=== PATIENT | female | born 1945 | race Caucasian/White ===

== ENCOUNTER 2017-02-22 18:02 | Inpatient (IN) ==
[2017-02-22] MEDS ORDERED: Ondansetron 4 MG/2 ML VIAL IVP ONE ×3 (18:13→21:00)
[2017-02-22] MEDS ORDERED: *HR* Morphine 2 MG/ML SYRINGE IVP ONE ×2 (18:13→19:03)
--- NOTE | 2017-02-22 18:20 | Emergency Department Note ---
Disposition Clinical Impression: Abdominal pain Qualifiers: Abdominal location: generalized Qualified Code(s): R10.84 - Generalized abdominal pain Disposition: Still a Patient Condition: Fair Referrals: NONE,PCP [Non-Partnered Physician] - Forms: Work/School Release, ED Satisfaction Letter Abdominal Pain HPI - General Chief Complaint: ED Abdominal Pain Stated Complaint: ABD pain RLQ Time Seen by Provider: 02/22/17 18:12 Nursing Notes Reviewed: Yes Vital Signs Reviewed: Yes - History of Present Illness HPI Narrative: Presents with severe abdominal pain which started at home this morning and started in the right lower quadrant and is now generalized it does radiate to the right flank. The patient 1 week ago did have removal of a polyp as well as stretching or her esophagus through endoscopy. She does have a history of cholecystectomy but not appendectomy. He does not have any vomiting or fever, dysuria or urinary frequency, blood in the urine or stool. Social history: Smoker, no alcohol. She is here with her daughter - Related Data Home Medications Medication Instructions Recorded Confirmed Albuterol Sulfate [Albuterol 2 puff IH Q6H PRN 03/05/15 02/22/17 Inhaler] Carvedilol 25 mg PO BID 03/05/15 02/22/17 Esomeprazole Magnesium [Nexium] 40 mg PO DAILY 03/05/15 02/22/17 Melatonin [Melatin] 3 mg PO HS 03/05/15 02/22/17 Simvastatin 40 mg PO QPM 03/05/15 02/22/17 Beclomethasone Diprop 80mcg [Qvar 1 puff IH BID 05/25/16 02/22/17 80 mcg] Buspirone HCl [Buspar] 5 mg PO BID 05/25/16 02/22/17 Clopidogrel [Plavix] 75 mg PO DAILY 05/25/16 02/22/17 Ezetimibe [Zetia] 10 mg PO DAILY 05/25/16 02/22/17 GlipiZIDE XL (24 HR) [Glucotrol XL] 2.5 mg PO DAILY 05/25/16 02/22/17 Ipratropium/Albuterol Neb [Duoneb] 3 ml IH Q6HR PRN 05/25/16 02/22/17 Lipase/Protease/Amylase [Forrest Dr 6,000 unit PO ACHS 05/25/16 02/22/17 6,000 Units Capsule] Lisinopril [Zestril] 5 mg PO DAILY 05/25/16 02/22/17 Oxycodone HCl 10 mg PO Q6H PRN 05/25/16 02/22/17 Ranitidine HCl [Zantac] 150 mg PO BID 05/25/16 02/22/17 Tizanidine HCl 2 mg PO Q8H PRN 05/25/16 02/22/17 TraZODone 50 mg PO HS 05/25/16 02/22/17 Venlafaxine [Effexor] 75 mg PO BID 05/25/16 02/22/17 Warfarin [Coumadin] 2 mg PO DAILY 01/31/17 02/22/17 Doxycycline 100 mg PO BID 02/22/17 02/22/17 Furosemide [Lasix] 20 mg PO BID PRN 02/22/17 02/22/17 Mirtazapine [Remeron] 15 mg PO HS 02/22/17 02/22/17 Ranolazine [Ranexa] 500 mg PO BID 02/22/17 02/22/17 Allergies Allergy/AdvReac Type Severity Reaction Status Date / Time Latex, Natural Rubber Allergy Severe Swelling Verified 05/25/16 10:00 of Lip/Tongue/Throat Review of Systems: Constitutional: No fever Vision: No blurred vision ENT: No rhinorrhea Respiratory: No cough Allergic: No allergies : No blood in urine GI: No blood in stool Hematologic: No bruising Dermatologic: No skin rash Musculoskeletal: No pain in the extremities Neuro: No numbness of the extremities Abdominal Pain PMH - Past Medical History Medical history: Reports: atrial fibrillation, CHF, COPD, coronary artery disease, hyperlipidemia, hypertension, myocardial infarction, renal disease, TIA , other Female Surgical History: Reports: cholecystectomy, orthopedic, other [employer] history: Reports: no [employer] history Psychiatric history: Reports: anxiety, depression - Social History Smoking status: Current every day smoker Alcohol use: Reports: none Drug use: Reports: none Physical Exam CONSTITUTIONAL: Alert and oriented X3, well-nourished, well appearing, in no apparent distress HEAD: Normocephalic; atraumatic. EYES: PERRL, no scleral icterus. NOSE: The nose is normal in appearance without rhinorrhea RESP: Normal chest excursion with respiration; breath sounds clear and equal bilaterally; no wheezes, rhonchi, or rales CARD: Regular rhythm, without murmurs, rub or gallop ABD: no pulsatile abdominal mass, mild distention, no skin rash moderate generalized tenderness over the entire abdomen is soft,without rigidity, rebound or guarding SKIN: Normal for age and race; warm and dry; no apparent lesions Extremities: Dorsal pedal pulses 1+ and equal bilaterally, no lower extremity peripheral edema Course Vital Signs Temperature 97.9 F 02/22/17 18:06 Pulse Rate 77 02/22/17 18:06 Respiratory Rate 20 02/22/17 18:06 Blood Pressure 189/109 02/22/17 18:06 O2 Sat by Pulse Oximetry 98 02/22/17 18:06 Temperature 97.9 F 02/22/17 18:06 Pulse Rate 86 02/22/17 19:22 Respiratory Rate 20 02/22/17 19:17 Blood Pressure 173/142 02/22/17 19:22 O2 Sat by Pulse Oximetry 96 02/22/17 19:17 Oxygen Delivery Oxygen Delivery Nasal Cannula Abdominal Pain - MDM Narrative Medical decision making narrative: bedside ultrasound was nondiagnostic, the patient did have a CT of the abdomen in December which does not show evidence of abdominal aortic aneurysm. The patient will have a emergent noncontrast CT, labs including lactate, IV fluids, IV pain medicine with morphine and Zofran, results are pending. Concern for perforation. [address] is not yet completed. She did require a second dose of IV narcotic medicine. Care will be transitioned to Dr. Mcdonald and we did discuss the case in excess care the patient. 1923 - Medical Records Medical records reviewed: Yes I reviewed the patient's medical records. - Lab Data Lab results reviewed: Yes I reviewed the patient's lab results. Result diagrams: 02/22/17 18:27 Lab Results 02/22/17 02/22/17 Range/Units 18:27 18:27 WBC 15.0 H (4.3-11.1) K/mcL RBC 4.58 (3.82-4.97) M/mcL Hgb 13.4 (11.5-15.4) g/dL Hct 42.2 (35.3-44.9) % MCV 92.1 (83.0-100.0) fL MCH 29.3 (28.0-33.3) pg MCHC 31.8 (31.6-35.5) g/dL RDW 15.4 H (11.5-14.5) % Plt Count 267 (140-400) K/mcL MPV 9.7 (9.4-12.4) fL Immature Gran % 1.1 (0-4) % Seg Neutrophils % 81.1 % Lymphocytes % 9.4 % Monocytes % 7.0 % Eosinophils % 1.1 % Basophils % 0.3 % Neutrophils # 12.2 H (1.6-8.9) K/mcL Lymphocytes # 1.4 (0.6-4.6) K/mcL Monocytes # 1.1 (0.0-1.3) K/mcL Eosinophils # 0.2 (0.0-0.6) K/mcL Basophils # 0.1 (0.0-0.2) K/mcL Immature Plt Fraction 3.5 (1.1-6.1) % Lactic Acid 1.4 (0.5-2.2) mmol/L
[2017-02-22 18:40] LABS: Basophils # 0.1 K/mcL (0.0-0.2); Basophils % 0.3 %; Eosinophils # 0.2 K/mcL (0.0-0.6); Eosinophils % 1.1 %; Hematocrit 42.2 % (35.3-44.9); Hemoglobin 13.4 g/dL (11.5-15.4); Immature Granulocytes % 1.1 % (0-4); Immature Platelets 3.5 % (1.1-6.1); Lymphocytes # 1.4 K/mcL (0.6-4.6); Lymphocytes % 9.4 %; Mean Corpuscular HGB Conc 31.8 g/dL (31.6-35.5); Mean Corpuscular Hemoglobin 29.3 pg (28.0-33.3); Mean Corpuscular Volume 92.1 fL (83.0-100.0); Mean Platelet Volume 9.7 fL (9.4-12.4); Monocytes # 1.1 K/mcL (0.0-1.3); Neutrophils # 12.2 K/mcL (1.6-8.9); Platelet Count 267 K/mcL (140-400); Red Blood Count 4.58 M/mcL (3.82-4.97); Red Cell Distribution Width 15.4 % (11.5-14.5); Segmented Neutrophils % 81.1 %
[2017-02-22] MEDS ORDERED: *HR* HYDROmorphone (PF) 1 MG/ML SYRINGE IVP ONE ×2 (19:35→21:13)
[2017-02-22] MEDS ORDERED: 0.9 % Sodium Chloride 1,000 ML IVC ONE (20:40)
--- NOTE | 2017-02-22 20:42 | Emergency Department Note ---
Disposition Clinical Impression: Partial small bowel obstruction Abdominal pain Qualifiers: Abdominal location: generalized Qualified Code(s): R10.84 - Generalized abdominal pain Atrial fibrillation Qualifiers: Atrial fibrillation type: chronic Qualified Code(s): I48.2 - Chronic atrial fibrillation Disposition: Admitted As Inpatient Condition: Serious Time of Disposition: 20:42 Abdominal Pain HPI - General Chief Complaint: ED Abdominal Pain Stated Complaint: ABD pain RLQ Time Seen by Provider: 02/22/17 18:12 Source: patient Mode of arrival: ambulatory Limitations: no limitations Nursing Notes Reviewed: Yes Vital Signs Reviewed: Yes - History of Present Illness Pain Scale: 9 - Related Data Home Medications Medication Instructions Recorded Confirmed Albuterol Sulfate [Albuterol 2 puff IH Q6H PRN 03/05/15 02/22/17 Inhaler] Carvedilol 25 mg PO BID 03/05/15 02/22/17 Esomeprazole Magnesium [Nexium] 40 mg PO DAILY 03/05/15 02/22/17 Melatonin [Melatin] 3 mg PO HS 03/05/15 02/22/17 Simvastatin 40 mg PO QPM 03/05/15 02/22/17 Beclomethasone Diprop 80mcg [Qvar 1 puff IH BID 05/25/16 02/22/17 80 mcg] Buspirone HCl [Buspar] 5 mg PO BID 05/25/16 02/22/17 Clopidogrel [Plavix] 75 mg PO DAILY 05/25/16 02/22/17 Ezetimibe [Zetia] 10 mg PO DAILY 05/25/16 02/22/17 GlipiZIDE XL (24 HR) [Glucotrol XL] 2.5 mg PO DAILY 05/25/16 02/22/17 Ipratropium/Albuterol Neb [Duoneb] 3 ml IH Q6HR PRN 05/25/16 02/22/17 Lipase/Protease/Amylase [Creon Dr 6,000 unit PO ACHS 05/25/16 02/22/17 6,000 Units Capsule] Lisinopril [Zestril] 5 mg PO DAILY 05/25/16 02/22/17 Oxycodone HCl 10 mg PO Q6H PRN 05/25/16 02/22/17 Ranitidine HCl [Zantac] 150 mg PO BID 05/25/16 02/22/17 Tizanidine HCl 2 mg PO Q8H PRN 05/25/16 02/22/17 TraZODone 50 mg PO HS 05/25/16 02/22/17 Venlafaxine [Effexor] 75 mg PO BID 05/25/16 02/22/17 Warfarin [Coumadin] 2 mg PO DAILY 01/31/17 02/22/17 Doxycycline 100 mg PO BID 02/22/17 02/22/17 Furosemide [Lasix] 20 mg PO BID PRN 02/22/17 02/22/17 Mirtazapine [Remeron] 15 mg PO HS 02/22/17 02/22/17 Ranolazine [Ranexa] 500 mg PO BID 02/22/17 02/22/17 Allergies Allergy/AdvReac Type Severity Reaction Status Date / Time Latex, Natural Rubber Allergy Severe Swelling Verified 05/25/16 10:00 of Lip/Tongue/Throat Abdominal Pain PMH - Past Medical History Medical history: Reports: atrial fibrillation, CHF, COPD, coronary artery disease, hyperlipidemia, hypertension, myocardial infarction, renal disease, TIA , other Female Surgical History: Reports: cholecystectomy, orthopedic, other [employer]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 Damon his documentation for further information about the patient. Lower quadrant abdominal pain started today. Recent esophageal dilitation. Vital signs with elevated blood pressure, improved after pain medication, abdominal exam shows moderate tenderness to palpation, patient has CT evidence of possible small bowel obstruction, landed admitted to medicine service Dr. Deluca accepts we will place NG tube in the emergency department, I did vocational counselor Dr. Mcmillan services while he discussed NG tube placement he will be available for surgical consultation at the time of exam patient is not peritoneal she is reevaluated after dose of Dilaudid Vital Signs Temperature 97.9 F 02/22/17 18:06 Pulse Rate 77 02/22/17 18:06 Respiratory Rate 20 02/22/17 18:06 Blood Pressure 189/109 02/22/17 18:06 O2 Sat by Pulse Oximetry 98 02/22/17 18:06 Temperature 97.9 F 02/22/17 18:06 Pulse Rate 69 02/22/17 19:38 Respiratory Rate 18 02/22/17 19:38 Blood Pressure 174/95 02/22/17 19:38 O2 Sat by Pulse Oximetry 99 02/22/17 19:38 Oxygen Delivery Oxygen Delivery Nasal Cannula Abdominal Pain - Differential Diagnosis Differential Diagnosis: Likely: abdominal pain non-specific, constipation, small bowel obstruction - Medical Records Medical records reviewed: Yes I reviewed the patient's medical records. - Lab Data Lab results reviewed: Yes I reviewed the patient's lab results. Result diagrams: 02/22/17 18:27 02/22/17 18:27 Lab Results 02/22/17 02/22/17 02/22/17 Range/Units 18:27 18:27 18:27 WBC 15.0 H (4.3-11.1) K/mcL RBC 4.58 (3.82-4.97) M/mcL Hgb 13.4 (11.5-15.4) g/dL Hct 42.2 (35.3-44.9) % MCV 92.1 (83.0-100.0) fL MCH 29.3 (28.0-33.3) pg MCHC 31.8 (31.6-35.5) g/dL RDW 15.4 H (11.5-14.5) % Plt Count 267 (140-400) K/mcL MPV 9.7 (9.4-12.4) fL Immature Gran % 1.1 (0-4) % Seg Neutrophils % 81.1 % Lymphocytes % 9.4 % Monocytes % 7.0 % Eosinophils % 1.1 % Basophils % 0.3 % Neutrophils # 12.2 H (1.6-8.9) K/mcL Lymphocytes # 1.4 (0.6-4.6) K/mcL Monocytes # 1.1 (0.0-1.3) K/mcL Eosinophils # 0.2 (0.0-0.6) K/mcL Basophils # 0.1 (0.0-0.2) K/mcL Immature Plt Fraction 3.5 (1.1-6.1) % PT (9.4-12.1) Seconds INR Sodium 137 (136-145) mEq/L Potassium 4.4 (3.5-4.5) mEq/L Chloride 101 (98-109) mEq/L Carbon Dioxide 23 (19-29) mEq/L BUN 30 H (7-20) mg/dL Creatinine 1.08 (0.57-1.11) mg/dL Est GFR ( Amer) > 60 (> 60) Est GFR (Non-Af Amer) 50 L (> 60) BUN/Creatinine Ratio 28 H (6-26) Glucose 125 H (70-99) mg/dL Calculated Osmolality 292 (280-300) Lactic Acid 1.4 (0.5-2.2) mmol/L Calcium 10.2 (8.6-10.8) mg/dL Total Bilirubin 0.7 (0.2-1.2) mg/dL Direct Bilirubin 0.4 (0.0-0.5) mg/dL Indirect Bilirubin 0.3 (0.0-1.2) mg/dL AST 18 (5-34) Units/L ALT 9 (0-55) Units/L Alkaline Phosphatase 92 (38-126) Units/L Serum Total Protein 7.8 (6.0-8.3) g/dL Albumin 3.8 (3.5-5.0) g/dL Globulin 4.0 H (2.4-3.5) g/dL Albumin/Globulin Ratio 1.0 L (1.1-2.2) Lipase 36 (8-78) Units/L // Range/Units 18:27 WBC (4.3-11.1) K/mcL RBC (3.82-4.97) M/mcL Hgb (11.5-15.4) g/dL Hct (35.3-44.9) % MCV (83.0-100.0) fL MCH (28.0-33.3) pg MCHC (31.6-35.5) g/dL RDW (11.5-14.5) % Plt Count (140-400) K/mcL MPV (9.4-12.4) fL Immature Gran % (0-4) % Seg Neutrophils % % Lymphocytes % % Monocytes % % Eosinophils % % Basophils % % Neutrophils # (1.6-8.9) K/mcL Lymphocytes # (0.6-4.6) K/mcL Monocytes # (0.0-1.3) K/mcL Eosinophils # (0.0-0.6) K/mcL Basophils # (0.0-0.2) K/mcL Immature Plt Fraction (1.1-6.1) % PT 31.9 H (9.4-12.1) Seconds INR 2.9 Sodium (136-145) mEq/L Potassium (3.5-4.5) mEq/L Chloride (98-109) mEq/L Carbon Dioxide (19-29) mEq/L BUN (7-20) mg/dL Creatinine (0.57-1.11) mg/dL Est GFR ( Amer) (> 60) Est GFR (Non-Af Amer) (> 60) BUN/Creatinine Ratio (6-26) Glucose (70-99) mg/dL Calculated Osmolality (280-300) Lactic Acid (0.5-2.2) mmol/L Calcium (8.6-10.8) mg/dL Total Bilirubin (0.2-1.2) mg/dL Direct Bilirubin (0.0-0.5) mg/dL Indirect Bilirubin (0.0-1.2) mg/dL AST (5-34) Units/L ALT (0-55) Units/L Alkaline Phosphatase (38-126) Units/L Serum Total Protein (6.0-8.3) g/dL Albumin (3.5-5.0) g/dL Globulin (2.4-3.5) g/dL Albumin/Globulin Ratio (1.1-2.2) Lipase (8-78) Units/L - Radiology Data Radiology results reviewed: Yes I reviewed the patient's radiology results. Abdomen/Pelvis CT 02/22/17 18:14 IMPRESSION: Ascites Multiple stable renal lesions Disproportionate small-bowel distention extending to the distal 3rd of the ileum. Findings raise the question of a developing small bowel obstruction with transition in the ileum. There is mild stranding in the fat adjacent to multiple pelvic small bowel loops. Basilar interstitial prominence again noted with fibrotic change in the lingula. Caliber change in the posterior duodenum centered on image 49. This is indeterminate without defined mass. D/ / Rosendo Nelson / Rosendo Nelson Interpreting Provider: Rosendo Nelson Attestation Statement - Attestation Attestation: I, Kris Mcdonald MD, personally evaluated this patient and discussed their management with the resident physician. I reviewed the resident's note and agree with the documented findings, medical decision making, and plan of care. This patient was signed out at shift change from Dr. Damon. Please refer to his note for complete details of the history and physical examination. At shift change patient is awaiting test results and a CT of the abdomen and pelvis. Patient is a 71-year-old female who recently had an upper endoscopy and presented complaining of abdominal pain with dry heaves. On examination patient is a cachectic elderly female in no acute distress. She appears chronically ill. There is no cyanosis or diaphoresis. Breath sounds are decreased but clear and equal bilaterally. Heart regular rate and rhythm. Abdomen is soft with decreased bowel sounds. There is moderate diffuse tenderness. Mild guarding but no rebound tenderness. Labs reviewed. Leukocytosis noted. CT showed a possible early small bowel obstruction. Dr. Cruz discussed with the surgeon manager personal, Dr. Mcmillan, and he recommended admission by the hospitalist and he will consult on the patient. The hospitalist, Dr. Deluca, was consulted and accepted admission of the patient.
[2017-02-22 20:49] LABS: Alanine Aminotransferase 9 Units/L (0-55); Albumin 3.8 g/dL (3.5-5.0); Alkaline Phosphatase 92 Units/L (38-126); Aspartate Amino Transferase 18 Units/L (5-34); BUN/Creatinine Ratio 28 (6-26); Bilirubin,Direct 0.4 mg/dL (0.0-0.5); Bilirubin,Indirect 0.3 mg/dL (0.0-1.2); Bilirubin,Total 0.7 mg/dL (0.2-1.2); Blood Urea Nitrogen 30 mg/dL (7-20); Calcium 10.2 mg/dL (8.6-10.8); Carbon Dioxide 23 mEq/L (19-29); Chloride 101 mEq/L (98-109); Glucose 125 mg/dL (70-99); Lipase 36 Units/L (8-78); Osmolality,Calculated 292 (280-300); Potassium 4.4 mEq/L (3.5-4.5); Sodium 137 mEq/L (136-145); Total Protein 7.8 g/dL (6.0-8.3); eGFR For African Americans > 60 (> 60); eGFR For Non-African Americans 50 (> 60)
[2017-02-22 20:57] LABS: INR 2.9; Prothrombin Time 31.9 Seconds (9.4-12.1)
[2017-02-22] MEDS ORDERED: Ondansetron 4 MG/2 ML VIAL IVP PRN (21:52)
[2017-02-22] MEDS ORDERED: Naloxone 0.4 MG/ML INJ IVP PRN (21:52)
--- NOTE | 2017-02-22 22:29 | Internal Med History&Physical ---
Date of Encounter: 02/22/17 Time of Encounter: 22:15 Assessment and Plan (1) Partial small bowel obstruction Current visit: Yes Status: Acute Acute partial small bowel obstruction - causing severe abdominal pain and nausea NPO, IV fluids, IV Morphine as needed, IV Zofran, IV Protonix NG tube to low intermittent suction CT abdomen and pelvis - ascites, stable renal lesions, possible developing small bowel obstruction with transition in the ileum, basilar interstitial prominence with fibrotic change in the lingula Gen. surgery consult Cardiac telemetry, labs in a.m., continue to monitor closely (2) Atrial fibrillation Current visit: Yes Status: Chronic Chronic atrial fibrillation - rate controlled Continue home medications including carvedilol Anticoagulation with Coumadin, INR is therapeutic Qualifiers: Atrial fibrillation type: chronic Qualified Code(s): I48.2 - Chronic atrial fibrillation (3) COPD (chronic obstructive pulmonary disease) Current visit: No Status: Chronic COPD, stable - nontender exacerbation DuoNeb breathing treatment as needed, continue Beclomethasone Continue O2 via nasal cannula Qualifiers: COPD type: unspecified COPD Qualified Code(s): J44.9 - Chronic obstructive pulmonary disease, unspecified (4) Congestive heart failure Current visit: No Status: Chronic CHF, diastolic dysfunction LVEF 55% - nontender exacerbation Severe tricuspid regurgitation, moderate pulmonary hypertension Continue home meds Qualifiers: Congestive heart failure type: diastolic Congestive heart failure chronicity: chronic Qualified Code(s): I50.32 - Chronic diastolic (congestive ) heart failure (5) CAD (coronary artery disease) Current visit: No Status: Chronic Coronary artery disease status post stents - stable Continue Plavix, statin EKG - pending Troponin - pending Qualifiers: Coronary Disease-Associated Artery/Lesion type: [place] artery [place] vs. transplanted heart: [place] heart Associated angina: without angina Qualified Code(s): I25.10 - Atherosclerotic heart disease of [place] coronary artery without angina pectoris (6) Hypertension Current visit: No Status: Chronic Essential hypertension, uncontrolled, continue home meds, monitor IV hydralazine as needed Qualifiers: Hypertension type: essential hypertension Qualified Code(s): I10 - Essential (primary) hypertension (7) Schatzki's ring Current visit: No Status: Chronic History of Schatzki's ring at the GE junction - s/p recent esophageal dilatation as per family (8) Tobacco abuse Current visit: No Status: Chronic Patient smokes about one pack per day, counseled about cessation, nicotine patch (9) DVT prophylaxis Current visit: Yes Status: Acute Continue anticoagulation with Coumadin INR is therapeutic Internal Medicine - H&P: HPI Chief complaint: Abdominal pain Admitted From: Emergency Dept Plans for Post Hospital Care: Home History of present illness: Ms. [place] is a 71 year old female with PMH of A.fib, CHF, COPD, CAD s/p stents, HLD, HTN, s/p PPM, CKD, anxiety, depression, mitral insufficiency, colonic AVM at the hepatic flexure, atrophic gastritis, diverticulosis, Schatzki's ring at the GE junction status post dilatation and chronic anemia. Patient presents to the ED with complaints of abdominal pain. Examined in the room. Patient is awake and alert. Not in any distress. She is in discomfort due to abdominal pain. Patient is able to provide history. Daughter and niece are at bedside and they provide history as well. Patient states she developed sudden severe abdominal pain this morning. It initially started in the right lower quadrant and now seems to be generalized. Pain seems to radiate to right flank. She describes the pain as constant and cramping and sharp at times. Rates it 7 out of 10. No aggravating or alleviating factors. Patient does complain of associated nausea but no vomiting. Denies fever and denies diarrhea. Patient denies chest pain or shortness of breath. No headache or dizziness. No other acute complaints. Daughter states patient had a recent EGD done. She does have a history of esophageal stenosis and she required dilatation as well recently. Patient also had a polyp removal recently. Initial workup in the ED is significant for elevated white count, therapeutic INR and CT of the abdomen and pelvis without contrast revealed ascites with possible developing small bowel obstruction with transition in the ileum. No other significant findings. ED physician has discussed with on-call general surgeon Dr. Mcmillan. NG tube with intermittent suction will be continued. Patient will be on IV pain control and IV Protonix and IV Zofran. CODE STATUS full code. Past Med Surg Social Fam HX - Past Medical History Medical history: atrial fibrillation, CHF, COPD, coronary artery disease, hyperlipidemia, hypertension, myocardial infarction, renal disease, TIA, other Psychiatric history: anxiety, depression - Past Surgical History Surgical History: angioplasty/stent, other - Social History Smoking Status: Current every day smoker Smokeless Tobacco Status: No Alcohol use: none Drug use: none - Family History Mother Hx Family Neuromuscular Disorders: Yes (epilipsy) Internal Medicine - H&P: Meds Albuterol Sulfate [Albuterol Inhaler] 2 puff IH Q6H PRN 03/05/15 [History] Carvedilol 25 mg PO BID 03/05/15 [History] Esomeprazole Magnesium [Nexium] 40 mg PO DAILY 03/05/15 [History] Melatonin [Melatin] 3 mg PO HS 03/05/15 [History] Simvastatin 40 mg PO QPM 03/05/15 [History] Beclomethasone Diprop 80mcg [Qvar 80 mcg] 1 puff IH BID 05/25/16 [History] Buspirone HCl [Buspar] 5 mg PO BID 05/25/16 [History] Clopidogrel [Plavix] 75 mg PO DAILY 05/25/16 [History] Ezetimibe [Zetia] 10 mg PO DAILY 05/25/16 [History] GlipiZIDE XL (24 HR) [Glucotrol XL] 2.5 mg PO DAILY 05/25/16 [History] Ipratropium/Albuterol Neb [Duoneb] 3 ml IH Q6HR PRN 05/25/16 [History] Lipase/Protease/Amylase [Creon Dr 6,000 Units Capsule] 6,000 unit PO ACHS [History] Lisinopril [Zestril] 5 mg PO DAILY 05/25/16 [History] Oxycodone HCl 10 mg PO Q6H PRN 05/25/16 [History] Ranitidine HCl [Zantac] 150 mg PO BID 05/25/16 [History] Tizanidine HCl 2 mg PO Q8H PRN 05/25/16 [History] TraZODone 50 mg PO HS 05/25/16 [History] Venlafaxine [Effexor] 75 mg PO BID 05/25/16 [History] Warfarin [Coumadin] 2 mg PO DAILY 01/31/17 [History] Doxycycline 100 mg PO BID 02/22/17 [History] Furosemide [Lasix] 20 mg PO BID PRN 02/22/17 [History] Mirtazapine [Remeron] 15 mg PO HS 02/22/17 [History] Ranolazine [Ranexa] 500 mg PO BID 02/22/17 [History] 3 Allergy/AdvReac Type Severity Reaction Status Date / Time Latex, Natural Rubber Allergy Severe Swelling Verified 05/25/16 10:00 of Lip/Tongue/Throat All Systems PM: A 10-system review of systems was performed and is negative for pertinent findings except as documented above in the HPI. - Constitutional Constitutional: fatigue, weakness, no fever(s) - EENT Eyes: no blurry vision - Cardiovascular Cardiovascular ROS IM: no chest pain, no diaphoresis, no dyspnea, no dyspnea on exertion, no edema, no lightheadedness, no orthopnea, no palpitations, no syncope - Respiratory Respiratory: no cough, no dyspnea, no hemoptysis, no dyspnea on exertion, no wheezing, no chest congestion - Gastrointestinal Gastrointestinal: abdominal pain, bloating, cramping, dysphagia, nausea, no constipation, no diarrhea, no hematemesis, no hematochezia, no melena, no vomiting - Musculoskeletal Musculoskeletal ROS IM: no back pain - Neurological Neurological ROS: no abnormal gait, no confusion, no dizziness, no loss of vision, no numbness, no tingling - Constitutional Vitals: Temp Pulse Resp BP Pulse Ox 97.9 F 69 18 160/90 99 02/22/17 18:06 02/22/17 19:38 02/22/17 22:12 02/22/17 22:12 02/22/17 19:38 General appearance: Present: A&O X 3, pleasant, no acute distress, underweight, answers questions appropriately Exam: Generalized weakness, chronically ill-appearing, in discomfort due to abdominal pain - Head Head exam: Present: atraumatic - Eye Eye exam: Present: EOMI - ENT ENT exam: Present: mucous membranes dry - Respiratory Respiratory exam: Present: CTAB. Absent: rales, rhonchi, wheezes, tachypnea - Cardiovascular Cardiovascular exam: Present: irregular rhythm, +S1, +S2 - GI/Abdominal GI/Abdominal exam: Present: distended (Slightly distended), soft, tenderness ( Generalized tenderness). Absent: firm, guarding, rigid - Extremities Exam Extremities exam: Present: radial pulses palpable and symmetrical. Absent: calf tenderness, cyanotic, pedal edema - Neurological Exam Neurological exam: Present: alert, oriented X3, no focal deficits. Absent: facial droop, speech deficit Internal Med - H&P Results - Labs CBC & Chem 7: 02/22/17 18:27 02/22/17 18:27
[2017-02-22] MEDS: *HR* Morphine 2 MG/ML SYRINGE IVP PRN (23:09)
[2017-02-22] MEDS ORDERED: D5% in Water 1,000 ML IVC PRN (23:18)
[2017-02-22] MEDS ORDERED: *HR* Dextrose 50 % in Water (Syg) 50 ML SYRINGE IVP PRN (23:18)
[2017-02-22] MEDS ORDERED: Dextrose Gel 15 GM PO PRN ×2 (23:18)
[2017-02-22] MEDS: Nicotine 14 MG PATCH.TD24 TD SCH (23:51)
[2017-02-22] MEDS: Pantoprazole 40 MG VIAL IVP SCH (23:51)
[2017-02-23] MEDS: Insulin LISPRO 300 UNITS/3 ML VIAL SQ SCH ×4 (00:45→18:06)
[2017-02-23 00:51] LABS: Basophils % 0.2 %; Eosinophils % 0.1 %; Hematocrit 43.8 % (35.3-44.9); Hemoglobin 13.9 g/dL (11.5-15.4); Immature Granulocytes % 0.7 % (0-4); Immature Platelets 3.6 % (1.1-6.1); Lymphocytes # 0.9 K/mcL (0.6-4.6); Lymphocytes % 4.4 %; Mean Corpuscular HGB Conc 31.7 g/dL (31.6-35.5); Mean Corpuscular Hemoglobin 29.4 pg (28.0-33.3); Mean Corpuscular Volume 92.8 fL (83.0-100.0); Mean Platelet Volume 9.7 fL (9.4-12.4); Monocytes # 0.8 K/mcL (0.0-1.3); Monocytes % 4.2 %; Neutrophils # 17.7 K/mcL (1.6-8.9); Platelet Count 281 K/mcL (140-400); Red Blood Count 4.72 M/mcL (3.82-4.97); Red Cell Distribution Width 15.3 % (11.5-14.5); Segmented Neutrophils % 90.4 %
[2017-02-23 01:08] LABS: BUN/Creatinine Ratio 29 (6-26); Blood Urea Nitrogen 30 mg/dL (7-20); Calcium 9.7 mg/dL (8.6-10.8); Carbon Dioxide 22 mEq/L (19-29); Chloride 104 mEq/L (98-109); Glucose 197 mg/dL (70-99); Magnesium 1.2 mg/dL (1.6-2.6); Osmolality,Calculated 298 (280-300); Potassium 4.7 mEq/L (3.5-4.5); Sodium 138 mEq/L (136-145); eGFR For African Americans > 60 (> 60); eGFR For Non-African Americans 53 (> 60)
[2017-02-23] MEDS ORDERED: Ketorolac 15 MG/ML VIAL IVP ONE ×2 (01:10→02:00)
[2017-02-23] MEDS: Ipratropium/Albuterol Neb 3 ML IH SCH ×4 (03:26→22:15)
[2017-02-23] MEDS: *HR* Morphine 2 MG/ML SYRINGE IVP PRN ×3 (03:28→11:59)
[2017-02-23] MEDS: 0.9 % Sodium Chloride 1,000 ML IVC SCH ×2 (05:33→10:27)
[2017-02-23] MEDS: Pantoprazole 40 MG VIAL IVP SCH (07:33)
[2017-02-23] MEDS: (Ezetimibe [Zetia] 10 MG) PO SCH (07:54)
[2017-02-23] MEDS: Ranolazine 500 MG TAB.ER.12H PO SCH ×2 (07:54→21:21)
[2017-02-23] MEDS: Nicotine 14 MG PATCH.TD24 TD SCH (07:54)
--- NOTE | 2017-02-23 08:49 | General Surgery Consult Note ---
Date of Encounter: 02/24/17 Time of Encounter: 08:47 Assessment and Plan (1) Partial small bowel obstruction Current Visit: Yes Status: Acute I explained to the patient that I personally reviewed the CT scan images and laboratory results noting signs of either PSBO or ileus. I agree with NGT decompression and serial abdominal exam. Noted rise in WBC which may be due to stress of pain, however we will watch closely. Agree with IVF hydration and pain control. Discussed with patient and family that other options would be to order a SBF which I will hold on at this time. Will continue to follow with you. History of Present Illness Consult date: 02/23/17 Reason for consult: other (Abdominal pain with nausea) Requesting physician: Brittany Trent History of present illness: The patient is a 71 year old female with a past medical history significant for COPD, CAD, MA, and hypertension who presents to [facility] with a 1 day history of right sided and lower abdominal pain with associated nausea. She States that the pain is constant and sharp and occurred spontaneously yesterday. She denies any recent trauma and denies any diarrhea or constipation. She normally has a BM 1/day and her last BM was two days ago. Past Med Surg Social Fam HX - Past Medical History Medical history: atrial fibrillation, CHF, COPD, coronary artery disease, hyperlipidemia, hypertension, myocardial infarction, renal disease, TIA, other Psychiatric history: anxiety, depression - Past Surgical History Surgical History: angioplasty/stent, cholecystectomy, other (Partial hysterectomy, ankle surgery, bilateral shoulder surgery) - Social History Smoking Status: Current every day smoker Smokeless Tobacco Status: No Alcohol use: none Drug use: none - Family History Mother Hx Family Neuromuscular Disorders: Yes (epilipsy) Medications and Allergies Albuterol Sulfate [Albuterol Inhaler] 2 puff IH Q6H PRN 03/05/15 [History] Carvedilol 25 mg PO BID 03/05/15 [History] Esomeprazole Magnesium [Nexium] 40 mg PO DAILY 03/05/15 [History] Melatonin [Melatin] 3 mg PO HS 03/05/15 [History] Simvastatin 40 mg PO QPM 03/05/15 [History] Beclomethasone Diprop 80mcg [Qvar 80 mcg] 1 puff IH BID 05/25/16 [History] Buspirone HCl [Buspar] 5 mg PO BID 05/25/16 [History] Clopidogrel [Plavix] 75 mg PO DAILY 05/25/16 [History] Ezetimibe [Zetia] 10 mg PO DAILY 05/25/16 [History] GlipiZIDE XL (24 HR) [Glucotrol XL] 2.5 mg PO DAILY 05/25/16 [History] Ipratropium/Albuterol Neb [Duoneb] 3 ml IH Q6HR PRN 05/25/16 [History] Lipase/Protease/Amylase [Forrest Dr 6,000 Units Capsule] 6,000 unit PO ACHS [History] Lisinopril [Zestril] 5 mg PO DAILY 05/25/16 [History] Oxycodone HCl 10 mg PO Q6H PRN 05/25/16 [History] Ranitidine HCl [Zantac] 150 mg PO BID 05/25/16 [History] Tizanidine HCl 2 mg PO Q8H PRN 05/25/16 [History] TraZODone 50 mg PO HS 05/25/16 [History] Venlafaxine [Effexor] 75 mg PO BID 05/25/16 [History] Warfarin [Coumadin] 2 mg PO DAILY 01/31/17 [History] Doxycycline 100 mg PO BID 02/22/17 [History] Furosemide [Lasix] 20 mg PO BID PRN 02/22/17 [History] Mirtazapine [Remeron] 15 mg PO HS 02/22/17 [History] Ranolazine [Ranexa] 500 mg PO BID 02/22/17 [History] 3 Allergy/AdvReac Type Severity Reaction Status Date / Time Latex, Natural Rubber Allergy Severe Swelling Verified 05/25/16 10:00 of Lip/Tongue/Throat Review of Systems All systems PM: reviewed and no additional remarkable complaints except as stated All systems PM: A 10-system review of systems was performed and is negative for pertinent findings except as documented above in the HPI. General Surgery Exam Initial Vital Signs Temp Pulse Resp BP Pulse Ox 97.9 F 77 20 189/109 98 02/22/17 18:06 02/22/17 18:06 02/22/17 18:06 02/22/17 18:06 02/22/17 18:06 - General physical appearance severe distress - Eyes PERRL, normal ocular movement - Neck no masses, trachea midline, no lymphadectomy - Respiratory normal expansion, normal respiratory effort wheezing: bilateral - Abdomen Abdomen general surgery: Present: bowel sounds present, soft, tender ( positive pain to palpation in the RLQ>LLQ. No tympany. No masses.) - Neurologic Present: CN 2-12 grossly intact - Musculoskeletal Present: other (No clubbing, cyanosis, or edema) - Psychiatric Psychiatric general surgery: Present: A&Ox3, oriented to person, oriented to place Exam Initial Vital Signs Temp Pulse Resp BP Pulse Ox 97.9 F 77 20 189/109 98 02/22/17 18:06 02/22/17 18:06 02/22/17 18:06 02/22/17 18:06 02/22/17 18:06 Results - Labs 02/24/17 06:08 02/24/17 06:08 Abnormal lab results WBC 19.6 K/mcL (4.3-11.1) H 02/23/17 00:42 RDW 15.3 % (11.5-14.5) H 02/23/17 00:42 Neutrophils # 17.7 K/mcL (1.6-8.9) H 02/23/17 00:42 PT 31.9 Seconds (9.4-12.1) H 02/22/17 18:27 Potassium 4.7 mEq/L (3.5-4.5) H 02/23/17 00:42 BUN 30 mg/dL (7-20) H 02/23/17 00:42 Est GFR (Non-Af Amer) 53 (> 60) L 02/23/17 00:42 BUN/Creatinine Ratio 29 (6-26) H 02/23/17 00:42 Glucose 197 mg/dL (70-99) H 02/23/17 00:42 POC Glucose 137 (58-89) H 02/23/17 05:41 Magnesium 1.2 mg/dL (1.6-2.6) L 02/23/17 00:42 Globulin 4.0 g/dL (2.4-3.5) H 02/22/17 18:27 Albumin/Globulin Ratio 1.0 (1.1-2.2) L 02/22/17 18:27 Diabetes panel 02/23/17 Range/Units 00:42 Sodium 138 (136-145) mEq/L Potassium 4.7 H (3.5-4.5) mEq/L Chloride 104 (98-109) mEq/L Carbon Dioxide 22 (19-29) mEq/L BUN 30 H (7-20) mg/dL Creatinine 1.03 (0.57-1.11) mg/dL Glucose 197 H (70-99) mg/dL Calcium 9.7 (8.6-10.8) mg/dL Calcium panel 02/23/17 Range/Units 00:42 Calcium 9.7 (8.6-10.8) mg/dL Pituitary panel 02/23/17 Range/Units 00:42 Sodium 138 (136-145) mEq/L Potassium 4.7 H (3.5-4.5) mEq/L Chloride 104 (98-109) mEq/L Carbon Dioxide 22 (19-29) mEq/L BUN 30 H (7-20) mg/dL Creatinine 1.03 (0.57-1.11) mg/dL Glucose 197 H (70-99) mg/dL Calcium 9.7 (8.6-10.8) mg/dL Adrenal panel 02/23/17 Range/Units 00:42 Sodium 138 (136-145) mEq/L Potassium 4.7 H (3.5-4.5) mEq/L Chloride 104 (98-109) mEq/L Carbon Dioxide 22 (19-29) mEq/L BUN 30 H (7-20) mg/dL Creatinine 1.03 (0.57-1.11) mg/dL Glucose 197 H (70-99) mg/dL Calcium 9.7 (8.6-10.8) mg/dL All other labs normal. - Imaging CT scan - abdomen: report reviewed, image reviewed (Noted mild dilation of the small bowel. No free air or fluid. Consistent with SBO vs ileus) Consult Discharge Plan - Plan Referrals: Jeff Cervantes MD [Primary Care Provider] -
[2017-02-23] MEDS: *HR* HYDROmorphone (PF) 1 MG/ML SYRINGE IVP PRN ×3 (08:51→19:36)
[2017-02-23] MEDS: MetroNIDAZOLE 500 MG/100 ML 500 MG/100 ML BAG IVPB SCH ×2 (08:51→19:33)
[2017-02-23 09:20] LABS: INR 3.1; Prothrombin Time 34.3 Seconds (9.4-12.1)
[2017-02-23 10:13] LABS: Hemoglobin A1C 5.8 %
[2017-02-23] MEDS: Magnesium Sulfate 2 GM in D5% in Water 100 ML IVPB SCH ×2 (10:20→12:25)
[2017-02-23] MEDS: Beclomethasone 80mcg MDI IH SCH ×2 (10:26→22:15)
--- NOTE | 2017-02-23 14:24 | Internal Med Progress Note ---
Date of Encounter: 02/23/17 Time of Encounter: 14:22 - Assessment and plan (1) Partial small bowel obstruction Current Visit: Yes Status: Acute Assessment and plan: Abd pain secondary to partial SBO continue NGT decompression NPO IV fluids with caution given history of CHF, closely monitor for volume overload aggressive pain control surgery on board and consultation appreciated will closely monitor (2) Abdominal pain Current Visit: Yes Status: Acute Assessment and plan: as listed above Qualifiers: Abdominal location: generalized Qualified Code(s): R10.84 - Generalized abdominal pain (3) PNA (pneumonia) Current Visit: Yes Status: Acute Assessment and plan: imaging findings concerning for bibasilar opacities concerning for PNA Given worsening Leukocytosis will start empiric IV abx will closely monitor Qualifiers: Pneumonia type: due to unspecified organism Laterality: bilateral Lung location: lower lobe of lung Qualified Code(s): J18.9 - Pneumonia, unspecified organism (4) Hypertension Current Visit: No Status: Chronic Assessment and plan: Noted to be hypertensive likely secondary to painful distress will add hydralazine 10mg IV q6h prn SBP>160 will closely monitor BP aggressive pain control Qualifiers: Hypertension type: essential hypertension Qualified Code(s): I10 - Essential (primary) hypertension (5) Atrial fibrillation Current Visit: Yes Status: Chronic Assessment and plan: rate controlled with BB anticoagulated with coumadin goal INR: 2-3 INR today:3.1 Hold today's coumadin dose will closely monitor INR Qualifiers: Atrial fibrillation type: chronic Qualified Code(s): I48.2 - Chronic atrial fibrillation (6) DVT prophylaxis Current Visit: Yes Status: Acute Assessment and plan: anticoagulated with Coumadin (7) Diastolic CHF Current Visit: No Status: Chronic Assessment and plan: not in acute exacerbation will closely monitor for signs of volume overload continue home medications Qualifiers: Congestive heart failure chronicity: chronic Qualified Code(s): I50.32 - Chronic diastolic (congestive) heart failure (8) COPD (chronic obstructive pulmonary disease) Current Visit: No Status: Chronic Assessment and plan: not in acute exacerbation on halfway oxygen therapy, will continue continue bronchodilator support as needed Qualifiers: COPD type: unspecified COPD Qualified Code(s): J44.9 - Chronic obstructive pulmonary disease, unspecified (9) Electrolyte abnormality Current Visit: Yes Status: Acute Assessment and plan: Hypomagnesemia Mg supplemented continue to monitor electrolytes and replace as needed - Subjective Interval history: Patient seen and examined at bedside. Reports of severe abd pain due to which pain medications were readjusted. - Constitutional Vitals: Temp Pulse Resp BP Pulse Ox 98.4 F 69 17 165/68 90 02/23/17 11:59 02/23/17 11:59 02/23/17 11:59 02/23/17 11:59 02/23/17 11:59 General appearance: Present: A&O X 3, pleasant, no acute distress, underweight, answers questions appropriately - Head Head exam: Present: atraumatic, normocephalic - Eye Eye exam: Present: conjuntiva pink, sclera anicteric - Respiratory Respiratory exam: Absent: respiratory distress, wheezes - Cardiovascular Cardiovascular exam: Present: RRR, +S1, +S2. Absent: diastolic murmur, gallop, rubs, systolic murmur - GI/Abdominal GI/Abdominal exam: Present: hypoactive bowel sounds, soft, tenderness (diffuse tenderness) - Extremities Exam Extremities exam: Present: warm, radial pulses palpable and symmetrical. Absent : calf tenderness, pedal edema - Neurological Exam Neurological exam: Present: alert, oriented X3 - Psychiatric Psychiatric exam: Present: normal affect, normal mood Internal Medicine: Result - Labs CBC & Chem 7: 02/23/17 00:42 02/23/17 00:42 Labs: Short CBC 02/23/17 Range/Units 00:42 WBC 19.6 H (4.3-11.1) K/mcL Hgb 13.9 (11.5-15.4) g/dL Hct 43.8 (35.3-44.9) % Plt Count 281 (140-400) K/mcL Neutrophils # 17.7 H (1.6-8.9) K/mcL BMP 02/23/17 00:42 Sodium 138 Potassium 4.7 H Chloride 104 Carbon Dioxide 22 BUN 30 H Creatinine 1.03 Glucose 197 H Calcium 9.7 Cardiac Enzymes 02/23/17 02/23/17 02/23/17 Range/Units 00:42 05:44 11:49 Troponin I 0.03 0.03 0.01 (0-0.03) ng/mL - ABG Interpretation ABG results: PT/INR, D-dimer PT 34.3 Seconds (9.4-12.1) H 02/23/17 09:02 - Impressions Impressions KUB X-Ray 02/23/17 08:35 IMPRESSION: Supportive tubing projects in normal position. Bibasilar, patchy opacities, atelectasis versus pneumonia. D/ / Yakov Mitchell MD / Yakov Mitchell MD Interpreting Provider: Yakov Mitchell MD Consult Discharge Plan - Plan Referrals: Jeff Cervantes MD [Primary Care Provider] -
[2017-02-23] MEDS ORDERED: Levofloxacin 750 MG/150 ML 750 MG/150 ML BAG IVPB SCH ×2 (15:00→18:00)
[2017-02-23] MEDS ORDERED: *HR* Warfarin 2 MG TABLET PO SCH (18:00)
[2017-02-23] MEDS ORDERED: Warfarin perPT PO PRN (18:00)
[2017-02-23] MEDS: Mirtazapine 15 MG TABLET PO SCH (21:21)
[2017-02-24] MEDS: MetroNIDAZOLE 500 MG/100 ML 500 MG/100 ML BAG IVPB SCH ×3 (02:37→15:25)
[2017-02-24] MEDS: Insulin LISPRO 300 UNITS/3 ML VIAL SQ SCH ×4 (02:37→18:29)
[2017-02-24] MEDS: *HR* HYDROmorphone (PF) 1 MG/ML SYRINGE IVP PRN ×5 (02:51→19:49)
[2017-02-24] MEDS: Ipratropium/Albuterol Neb 3 ML IH SCH ×4 (03:46→22:09)
[2017-02-24 06:35] LABS: Basophils % 0.2 %; Hematocrit 40.4 % (35.3-44.9); Hemoglobin 13.1 g/dL (11.5-15.4); Immature Granulocytes % 0.7 % (0-4); Lymphocytes # 1.2 K/mcL (0.6-4.6); Lymphocytes % 5.6 %; Mean Corpuscular HGB Conc 32.4 g/dL (31.6-35.5); Mean Corpuscular Hemoglobin 29.8 pg (28.0-33.3); Mean Platelet Volume 10.1 fL (9.4-12.4); Monocytes # 1.4 K/mcL (0.0-1.3); Monocytes % 6.9 %; Neutrophils # 17.9 K/mcL (1.6-8.9); Platelet Count 226 K/mcL (140-400); Red Blood Count 4.39 M/mcL (3.82-4.97); Red Cell Distribution Width 15.7 % (11.5-14.5); Segmented Neutrophils % 86.6 %
[2017-02-24 06:45] LABS: Prothrombin Time 44.8 Seconds (9.4-12.1)
[2017-02-24 06:48] LABS: BUN/Creatinine Ratio 31 (6-26); Blood Urea Nitrogen 26 mg/dL (7-20); Calcium 9.5 mg/dL (8.6-10.8); Carbon Dioxide 24 mEq/L (19-29); Chloride 108 mEq/L (98-109); Glucose 131 mg/dL (70-99); Magnesium 1.7 mg/dL (1.6-2.6); Osmolality,Calculated 299 (280-300); Phosphorous 2.6 mg/dL (2.3-4.7); Potassium 4.2 mEq/L (3.5-4.5); Sodium 141 mEq/L (136-145); eGFR For African Americans > 60 (> 60); eGFR For Non-African Americans > 60 (> 60)
[2017-02-24] MEDS ORDERED: *HR* HYDROmorphone (PF) 1 MG/ML SYRINGE IVP ONE (08:26)
--- NOTE | 2017-02-24 08:31 | General Surgery Progress Note ---
Date of Encounter: 02/24/17 Time of Encounter: 08:28 - Assessment and Plan (1) Partial small bowel obstruction Current Visit: Yes Status: Acute Patient's abdominal pain has worsened and her requirements for pain control have increased. Due to the above, as well as a mildly increased WBC, I do think that an exploration will be necessary to evaluate the bowel to ensure no signs of a surgical emergency. Patient's INR level is 4.0 and will need to first be reversed prior to surgery (to a value of 1.8 or less). Discussed with patient and family and they agree to the above. Subjective Patient reports: other (Patient admits to worsening abdominal pain. No nausea.) Objective Vital Signs - Last 8 Hours Temp Pulse Resp BP Pulse Ox 02/24/17 00:36 99.0 F 77 15 137/82 97 Intake and Output 02/23/17 02/24/17 02/24/17 23:59 07:59 15:59 Intake Total 204 / 204 Output Total 0 / 0 200 / 200 Balance 204 / 204 -200 / -200 Intake: IV Fluids 204 / 204 Magnesium Sulfate 2 GM In 104 / 104 Dextrose 5% 100 ML @ 100 mls/hr IVPB Q4H [facility] Rx#: [id number] Flagyl Premix 500 MG/100 100 / 100 ML 500 mg In 100 ml @ 100 mls/hr IVPB Q8HR [facility] Rx# :[id number] Output: Gastric Tube Lavage 0 / 0 200 / 200 Amount Right Nare 0 / 0 200 / 200 Other: # Urine Diapers 1 Weight 63.1 kg Blood Glucose* 150 165 Patient Weight 02/24/17 23:59 Weight 63.1 kg - General physical appearance severe pain - Abdomen Abdomen: Present: tender (voluntary guarding.) - Labs 02/24/17 06:08 02/24/17 06:08 Diabetes panel 02/23/17 02/24/17 Range/Units 00:42 06:08 Sodium 141 (136-145) mEq/L Potassium 4.2 (3.5-4.5) mEq/L Chloride 108 (98-109) mEq/L Carbon Dioxide 24 (19-29) mEq/L BUN 26 H (7-20) mg/dL Creatinine 0.83 (0.57-1.11) mg/dL Glucose 131 H (70-99) mg/dL Hemoglobin A1c 5.8 H ( - 5.6) % Calcium 9.5 (8.6-10.8) mg/dL Calcium panel 02/24/17 Range/Units 06:08 Calcium 9.5 (8.6-10.8) mg/dL Phosphorus 2.6 (2.3-4.7) mg/dL Pituitary panel 02/24/17 Range/Units 06:08 Sodium 141 (136-145) mEq/L Potassium 4.2 (3.5-4.5) mEq/L Chloride 108 (98-109) mEq/L Carbon Dioxide 24 (19-29) mEq/L BUN 26 H (7-20) mg/dL Creatinine 0.83 (0.57-1.11) mg/dL Glucose 131 H (70-99) mg/dL Calcium 9.5 (8.6-10.8) mg/dL Adrenal panel 02/24/17 Range/Units 06:08 Sodium 141 (136-145) mEq/L Potassium 4.2 (3.5-4.5) mEq/L Chloride 108 (98-109) mEq/L Carbon Dioxide 24 (19-29) mEq/L BUN 26 H (7-20) mg/dL Creatinine 0.83 (0.57-1.11) mg/dL Glucose 131 H (70-99) mg/dL Calcium 9.5 (8.6-10.8) mg/dL Consult Discharge Plan - Plan Referrals: Jeff Cervantes MD [Primary Care Provider] -
[2017-02-24] MEDS: Ranolazine 500 MG TAB.ER.12H PO SCH ×2 (08:52→19:41)
[2017-02-24] MEDS: Nicotine 14 MG PATCH.TD24 TD SCH (08:52)
[2017-02-24] MEDS: (Ezetimibe [Zetia] 10 MG) PO SCH (08:52)
[2017-02-24] MEDS: Pantoprazole 40 MG VIAL IVP SCH (09:06)
[2017-02-24] MEDS: Beclomethasone 80mcg MDI IH SCH ×2 (09:53→22:13)
[2017-02-24] MEDS ORDERED: 0.9 % Sodium Chloride 250 ML ONE ×4 (10:28→20:40)
[2017-02-24 12:12] LABS: Bilirubin,Urine Negative (Negative); Blood,Urine Negative (Negative); Clarity,Urine Clear (Clear); Color,Urine Yellow (Yellow); Glucose,Urine (UA) Normal (Normal); Ketones,Urine Negative (Negative); Leukocyte Esterase,Urine Negative (Negative); Nitrite,Urine Negative (Negative); Protein,Urine 100 mg/dL (Neg-Trace); Specific Gravity,Urine 1.019 (1.010-1.025); Urobilinogen,Urine Normal (Normal)
[2017-02-24 12:14] LABS: Bacteria,Urine None Seen per hpf (None-Few); Hyaline Casts,Urine None Seen per lpf (None-Few); Squamous Epithelial Cell,Urine Many per lpf (None-Few)
--- NOTE | 2017-02-24 13:06 | Internal Med Progress Note ---
Date of Encounter: 02/24/17 Time of Encounter: 09:05 - Assessment and plan (1) Partial small bowel obstruction Current Visit: Yes Status: Acute Assessment and plan: Abd pain secondary to partial SBO continue NGT decompression NPO IV fluids with caution given history of CHF, closely monitor for volume overload aggressive pain control surgery on board and consultation appreciated, awaiting INR reversal and PPM interrogation for surgery will closely monitor (2) Abdominal pain Current Visit: Yes Status: Acute Assessment and plan: as listed above Qualifiers: Abdominal location: generalized Qualified Code(s): R10.84 - Generalized abdominal pain (3) PNA (pneumonia) Current Visit: Yes Status: Acute Assessment and plan: imaging findings concerning for bibasilar opacities concerning for PNA continue IV abx will closely monitor Qualifiers: Pneumonia type: due to unspecified organism Laterality: bilateral Lung location: lower lobe of lung Qualified Code(s): J18.9 - Pneumonia, unspecified organism (4) Hypertension Current Visit: No Status: Chronic Assessment and plan: Noted to be hypertensive likely secondary to painful distress hydralazine 10mg IV q6h prn SBP>160 will closely monitor BP aggressive pain control Qualifiers: Hypertension type: essential hypertension Qualified Code(s): I10 - Essential (primary) hypertension (5) Atrial fibrillation Current Visit: Yes Status: Chronic Assessment and plan: rate controlled with BB anticoagulated with coumadin goal INR: 2-3 INR today:4.0 D/C coumadin at this time given need for urgent surgery FFP for INR reversal Qualifiers: Atrial fibrillation type: chronic Qualified Code(s): I48.2 - Chronic atrial fibrillation (6) DVT prophylaxis Current Visit: Yes Status: Acute Assessment and plan: anticoagulated with Coumadin (7) Diastolic CHF Current Visit: No Status: Chronic Assessment and plan: not in acute exacerbation will closely monitor for signs of volume overload continue home medications Qualifiers: Congestive heart failure chronicity: chronic Qualified Code(s): I50.32 - Chronic diastolic (congestive) heart failure (8) COPD (chronic obstructive pulmonary disease) Current Visit: No Status: Chronic Assessment and plan: not in acute exacerbation on fci oxygen therapy, will continue continue bronchodilator support as needed Qualifiers: COPD type: unspecified COPD Qualified Code(s): J44.9 - Chronic obstructive pulmonary disease, unspecified (9) Electrolyte abnormality Current Visit: Yes Status: Resolved Assessment and plan: continue to monitor electrolytes and replace as needed - Subjective Interval history: Patient seen and examined with family present at bedside. Patient resting in bed and states pain is currently controlled with the pain medications, however she has been requiring pain medications more frequently. Given patient's worsening of abd pain and worsening leukocytosis, patient is to undergo exploratory laparatomy. Awaiting INR reversal and PPM interrogation for surgery. - Constitutional Vitals: Temp Pulse Resp BP Pulse Ox 98.0 F 69 17 152/54 97 02/24/17 12:52 02/24/17 12:52 02/24/17 12:52 02/24/17 12:52 02/24/17 12:52 General appearance: Present: A&O X 3, pleasant, no acute distress, underweight, answers questions appropriately - Head Head exam: Present: atraumatic, normocephalic - Eye Eye exam: Present: conjuntiva pink, sclera anicteric - Respiratory Respiratory exam: Absent: respiratory distress, wheezes (bibasilar crackles ) - Cardiovascular Cardiovascular exam: Present: RRR, +S1, +S2. Absent: diastolic murmur, gallop, rubs, systolic murmur - GI/Abdominal GI/Abdominal exam: Present: distended, firm, hypoactive bowel sounds, tenderness (diffuse tenderness to palpation ) - Extremities Exam Extremities exam: Present: warm, radial pulses palpable and symmetrical. Absent : calf tenderness, pedal edema - Neurological Exam Neurological exam: Present: alert, oriented X3 Internal Medicine: Result - Labs CBC & Chem 7: 02/24/17 06:08 02/24/17 06:08 Labs: Short CBC 02/24/17 Range/Units 06:08 WBC 20.7 H (4.3-11.1) K/mcL Hgb 13.1 (11.5-15.4) g/dL Hct 40.4 (35.3-44.9) % Plt Count 226 (140-400) K/mcL Neutrophils # 17.9 H (1.6-8.9) K/mcL BMP 02/24/17 06:08 Sodium 141 Potassium 4.2 Chloride 108 Carbon Dioxide 24 BUN 26 H Creatinine 0.83 Glucose 131 H Calcium 9.5 Urine 02/24/17 Range/Units 11:50 Urine Color Yellow (Yellow) Urine Clarity Clear (Clear) Urine pH 6.0 (5.0-8.0) pH Units Ur Specific [place] 1.019 (1.010-1.025) Urine Protein 100 H (Neg-Trace) mg/dL Urine Glucose (UA) Normal (Normal) mg/dL - ABG Interpretation ABG results: PT/INR, D-dimer PT 44.8 Seconds (9.4-12.1) H* 02/24/17 06:08 - Impressions Impressions Chest X-Ray 02/23/17 14:33 IMPRESSION: Mild left basilar pneumonia. D/ / Noe Fair MD / Noe Fair MD Interpreting Provider: Noe Fair MD Consult Discharge Plan - Plan Referrals: Jeff Cervantes MD [Primary Care Provider] -
[2017-02-24] MEDS: *HR* Morphine 2 MG/ML SYRINGE IVP PRN ×2 (13:24→18:28)
[2017-02-24 15:52] LABS: INR 2.3
[2017-02-24 19:32] LABS: INR 2.2; Prothrombin Time 23.7 Seconds (9.4-12.1)
[2017-02-24] MEDS: Mirtazapine 15 MG TABLET PO SCH (19:41)
[2017-02-24] MEDS ORDERED: *HR* Rocuronium Bromide 50 MG/5 ML VIAL ONE (20:35)
[2017-02-24] MEDS ORDERED: *HR* Propofol 200 MG/20 ML VIAL IVP ONE (20:35)
[2017-02-24] MEDS ORDERED: *HR* Succinylcholine 200 MG/10 ML VIAL IVP ONE (20:35)
[2017-02-24] MEDS ORDERED: *HR* FentaNYL (PF) 100 MCG/2 ML VIAL ONE (20:35)
[2017-02-24] MEDS ORDERED: CefOXitin 1,000 MG VIAL ONE (20:36)
[2017-02-24] MEDS ORDERED: Heparin 1,000 UNITS/500 mL NS 500 ML ONE (20:47)
--- NOTE | 2017-02-24 20:50 | Anesthesia Evaluation PreOp ---
Date of Encounter: 02/24/17 Time of Encounter: 20:50 - Past History Planned Operation: Exploratory Lap Cardiac History: CHF, HTN, Hyperlipidemia, Arrhythmia (AFib), Pacemaker/ICD ( Pacemaker interrogated today) Pulmonary History: Smoker, COPD (Home oxygen) FORGING DIES FINAL FINISHER History: Denies Any Significant HX Other Medical History: Diabetes Type II Anesthesia History: No Prior Anesthetic Complications : No Alcohol Use: none Drug use: none Medications and Allergies Albuterol Sulfate [Albuterol Inhaler] 2 puff IH Q6H PRN 03/05/15 [History] Carvedilol 25 mg PO BID 03/05/15 [History] Esomeprazole Magnesium [Nexium] 40 mg PO DAILY 03/05/15 [History] Melatonin [Melatin] 3 mg PO HS 03/05/15 [History] Simvastatin 40 mg PO QPM 03/05/15 [History] Beclomethasone Diprop 80mcg [Qvar 80 mcg] 1 puff IH BID 05/25/16 [History] Buspirone HCl [Buspar] 5 mg PO BID 05/25/16 [History] Clopidogrel [Plavix] 75 mg PO DAILY 05/25/16 [History] Ezetimibe [Zetia] 10 mg PO DAILY 05/25/16 [History] GlipiZIDE XL (24 HR) [Glucotrol XL] 2.5 mg PO DAILY 05/25/16 [History] Ipratropium/Albuterol Neb [Duoneb] 3 ml IH Q6HR PRN 05/25/16 [History] Lipase/Protease/Amylase [Creon Dr 6,000 Units Capsule] 6,000 unit PO ACHS [History] Lisinopril [Zestril] 5 mg PO DAILY 05/25/16 [History] Oxycodone HCl 10 mg PO Q6H PRN 05/25/16 [History] Ranitidine HCl [Zantac] 150 mg PO BID 05/25/16 [History] Tizanidine HCl 2 mg PO Q8H PRN 05/25/16 [History] TraZODone 50 mg PO HS 05/25/16 [History] Venlafaxine [Effexor] 75 mg PO BID 05/25/16 [History] Warfarin [Coumadin] 2 mg PO DAILY 01/31/17 [History] Doxycycline 100 mg PO BID 02/22/17 [History] Furosemide [Lasix] 20 mg PO BID PRN 02/22/17 [History] Mirtazapine [Remeron] 15 mg PO HS 02/22/17 [History] Ranolazine [Ranexa] 500 mg PO BID 02/22/17 [History] 3 Allergy/AdvReac Type Severity Reaction Status Date / Time Latex, Natural Rubber Allergy Severe Swelling Verified 05/25/16 10:00 of Lip/Tongue/Throat - Meds/Allergy Pre-op Review Medications Reviewed: Yes Allergies Reviewed: Yes Beta Blockers on Current Med List: Yes (Not given due to bowel obstruction) Anesthesia Results - Labs 02/24/17 06:08 02/24/17 06:08 - Imaging EKG: report reviewed (Electronic Ventricular Pacemaker) Additional studies: LVEF 55%, moderare pulmonary HTN Anesthesia Exam O2 Sat Weight 63.1 kg O2 Sat by Pulse Oximetry 97 O2 Sat by Pulse Oximetry 96 O2 Sat by Pulse Oximetry 96 O2 Sat by Pulse Oximetry 96 O2 Sat by Pulse Oximetry 96 O2 Sat by Pulse Oximetry 94 O2 Sat by Pulse Oximetry 97 O2 Sat by Pulse Oximetry 97 O2 Sat by Pulse Oximetry 95 O2 Sat by Pulse Oximetry 95 O2 Sat by Pulse Oximetry 97 O2 Sat by Pulse Oximetry 90 Vital Signs Temp Pulse Resp BP Pulse Ox 97.9 F 77 20 189/109 98 02/22/17 18:06 02/22/17 18:06 02/22/17 18:06 02/22/17 18:06 02/22/17 18:06 Height: 5'0 Weight: 139 lbs NPO (# of Hours): MN Pain Scale: 3 - HEENT Pupil (Motor): Pupils equal, EOMI Mallampati: II Teeth: Edentulous Oral Opening: Greater than 3 - FORGING DIES FINAL FINISHER LOC: Oriented FORGING DIES FINAL FINISHER Motor: Normal RUE, Normal LUE, Normal RLE, Normal LLE, Normal Face FORGING DIES FINAL FINISHER Sensory: Normal: RUE, LUE, RLE, LLE, Face - Cardiac Rhythm: Regular Murmur: None JVD: No Carotid Bruit: No - Pulmonary Breath Sounds: bilateral Clear Respiratory Effort: Symmetrical Anesthesia Assess/Plan ASA Score: 4 (Arrhythmoa, Hx CHF, COPD on home oxygen, DM) Modified Alexandra Scale for Level of Consciousness: Cooperative, oriented, and tranquil Anesthetic Plan: General Monitoring Plan: Standard Monitors, A-Line Recovery Plan: PACU (Discussed GA, possible post op ventilation, agrees to proceed)
[2017-02-24] MEDS ORDERED: Albuterol 2.5 MG/3 ML NEBULIZER ONE (21:04)
[2017-02-24] MEDS ORDERED: Albuterol 2.5 MG/3 ML NEBULIZER IH ONE (21:07)
[2017-02-24] MEDS ORDERED: Lidocaine -MPF 2% 2 ML VIAL ONE ×3 (21:11→22:16)
[2017-02-24] MEDS ORDERED: *HR* Phenylephrine 10 MG/ML VIAL ONE (21:24)
[2017-02-24] MEDS ORDERED: Acetaminophen IV 1,000 MG/100 ML INFUS..BTL ONE (21:43)
[2017-02-24] MEDS ORDERED: *HR* HYDROmorphone 2 MG/ML SYRINGE ONE (22:10)
[2017-02-24] MEDS ORDERED: Neostigmine Methylsulfate 3 MG/3 ML SYRINGE ONE (22:11)
[2017-02-24] MEDS ORDERED: *HR* Promethazine 25 MG/ML VIAL IVP PRN (22:14)
[2017-02-24] MEDS ORDERED: *HR* Labetalol 20 MG/4 ML SYRINGE IVP PRN ×2 (22:14→23:29)
[2017-02-24] MEDS ORDERED: *HR* HYDROmorphone (PF) 1 MG/ML SYRINGE IVP PRN (22:14)
[2017-02-24] MEDS ORDERED: Dexamethasone 4 MG/ML VIAL ONE (22:16)
[2017-02-24] MEDS ORDERED: Ondansetron 4 MG/2 ML VIAL ONE (22:16)
[2017-02-24] MEDS ORDERED: *HR* Metoprolol 5 MG/5 ML VIAL IVP ONE (22:36)
--- NOTE | 2017-02-24 22:38 | Operative Note ---
Date of procedure: 02/24/17 Pre-op diagnosis: Intractable abdominal pain, bowel obstruction Post-op diagnosis: other (Ischemic small bowel) Procedure: Exploratory ceiliotomy. Small bowel resection. Anesthesia: GETA, epidural Surgeon: Soy Mcmillan Recruiting Scheduler: Jelly Hoffman Estimated blood loss (cc): 30 Specimen: small bowel Condition: stable Disposition: PACU Procedure in Detail: Date of surgery: 02/24/17 After properly identifying the patient, the patient was brought to the operating room and placed in the supine position. After proper IV sedation was achieved followed by general endotracheal intubation, the patient's abdomen was prepped and draped in normal sterile fashion. A timeout was performed noting the patient's name and type of procedure to be performed. A 10 blade scalpel was used to make an incision for 5cm above the umbilicus extending inferiorly approximately 4-5 cm below the umbilicus. Bovie cauterization was used to dissect the subcutaneous tissue until the rectus fascia was encountered. The rectus fascia was incised with Bovie cauterization and the abdomen was entered. There is noted reddish appearing ascites fluid was immediately suctioned and the small bowel was examined. The small bowel was run from the ligament of Treitz and the bowel appeared to be somewhat normal to slightly enlarged in diameter with no gross signs of mass effect or internal hernia. There was an omental adhesion noted on the abdominal wall fascia which was taken down with Bovie cauterization. Further evaluation demonstrated evidence of an adherent region in the pelvis. Additional ascites fluid was noted in the pelvis which was immediately suctioned. Bovie cauterization was used to dissect out additional adhesive bands this time in the pelvis and the small bowel segment that was within the pelvis was retracted out of the bowel is noted to be ischemic in nature. This appeared to be due to an internal herniation and circulation of the mesentery. Surgeon was made to go ahead and transect the segment of ischemic small bowel. The small bowel appeared to be the ileum and the afferent and efferent portions of the small bowel near the ischemic segment which appeared to be approximately 30 cm in length was dissected from the mesentery. The small bowel was then transected with a NOEL stapler. The mesentery was transected with a handheld LigaSure. A [id number] anastomosis was created with a NOEL stapler and the enterotomy was closed with a TA stapler. The mesenteric defect was reapproximated with a running 3-0 Vicryl suture. The abdomen was irrigated copiously with normal saline solution containing Mefoxin. The decision was made to go ahead and complete the surgical procedure by placing Seprafilm within the abdomen and closing the abdominal wall fascia with a running looped PDS suture. Subcutaneous tissue was reapproximated with a combination of 0 Vicryl and 2-0 Vicryl sutures and the incision was left open with packing placed to help decrease the risk of infection. Needle, sponge, and instrument counts were correct 2 and the patient was transported to the ICU in stable condition while intubated.
--- NOTE | 2017-02-24 23:33 | Anesthesia Procedures ---
Date of Encounter: 02/24/17 Time of Encounter: 20:47 Procedures: Anesthesia - Arterial Line Consent obtained: written consent Time out performed: Yes Sedation: Fentanyl (mcg): 100 Local Anesthetic: Lidocaine 1% Size (Gauge): 20 Length (inches): 1 3/4 Technique Used: sterile prep, guide wire technique, direct puncture technique Post-Procedure: line taped into place Patient tolerated procedure: well Complications: none Site: Radial L
[2017-02-24] MEDS: 0.9 % Sodium Chloride 1,000 ML IVC SCH ×2 (23:34→23:35)
--- NOTE | 2017-02-24 23:36 | Anesthesia Evaluation Post Op ---
Date of Encounter: 02/24/17 Time of Encounter: 23:30 - Vital Signs Vital Signs: Vital Signs/O2 Sat/Glucose, Most Current Temp Pulse Resp BP Pulse Ox 02/24/17 23:14 16 192/50 99 02/24/17 21:08 98.5 F 69 16 164/65 95 02/24/17 21:01 97.4 F L 69 20 187/75 02/24/17 20:46 98.5 F 16 164/65 02/24/17 20:35 98.2 F 70 18 161/71 97 - Lungs Lungs: Clear Ascult./Percussion - Airway Airway: Intubated - Cardiovascular Baseline Rhythm - Mental Status Mental Status: Non-responsive - Pain Pain Scale: 0 - Nausea Vomiting Nausea Vomiting: Not Present Notes: 02/24/17 23:35 Patient left intubated and taken to ICU. Discussed with Dr Mcmillan and Dr Umanzor Hospitalist covering ICU.
[2017-02-24] MEDS ORDERED: Lacri-Lube 3.5 GM TUBE BOTH EYES PRN (23:57)
[2017-02-25 00:35] LABS: ABG Base Excess 3.8 mEq/L (-2.0 to 3.0); ABG HCO3 30 mEq/L (21-27); ABG Oxygen Saturation 98 % (95-98); ABG PCO2 52 mmHg (35-45); ABG PH 7.37 pH Units (7.32-7.45); ABG PO2 107 mmHg (85-104); ABG TCO2 31.7 mEq/L (20-26); Blood Gas FiO2 80 %; Blood Gas Modality VCT
[2017-02-25] MEDS: 0.9 % Sodium Chloride 1,000 ML IVC SCH (01:14)
[2017-02-25] MEDS: *HR* HYDROmorphone (PF) 1 MG/ML SYRINGE IVP PRN ×3 (01:15→08:03)
[2017-02-25] MEDS: Insulin LISPRO 300 UNITS/3 ML VIAL SQ SCH ×5 (01:24→23:05)
[2017-02-25] MEDS: MetroNIDAZOLE 500 MG/100 ML 500 MG/100 ML BAG IVPB SCH ×4 (01:24→23:04)
[2017-02-25] MEDS: Lacri-Lube 3.5 GM TUBE BOTH EYES SCH ×7 (01:27→23:04)
--- NOTE | 2017-02-25 02:00 | Pulmonology Consult Note ---
<Artem Muñoz - Last Filed: 02/25/17 03:36> Date of Encounter: 02/25/17 Time of Encounter: 02:00 Assessment and Plan (1) Acute on chronic respiratory failure Current Visit: No Status: Acute Patient had difficulty extubating/ weaning off vent post-operatively ABG 02/25/17 revealed pH 7.37, pCO2 52, pO2 107, HCO3 30, and Sp O2 98. Patient has COPD and is dependent on continuous supplemental oxygen at home. Continue ICU monitoring/ ventilatory management Qualifiers: Respiratory failure complication: hypercapnia Qualified Code(s): J96.22 - Acute and chronic respiratory failure with hypercapnia (2) PNA (pneumonia) Current Visit: Yes Status: Acute CT abd/plv 02/22/17 revealed prominent interstitial markings in both lung bases with fibrotic change in the lingula and dependent atelectasis. CXR 02/25/17 revealed findings suggesting pulmonary edema vs. pneumonia Patient started on Levaquin, Cipro, and Flagyl 02/23/17 Leukocytosis 20.7, sputum culture pending Decreased breath sounds bilateral bases Qualifiers: Pneumonia type: due to unspecified organism Laterality: bilateral Lung location: lower lobe of lung Qualified Code(s): J18.9 - Pneumonia, unspecified organism (3) Partial small bowel obstruction Current Visit: Yes Status: Acute POD #1 s/p exploratory ceiliotomy and small bowel resection due to small bowel obstruction. Surgery following (4) Atrial fibrillation Current Visit: Yes Status: Chronic Coumadin reversed prior to surgery. Qualifiers: Atrial fibrillation type: chronic Qualified Code(s): I48.2 - Chronic atrial fibrillation (5) Diabetes mellitus type 2, insulin dependent Current Visit: No Status: Chronic Continue blood glucose monitoring and insulin regimen (6) COPD (chronic obstructive pulmonary disease) Current Visit: No Status: Chronic Continue Duonebs, Beclomethasone, and antibiotics Qualifiers: COPD type: unspecified COPD Qualified Code(s): J44.9 - Chronic obstructive pulmonary disease, unspecified (7) Tobacco abuse Current Visit: No Status: Chronic Tobacco cessation counseling. Continue nicotine patch (8) DVT prophylaxis Current Visit: Yes Status: Acute SCDs. Coumadin reversed prior to surgery. History of Present Illness Consult date: 02/24/17 Requesting physician: Jero Roque Reason for consult: pneumonia (post-op vent management) Chief complaint: abd pain History of present illness: Ms. Montana is a 71 year old female with PMH of COPD, A.fib on Coumadin, CHF, CAD s/p stents, CKD, colonic AVM at the hepatic flexure, Schatzki's ring at the GE junction status post dilatation and chronic anemia that presented to the ICU for post-op ventilator management following exploratory ceiliotomy and small bowel resection due to small bowel obstruction. Patient is intubated and sedated , HPI obtained from the medical record. Patient was admitted on 02/22/17 for acute partial small bowel obstruction causing severe abdominal pain and nausea. Pain initially started in the right lower quadrant and radiated to the right flank then became more generalized. Patient complained of associated nausea but denied fever, chills, chest pain, shortness of breath, vomiting, or diarrhea. Workup in the ED revealed elevated WBC, therapeutic INR, and CT of the abdomen and pelvis without contrast revealed bibasilar opacities concerning for PNA and developing small bowel obstruction with transition in the ileum. General surgeon Dr. Mcmillan was consulted. NG tube with intermittent suction was placed but patient continued to have worsening symptoms despite NG suctioning, IV pain control, IV Protonix, and IV Zofran. Her Coumadin was reversed and patient underwent exploratory ceiliotomy with small bowel resection on 02/24/17. Patient was left intubated postoperatively and taken to ICU. Repeat CXR revealed findings suggesting pulmonary edema vs pneumonia. Code status full code. Left radial arterial line was placed 02/24/17. Past Med Surg Social Fam HX - Past Medical History Medical history: atrial fibrillation, CHF, COPD, coronary artery disease, hyperlipidemia, hypertension, myocardial infarction, renal disease, TIA, other Psychiatric history: anxiety, depression - Past Surgical History Surgical History: angioplasty/stent, cholecystectomy, other (Partial hysterectomy, ankle surgery, bilateral shoulder surgery) - Social History Smoking Status: Current every day smoker Smokeless Tobacco Status: No Alcohol use: none Drug use: none - Family History Mother Hx Family Neuromuscular Disorders: Yes (epilipsy) Medications and Allergies Albuterol Sulfate [Albuterol Inhaler] 2 puff IH Q6H PRN 03/05/15 [History] Carvedilol 25 mg PO BID 03/05/15 [History] Esomeprazole Magnesium [Nexium] 40 mg PO DAILY 03/05/15 [History] Melatonin [Melatin] 3 mg PO HS 03/05/15 [History] Simvastatin 40 mg PO QPM 03/05/15 [History] Beclomethasone Diprop 80mcg [Qvar 80 mcg] 1 puff IH BID 05/25/16 [History] Buspirone HCl [Buspar] 5 mg PO BID 05/25/16 [History] Clopidogrel [Plavix] 75 mg PO DAILY 05/25/16 [History] Ezetimibe [Zetia] 10 mg PO DAILY 05/25/16 [History] GlipiZIDE XL (24 HR) [Glucotrol XL] 2.5 mg PO DAILY 05/25/16 [History] Ipratropium/Albuterol Neb [Duoneb] 3 ml IH Q6HR PRN 05/25/16 [History] Lipase/Protease/Amylase [Creon Dr 6,000 Units Capsule] 6,000 unit PO ACHS [History] Lisinopril [Zestril] 5 mg PO DAILY 05/25/16 [History] Oxycodone HCl 10 mg PO Q6H PRN 05/25/16 [History] Ranitidine HCl [Zantac] 150 mg PO BID 05/25/16 [History] Tizanidine HCl 2 mg PO Q8H PRN 05/25/16 [History] TraZODone 50 mg PO HS 05/25/16 [History] Venlafaxine [Effexor] 75 mg PO BID 05/25/16 [History] Warfarin [Coumadin] 2 mg PO DAILY 01/31/17 [History] Doxycycline 100 mg PO BID 02/22/17 [History] Furosemide [Lasix] 20 mg PO BID PRN 02/22/17 [History] Mirtazapine [Remeron] 15 mg PO HS 02/22/17 [History] Ranolazine [Ranexa] 500 mg PO BID 02/22/17 [History] 3 Allergy/AdvReac Type Severity Reaction Status Date / Time Latex, Natural Rubber Allergy Severe Swelling Verified 05/25/16 10:00 of Lip/Tongue/Throat ROS unobtainable: due to endotracheal tube All Systems: A 10-system review of systems was performed and is negative for pertinent findings except as documented above in the HPI. Physical Examination Vital Signs: Vital Signs, Last 4 Hours Temp Pulse Resp BP Pulse Ox 09/18/17 01:00 96.8 F L 69 16 129/46 98 02/25/17 00:06 18 166/50 100 02/25/17 00:00 69 02/24/17 23:14 16 192/50 99 General appearance: asleep (intubated, sedated, elderly, pale) Eyes: nonicteric ENT: oropharynx dry (ETT in place) Neck: supple, no lymphadenopathy, no JVD Effort: other (ventilated respirations) Auscultation: bilateral: diminished breath sounds (bibasilar) Cardiovascular: irregular rhythm (A-fib) Gastrointestinal: hypoactive bowel sounds, soft (surgical dressing in place, C/D /I), non-distended Integumentary: other (lower abd dressing C/D/I) Extremities: no edema, pink and warm, pulses normal (left radial arterial line in place) Musculoskeletal: no deformities unable to assess due to mental status (sedated) Ventilator Settings Ventilator Settings: Ventilator Settings, Last 8 Hours Ventilator Mode A/C Ventilator Mode VC+ Ventilator Mode VC+ Ventilator Mode VC+ Ventilator Tidal Volume 400 Setting Ventilator Tidal Volume 400 Setting Ventilator Tidal Volume 400 Setting Ventilator Tidal Volume 400 Setting Ventilator Respiratory Rate 16 Setting Ventilator Respiratory Rate 16 Setting Ventilator Respiratory Rate 16 Setting Ventilator Respiratory Rate 16 Setting Actual Respiratory Rate 16 Actual Respiratory Rate 18 Actual Respiratory Rate 16 Positive End Expiratory 5 Pressure Positive End Expiratory 5 Pressure Positive End Expiratory 5 Pressure Positive End Expiratory 5 Pressure Peak Inspiratory Airway 21 Pressure Peak Inspiratory Airway 14 Pressure Peak Inspiratory Airway 19 Pressure Results - Laboratory Findings CBC and BMP: 02/24/17 06:08 02/24/17 06:08 ABG ABG pH 7.37 pH Units (7.32-7.45) 02/25/17 00:27 ABG pCO2 52 mmHg (35-45) H 02/25/17 00:27 ABG pO2 107 mmHg (85-104) H 02/25/17 00:27 ABG O2 Saturation 98 % (95-98) 02/25/17 00:27 PT/INR, D-dimer PT 23.7 Seconds (9.4-12.1) H 02/24/17 19:12 Abnormal lab findings: Abnormal lab results WBC 20.7 K/mcL (4.3-11.1) H 02/24/17 06:08 RDW 15.7 % (11.5-14.5) H 02/24/17 06:08 Neutrophils # 17.9 K/mcL (1.6-8.9) H 02/24/17 06:08 Monocytes # 1.4 K/mcL (0.0-1.3) H 02/24/17 06:08 PT 23.7 Seconds (9.4-12.1) H 02/24/17 19:12 ABG pCO2 52 mmHg (35-45) H 02/25/17 00:27 ABG pO2 107 mmHg (85-104) H 02/25/17 00:27 ABG HCO3 30 mEq/L (21-27) H 02/25/17 00:27 ABG Total CO2 31.7 mEq/L (20-26) H 02/25/17 00:27 ABG Base Excess 3.8 mEq/L (-2.0 to 3.0) H 02/25/17 00:27 BUN 26 mg/dL (7-20) H 02/24/17 06:08 BUN/Creatinine Ratio 31 (6-26) H 02/24/17 06:08 Glucose 131 mg/dL (70-99) H 02/24/17 06:08 POC Glucose 172 (58-89) H 02/24/17 23:17 Hemoglobin A1c 5.8 % (-5.6) H 02/23/17 00:42 Globulin 4.0 g/dL (2.4-3.5) H 02/22/17 18:27 Albumin/Globulin Ratio 1.0 (1.1-2.2) L 02/22/17 18:27 Urine Protein 100 mg/dL (Neg-Trace) H 02/24/17 11:50 Urine Microscopic RBC 5-15 per hpf (0-3) H 02/24/17 11:50 Urine Microscopic WBC 3-5 per hpf (0-3) H 02/24/17 11:50 Ur Squamous Epith Cells Many per lpf (None-Few) H 02/24/17 11:50 - Diagnostic Findings Chest x-ray: report reviewed, image reviewed - Clinical Findings Intake & Output: Intake & Output 02/24/17 02/24/17 02/25/17 15:59 23:59 07:59 Intake Total 729 / 729 416 / 416 Output Total 275 / 275 500 / 500 300 / 300 Balance 454 / 454 -84 / -84 -300 / -300 Consult Discharge Plan - Plan Referrals: Jeff Cervantes MD [Primary Care Provider] - <Jason Sequeira W - Last Filed: 02/25/17 13:48> Date of Encounter: 02/25/17 All Systems: A 10-system review of systems was performed and is negative for pertinent findings except as documented above in the HPI. Physical Examination Vital Signs: Vital Signs, Last 4 Hours Temp Pulse Resp BP Pulse Ox 02/25/17 09:00 69 16 160/62 96 02/25/17 08:09 16 96 02/25/17 08:00 69 16 133/54 96 02/25/17 07:24 97.2 F L 02/25/17 07:00 69 16 145/60 96 02/25/17 06:33 16 135/56 96 02/25/17 06:00 69 16 125/53 97 Ventilator Settings Ventilator Settings: Ventilator Settings, Last 8 Hours Ventilator Mode VC+ Ventilator Mode VC+ Ventilator Mode VC+ Ventilator Mode VC+ Ventilator Mode A/C Ventilator Mode A/C Ventilator Mode A/C Ventilator Mode A/C Ventilator Mode VC+ Ventilator Mode VC+ Ventilator Mode VC+ Ventilator Mode VC+ Ventilator Tidal Volume 400 Setting Ventilator Tidal Volume 400 Setting Ventilator Tidal Volume 400 Setting Ventilator Tidal Volume 400 Setting Ventilator Tidal Volume 400 Setting Ventilator Tidal Volume 400 Setting Ventilator Tidal Volume 400 Setting Ventilator Tidal Volume 400 Setting Ventilator Tidal Volume 400 Setting Ventilator Tidal Volume 400 Setting Ventilator Tidal Volume 400 Setting Ventilator Tidal Volume 400 Setting Ventilator Respiratory Rate 16 Setting Ventilator Respiratory Rate 16 Setting Ventilator Respiratory Rate 16 Setting Ventilator Respiratory Rate 16 Setting Ventilator Respiratory Rate 16 Setting Ventilator Respiratory Rate 16 Setting Ventilator Respiratory Rate 16 Setting Ventilator Respiratory Rate 16 Setting Ventilator Respiratory Rate 16 Setting Ventilator Respiratory Rate 16 Setting Ventilator Respiratory Rate 16 Setting Ventilator Respiratory Rate 16 Setting Actual Respiratory Rate 16 Actual Respiratory Rate 16 Actual Respiratory Rate 16 Actual Respiratory Rate 16 Actual Respiratory Rate 16 Actual Respiratory Rate 16 Actual Respiratory Rate 16 Positive End Expiratory 5 Pressure Positive End Expiratory 5 Pressure Positive End Expiratory 5 Pressure Positive End Expiratory 5 Pressure Positive End Expiratory 5 Pressure Positive End Expiratory 5 Pressure Positive End Expiratory 5 Pressure Positive End Expiratory 5 Pressure Positive End Expiratory 5 Pressure Positive End Expiratory 5 Pressure Positive End Expiratory 5 Pressure Positive End Expiratory 5 Pressure Peak Inspiratory Airway 17 Pressure Peak Inspiratory Airway 18 Pressure Peak Inspiratory Airway 18 Pressure Peak Inspiratory Airway 18 Pressure Peak Inspiratory Airway 20 Pressure Peak Inspiratory Airway 21 Pressure Peak Inspiratory Airway 20 Pressure Results - Laboratory Findings CBC and BMP: 02/25/17 11:32 02/25/17 11:32 ABG ABG pH 7.37 pH Units (7.32-7.45) 02/25/17 00:27 ABG pCO2 52 mmHg (35-45) H 02/25/17 00:27 ABG pO2 107 mmHg (85-104) H 02/25/17 00:27 ABG O2 Saturation 98 % (95-98) 02/25/17 00:27 PT/INR, D-dimer PT 22.8 Seconds (9.4-12.1) H 02/25/17 03:25 Abnormal lab findings: Abnormal lab results WBC 12.3 K/mcL (4.3-11.1) H 02/25/17 03:25 RBC 3.50 M/mcL (3.82-4.97) L 02/25/17 03:25 Hgb 10.2 g/dL (11.5-15.4) L D 02/25/17 03:25 Hct 32.9 % (35.3-44.9) L 02/25/17 03:25 MCHC 31.0 g/dL (31.6-35.5) L 02/25/17 03:25 RDW 15.9 % (11.5-14.5) H 02/25/17 03:25 Neutrophils # 10.9 K/mcL (1.6-8.9) H 02/25/17 03:25 Lymphocytes # 0.5 K/mcL (0.6-4.6) L 02/25/17 03:25 PT 22.8 Seconds (9.4-12.1) H 02/25/17 03:25 ABG pCO2 52 mmHg (35-45) H 02/25/17 00:27 ABG pO2 107 mmHg (85-104) H 02/25/17 00:27 ABG HCO3 30 mEq/L (21-27) H 02/25/17 00:27 ABG Total CO2 31.7 mEq/L (20-26) H 02/25/17 00:27 ABG Base Excess 3.8 mEq/L (-2.0 to 3.0) H 02/25/17 00:27 BUN 24 mg/dL (7-20) H 02/25/17 03:25 BUN/Creatinine Ratio 33 (6-26) H 02/25/17 03:25 Glucose 122 mg/dL (70-99) H 02/25/17 03:25 POC Glucose 115 (58-89) H 02/25/17 04:22 Hemoglobin A1c 5.8 % (-5.6) H 02/23/17 00:42 Calculated Osmolality 301 (280-300) H 02/25/17 03:25 Magnesium 1.5 mg/dL (1.6-2.6) L 02/25/17 03:25 Globulin 4.0 g/dL (2.4-3.5) H 02/22/17 18:27 Albumin/Globulin Ratio 1.0 (1.1-2.2) L 02/22/17 18:27 Urine Protein 100 mg/dL (Neg-Trace) H 02/24/17 11:50 Urine Microscopic RBC 5-15 per hpf (0-3) H 02/24/17 11:50 Urine Microscopic WBC 3-5 per hpf (0-3) H 02/24/17 11:50 Ur Squamous Epith Cells Many per lpf (None-Few) H 02/24/17 11:50 - Clinical Findings Intake & Output: Intake & Output 02/24/17 02/25/17 02/25/17 23:59 07:59 15:59 Intake Total 416 / 416 100 / 100 100 / 100 Output Total 500 / 500 340 / 340 Balance -84 / -84 -240 / -240 100 / 100 Weight 57.5 kg - Attending Attestation I examined this patient and my medical decision-making was reviewed with the Resident Physician. I agree with the documented findings, disposition and treatment plan as described except to the extent set forth below. We independently had [id number] contact with the patient Patient seen and examined at bedside Labs, radiology, chart personally reviewed. Management was reviewed during multidisciplinary critical care rounds. Neuropsych: Sedated on vent. Daily sedation holiday today stop precedex start fentanyl as needed for pain. Pulm: Acute on chronic hypoxic hypercapnic respiratory failure s/t post operative atelectasis and splinting. History of Advanced COPD. Weaning trial today when less sedative. Cards: History of CAD, CHF, HTN. Hypertension poorly controlled at present which is likely related to pain we will continue home antihypertensive and Plavix holding MERYL inhibitor for possibility of significant fluid shifts post surgery FEN-GI: NPO for now. May need TPN discuss with surgery I suspect that timing of this related to ability to liberate from vent. Renal: No SYLWIA at present. Cont to monitor electrolytes and replace per protocol. Holding ACEi; avoid NSAIDS as possible. ID: Sepsis likely intraabdominal source Abx coverage with Levaquin and Flagyl. Pancultures pending. Plan to deescalate based upon sensitivities Heme/Onc: Mild postoperative anemia recheck CBC no overt signs of bleeding continue mechanical DVT prophylaxis Endo: Glucose Monitored Integ/MSK: Skin Care per routine ICU Nursing Protocol to prevent ulcers. Lines: All lines examined without evidence of infection including: PIVs and Urinary Jones Cath. Dispo: Remain in ICU today. CODE: Full Code. I updated her daughter at bedside today
[2017-02-25] MEDS: Ipratropium/Albuterol Neb 3 ML IH SCH ×4 (03:17→21:29)
[2017-02-25 04:23] LABS: Basophils % 0.1 %; Hematocrit 32.9 % (35.3-44.9); Immature Granulocytes % 0.8 % (0-4); Lymphocytes # 0.5 K/mcL (0.6-4.6); Lymphocytes % 3.9 %; Mean Corpuscular Hemoglobin 29.1 pg (28.0-33.3); Mean Platelet Volume 10.1 fL (9.4-12.4); Monocytes # 0.9 K/mcL (0.0-1.3); Monocytes % 6.9 %; Neutrophils # 10.9 K/mcL (1.6-8.9); Platelet Count 174 K/mcL (140-400); Red Cell Distribution Width 15.9 % (11.5-14.5); Segmented Neutrophils % 88.3 %
[2017-02-25 04:26] LABS: Hemoglobin 10.2 g/dL (11.5-15.4); INR 2.1; Prothrombin Time 22.8 Seconds (9.4-12.1)
[2017-02-25 04:39] LABS: BUN/Creatinine Ratio 33 (6-26); Blood Urea Nitrogen 24 mg/dL (7-20); Calcium 8.9 mg/dL (8.6-10.8); Carbon Dioxide 26 mEq/L (19-29); Chloride 108 mEq/L (98-109); Glucose 122 mg/dL (70-99); Magnesium 1.5 mg/dL (1.6-2.6); Osmolality,Calculated 301 (280-300); Phosphorous 2.8 mg/dL (2.3-4.7); Potassium 3.5 mEq/L (3.5-4.5); Sodium 143 mEq/L (136-145); eGFR For African Americans > 60 (> 60); eGFR For Non-African Americans > 60 (> 60)
[2017-02-25] MEDS: *HR* Morphine 2 MG/ML SYRINGE IVP PRN (05:40)
[2017-02-25] MEDS ORDERED: *HR* FentaNYL (PF) 100 MCG/2 ML VIAL IVP ONE (07:42)
--- NOTE | 2017-02-25 07:45 | General Surgery Progress Note ---
Date of Encounter: 02/25/17 Time of Encounter: 07:43 - Assessment and Plan (1) Partial small bowel obstruction Current Visit: Yes Status: Acute Noted findins of small bowel strangulation with ischemia. Detailed below. (2) Ischemic necrosis of small bowel Current Visit: Yes Status: Acute Patient underwent a exploratory celiotomy with small bowel resection yesterday. Dressing is in place and packed and orders will be written for daily changes. Will return of bowel function. Noted mild oozing on the dressing secondary to the patient's elevated INR. This will need to be monitored closely. Ventilatory support and management per hospitalist/critical care. Subjective Patient reports: other (Patient intubated, sedated. Not on pressors. ) Objective Vital Signs - Last 8 Hours Temp Pulse Resp BP Pulse Ox 02/25/17 07:24 97.2 F L 02/25/17 06:33 16 135/56 96 02/25/17 06:00 69 16 125/53 97 02/25/17 05:00 69 16 156/63 99 02/25/17 04:00 97.9 F 69 16 140/58 98 02/25/17 03:18 16 96 02/25/17 03:00 69 16 124/48 96 02/25/17 02:08 16 128/48 98 02/25/17 02:00 98.2 F 69 16 129/47 98 02/25/17 01:00 96.8 F L 69 16 129/46 98 02/25/17 00:30 69 16 146/44 99 02/25/17 00:06 18 166/50 100 02/25/17 00:00 96.3 F L 69 16 155/46 100 02/24/17 23:45 69 16 184/50 100 Intake and Output 02/24/17 02/24/17 02/25/17 15:59 23:59 07:59 Intake Total 729 / 729 416 / 416 100 / 100 Output Total 275 / 275 500 / 500 340 / 340 Balance 454 / 454 -84 / -84 -240 / -240 Intake: IV Fluids 100 / 100 100 / 100 100 / 100 Flagyl Premix 500 MG/100 100 / 100 100 / 100 100 / 100 ML 500 mg In 100 ml @ 100 mls/hr IVPB Q8HR [facility] Rx# :[id number] Blood Product 629 / 629 316 / 316 Plasma Unit 316 / 316 [id number] Plasma Unit 311 / 311 [id number] Plasma Unit 0 / 0 [id number] Plasma Unit 318 / 318 [id number] Output: Urine 275 / 275 200 / 200 Estimated Blood Loss 300 / 300 Catheter 340 / 340 Other: # Voids 1 Weight 57.5 kg Blood Glucose* 157 130 115 Patient Weight 02/25/17 23:59 Weight 57.5 kg - General physical appearance no distress - Respiratory normal expansion, normal respiratory effort (on AC control. Decreased breath sounds at the bases.) - Cardiovascular Cardiovascular exam: Present: RRR - Abdomen Abdomen: Present: soft (No bowel sounds present. Dressing with mild sanginous staining. ) - Musculoskeletal other (No clubbing, cyanosis, or edema) - Labs 02/25/17 03:25 02/25/17 03:25 Diabetes panel 02/25/17 Range/Units 03:25 Sodium 143 (136-145) mEq/L Potassium 3.5 (3.5-4.5) mEq/L Chloride 108 (98-109) mEq/L Carbon Dioxide 26 (19-29) mEq/L BUN 24 H (7-20) mg/dL Creatinine 0.72 (0.57-1.11) mg/dL Glucose 122 H (70-99) mg/dL Calcium 8.9 (8.6-10.8) mg/dL Calcium panel 02/25/17 Range/Units 03:25 Calcium 8.9 (8.6-10.8) mg/dL Phosphorus 2.8 (2.3-4.7) mg/dL Pituitary panel 02/25/17 Range/Units 03:25 Sodium 143 (136-145) mEq/L Potassium 3.5 (3.5-4.5) mEq/L Chloride 108 (98-109) mEq/L Carbon Dioxide 26 (19-29) mEq/L BUN 24 H (7-20) mg/dL Creatinine 0.72 (0.57-1.11) mg/dL Glucose 122 H (70-99) mg/dL Calcium 8.9 (8.6-10.8) mg/dL Adrenal panel 02/25/17 Range/Units 03:25 Sodium 143 (136-145) mEq/L Potassium 3.5 (3.5-4.5) mEq/L Chloride 108 (98-109) mEq/L Carbon Dioxide 26 (19-29) mEq/L BUN 24 H (7-20) mg/dL Creatinine 0.72 (0.57-1.11) mg/dL Glucose 122 H (70-99) mg/dL Calcium 8.9 (8.6-10.8) mg/dL - VTE Documentation of Mechanical Device: Intermittent pneumatic compression device Consult Discharge Plan - Plan Referrals: Jeff Cervantes MD [Primary Care Provider] -
[2017-02-25] MEDS: Pantoprazole 40 MG VIAL IVP SCH (08:06)
[2017-02-25] MEDS ORDERED: Chlorhexidine Rinse 15 ML MOUTHWASH MM SCH (09:00)
[2017-02-25] MEDS ORDERED: FentaNYL (PF) 1,000 MCG in 0.9 % Sodium Chloride 80 ML IVC SCH (09:00)
[2017-02-25] MEDS ORDERED: Lacri-Lube 3.5 GM TUBE BOTH EYES PRN (09:21)
[2017-02-25] MEDS ORDERED: D5% in Water 1,000 ML IVC PRN (09:21)
[2017-02-25] MEDS ORDERED: *HR* Morphine 2 MG/ML SYRINGE IVP PRN (09:21)
[2017-02-25] MEDS ORDERED: Ondansetron 4 MG/2 ML VIAL IVP PRN (09:21)
[2017-02-25] MEDS ORDERED: Dextrose Gel 15 GM PO PRN ×2 (09:21)
[2017-02-25] MEDS ORDERED: *HR* Dextrose 50 % in Water (Syg) 50 ML SYRINGE IVP PRN (09:21)
[2017-02-25] MEDS ORDERED: 0.9 % Sodium Chloride 1,000 ML IVC SCH (09:21)
[2017-02-25] MEDS ORDERED: Naloxone 0.4 MG/ML INJ IVP PRN (09:21)
[2017-02-25] MEDS: FentaNYL (PF) 1,000 MCG in 0.9 % Sodium Chloride 80 ML IVC SCH ×3 (10:13→20:02)
[2017-02-25] MEDS ORDERED: Calcium Gluconate 1,000 MG in D5% in Water 100 ML IVPB PRN (11:00)
[2017-02-25] MEDS: Beclomethasone 80mcg MDI IH SCH ×2 (11:12→21:29)
[2017-02-25 11:43] LABS: Basophils % 0.1 %; Hematocrit 33.2 % (35.3-44.9); Hemoglobin 10.3 g/dL (11.5-15.4); Immature Granulocytes % 0.5 % (0-4); Lymphocytes # 0.6 K/mcL (0.6-4.6); Lymphocytes % 4.5 %; Mean Corpuscular Hemoglobin 29.4 pg (28.0-33.3); Mean Corpuscular Volume 94.9 fL (83.0-100.0); Mean Platelet Volume 10.5 fL (9.4-12.4); Monocytes % 7.8 %; Neutrophils # 11.5 K/mcL (1.6-8.9); Platelet Count 164 K/mcL (140-400); Red Cell Distribution Width 16.2 % (11.5-14.5); Segmented Neutrophils % 87.1 %
[2017-02-25 11:54] LABS: BUN/Creatinine Ratio 36 (6-26); Blood Urea Nitrogen 25 mg/dL (7-20); Calcium 8.6 mg/dL (8.6-10.8); Carbon Dioxide 24 mEq/L (19-29); Chloride 113 mEq/L (98-109); Glucose 111 mg/dL (70-99); Magnesium 1.4 mg/dL (1.6-2.6); Osmolality,Calculated 307 (280-300); Phosphorous 3.7 mg/dL (2.3-4.7); Potassium 3.8 mEq/L (3.5-4.5); Sodium 146 mEq/L (136-145); eGFR For African Americans > 60 (> 60); eGFR For Non-African Americans > 60 (> 60)
[2017-02-25] MEDS ORDERED: 0.9 % Sodium Chloride 1,000 ML ONE (13:31)
[2017-02-25] MEDS: Potassium Phosphate 44 MEQ in 0.9 % Sodium Chloride 250 ML IVPB PRN (14:04)
[2017-02-25] MEDS: Magnesium Sulfate 2 GM in D5% in Water 100 ML IVPB PRN (14:04)
[2017-02-25] MEDS ORDERED: Ringers Solution, Lactated 1,000 ML ONE (14:23)
[2017-02-25] MEDS ORDERED: *HR* Midazolam HCl 2 MG/2 ML VIAL IVP PRN (14:26)
[2017-02-25] MEDS: Dexmedetomidine HCl 400 MCG/100 ML MLS IVC SCH (17:15)
[2017-02-25] MEDS ORDERED: Ringers Solution, Lactated 500 ML IVC ONE (17:24)
[2017-02-25] MEDS: Ranolazine 500 MG TAB.ER.12H PO SCH (19:12)
[2017-02-25] MEDS: Chlorhexidine Rinse 15 ML MOUTHWASH MM SCH (19:16)
[2017-02-25] MEDS ORDERED: Levofloxacin 750 MG/150 ML 750 MG/150 ML BAG IVPB SCH ×2 (21:00)
[2017-02-25] MEDS ORDERED: Mirtazapine 15 MG TABLET PO SCH (21:00)
--- NOTE | 2017-02-25 21:33 | Electrocardiograph Report ---
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
[2017-02-26] MEDS: Lacri-Lube 3.5 GM TUBE BOTH EYES SCH ×2 (01:24→07:47)
[2017-02-26] MEDS: FentaNYL (PF) 1,000 MCG in 0.9 % Sodium Chloride 80 ML IVC SCH (02:01)
[2017-02-26] MEDS: Dexmedetomidine HCl 400 MCG/100 ML MLS IVC SCH ×2 (03:00→20:49)
[2017-02-26 03:07] LABS: Ionized Calcium 1.12 mmol/L (1.15-1.35)
[2017-02-26 03:10] LABS: Basophils % 0.1 %; Eosinophils % 0.1 %; Hematocrit 28.5 % (35.3-44.9); Hemoglobin 8.9 g/dL (11.5-15.4); Immature Granulocytes % 0.9 % (0-4); Lymphocytes # 0.8 K/mcL (0.6-4.6); Lymphocytes % 7.8 %; Mean Corpuscular HGB Conc 31.2 g/dL (31.6-35.5); Mean Platelet Volume 10.1 fL (9.4-12.4); Monocytes # 1.1 K/mcL (0.0-1.3); Monocytes % 10.2 %; Neutrophils # 8.5 K/mcL (1.6-8.9); Platelet Count 161 K/mcL (140-400); Red Blood Count 2.97 M/mcL (3.82-4.97); Red Cell Distribution Width 16.5 % (11.5-14.5); Segmented Neutrophils % 80.9 %
[2017-02-26 03:14] LABS: INR 2.1; Magnesium 1.6 mg/dL (1.6-2.6); Phosphorous 3.4 mg/dL (2.3-4.7); Prothrombin Time 23.5 Seconds (9.4-12.1)
[2017-02-26] MEDS: Ipratropium/Albuterol Neb 3 ML IH SCH ×4 (03:24→22:08)
[2017-02-26] MEDS: Magnesium Sulfate 2 GM in D5% in Water 100 ML IVPB PRN (03:28)
[2017-02-26 03:42] LABS: ABG Base Excess 1.6 mEq/L (-2.0 to 3.0); ABG HCO3 26 mEq/L (21-27); ABG Oxygen Saturation 96 % (95-98); ABG PCO2 38 mmHg (35-45); ABG PH 7.44 pH Units (7.32-7.45); ABG PO2 81 mmHg (85-104)
[2017-02-26 03:43] LABS: Blood Gas FiO2 40 %; Blood Gas Modality VC+
[2017-02-26] MEDS: Insulin LISPRO 300 UNITS/3 ML VIAL SQ SCH ×4 (04:30→23:51)
--- NOTE | 2017-02-26 07:06 | Pulmonology Progress Note ---
<Sammy Rodriguez - Last Filed: 02/26/17 10:58> Date of Encounter: 02/26/17 Time of Encounter: 09:30 Assessment and Plan (1) Acute on chronic respiratory failure Current Visit: Yes Status: Acute Patient has a history of advanced COPD. She has acute on chronic hypoxic hypercapnic respiratory failure. She is alert and oriented 3. Patient went through CPAP trial this a.m. and was extubated. She should be on BiPAP ideally but she refuses and she is currently on 2 L nasal cannula and satting well. ABG today is improved. Continue to monitor vital signs. Patient's home by mouth medications are being held due to inability to swallow at this time. Restart the home medications when able. Continue to wean her off from Precedex. Qualifiers: Respiratory failure complication: hypercapnia Qualified Code(s): J96.22 - Acute and chronic respiratory failure with hypercapnia (2) Hypertension Current Visit: No Status: Chronic Patient has poorly controlled hypertension. Systolic blood pressure ranges from 120s to 160s. Continue the Coreg and hydralazine when necessary for systolic blood pressure over 160. Patient is to remain nothing by mouth therefore her home medications are being held. High blood pressure may be due to pain; therefore, manage pain with fentanyl and monitor vital signs. Qualifiers: Hypertension type: essential hypertension Qualified Code(s): I10 - Essential (primary) hypertension (3) Malnutrition Current Visit: No Status: Acute Patient is nothing by mouth day #5. She is status post expiratory celiotomy and small bowel resection due to small bowel obstruction day #2. We are okay to start her on TPN. Patient denies any appetite. She has low calcium level but phosphorus and magnesium are normal. Discussed with nutrition about the possibility of starting her with TPN Qualifiers: Qualified Code(s): E46 - Unspecified protein-calorie malnutrition (4) Partial small bowel obstruction Current Visit: Yes Status: Acute POD #1 status post exploratory celiotomy and small bowel resection due to small bowel obstruction. Management per surgery. (5) Sepsis Current Visit: Yes Status: Acute Patient's leukocytosis has resolved. She had a temperature of 100.4 yesterday night. Current temperature is normal. Heart rate is regular. Patient continues to be dyspneic. Sepsis source likely intra-abdominal. Pancultures are pending. Continue with Levaquin and Flagyl and de-escalate when sensitivities are available. Qualifiers: Qualified Code(s): A41.9 - Sepsis, unspecified organism (6) Anemia Current Visit: Yes Status: Acute Patient likely has postoperative anemia. No sources of bleeding identified. Hemoglobin dropped today to 8.9. Her hemoglobin has been dropping despite a unit of plasma transfusion on 02/24/17. Patient has history of coagulopathy on Coumadin. INR is 2.1. Recheck CBC and H/H to monitor any further decreasing hemoglobin. If patient's hemoglobin continues to drop, we will administer a dose of vitamin K due to history of coagulopathy. Qualifiers: Anemia type: other cause Qualified Code(s): D64.89 - Other specified anemias (7) Atrial fibrillation Current Visit: No Status: Chronic Patient has history of A. fib on Coumadin. She has not had an episode of A. fib during this admission. Coumadin was reversed prior to surgery. Continue patient on home med Plavix for now. Qualifiers: Atrial fibrillation type: chronic Qualified Code(s): I48.2 - Chronic atrial fibrillation (8) Diabetes mellitus type 2, insulin dependent Current Visit: No Status: Chronic Continue with blood glucose monitoring. Continue with SSI. (9) DVT prophylaxis Current Visit: Yes Status: Acute Patient is already on Plavix due to A. fib. Subjective Principal diagnosis: s/p exploratory celiostomy with SBR Objective PUL Vital signs: Last Vital Signs Temp 99.2 F 02/26/17 04:01 Pulse 69 02/26/17 06:00 Resp 11 02/26/17 06:20 BP 129/49 02/26/17 06:20 Pulse Ox 100 02/26/17 06:20 General appearance: agitated, other (Patient was just extubated) Eyes: nonicteric Neck: supple Effort: mildly labored Auscultation: bilateral: clear Cardiovascular: regular rate and rhythm Gastrointestinal: hypoactive bowel sounds, non-distended Integumentary: normal Extremities: no cyanosis, no edema, no clubbing Musculoskeletal: no deformities normal mental status, other (Patient is agitated, but this is expected due to recent extubation) anxious Ventilator Settings Ventilator Settings: Ventilator Settings, Last 8 Hours Ventilator Mode CPAP Ventilator Mode VC+ Ventilator Mode VC+ Ventilator Mode VC+ Ventilator Mode VC+ Ventilator Mode VC+ Ventilator Mode VC+ Ventilator Mode VC+ Ventilator Mode VC+ Ventilator Mode VC+ Ventilator Mode VC+ Ventilator Mode VC+ Ventilator Mode VC+ Ventilator Tidal Volume 400 Setting Ventilator Tidal Volume 400 Setting Ventilator Tidal Volume 400 Setting Ventilator Tidal Volume 400 Setting Ventilator Tidal Volume 400 Setting Ventilator Tidal Volume 400 Setting Ventilator Tidal Volume 400 Setting Ventilator Tidal Volume 400 Setting Ventilator Tidal Volume 400 Setting Ventilator Tidal Volume 400 Setting Ventilator Tidal Volume 400 Setting Ventilator Tidal Volume 400 Setting Ventilator Respiratory Rate 16 Setting Ventilator Respiratory Rate 16 Setting Ventilator Respiratory Rate 16 Setting Ventilator Respiratory Rate 16 Setting Ventilator Respiratory Rate 16 Setting Ventilator Respiratory Rate 16 Setting Ventilator Respiratory Rate 16 Setting Ventilator Respiratory Rate 16 Setting Ventilator Respiratory Rate 16 Setting Ventilator Respiratory Rate 16 Setting Ventilator Respiratory Rate 16 Setting Ventilator Respiratory Rate 16 Setting Actual Respiratory Rate 11 Actual Respiratory Rate 24 Actual Respiratory Rate 24 Actual Respiratory Rate 19 Actual Respiratory Rate 19 Actual Respiratory Rate 18 Actual Respiratory Rate 20 Actual Respiratory Rate 20 Actual Respiratory Rate 19 Actual Respiratory Rate 20 Actual Respiratory Rate 20 Actual Respiratory Rate 20 Positive End Expiratory 5 Pressure Positive End Expiratory 5 Pressure Positive End Expiratory 5 Pressure Positive End Expiratory 5 Pressure Positive End Expiratory 5 Pressure Positive End Expiratory 5 Pressure Positive End Expiratory 5 Pressure Positive End Expiratory 5 Pressure Positive End Expiratory 5 Pressure Positive End Expiratory 5 Pressure Positive End Expiratory 5 Pressure Positive End Expiratory 5 Pressure Positive End Expiratory 5 Pressure Peak Inspiratory Airway 11 Pressure Peak Inspiratory Airway 19 Pressure Peak Inspiratory Airway 19 Pressure Peak Inspiratory Airway 24 Pressure Peak Inspiratory Airway 24 Pressure Peak Inspiratory Airway 24 Pressure Peak Inspiratory Airway 15 Pressure Peak Inspiratory Airway 15 Pressure Peak Inspiratory Airway 15 Pressure Peak Inspiratory Airway 13 Pressure Peak Inspiratory Airway 13 Pressure Peak Inspiratory Airway 11 Pressure Results - Laboratory Findings CBC and BMP: 02/26/17 03:00 02/26/17 03:00 ABG ABG pH 7.44 pH Units (7.32-7.45) 02/26/17 03:33 ABG pCO2 38 mmHg (35-45) 02/26/17 03:33 ABG pO2 81 mmHg (85-104) L 02/26/17 03:33 ABG O2 Saturation 96 % (95-98) 02/26/17 03:33 PT/INR, D-dimer PT 23.5 Seconds (9.4-12.1) H 02/26/17 03:00 Abnormal lab findings: Abnormal lab results RBC 2.97 M/mcL (3.82-4.97) L 02/26/17 03:00 Hgb 8.9 g/dL (11.5-15.4) L 02/26/17 03:00 Hct 28.5 % (35.3-44.9) L 02/26/17 03:00 MCHC 31.2 g/dL (31.6-35.5) L 02/26/17 03:00 RDW 16.5 % (11.5-14.5) H 02/26/17 03:00 PT 23.5 Seconds (9.4-12.1) H 02/26/17 03:00 ABG pO2 81 mmHg (85-104) L 02/26/17 03:33 ABG Total CO2 27.0 mEq/L (20-26) H 02/26/17 03:33 Sodium 146 mEq/L (136-145) H 02/25/17 11:32 Chloride 113 mEq/L (98-109) H 02/25/17 11:32 BUN 25 mg/dL (7-20) H 02/25/17 11:32 BUN/Creatinine Ratio 36 (6-26) H 02/25/17 11:32 Glucose 111 mg/dL (70-99) H 02/25/17 11:32 POC Glucose 111 (58-89) H 02/26/17 04:29 Hemoglobin A1c 5.8 % (-5.6) H 02/23/17 00:42 Calculated Osmolality 307 (280-300) H 02/25/17 11:32 Ionized Calcium 1.12 mmol/L (1.15-1.35) L 02/26/17 03:00 Globulin 4.0 g/dL (2.4-3.5) H 02/22/17 18:27 Albumin/Globulin Ratio 1.0 (1.1-2.2) L 02/22/17 18:27 Prealbumin 10.0 mg/dL (16.0-38.0) L 02/26/17 03:00 Urine Protein 100 mg/dL (Neg-Trace) H 02/24/17 11:50 Urine Microscopic RBC 5-15 per hpf (0-3) H 02/24/17 11:50 Urine Microscopic WBC 3-5 per hpf (0-3) H 02/24/17 11:50 Ur Squamous Epith Cells Many per lpf (None-Few) H 02/24/17 11:50 - Microbiology Findings Microbiology Findings: Microbiology, Last 48 Hours 02/25/17 16:20 Sputum Culture - Preliminary Sputum - Clinical Findings Intake & Output: Intake & Output 02/25/17 02/25/17 02/26/17 15:59 23:59 07:59 Intake Total 300 / 300 1414 / 1414 404 / 404 Output Total 150 / 150 200 / 200 75 / 75 Balance 150 / 150 1214 / 1214 329 / 329 Weight 58.9 kg - VTE Documentation of Mechanical Device: Venous foot pump, device Consult Discharge Plan - Plan Referrals: Jeff Cervantes MD [Primary Care Provider] - <Jason Sequeira W - Last Filed: 02/26/17 13:20> Date of Encounter: 02/26/17 Objective PUL Vital signs: Last Vital Signs Temp 97.5 F L 02/26/17 12:53 Pulse 69 02/26/17 12:00 Resp 22 02/26/17 12:00 BP 166/55 02/26/17 12:00 Pulse Ox 99 02/26/17 12:00 Ventilator Settings Ventilator Settings: Ventilator Settings, Last 8 Hours Ventilator Mode CPAP Ventilator Mode CPAP Ventilator Mode CPAP Ventilator Mode CPAP Ventilator Mode VC+ Ventilator Mode VC+ Ventilator Tidal Volume 400 Setting Ventilator Tidal Volume 400 Setting Ventilator Tidal Volume 400 Setting Ventilator Respiratory Rate 16 Setting Ventilator Respiratory Rate 16 Setting Actual Respiratory Rate 28 Actual Respiratory Rate 11 Actual Respiratory Rate 24 Actual Respiratory Rate 24 Positive End Expiratory 5 Pressure Positive End Expiratory 5 Pressure Positive End Expiratory 5 Pressure Positive End Expiratory 5 Pressure Peak Inspiratory Airway 11 Pressure Peak Inspiratory Airway 11 Pressure Peak Inspiratory Airway 19 Pressure Peak Inspiratory Airway 19 Pressure Results - Laboratory Findings CBC and BMP: 02/26/17 11:02 02/26/17 03:00 ABG ABG pH 7.44 pH Units (7.32-7.45) 02/26/17 03:33 ABG pCO2 38 mmHg (35-45) 02/26/17 03:33 ABG pO2 81 mmHg (85-104) L 02/26/17 03:33 ABG O2 Saturation 96 % (95-98) 02/26/17 03:33 PT/INR, D-dimer PT 23.5 Seconds (9.4-12.1) H 02/26/17 03:00 Abnormal lab findings: Abnormal lab results WBC 15.1 K/mcL (4.3-11.1) H 02/26/17 11:02 RBC 3.32 M/mcL (3.82-4.97) L 02/26/17 11:02 Hgb 9.8 g/dL (11.5-15.4) L 02/26/17 11:02 Hct 31.8 % (35.3-44.9) L 02/26/17 11:02 MCHC 30.8 g/dL (31.6-35.5) L 02/26/17 11:02 RDW 16.4 % (11.5-14.5) H 02/26/17 11:02 Neutrophils # 12.8 K/mcL (1.6-8.9) H 02/26/17 11:02 Monocytes # 1.4 K/mcL (0.0-1.3) H 02/26/17 11:02 Nucleated RBCs/100 WBC 0.1 /100 WBC (0) H 02/26/17 11:02 PT 23.5 Seconds (9.4-12.1) H 02/26/17 03:00 ABG pO2 81 mmHg (85-104) L 02/26/17 03:33 ABG Total CO2 27.0 mEq/L (20-26) H 02/26/17 03:33 Chloride 112 mEq/L (98-109) H 02/26/17 03:00 BUN 32 mg/dL (7-20) H 02/26/17 03:00 BUN/Creatinine Ratio 38 (6-26) H 02/26/17 03:00 POC Glucose 128 (58-89) H 02/26/17 12:02 Hemoglobin A1c 5.8 % (-5.6) H 02/23/17 00:42 Calculated Osmolality 303 (280-300) H 02/26/17 03:00 Calcium 8.3 mg/dL (8.6-10.8) L 02/26/17 03:00 Ionized Calcium 1.12 mmol/L (1.15-1.35) L 02/26/17 03:00 Globulin 4.0 g/dL (2.4-3.5) H 02/22/17 18:27 Albumin/Globulin Ratio 1.0 (1.1-2.2) L 02/22/17 18:27 Prealbumin 10.0 mg/dL (16.0-38.0) L 02/26/17 03:00 Urine Protein 100 mg/dL (Neg-Trace) H 02/24/17 11:50 Urine Microscopic RBC 5-15 per hpf (0-3) H 02/24/17 11:50 Urine Microscopic WBC 3-5 per hpf (0-3) H 02/24/17 11:50 Ur Squamous Epith Cells Many per lpf (None-Few) H 02/24/17 11:50 - Microbiology Findings Microbiology Findings: Microbiology, Last 48 Hours 02/25/17 16:20 Sputum Culture - Preliminary Sputum - Clinical Findings Intake & Output: Intake & Output 02/25/17 02/26/17 02/26/17 23:59 07:59 15:59 Intake Total 1414 / 1414 404 / 404 175 / 175 Output Total 200 / 200 75 / 75 250 / 250 Balance 1214 / 1214 329 / 329 -75 / -75 Weight 58.9 kg - Attending Attestation I examined this patient and my medical decision-making was reviewed with the Resident Physician. I agree with the documented findings, disposition and treatment plan as described except to the extent set forth below. We independently had [id number] contact with the patient Patient seen and examined at bedside Labs, radiology, chart personally reviewed. Management was reviewed during multidisciplinary critical care rounds. Neuropsych: Sedated on vent. Daily sedation holiday today stop precedex start fentanyl as needed for pain. Pulm: Acute on chronic hypoxic hypercapnic respiratory failure s/t post operative atelectasis and splinting. History of Advanced COPD. successfully liberated from the latter continue supplemental oxygen to keep saturation greater then 88% may need positive airway pressure support Cards: History of CAD, CHF, HTN. Hypertension poorly controlled at present which is likely related to pain are adjusting antihypertensive regimen because of nothing by mouth status. FEN-GI: Postop day #2 status post exploratory celiotomy with small bowel resection Plan to start total parenteral nutrition today General Surgery is following Renal: No SYLWIA at present. Cont to monitor electrolytes and replace per protocol. Holding ACEi; will avoid Protonix occasions ID: Sepsis likely intraabdominal source Abx coverage with Levaquin and Flagyl. Pancultures pending. Plan to deescalate based upon sensitivities Heme/Onc: Mild postoperative anemia recheck CBC shows stable anemia anticoagulated prior to operation for atrial fibrillation holding warfarin at present because she is currently therapeutic without medication no overt signs of bleeding continue mechanical DVT prophylaxis Endo: Glucose Monitored Integ/MSK: Skin Care per routine ICU Nursing Protocol to prevent ulcers. Lines: All lines examined without evidence of infection including: PIVs and Urinary Jones Cath. Dispo: Remain in ICU today. CODE: Full Code. I updated her daughter and granddaughter at bedside today
[2017-02-26] MEDS ORDERED: *HR* Phytonadione 10 MG/ML AMPUL SQ ONE (07:15)
[2017-02-26 07:37] LABS: Sodium 143 mEq/L (136-145)
[2017-02-26 07:38] LABS: BUN/Creatinine Ratio 38 (6-26); Blood Urea Nitrogen 32 mg/dL (7-20); Calcium 8.3 mg/dL (8.6-10.8); Carbon Dioxide 22 mEq/L (19-29); Chloride 112 mEq/L (98-109); Glucose 99 mg/dL (70-99); Osmolality,Calculated 303 (280-300); Potassium 4.5 mEq/L (3.5-4.5); eGFR For African Americans > 60 (> 60); eGFR For Non-African Americans > 60 (> 60)
[2017-02-26] MEDS: MetroNIDAZOLE 500 MG/100 ML 500 MG/100 ML BAG IVPB SCH ×3 (07:44→23:50)
[2017-02-26] MEDS: Pantoprazole 40 MG VIAL IVP SCH (07:46)
[2017-02-26] MEDS: Chlorhexidine Rinse 15 ML MOUTHWASH MM SCH ×2 (07:46→20:11)
[2017-02-26] MEDS: Nicotine 14 MG PATCH.TD24 TD SCH ×2 (07:49→21:21)
[2017-02-26] MEDS: Ranolazine 500 MG TAB.ER.12H PO SCH ×2 (08:34→21:21)
[2017-02-26] MEDS ORDERED: (Ezetimibe [Zetia] 10 MG) PO SCH (09:00)
--- NOTE | 2017-02-26 09:43 | General Surgery Progress Note ---
<OsceolaLorie Christopher - Last Filed: 02/26/17 09:50> Date of Encounter: 02/26/17 Time of Encounter: 09:00 - Assessment and Plan (1) Ischemic necrosis of small bowel Current Visit: Yes Status: Acute POD #2 Exploratory ceiliotomy, Small bowel resection Await return of bowel function NPO with NG tube to LIWS PO meds to be placed on hold PICC line placement TPN therapy while awaiting return of bowel function Total fluid rate will be goal TPN rate IV antibiotics- Levaquin and Flagyl Supportive care and pain control Daily dressing changes ordered- pack with 1/4 inch plain gauze PT/OT consult Out of bed to chair BID PPI therapy daily (2) Partial small bowel obstruction Current Visit: Yes Status: Acute See plan under PSBO (3) Conjunctivitis Current Visit: Yes Status: Acute Eye gtt to left eyes QID Qualifiers: Conjunctivitis type: acute Acute conjunctivitis type: unspecified Laterality: left Qualified Code(s): H10.32 - Unspecified acute conjunctivitis , left eye (4) DVT prophylaxis Current Visit: Yes Status: Acute INR- 2.1 Bilateral foot pumps for DVT prophylaxis Subjective Patient reports: feels better, still having pain (post surgical pain and back discomfort), no flatus, no bowel movement, fever (Tmax 100.4; Tcurrent 98.5), other (Patient extubated this morning and doing well on oxygen via nasal cannula ) Objective Vital Signs - Last 8 Hours Temp Pulse Resp BP Pulse Ox 02/26/17 09:00 69 26 145/45 97 02/26/17 08:31 98.5 F 02/26/17 08:15 19 98 02/26/17 08:13 5 02/26/17 08:00 70 27 126/43 100 02/26/17 07:47 28 167/55 100 02/26/17 07:20 69 02/26/17 07:00 69 18 134/52 100 02/26/17 06:20 11 129/49 100 02/26/17 06:00 69 19 129/56 100 02/26/17 05:56 24 135/57 100 02/26/17 05:02 69 22 113/48 98 02/26/17 04:01 99.2 F 69 18 102/46 98 02/26/17 03:24 18 108/49 100 02/26/17 03:00 69 20 111/49 100 02/26/17 02:00 69 19 108/49 98 02/26/17 01:53 19 161/65 98 Intake and Output 02/25/17 02/26/17 02/26/17 23:59 07:59 15:59 Intake Total 1414 / 1414 404 / 404 Output Total 200 / 200 75 / 75 75 / 75 Balance 1214 / 1214 329 / 329 -75 / -75 Intake: IV Fluids 1414 / 1414 404 / 404 PRECEDEX Premix 400 mcg 100 / 100 In 100 ml @ 0.2 MCG/KG/HR 2.875 mls/hr IVC .Q24H [facility]Y Rx#:[id number] FentaNYL (PF) 1,000 MCG 100 / 100 100 / 100 In 0.9 % Sodium Chloride 80 ML @ 50 MCG/HR 5 mls/ hr IVC CONT REMY Rx#: [id number] Lactated Ringers 500 ML @ 500 / 500 1000 mls/hr IVC .Q30M ONE Rx#:[id number] Levaquin Premix 750mg/150 150 / 150 mL 750 mg In 150 ml @ 100 mls/hr IVPB Q48H REMY Rx#:[id number] Magnesium Sulfate 2 GM In 104 / 104 104 / 104 Dextrose 5% 100 ML @ 50 mls/hr IVPB Q6H PRN Rx#: [id number] Flagyl Premix 500 MG/100 100 / 100 100 / 100 ML 500 mg In 100 ml @ 100 mls/hr IVPB Q8HR REMY Rx# :[id number] Potassium Chloride 10 mEq 200 / 200 /100mL 10 meq In 100 ml @ 100 mls/hr IVPB Q1H PRN Rx#:[id number] Potassium Phosphate 44 260 / 260 MEQ In 0.9 % Sodium Chloride 250 ML @ 40 mls/ hr IVPB Q10H PRN Rx#: [id number] Oral 0 / 0 Output: Urine 100 / 100 Catheter 100 / 100 75 / 75 Gastric Drainage 75 / 75 Other: Weight 58.9 kg Blood Glucose* 103 - General physical appearance well developed, no distress, moderate pain - Eyes other (left eye with redness and drainage noted), PERRL, normal ocular movement - ENT dry mucosa, atraumatic, normocephalic - Neck Neck exam: trachea midline - Respiratory normal respiratory effort, clear to auscultation, other (diminished bibasilar bases) - Cardiovascular Cardiovascular exam: Present: RRR (paced rhythm) - Abdomen Abdomen: Present: soft, tender (expected post-operative tenderness), wound ( Small amount of serousang. drainage noted; NG tube to LIWS with 150ml of bilious drainage noted) - Incision Incision: Present: open (small amount of serousang. drainage noted) - Genitourinary other (hendrickson catheter to SD with clear, yellow urine noted) - Neurologic CN 2-12 grossly intact - Psychiatric oriented to person, oriented to place, speech is normal - Labs 02/26/17 03:00 02/26/17 03:00 Diabetes panel 02/25/17 02/26/17 Range/Units 11:32 03:00 Sodium 146 H 143 (136-145) mEq/L Potassium 3.8 4.5 (3.5-4.5) mEq/L Chloride 113 H 112 H (98-109) mEq/L Carbon Dioxide 24 22 (19-29) mEq/L BUN 25 H 32 H (7-20) mg/dL Creatinine 0.70 0.85 (0.57-1.11) mg/dL Glucose 111 H 99 (70-99) mg/dL Calcium 8.6 8.3 L (8.6-10.8) mg/dL Calcium panel 02/25/17 02/26/17 Range/Units 11:32 03:00 Calcium 8.6 8.3 L (8.6-10.8) mg/dL Phosphorus 3.7 3.4 (2.3-4.7) mg/dL Pituitary panel 02/25/17 02/26/17 Range/Units 11:32 03:00 Sodium 146 H 143 (136-145) mEq/L Potassium 3.8 4.5 (3.5-4.5) mEq/L Chloride 113 H 112 H (98-109) mEq/L Carbon Dioxide 24 22 (19-29) mEq/L BUN 25 H 32 H (7-20) mg/dL Creatinine 0.70 0.85 (0.57-1.11) mg/dL Glucose 111 H 99 (70-99) mg/dL Calcium 8.6 8.3 L (8.6-10.8) mg/dL Adrenal panel 02/25/17 02/26/17 Range/Units 11:32 03:00 Sodium 146 H 143 (136-145) mEq/L Potassium 3.8 4.5 (3.5-4.5) mEq/L Chloride 113 H 112 H (98-109) mEq/L Carbon Dioxide 24 22 (19-29) mEq/L BUN 25 H 32 H (7-20) mg/dL Creatinine 0.70 0.85 (0.57-1.11) mg/dL Glucose 111 H 99 (70-99) mg/dL Calcium 8.6 8.3 L (8.6-10.8) mg/dL - VTE Documentation of Mechanical Device: Intermittent pneumatic compression device Consult Discharge Plan - Plan Referrals: Jeff Cervantes MD [Primary Care Provider] - - Attending Attestation For this encounter, I have reviewed the PRODUCTION CONTROL EXPERT or PA documentation, treatment plan, and medical decision making; and I have had face to face time with this patient. <Soy Mcmillan - Last Filed: 02/27/17 08:12> Date of Encounter: 02/26/17 - Assessment and Plan (1) Partial small bowel obstruction Current Visit: Yes Status: Acute (2) Ischemic necrosis of small bowel Current Visit: Yes Status: Acute Objective Vital Signs - Last 8 Hours Temp Pulse Resp BP Pulse Ox 02/27/17 07:45 97.9 F 02/27/17 07:42 69 02/27/17 07:00 70 24 149/57 97 02/27/17 05:58 98.6 F 02/27/17 05:56 69 23 145/57 97 02/27/17 05:00 69 31 131/55 97 02/27/17 04:00 98.6 F 69 32 133/57 97 02/27/17 03:30 16 98 02/27/17 03:00 69 21 131/56 97 02/27/17 01:48 69 18 153/62 98 02/27/17 01:00 69 17 148/59 98 Intake and Output 02/26/17 02/27/17 02/27/17 23:59 07:59 15:59 Intake Total 200 / 200 350 / 350 Output Total 200 / 200 440 / 440 Balance 0 / 0 -90 / -90 Intake: IV Fluids 200 / 200 350 / 350 PRECEDEX Premix 400 mcg In 100 100 / 100 ml @ 0.2 MCG/KG/HR 2.875 mls/hr IVC .Q24H [facility] Rx#:[id number] Intralipid 20% 250 ML @ 21 mls/ 250 / 250 hr IVPB DAILY@1700 [facility]Y Rx#: [id number] Flagyl Premix 500 MG/100 ML 500 100 / 100 100 / 100 mg In 100 ml @ 100 mls/hr IVPB Q8HR [facility]Y Rx#:[id number] Output: Catheter 200 / 200 350 / 350 Gastric Drainage 90 / 90 Other: Weight 60.6 kg Blood Glucose* 201 Patient Weight 02/27/17 23:59 Weight 60.6 kg - Labs 02/27/17 04:22 02/27/17 04:22 Diabetes panel 02/27/17 02/27/17 Range/Units 04:22 04:22 Sodium 144 (136-145) mEq/L Potassium 3.7 (3.5-4.5) mEq/L Chloride 112 H (98-109) mEq/L Carbon Dioxide 22 (19-29) mEq/L BUN 36 H (7-20) mg/dL Creatinine 0.79 (0.57-1.11) mg/dL Glucose 196 H (70-99) mg/dL Calcium 8.6 (8.6-10.8) mg/dL AST 14 (5-34) Units/L ALT 12 (0-55) Units/L Alkaline Phosphatase 41 (38-126) Units/L Albumin 2.6 L (3.5-5.0) g/dL Triglycerides 113 (< 150) mg/dL Calcium panel 02/27/17 Range/Units 04:22 Calcium 8.6 (8.6-10.8) mg/dL Phosphorus 2.5 (2.3-4.7) mg/dL Albumin 2.6 L (3.5-5.0) g/dL Pituitary panel 02/27/17 Range/Units 04:22 Sodium 144 (136-145) mEq/L Potassium 3.7 (3.5-4.5) mEq/L Chloride 112 H (98-109) mEq/L Carbon Dioxide 22 (19-29) mEq/L BUN 36 H (7-20) mg/dL Creatinine 0.79 (0.57-1.11) mg/dL Glucose 196 H (70-99) mg/dL Calcium 8.6 (8.6-10.8) mg/dL Adrenal panel 02/27/17 Range/Units 04:22 Sodium 144 (136-145) mEq/L Potassium 3.7 (3.5-4.5) mEq/L Chloride 112 H (98-109) mEq/L Carbon Dioxide 22 (19-29) mEq/L BUN 36 H (7-20) mg/dL Creatinine 0.79 (0.57-1.11) mg/dL Glucose 196 H (70-99) mg/dL Calcium 8.6 (8.6-10.8) mg/dL Total Bilirubin 0.5 (0.2-1.2) mg/dL AST 14 (5-34) Units/L ALT 12 (0-55) Units/L Alkaline Phosphatase 41 (38-126) Units/L Albumin 2.6 L (3.5-5.0) g/dL - Attending Attestation Review the above assessment and evaluation and agree with the above plan. Patient extubated this morning. Pain tolerating with IV pain medication. Continue with dressing changes. Start TPN. Await return of bowel function.
[2017-02-26] MEDS: *HR* HYDROmorphone (PF) 1 MG/ML SYRINGE IVP PRN ×4 (10:28→20:49)
[2017-02-26] MEDS: Polymyxn-B/Trimeth Opth Drops 10 ML BOTTLE LEFT EYE SCH ×4 (10:28→20:50)
[2017-02-26] MEDS: Beclomethasone 80mcg MDI IH SCH ×2 (11:01→22:09)
[2017-02-26] MEDS ORDERED: D10% in Water 500 ML IVC PRN (11:05)
[2017-02-26 11:23] LABS: Basophils % 0.1 %; Hematocrit 31.8 % (35.3-44.9); Hemoglobin 9.8 g/dL (11.5-15.4); Immature Granulocytes % 0.9 % (0-4); Lymphocytes # 0.7 K/mcL (0.6-4.6); Lymphocytes % 4.8 %; Mean Corpuscular HGB Conc 30.8 g/dL (31.6-35.5); Mean Corpuscular Hemoglobin 29.5 pg (28.0-33.3); Mean Corpuscular Volume 95.8 fL (83.0-100.0); Mean Platelet Volume 10.2 fL (9.4-12.4); Monocytes # 1.4 K/mcL (0.0-1.3); Neutrophils # 12.8 K/mcL (1.6-8.9); Nucleated Red Blood Cells 0.1 /100 WBC (0); Platelet Count 216 K/mcL (140-400); Red Blood Count 3.32 M/mcL (3.82-4.97); Red Cell Distribution Width 16.4 % (11.5-14.5); Segmented Neutrophils % 85.2 %
[2017-02-26] MEDS ORDERED: *HR* Metoprolol 5 MG/5 ML VIAL IVP ONE (12:11)
[2017-02-26] MEDS ORDERED: Clinimix E 5%-15% SOLUTION 2,000 ML with MVI, adult with vitamin K 10 ML IVC SCH (17:00)
[2017-02-26] MEDS: (Ezetimibe [Zetia] 10 MG) PO SCH (21:21)
[2017-02-27] MEDS: Ipratropium/Albuterol Neb 3 ML IH SCH ×4 (03:30→22:12)
[2017-02-27 04:34] LABS: Basophils % 0.1 %; Eosinophils % 0.5 %; Hematocrit 27.4 % (35.3-44.9); Hemoglobin 8.6 g/dL (11.5-15.4); Immature Granulocytes % 0.8 % (0-4); Lymphocytes # 0.8 K/mcL (0.6-4.6); Lymphocytes % 9.2 %; Mean Corpuscular HGB Conc 31.4 g/dL (31.6-35.5); Mean Corpuscular Hemoglobin 30.3 pg (28.0-33.3); Mean Corpuscular Volume 96.5 fL (83.0-100.0); Monocytes # 0.8 K/mcL (0.0-1.3); Monocytes % 8.9 %; Neutrophils # 6.9 K/mcL (1.6-8.9); Platelet Count 156 K/mcL (140-400); Red Blood Count 2.84 M/mcL (3.82-4.97); Red Cell Distribution Width 16.1 % (11.5-14.5); Segmented Neutrophils % 80.5 %
[2017-02-27 04:50] LABS: Prothrombin Time 22.1 Seconds (9.4-12.1)
[2017-02-27 04:58] LABS: Alanine Aminotransferase 12 Units/L (0-55); Albumin 2.6 g/dL (3.5-5.0); Albumin/Globulin Ratio 0.9 (1.1-2.2); Alkaline Phosphatase 41 Units/L (38-126); Aspartate Amino Transferase 14 Units/L (5-34); BUN/Creatinine Ratio 46 (6-26); Bilirubin,Total 0.5 mg/dL (0.2-1.2); Calcium 8.6 mg/dL (8.6-10.8); Carbon Dioxide 22 mEq/L (19-29); Chloride 112 mEq/L (98-109); Glucose 196 mg/dL (70-99); Magnesium 1.8 mg/dL (1.6-2.6); Osmolality,Calculated 312 (280-300); Phosphorous 2.5 mg/dL (2.3-4.7); Potassium 3.7 mEq/L (3.5-4.5); Sodium 144 mEq/L (136-145); Total Protein 5.6 g/dL (6.0-8.3); eGFR For African Americans > 60 (> 60); eGFR For Non-African Americans > 60 (> 60)
[2017-02-27] MEDS: *HR* HYDROmorphone (PF) 1 MG/ML SYRINGE IVP PRN ×8 (05:47→23:55)
[2017-02-27 06:04] LABS: Blood Urea Nitrogen 36 mg/dL (7-20)
[2017-02-27] MEDS: Insulin LISPRO 300 UNITS/3 ML VIAL SQ SCH ×4 (06:07→20:03)
[2017-02-27 06:14] LABS: Ionized Calcium 1.18 mmol/L (1.15-1.35)
--- NOTE | 2017-02-27 07:27 | Pulmonology Progress Note ---
<Jason Sequeira W - Last Filed: 02/27/17 11:36> Date of Encounter: 02/27/17 Objective PUL Vital signs: Last Vital Signs Temp 97.9 F 02/27/17 07:45 Pulse 92 02/27/17 11:00 Resp 26 02/27/17 11:00 BP 167/76 02/27/17 11:00 Pulse Ox 98 02/27/17 11:00 Results - Laboratory Findings CBC and BMP: 02/27/17 04:22 02/27/17 04:22 ABG ABG pH 7.44 pH Units (7.32-7.45) 02/26/17 03:33 ABG pCO2 38 mmHg (35-45) 02/26/17 03:33 ABG pO2 81 mmHg (85-104) L 02/26/17 03:33 ABG O2 Saturation 96 % (95-98) 02/26/17 03:33 PT/INR, D-dimer PT 22.1 Seconds (9.4-12.1) H 02/27/17 04:22 Abnormal lab findings: Abnormal lab results RBC 2.84 M/mcL (3.82-4.97) L 02/27/17 04:22 Hgb 8.6 g/dL (11.5-15.4) L 02/27/17 04:22 Hct 27.4 % (35.3-44.9) L 02/27/17 04:22 MCHC 31.4 g/dL (31.6-35.5) L 02/27/17 04:22 RDW 16.1 % (11.5-14.5) H 02/27/17 04:22 Nucleated RBCs/100 WBC 0.1 /100 WBC (0) H 02/26/17 11:02 PT 22.1 Seconds (9.4-12.1) H 02/27/17 04:22 ABG pO2 81 mmHg (85-104) L 02/26/17 03:33 ABG Total CO2 27.0 mEq/L (20-26) H 02/26/17 03:33 Chloride 112 mEq/L (98-109) H 02/27/17 04:22 BUN 36 mg/dL (7-20) H 02/27/17 04:22 BUN/Creatinine Ratio 46 (6-26) H 02/27/17 04:22 Glucose 196 mg/dL (70-99) H 02/27/17 04:22 POC Glucose 201 (58-89) H 02/27/17 05:51 Hemoglobin A1c 5.8 % (-5.6) H 02/23/17 00:42 Calculated Osmolality 312 (280-300) H 02/27/17 04:22 Serum Total Protein 5.6 g/dL (6.0-8.3) L 02/27/17 04:22 Albumin 2.6 g/dL (3.5-5.0) L 02/27/17 04:22 Albumin/Globulin Ratio 0.9 (1.1-2.2) L 02/27/17 04:22 Prealbumin 10.0 mg/dL (16.0-38.0) L 02/26/17 03:00 Urine Protein 100 mg/dL (Neg-Trace) H 02/24/17 11:50 Urine Microscopic RBC 5-15 per hpf (0-3) H 02/24/17 11:50 Urine Microscopic WBC 3-5 per hpf (0-3) H 02/24/17 11:50 Ur Squamous Epith Cells Many per lpf (None-Few) H 02/24/17 11:50 - Microbiology Findings Microbiology Findings: Microbiology, Last 48 Hours 02/25/17 16:20 Sputum Culture - Preliminary Sputum - Clinical Findings Intake & Output: Intake & Output 02/26/17 02/27/17 02/27/17 23:59 07:59 15:59 Intake Total 200 / 200 350 / 350 299 / 299 Output Total 200 / 200 440 / 440 Balance 0 / 0 -90 / -90 299 / 299 Weight 60.6 kg Consult Discharge Plan - Plan Referrals: Jeff Cervantes MD [Primary Care Provider] - - Attending Attestation I examined this patient and my medical decision-making was reviewed with the Resident Physician. I agree with the documented findings, disposition and treatment plan as described except to the extent set forth below. We independently had [id number] contact with the patient Patient seen and examined at bedside Labs, radiology, chart personally reviewed. Management was reviewed during multidisciplinary critical care rounds. Neuropsych: Chronic anxiety controlled a lot of this event is related to breathlessness for which we can prescribe intermittent doses of morphine and occasional anxiolysis with low-dose benzodiazepine as we cautiously monitor effect of BOTTOM [employer]ER depression. Continue to focus on establishing an appropriate sleep-wake cycle and avoid sensory deprivation to prevent delirium Pulm: Acute on chronic hypoxic hypercapnic respiratory failure s/t post operative atelectasis and splinting. Excellent oxygenation today on a few liters nasal cannula O2 she continues positive airway pressure support on an as- needed basis continue out of bed to chair and incentive spirometry Cards: History of CAD, CHF, HTN. Hypertension better controlled although still suboptimal we will schedule IV formulations of beta kalie and hydralazine to further treat this FEN-GI: Postop day #3 status post exploratory celiotomy with small bowel resection continued total parenteral nutrition; General Surgery is following Renal: No SYLWIA at present. Cont to monitor electrolytes and replace per protocol. ID: Sepsis likely intraabdominal source Abx coverage with Levaquin and Flagyl. Cultures as far negative planned to de-escalate Heme/Onc: Mild postoperative anemia recheck CBC shows stable anemia anticoagulated prior to operation for atrial fibrillation holding warfarin at present because she is currently therapeutic without medication no overt signs of bleeding Endo: Glucose Monitored slightly high today after starting TPN we will increase the frequency of her bolus dose of insulin from every 6 hour to every 4 Integ/MSK: Skin Care per routine ICU Nursing Protocol to prevent ulcers. Lines: All lines examined without evidence of infection including: PIVs and Urinary Jones Cath and PICC line Dispo: Stable for transfer to medical telemetry for ongoing care CODE: Full Code. I updated her daughter and granddaughter at bedside today <Sammy Rodriguez - Last Filed: 02/27/17 15:00> Date of Encounter: 02/27/17 Time of Encounter: 07:00 Assessment and Plan (1) Acute on chronic respiratory failure Current Visit: Yes Status: Acute Patient has a history of advanced COPD. She has acute on chronic hypoxic hypercapnic respiratory failure. She is alert and oriented 3. Patient was extubated yesterday. She is satting well on 2L nasal cannula. Continue to monitor vital signs. Patient's home by mouth medications are being held due to inability to swallow at this time due to the presence of NG tube. Restart the home medications when able. Encourage IS. Patient is weaned off from Precedex, she is pending transfer to telemetry floor. Signed off to Dr. Rose. Qualifiers: Respiratory failure complication: hypercapnia Qualified Code(s): J96.22 - Acute and chronic respiratory failure with hypercapnia (2) Hypertension Current Visit: No Status: Chronic Patient has poorly controlled hypertension. Systolic blood pressure ranges from 120s to 160s. Continue the Coreg and hydralazine when necessary for systolic blood pressure over 160. Patient is to remain nothing by mouth therefore her home medications are being held. High blood pressure may be due to pain; therefore, manage pain with morphine and breakthrough pain with Dilaudid. Monitor vital signs. Qualifiers: Hypertension type: essential hypertension Qualified Code(s): I10 - Essential (primary) hypertension (3) Malnutrition Current Visit: No Status: Acute Patient is nothing by mouth day #6. She is status post expiratory celiotomy and small bowel resection due to small bowel obstruction. Continue TPN nutrition. The patient has hypoactive bowel sounds and I suggest trial with liquid diet once NG tube is discontinued. NG tube is clamped today Qualifiers: Qualified Code(s): E46 - Unspecified protein-calorie malnutrition (4) Partial small bowel obstruction Current Visit: Yes Status: Acute POD #1 status post exploratory celiotomy and small bowel resection due to small bowel obstruction. Management per surgery. (5) Sepsis Current Visit: Yes Status: Acute Patient's leukocytosis has resolved. She did not have fever last night. Heart rate is regular. Patient continues to be dyspneic. Sepsis source likely intra- abdominal. Pancultures are pending. Continue with Levaquin and Flagyl and de- escalate when sensitivities are available. Qualifiers: Sepsis type: sepsis due to unspecified organism Qualified Code(s): A41.9 - Sepsis, unspecified organism (6) Anemia Current Visit: Yes Status: Acute Patient likely has postoperative anemia. No sources of bleeding identified. Hemoglobin dropped today to 8.6. Her hemoglobin has been dropping despite a unit of plasma transfusion on 02/24/17. Patient has history of coagulopathy on Coumadin. INR is 2.1. Recheck CBC and H/H to monitor any further decreasing hemoglobin. Arterial line was removed. Qualifiers: Anemia type: other cause Qualified Code(s): D53.0 - Protein deficiency anemia (7) Atrial fibrillation Current Visit: No Status: Chronic Patient has history of A. fib on Coumadin. She has not had an episode of A. fib during this admission. Coumadin was reversed prior to surgery. Continue patient on home med Plavix for now. Qualifiers: Atrial fibrillation type: chronic Qualified Code(s): I48.2 - Chronic atrial fibrillation (8) Diabetes mellitus type 2, insulin dependent Current Visit: No Status: Chronic Continue with blood glucose monitoring. Continue with SSI. (9) Anxiety Current Visit: Yes Status: Chronic Patient has a history of chronic anxiety. As her mental status has returned, we can prescribe anxiolytics as needed and monitor B[employer] depression closely. (10) DVT prophylaxis Current Visit: Yes Status: Acute Patient is already on Plavix due to A. fib. Subjective Principal diagnosis: s/p exploratory celiostomy with SBR Interval history: Patient is doing well today in the morning. She is alert and oriented 3 and able to follow verbal commands. She is on minimal Precedex and is complaining of back pain. No concerning overnight events. She denies passing gas or bowel movements but does admit that she has an appetite. She is voiding via catheter. Objective PUL Vital signs: Last Vital Signs Temp 98.6 F 02/27/17 05:58 Pulse 69 02/27/17 05:56 Resp 23 02/27/17 05:56 BP 145/57 02/27/17 05:56 Pulse Ox 97 02/27/17 05:56 General appearance: no acute distress Eyes: nonicteric, other (Patient has NG tube) ENT: oropharynx dry Neck: supple Effort: normal, other (NC 2L) Auscultation: bilateral: clear Cardiovascular: regular rate and rhythm Gastrointestinal: hypoactive bowel sounds, non-distended, other (midline incision clean and dry. ) Integumentary: normal Extremities: no cyanosis, no edema, no clubbing Musculoskeletal: no deformities Gait: normal posture normal mental status, non-focal exam mood appropriate, affect normal Results - Laboratory Findings CBC and BMP: 02/27/17 04:22 02/27/17 04:22 ABG ABG pH 7.44 pH Units (7.32-7.45) 02/26/17 03:33 ABG pCO2 38 mmHg (35-45) 02/26/17 03:33 ABG pO2 81 mmHg (85-104) L 02/26/17 03:33 ABG O2 Saturation 96 % (95-98) 02/26/17 03:33 PT/INR, D-dimer PT 22.1 Seconds (9.4-12.1) H 02/27/17 04:22 Abnormal lab findings: Abnormal lab results RBC 2.84 M/mcL (3.82-4.97) L 02/27/17 04:22 Hgb 8.6 g/dL (11.5-15.4) L 02/27/17 04:22 Hct 27.4 % (35.3-44.9) L 02/27/17 04:22 MCHC 31.4 g/dL (31.6-35.5) L 02/27/17 04:22 RDW 16.1 % (11.5-14.5) H 02/27/17 04:22 Nucleated RBCs/100 WBC 0.1 /100 WBC (0) H 02/26/17 11:02 PT 22.1 Seconds (9.4-12.1) H 02/27/17 04:22 ABG pO2 81 mmHg (85-104) L 02/26/17 03:33 ABG Total CO2 27.0 mEq/L (20-26) H 02/26/17 03:33 Chloride 112 mEq/L (98-109) H 02/27/17 04:22 BUN 36 mg/dL (7-20) H 02/27/17 04:22 BUN/Creatinine Ratio 46 (6-26) H 02/27/17 04:22 Glucose 196 mg/dL (70-99) H 02/27/17 04:22 POC Glucose 201 (58-89) H 02/27/17 05:51 Hemoglobin A1c 5.8 % (-5.6) H 02/23/17 00:42 Calculated Osmolality 312 (280-300) H 02/27/17 04:22 Serum Total Protein 5.6 g/dL (6.0-8.3) L 02/27/17 04:22 Albumin 2.6 g/dL (3.5-5.0) L 02/27/17 04:22 Albumin/Globulin Ratio 0.9 (1.1-2.2) L 02/27/17 04:22 Prealbumin 10.0 mg/dL (16.0-38.0) L 02/26/17 03:00 Urine Protein 100 mg/dL (Neg-Trace) H 02/24/17 11:50 Urine Microscopic RBC 5-15 per hpf (0-3) H 02/24/17 11:50 Urine Microscopic WBC 3-5 per hpf (0-3) H 02/24/17 11:50 Ur Squamous Epith Cells Many per lpf (None-Few) H 02/24/17 11:50 - Microbiology Findings Microbiology Findings: Microbiology, Last 48 Hours 02/25/17 16:20 Sputum Culture - Preliminary Sputum - Clinical Findings Intake & Output: Intake & Output 02/26/17 02/26/17 02/27/17 15:59 23:59 07:59 Intake Total 175 / 175 200 / 200 350 / 350 Output Total 350 / 350 200 / 200 340 / 340 Balance -175 / -175 0 / 0 10 Weight 60.6 kg - VTE Documentation of Mechanical Device: Venous foot pump, device
[2017-02-27] MEDS: Chlorhexidine Rinse 15 ML MOUTHWASH MM SCH (07:52)
[2017-02-27] MEDS: Nicotine 14 MG PATCH.TD24 TD SCH (07:52)
[2017-02-27] MEDS: Pantoprazole 40 MG VIAL IVP SCH (07:55)
[2017-02-27] MEDS: Magnesium Sulfate 2 GM in D5% in Water 100 ML IVPB PRN (07:56)
[2017-02-27] MEDS: MetroNIDAZOLE 500 MG/100 ML 500 MG/100 ML BAG IVPB SCH ×3 (07:56→23:55)
[2017-02-27] MEDS: Potassium Phosphate 44 MEQ in 0.9 % Sodium Chloride 250 ML IVPB PRN (07:56)
[2017-02-27] MEDS: Polymyxn-B/Trimeth Opth Drops 10 ML BOTTLE LEFT EYE SCH ×4 (07:57→20:04)
[2017-02-27] MEDS ORDERED: Ondansetron 4 MG/2 ML VIAL IVP PRN (09:30)
[2017-02-27] MEDS ORDERED: Furosemide 20 MG TABLET PO PRN (09:30)
[2017-02-27] MEDS ORDERED: D10% in Water 500 ML IVC PRN (09:30)
[2017-02-27] MEDS ORDERED: Clinimix E 5%-15% SOLUTION 2,000 ML with MVI, adult with vitamin K 10 ML IVC SCH ×2 (09:30→17:00)
[2017-02-27] MEDS ORDERED: Calcium Gluconate 1,000 MG in D5% in Water 100 ML IVPB PRN (09:30)
--- NOTE | 2017-02-27 10:00 | General Surgery Progress Note ---
<Lorie Salas Christopher - Last Filed: 02/27/17 09:58> Date of Encounter: 02/27/17 Time of Encounter: 09:00 - Assessment and Plan (1) Ischemic necrosis of small bowel Current Visit: Yes Status: Acute POD #3 Exploratory ceiliotomy, Small bowel resection Await return of bowel function NPO with NG tube to LIWS Continue to hold PO meds PICC line, TPN therapy while awaiting return of bowel function Total fluid rate will be goal TPN rate IV antibiotics- Levaquin and Flagyl Supportive care and pain control Daily dressing changes ordered- pack with 1/4 inch plain gauze PT/OT consult Out of bed to chair BID PPI therapy daily Repeat am labs (2) Partial small bowel obstruction Current Visit: Yes Status: Acute See plan under PSBO (3) Conjunctivitis Current Visit: Yes Status: Acute Eye gtt to left eyes QID Qualifiers: Conjunctivitis type: acute Acute conjunctivitis type: unspecified Laterality: left Qualified Code(s): H10.32 - Unspecified acute conjunctivitis , left eye (4) Moderate protein-calorie malnutrition Current Visit: Yes Status: Acute TPN therapy while awaiting return of bowel function (5) DVT prophylaxis Current Visit: Yes Status: Acute INR- 2.0 Bilateral foot pumps for DVT prophylaxis Subjective Patient reports: no new complaints, feels better, still having pain (post surgical and back pain), no flatus, no bowel movement, afebrile, other (Patient placed on Bipap this morning for shortness of breath; resting comfortably now) Objective Vital Signs - Last 8 Hours Temp Pulse Resp BP Pulse Ox 02/27/17 09:00 69 18 154/69 98 02/27/17 08:00 69 18 126/59 97 02/27/17 07:45 97.9 F 02/27/17 07:42 69 02/27/17 07:00 70 24 149/57 97 02/27/17 05:58 98.6 F 02/27/17 05:56 69 23 145/57 97 02/27/17 05:00 69 31 131/55 97 02/27/17 04:00 98.6 F 69 32 133/57 97 02/27/17 03:30 16 98 02/27/17 03:00 69 21 131/56 97 Intake and Output 02/26/17 02/27/1702/27/17 23:59 07:59 15:59 Intake Total 200 / 200 350 / 350 195 / 195 Output Total 200 / 200 440 / 440 Balance 0 / 0 -90 / -90 195 / 195 Intake: IV Fluids 200 / 200 350 / 350 195 / 195 PRECEDEX Premix 400 mcg In 100 100 / 100 95 / 95 ml @ 0.2 MCG/KG/HR 2.875 mls/hr IVC .Q24H [facility] Rx#:[id number] Intralipid 20% 250 ML @ 21 mls/ 250 / 250 hr IVPB DAILY@1700 [facility] Rx#: [id number] Flagyl Premix 500 MG/100 ML 500 100 / 100 100 / 100 100 / 100 mg In 100 ml @ 100 mls/hr IVPB Q8HR [facility] Rx#:[id number] Output: Catheter 200 / 200 350 / 350 Gastric Drainage 90 / 90 Other: Weight 60.6 kg Blood Glucose* 201 Patient Weight 02/27/17 23:59 Weight 60.6 kg - General physical appearance no distress, moderate pain - Eyes PERRL, normal ocular movement - ENT dry mucosa, atraumatic, normocephalic - Neck Neck exam: trachea midline - Respiratory clear to auscultation, other (On bipap currently; diminished bibasilar breath sounds) - Cardiovascular Cardiovascular exam: Present: RRR (paced) - Abdomen Abdomen: Present: bowel sounds present, soft, tender (expected post-operative tenderness), wound (NG tube to LIWS with scant amount of bilious drainage noted ; Midline with scant amount of serousang drainage noted) - Genitourinary other (hendrickson catheter to SD with yung, yellow urine) - Neurologic CN 2-12 grossly intact - Psychiatric oriented to person, oriented to place, speech is normal, memory intact - Labs 02/27/17 04:22 02/27/17 04:22 Diabetes panel 02/27/17 02/27/17 Range/Units 04:22 04:22 Sodium 144 (136-145) mEq/L Potassium 3.7 (3.5-4.5) mEq/L Chloride 112 H (98-109) mEq/L Carbon Dioxide 22 (19-29) mEq/L BUN 36 H (7-20) mg/dL Creatinine 0.79 (0.57-1.11) mg/dL Glucose 196 H (70-99) mg/dL Calcium 8.6 (8.6-10.8) mg/dL AST 14 (5-34) Units/L ALT 12 (0-55) Units/L Alkaline Phosphatase 41 (38-126) Units/L Albumin 2.6 L (3.5-5.0) g/dL Triglycerides 113 (< 150) mg/dL Calcium panel 02/27/17 Range/Units 04:22 Calcium 8.6 (8.6-10.8) mg/dL Phosphorus 2.5 (2.3-4.7) mg/dL Albumin 2.6 L (3.5-5.0) g/dL Pituitary panel 02/27/17 Range/Units 04:22 Sodium 144 (136-145) mEq/L Potassium 3.7 (3.5-4.5) mEq/L Chloride 112 H (98-109) mEq/L Carbon Dioxide 22 (19-29) mEq/L BUN 36 H (7-20) mg/dL Creatinine 0.79 (0.57-1.11) mg/dL Glucose 196 H (70-99) mg/dL Calcium 8.6 (8.6-10.8) mg/dL Adrenal panel 02/27/17 Range/Units 04:22 Sodium 144 (136-145) mEq/L Potassium 3.7 (3.5-4.5) mEq/L Chloride 112 H (98-109) mEq/L Carbon Dioxide 22 (19-29) mEq/L BUN 36 H (7-20) mg/dL Creatinine 0.79 (0.57-1.11) mg/dL Glucose 196 H (70-99) mg/dL Calcium 8.6 (8.6-10.8) mg/dL Total Bilirubin 0.5 (0.2-1.2) mg/dL AST 14 (5-34) Units/L ALT 12 (0-55) Units/L Alkaline Phosphatase 41 (38-126) Units/L Albumin 2.6 L (3.5-5.0) g/dL - VTE Documentation of Mechanical Device: Venous foot pump, device Consult Discharge Plan - Plan Referrals: Jeff Cervantes MD [Primary Care Provider] - - Attending Attestation For this encounter, I have reviewed the [employer]RASH[employer] FEEDER or PA documentation, treatment plan, and medical decision making; and I have had face to face time with this patient. <Soy Mcmillan - Last Filed: 02/27/17 14:38> Date of Encounter: 02/27/17 - Assessment and Plan (1) Partial small bowel obstruction Current Visit: Yes Status: Acute (2) Ischemic necrosis of small bowel Current Visit: Yes Status: Acute Objective Vital Signs - Last 8 Hours Temp Pulse Resp BP Pulse Ox 02/27/17 12:07 100.0 F H 02/27/17 12:00 69 24 145/55 96 02/27/17 11:00 69 26 167/76 98 02/27/17 10:00 70 22 143/89 95 02/27/17 09:00 69 18 154/69 98 02/27/17 08:00 69 18 126/59 97 02/27/17 07:45 97.9 F 02/27/17 07:42 69 02/27/17 07:00 70 24 149/57 97 Intake and Output 02/26/17 02/27/17 02/27/17 23:59 07:59 15:59 Intake Total 200 / 200 350 / 350 299 / 299 Output Total 200 / 200 440 / 440 Balance 0 / 0 -90 / -90 299 / 299 Intake: IV Fluids 200 / 200 350 / 350 299 / 299 PRECEDEX Premix 400 mcg In 100 100 / 100 95 / 95 ml @ 0.2 MCG/KG/HR 2.875 mls/hr IVC .Q24H [facility] Rx#:[id number] Intralipid 20% 250 ML @ 21 mls/ 250 / 250 hr IVPB DAILY@1700 [facility] Rx#: [id number] Magnesium Sulfate 2 GM In 104 / 104 Dextrose 5% 100 ML @ 50 mls/hr IVPB Q6H PRN Rx#:[id number] Flagyl Premix 500 MG/100 ML 500 100 / 100 100 / 100 100 / 100 mg In 100 ml @ 100 mls/hr IVPB Q8HR [facility] Rx#:[id number] Output: Catheter 200 / 200 350 / 350 Gastric Drainage 90 / 90 Other: Weight 60.6 kg Blood Glucose* 201 160 Patient Weight 02/27/17 23:59 Weight 60.6 kg - Labs 02/27/17 04:22 02/27/17 04:22 Diabetes panel 02/27/17 02/27/17 Range/Units 04:22 04:22 Sodium 144 (136-145) mEq/L Potassium 3.7 (3.5-4.5) mEq/L Chloride 112 H (98-109) mEq/L Carbon Dioxide 22 (19-29) mEq/L BUN 36 H (7-20) mg/dL Creatinine 0.79 (0.57-1.11) mg/dL Glucose 196 H (70-99) mg/dL Calcium 8.6 (8.6-10.8) mg/dL AST 14 (5-34) Units/L ALT 12 (0-55) Units/L Alkaline Phosphatase 41 (38-126) Units/L Albumin 2.6 L (3.5-5.0) g/dL Triglycerides 113 (< 150) mg/dL Calcium panel 02/27/17 Range/Units 04:22 Calcium 8.6 (8.6-10.8) mg/dL Phosphorus 2.5 (2.3-4.7) mg/dL Albumin 2.6 L (3.5-5.0) g/dL Pituitary panel 02/27/17 Range/Units 04:22 Sodium 144 (136-145) mEq/L Potassium 3.7 (3.5-4.5) mEq/L Chloride 112 H (98-109) mEq/L Carbon Dioxide 22 (19-29) mEq/L BUN 36 H (7-20) mg/dL Creatinine 0.79 (0.57-1.11) mg/dL Glucose 196 H (70-99) mg/dL Calcium 8.6 (8.6-10.8) mg/dL Adrenal panel 02/27/17 Range/Units 04:22 Sodium 144 (136-145) mEq/L Potassium 3.7 (3.5-4.5) mEq/L Chloride 112 H (98-109) mEq/L Carbon Dioxide 22 (19-29) mEq/L BUN 36 H (7-20) mg/dL Creatinine 0.79 (0.57-1.11) mg/dL Glucose 196 H (70-99) mg/dL Calcium 8.6 (8.6-10.8) mg/dL Total Bilirubin 0.5 (0.2-1.2) mg/dL AST 14 (5-34) Units/L ALT 12 (0-55) Units/L Alkaline Phosphatase 41 (38-126) Units/L Albumin 2.6 L (3.5-5.0) g/dL - Attending Attestation Review the above assessment and evaluation and agree with the above plan. Patient states she may have had some flatus. No nausea. NG tube in place. Positive bowel sounds on examination. Minimal NG tube drainage reported. Will clamp NG tube and see how she does overnight and consider possible removal of NG tube the next 24 hours.
[2017-02-27] MEDS: Beclomethasone 80mcg MDI IH SCH ×2 (10:32→22:12)
[2017-02-27] MEDS ORDERED: *HR* Metoprolol 5 MG/5 ML VIAL IVP SCH (12:00)
[2017-02-27] MEDS: *HR* Metoprolol 5 MG/5 ML VIAL IVP SCH ×3 (12:14→23:55)
[2017-02-27] MEDS: *HR* Morphine 2 MG/ML SYRINGE IVP PRN ×2 (15:27→20:49)
[2017-02-27] MEDS: Ranolazine 500 MG TAB.ER.12H PO SCH (20:04)
[2017-02-27] MEDS ORDERED: Mirtazapine 15 MG TABLET PO SCH (21:00)
[2017-02-27] MEDS ORDERED: Levofloxacin 750 MG/150 ML 750 MG/150 ML BAG IVPB SCH (21:00)
[2017-02-27] MEDS ORDERED: traZODone 50 MG TABLET PO SCH (21:00)
[2017-02-27] MEDS ORDERED: *HR* LORazepam 2 MG/ML VIAL ONE (22:06)
[2017-02-27] MEDS: *HR* LORazepam 2 MG/ML VIAL IVP PRN (22:08)
[2017-02-28] MEDS: Insulin LISPRO 300 UNITS/3 ML VIAL SQ SCH ×8 (00:14→23:34)
[2017-02-28] MEDS: *HR* Metoprolol 5 MG/5 ML VIAL IVP SCH ×5 (01:44→23:36)
[2017-02-28] MEDS: *HR* Morphine 2 MG/ML SYRINGE IVP PRN ×3 (01:44→19:57)
[2017-02-28] MEDS: *HR* HYDROmorphone (PF) 1 MG/ML SYRINGE IVP PRN ×5 (03:17→23:53)
[2017-02-28] MEDS: Ipratropium/Albuterol Neb 3 ML IH SCH ×4 (03:49→22:54)
[2017-02-28 05:34] LABS: Basophils % 0.3 %; Eosinophils % 0.3 %; Hematocrit 30.1 % (35.3-44.9); Hemoglobin 9.1 g/dL (11.5-15.4); Immature Granulocytes % 1.6 % (0-4); Lymphocytes # 1.3 K/mcL (0.6-4.6); Lymphocytes % 9.7 %; Mean Corpuscular HGB Conc 30.2 g/dL (31.6-35.5); Mean Corpuscular Hemoglobin 29.3 pg (28.0-33.3); Mean Corpuscular Volume 96.8 fL (83.0-100.0); Mean Platelet Volume 10.2 fL (9.4-12.4); Monocytes # 1.7 K/mcL (0.0-1.3); Monocytes % 12.8 %; Neutrophils # 10.1 K/mcL (1.6-8.9); Nucleated Red Blood Cells 0.4 /100 WBC (0); Platelet Count 201 K/mcL (140-400); Red Blood Count 3.11 M/mcL (3.82-4.97); Segmented Neutrophils % 75.3 %
[2017-02-28 05:39] LABS: INR 2.4
[2017-02-28 05:50] LABS: BUN/Creatinine Ratio 49 (6-26); Blood Urea Nitrogen 38 mg/dL (7-20); Calcium 8.9 mg/dL (8.6-10.8); Carbon Dioxide 21 mEq/L (19-29); Chloride 113 mEq/L (98-109); Glucose 180 mg/dL (70-99); Magnesium 1.9 mg/dL (1.6-2.6); Osmolality,Calculated 308 (280-300); Phosphorous 3.2 mg/dL (2.3-4.7); Sodium 142 mEq/L (136-145); eGFR For African Americans > 60 (> 60); eGFR For Non-African Americans > 60 (> 60)
[2017-02-28] MEDS: Nicotine 14 MG PATCH.TD24 TD SCH (07:51)
[2017-02-28] MEDS: Pantoprazole 40 MG VIAL IVP SCH (07:51)
[2017-02-28] MEDS: Polymyxn-B/Trimeth Opth Drops 10 ML BOTTLE LEFT EYE SCH ×4 (07:54→20:07)
[2017-02-28] MEDS: MetroNIDAZOLE 500 MG/100 ML 500 MG/100 ML BAG IVPB SCH (07:58)
[2017-02-28] MEDS: *HR* LORazepam 2 MG/ML VIAL IVP PRN (08:49)
[2017-02-28] MEDS ORDERED: 0.9 % Sodium Chloride 500 ML IVC ONE (09:20)
[2017-02-28] MEDS: Beclomethasone 80mcg MDI IH SCH ×2 (09:43→22:54)
[2017-02-28] MEDS: Naloxone 0.4 MG/ML INJ IVP PRN ×2 (09:57→11:31)
[2017-02-28 10:27] LABS: ABG Base Excess -1.5 mEq/L (-2.0 to 3.0); ABG HCO3 23 mEq/L (21-27); ABG Oxygen Saturation 95 % (95-98); ABG PCO2 36 mmHg (35-45); ABG PH 7.41 pH Units (7.32-7.45); ABG PO2 76 mmHg (85-104); ABG TCO2 23.9 mEq/L (20-26)
[2017-02-28 10:28] LABS: Blood Gas FiO2 40 %; Blood Gas Modality BIPAP
[2017-02-28] MEDS ORDERED: Dexmedetomidine HCl 400 MCG/100 ML MLS IVC ONE (10:47)
--- NOTE | 2017-02-28 11:22 | Pulmonology Progress Note ---
Date of Encounter: 02/28/17 Time of Encounter: 11:20 Assessment and Plan (1) Encephalopathy Current Visit: Yes Status: Acute Management was reviewed during multidisciplinary critical care rounds. Neuropsych: Acute encephalopathy which is likely secondary to medication effect including opiate for pain and benzodiazepine for anxiety. Which we are holding she has had some improvement with administration of Maalox on but has not returned to baseline additionally this may be a complication of developing sepsis. No focal neurological deficits on examination that I can see overtly and thus not necessary to perform head CT as CVA in the acute setting is considered unlikely. She remains anxious and uncomfortable I have started a low dose infusion of Precedex to decrease the symptoms while the same time having less effect on [employer] depression but this will have to monitored very carefully Pulm: Acute on chronic hypoxic hypercapnic respiratory failure s/t post operative atelectasis and splinting. ABG performed does not show any evidence of respiratory acidosis we have put her on positive airway pressure support to work of breathing. If her respiratory rate remains as high as it is now and there is no improvement in mental status progression to need for intubation and mechanical ventilation is likely. I repeated her chest x-ray today after the acute event and it was notable for progressive airspace disease parietal left this may reflect developing pneumonia. Underlying COPD we will continue bronchodilators and given her 1 dose of IV Solu-Medrol Cards: History of CAD, CHF, HTN. Hypertension less controlled today but once able to take by mouth I think establishment of her home regimen will improved as we have scheduled IV beta kalie and IV hydralazine to help with this FEN-GI: Postop day #4 status post exploratory celiotomy with small bowel resection continued total parenteral nutrition; General Surgery is following. NG tube is been pulled patient has bowel sounds okay to use got for medications and advance diet when she is less altered Renal: No SYLWIA at present however BUN continues to rise and she has mild hyperkalemia today repeating that value now may need small infusion of fluids as urine remains concentrated ID: Sepsis likely intraabdominal source white blood count had trended down however now is trending back up and with radiographic evidence of possible development of pneumonia I am going to broaden her antimicrobials to cover for hospital-acquired pneumonia. Cultures have been obtained we will also check lactate Heme/Onc: Mild postoperative anemia recheck CBC shows stable anemia anticoagulated prior to operation for atrial fibrillation holding warfarin at present because she is currently therapeutic without medication no overt signs of bleeding Endo: Glucose Monitored and under reasonable control we will continue to monitor revealed 4 hours and bolus insulin per protocol Integ/MSK: Skin Care per routine ICU Nursing Protocol to prevent ulcers. Lines: All lines examined without evidence of infection including: PIVs and Urinary Jones Cath and PICC line Dispo: She will stay in ICU for ongoing respiratory and neurological evaluation CODE: Full Code. (2) Acute exacerbation of chronic obstructive airways disease Current Visit: No Status: Acute (3) CAD (coronary artery disease) Current Visit: No Status: Chronic Qualifiers: Coronary Disease-Associated Artery/Lesion type: [place] artery [place] vs. transplanted heart: [place] heart Associated angina: without angina Qualified Code(s): I25.10 - Atherosclerotic heart disease of [place] coronary artery without angina pectoris (4) Atrial fibrillation Current Visit: No Status: Chronic Qualifiers: Atrial fibrillation type: chronic Qualified Code(s): I48.2 - Chronic atrial fibrillation (5) Acute on chronic respiratory failure Current Visit: Yes Status: Acute Qualifiers: Respiratory failure complication: hypercapnia Qualified Code(s): J96.22 - Acute and chronic respiratory failure with hypercapnia (6) Chronic combined systolic and diastolic congestive heart failure Current Visit: No Status: Chronic (7) PNA (pneumonia) Current Visit: Yes Status: Acute Qualifiers: Pneumonia type: due to unspecified organism Laterality: bilateral Lung location: lower lobe of lung Qualified Code(s): J18.9 - Pneumonia, unspecified organism (8) Sepsis Current Visit: Yes Status: Acute Qualifiers: Sepsis type: sepsis due to unspecified organism Qualified Code(s): A41.9 - Sepsis, unspecified organism (9) Partial small bowel obstruction Current Visit: Yes Status: Acute (10) Moderate protein-calorie malnutrition Current Visit: Yes Status: Acute (11) Hyperkalemia Current Visit: Yes Status: Acute Subjective Principal diagnosis: s/p exploratory celiostomy with SBR Interval history: Overnight patient did relatively well the overnight nurse was concerned that her respiratory rate had increased and she was becoming more to With more labored breathing although there is no increase in amount of oxygen required. When evaluated the patient this morning she was awake and alert and able to follow commands she had had an increase in her anxiety over the course of the morning and the nursing staff but given her a opiate and with the diazepam subsequently her mental status had became much more altered she was confused and not following commands. Positive airway pressure support was given to the patient since she has been breathing in the high 30s to low 40s during my evaluation arterial blood gase has also been obtained Objective PUL Vital signs: Last Vital Signs Temp 96.2 F L 02/28/17 07:48 Pulse 69 02/28/17 08:15 Resp 19 02/28/17 09:45 BP 151/83 02/28/17 08:15 Pulse Ox 94 02/28/17 09:45 General appearance: appears uncomfortable, other (She opens her eyes occasionally to voice but generally appears uncomfortable and is very altered) Eyes: nonicteric Auscultation: bilateral: diminished breath sounds (Air entry bilaterally but diminished primarily in the lung bases) Cardiovascular: regular rate and rhythm Gastrointestinal: normoactive bowel sounds, soft Extremities: no edema other (Moves all extremities spontaneously without noticeable defect she is unable to consistently follow any commands) anxious Results - Laboratory Findings CBC and BMP: 02/28/17 05:15 02/28/17 11:15 ABG ABG pH 7.41 pH Units (7.32-7.45) 02/28/17 10:12 ABG pCO2 36 mmHg (35-45) 02/28/17 10:12 ABG pO2 76 mmHg (85-104) L 02/28/17 10:12 ABG O2 Saturation 95 % (95-98) 02/28/17 10:12 PT/INR, D-dimer PT 26.0 Seconds (9.4-12.1) H 02/28/17 05:15 Abnormal lab findings: Abnormal lab results WBC 13.4 K/mcL (4.3-11.1) H D 02/28/17 05:15 RBC 3.11 M/mcL (3.82-4.97) L 02/28/17 05:15 Hgb 9.1 g/dL (11.5-15.4) L 02/28/17 05:15 Hct 30.1 % (35.3-44.9) L 02/28/17 05:15 MCHC 30.2 g/dL (31.6-35.5) L 02/28/17 05:15 RDW 16.0 % (11.5-14.5) H 02/28/17 05:15 Neutrophils # 10.1 K/mcL (1.6-8.9) H 02/28/17 05:15 Monocytes # 1.7 K/mcL (0.0-1.3) H 02/28/17 05:15 Nucleated RBCs/100 WBC 0.4 /100 WBC (0) H 02/28/17 05:15 PT 26.0 Seconds (9.4-12.1) H 02/28/17 05:15 ABG pO2 76 mmHg (85-104) L 02/28/17 10:12 Potassium 5.0 mEq/L (3.5-4.5) H D 02/28/17 05:15 Chloride 113 mEq/L (98-109) H 02/28/17 05:15 BUN 38 mg/dL (7-20) H 02/28/17 05:15 BUN/Creatinine Ratio 49 (6-26) H 02/28/17 05:15 Glucose 180 mg/dL (70-99) H 02/28/17 05:15 POC Glucose 189 (58-89) H 02/28/17 07:05 Hemoglobin A1c 5.8 % (-5.6) H 02/23/17 00:42 Calculated Osmolality 308 (280-300) H 02/28/17 05:15 Serum Total Protein 5.6 g/dL (6.0-8.3) L 02/27/17 04:22 Albumin 2.6 g/dL (3.5-5.0) L 02/27/17 04:22 Albumin/Globulin Ratio 0.9 (1.1-2.2) L 02/27/17 04:22 Prealbumin 10.0 mg/dL (16.0-38.0) L 02/26/17 03:00 Urine Protein 100 mg/dL (Neg-Trace) H 02/24/17 11:50 Urine Microscopic RBC 5-15 per hpf (0-3) H 02/24/17 11:50 Urine Microscopic WBC 3-5 per hpf (0-3) H 02/24/17 11:50 Ur Squamous Epith Cells Many per lpf (None-Few) H 02/24/17 11:50 - Microbiology Findings Microbiology Findings: Microbiology, Last 48 Hours 02/25/17 16:20 Sputum Culture - Final Sputum - Diagnostic Findings Chest x-ray: report reviewed, image reviewed - Clinical Findings Intake & Output: Intake & Output 02/27/17 02/28/17 02/28/17 23:59 07:59 15:59 Intake Total 250 / 250 100 / 100 200 / 200 Output Total 200 / 200 330 / 330 Balance 50 / 50 -230 / -230 200 / 200 - VTE Documentation of Mechanical Device: Venous foot pump, device Consult Discharge Plan - Plan Referrals: Jeff Cervantes MD [Primary Care Provider] -
[2017-02-28] MEDS ORDERED: Vancomycin 1,000 MG in D5% in Water 250 ML IVPB SCH (13:00)
[2017-02-28 13:25] LABS: Bilirubin,Urine Negative (Negative); Blood,Urine Negative (Negative); Clarity,Urine Clear (Clear); Glucose,Urine (UA) Normal (Normal); Ketones,Urine Negative (Negative); Leukocyte Esterase,Urine Negative (Negative); Nitrite,Urine Negative (Negative); Protein,Urine 30 mg/dL (Neg-Trace); Specific Gravity,Urine 1.019 (1.010-1.025); Urobilinogen,Urine Normal (Normal)
[2017-02-28 13:27] LABS: Bacteria,Urine None Seen per hpf (None-Few); Hyaline Casts,Urine None Seen per lpf (None-Few); RBC,Urine 0-3 per hpf (0-3); Squamous Epithelial Cell,Urine Few per lpf (None-Few); WBC,Urine 0-3 per hpf (0-3)
[2017-02-28 13:28] LABS: Color,Urine Yellow (Yellow)
--- NOTE | 2017-02-28 13:37 | General Surgery Progress Note ---
<Johanna Salasfer Christopher - Last Filed: 02/28/17 13:44> Date of Encounter: 02/28/17 Time of Encounter: 13:00 - Assessment and Plan (1) Ischemic necrosis of small bowel Current Visit: Yes Status: Acute POD #4 Exploratory ceiliotomy, Small bowel resection Await return of bowel function NPO except ice chips NG tube d/c per Dr. Mcmillan orders Continue to hold PO meds PICC line, TPN therapy while awaiting return of bowel function Total fluid rate will be goal TPN rate IV antibiotics- changed to Zosyn and Vancomycin today Supportive care and pain control Daily dressing changes ordered- pack with 1/4 inch plain gauze PT/OT consult Out of bed to chair BID PPI therapy daily Repeat am labs (2) Partial small bowel obstruction Current Visit: Yes Status: Acute See plan under PSBO (3) Conjunctivitis Current Visit: Yes Status: Acute Eye gtt to left eyes QID Qualifiers: Conjunctivitis type: acute Acute conjunctivitis type: unspecified Laterality: left Qualified Code(s): H10.32 - Unspecified acute conjunctivitis , left eye (4) Moderate protein-calorie malnutrition Current Visit: Yes Status: Acute TPN therapy while awaiting return of bowel function (5) PNA (pneumonia) Current Visit: Yes Status: Acute Management per pulmonary critical care IV antibiotics- Zosyn and Vancomycin Bipap support Qualifiers: Pneumonia type: due to unspecified organism Laterality: bilateral Lung location: lower lobe of lung Qualified Code(s): J18.9 - Pneumonia, unspecified organism (6) DVT prophylaxis Current Visit: Yes Status: Acute INR- 2.4 Bilateral foot pumps for DVT prophylaxis Subjective Patient reports: afebrile, other (Events noted- episode of anxiety and was given ativan and dilaudid; patient became unresponsive and was given narcan; patient continues to have decreased level of consciousness despite narcan and has been placed on Bipap; Work-up started for sepsis) Objective Vital Signs - Last 8 Hours Temp Pulse Resp BP Pulse Ox 02/28/17 13:28 69 34 149/84 97 02/28/17 12:30 69 33 143/87 96 02/28/17 12:04 69 42 170/100 95 02/28/17 11:50 96.9 F L 02/28/17 10:50 69 34 96 02/28/17 09:45 19 94 02/28/17 08:15 69 24 151/83 95 02/28/17 08:00 69 02/28/17 07:48 96.2 F L Intake and Output 02/27/17 02/28/17 02/28/17 23:59 07:59 15:59 Intake Total 250 / 250 100 / 100 200 / 200 Output Total 200 / 200 330 / 330 450 / 450 Balance 50 / 50 -230 / -230 -250 / -250 Intake: IV Fluids 250 / 250 100 / 100 200 / 200 Intralipid 20% 250 ML @ 21 mls/ 100 / 100 hr IVPB DAILY@1700 [facility] Rx#: [id number] Levaquin Premix 750mg/150 mL 150 / 150 750 mg In 150 ml @ 100 mls/hr IVPB Q48H [facility] Rx#:[id number] Flagyl Premix 500 MG/100 ML 500 100 / 100 100 / 100 100 / 100 mg In 100 ml @ 100 mls/hr IVPB Q8HR [facility] Rx#:[id number] Oral 0 / 0 0 / 0 Output: Catheter 200 / 200 330 / 330 400 / 400 Gastric Drainage 50 / 50 Other: # Bowel Movements 0 Blood Glucose* 220 189 166 - General physical appearance no distress, chronically ill, other (resting comfortably on bipap) - ENT dry mucosa, atraumatic, normocephalic - Neck Neck exam: trachea midline - Respiratory clear to auscultation, other (Patient on bipap support with FiO2 of 30%) - Cardiovascular Cardiovascular exam: Present: RRR (paced) - Abdomen Abdomen: Present: bowel sounds present (minimal, hypoactive), soft, tender ( minimal grimace with palpation), wound (See incision assessment) - Incision Incision: Present: open (Midline with scant amount of serousang. drainage noted ; no surrounding erythema or induration present.) - Musculoskeletal other (Unable to assess at this time) - Psychiatric other (Unable to assess at this time) - Labs 02/28/17 05:15 02/28/17 11:15 Diabetes panel 02/28/17 02/28/17 Range/Units 05:15 11:15 Sodium 142 (136-145) mEq/L Potassium 5.0 H D 4.0 D (3.5-4.5) mEq/L Chloride 113 H (98-109) mEq/L Carbon Dioxide 21 (19-29) mEq/L BUN 38 H (7-20) mg/dL Creatinine 0.77 (0.57-1.11) mg/dL Glucose 180 H (70-99) mg/dL Calcium 8.9 (8.6-10.8) mg/dL Calcium panel 02/28/17 Range/Units 05:15 Calcium 8.9 (8.6-10.8) mg/dL Phosphorus 3.2 (2.3-4.7) mg/dL Pituitary panel 02/28/17 02/28/17 Range/Units 05:15 11:15 Sodium 142 (136-145) mEq/L Potassium 5.0 H D 4.0 D (3.5-4.5) mEq/L Chloride 113 H (98-109) mEq/L Carbon Dioxide 21 (19-29) mEq/L BUN 38 H (7-20) mg/dL Creatinine 0.77 (0.57-1.11) mg/dL Glucose 180 H (70-99) mg/dL Calcium 8.9 (8.6-10.8) mg/dL Adrenal panel 02/28/17 02/28/17 Range/Units 05:15 11:15 Sodium 142 (136-145) mEq/L Potassium 5.0 H D 4.0 D (3.5-4.5) mEq/L Chloride 113 H (98-109) mEq/L Carbon Dioxide 21 (19-29) mEq/L BUN 38 H (7-20) mg/dL Creatinine 0.77 (0.57-1.11) mg/dL Glucose 180 H (70-99) mg/dL Calcium 8.9 (8.6-10.8) mg/dL - VTE Documentation of Mechanical Device: Venous foot pump, device Consult Discharge Plan - Plan Referrals: Jeff Cervantes MD [Primary Care Provider] - - Attending Attestation For this encounter, I have reviewed the CLOTH FOLDER MACHINE or PA documentation, treatment plan, and medical decision making; and I have had face to face time with this patient. <Soy Mcmillan - Last Filed: 02/28/17 17:44> Date of Encounter: 02/28/17 - Assessment and Plan (1) Partial small bowel obstruction Current Visit: Yes Status: Acute (2) Ischemic necrosis of small bowel Current Visit: Yes Status: Acute Objective Vital Signs - Last 8 Hours Temp Pulse Resp BP Pulse Ox 02/28/17 16:30 69 22 147/76 91 02/28/17 16:12 69 30 186/88 92 02/28/17 16:09 97.6 F 02/28/17 15:58 25 98 02/28/17 15:00 69 30 152/86 95 02/28/17 14:00 69 34 155/94 97 02/28/17 13:28 69 34 149/84 97 02/28/17 12:30 69 33 143/87 96 02/28/17 12:04 69 42 170/100 95 02/28/17 12:00 69 02/28/17 11:50 96.9 F L 02/28/17 10:50 69 34 96 02/28/17 09:45 19 94 Intake and Output 02/28/17 02/28/17 02/28/17 07:59 15:59 23:59 Intake Total 100 / 100 209 / 209 0 / 0 Output Total 330 / 330 450 / 450 450 / 450 Balance -230 / -230 -241 / -241 -450 / -450 Intake: IV Fluids 100 / 100 209 / 209 0 / 0 PRECEDEX Premix 400 mcg In 100 9 / 9 0 / 0 ml As IVC [facility] Rx#: [id number] Intralipid 20% 250 ML @ 21 mls/ 100 / 100 hr IVPB DAILY@1700 [facility] Rx#: [id number] Flagyl Premix 500 MG/100 ML 500 100 / 100 100 / 100 mg In 100 ml @ 100 mls/hr IVPB Q8HR [facility] Rx#:[id number] Oral 0 / 0 Output: Catheter 330 / 330 400 / 400 450 / 450 Gastric Drainage 50 / 50 Other: # Bowel Movements 0 Blood Glucose* 189 166 227 - Labs 02/28/17 05:15 02/28/17 11:15 Diabetes panel 02/28/17 02/28/17 Range/Units 05:15 11:15 Sodium 142 (136-145) mEq/L Potassium 5.0 H D 4.0 D (3.5-4.5) mEq/L Chloride 113 H (98-109) mEq/L Carbon Dioxide 21 (19-29) mEq/L BUN 38 H (7-20) mg/dL Creatinine 0.77 (0.57-1.11) mg/dL Glucose 180 H (70-99) mg/dL Calcium 8.9 (8.6-10.8) mg/dL Calcium panel 02/28/17 Range/Units 05:15 Calcium 8.9 (8.6-10.8) mg/dL Phosphorus 3.2 (2.3-4.7) mg/dL Pituitary panel 02/28/17 02/28/17 Range/Units 05:15 11:15 Sodium 142 (136-145) mEq/L Potassium 5.0 H D 4.0 D (3.5-4.5) mEq/L Chloride 113 H (98-109) mEq/L Carbon Dioxide 21 (19-29) mEq/L BUN 38 H (7-20) mg/dL Creatinine 0.77 (0.57-1.11) mg/dL Glucose 180 H (70-99) mg/dL Calcium 8.9 (8.6-10.8) mg/dL Adrenal panel 02/28/17 02/28/17 Range/Units 05:15 11:15 Sodium 142 (136-145) mEq/L Potassium 5.0 H D 4.0 D (3.5-4.5) mEq/L Chloride 113 H (98-109) mEq/L Carbon Dioxide 21 (19-29) mEq/L BUN 38 H (7-20) mg/dL Creatinine 0.77 (0.57-1.11) mg/dL Glucose 180 H (70-99) mg/dL Calcium 8.9 (8.6-10.8) mg/dL - Attending Attestation Review the above assessment and evaluation with the nurse practitioner and agree with the above plan. Incision looks clean dry and intact with packing in place. No signs of infection along the midline incision. Scant bowel sounds present. NG tube has been removed. Patient is somnolent and there is concern about sepsis likely from lung etiology. On IV antibiotics. Continue with TPN and midline dressing changes.
[2017-02-28] MEDS: Vancomycin 1,000 MG in D5% in Water 250 ML IVPB SCH (14:43)
[2017-02-28] MEDS: Piperacillin/Tazobactam 3.375 GM in D5% in Water (Mini-Bag+) 100 ML IVPB SCH ×2 (16:25→23:33)
[2017-02-28] MEDS ORDERED: Clinimix E 5%-15% SOLUTION 2,000 ML with MVI, adult with vitamin K 10 ML IVC SCH (17:00)
[2017-02-28] MEDS: Aspirin 81 MG TAB.CHEW PO SCH (19:57)
[2017-03-01] MEDS: *HR* Morphine 2 MG/ML SYRINGE IVP PRN (01:45)
[2017-03-01] MEDS: Vancomycin 1,000 MG in D5% in Water 250 ML IVPB SCH ×2 (01:50→13:31)
[2017-03-01] MEDS: *HR* HYDROmorphone (PF) 1 MG/ML SYRINGE IVP PRN ×4 (03:26→19:20)
[2017-03-01] MEDS: Insulin LISPRO 300 UNITS/3 ML VIAL SQ SCH ×6 (03:44→23:50)
[2017-03-01 04:08] LABS: INR 2.2; Prothrombin Time 23.7 Seconds (9.4-12.1)
[2017-03-01] MEDS: Ipratropium/Albuterol Neb 3 ML IH SCH ×4 (04:08→21:57)
[2017-03-01] MEDS: *HR* Metoprolol 5 MG/5 ML VIAL IVP SCH ×2 (06:28→13:32)
[2017-03-01] MEDS ORDERED: Dexmedetomidine HCl 400 MCG/100 ML MLS IVC ONE (06:59)
[2017-03-01] MEDS: Dexmedetomidine HCl 400 MCG/100 ML MLS IVC SCH (07:02)
--- NOTE | 2017-03-01 08:05 | Pulmonology Progress Note ---
Date of Encounter: 03/01/17 Time of Encounter: 08:04 Assessment and Plan (1) Encephalopathy Current Visit: Yes Status: Acute Management was reviewed during multidisciplinary critical care rounds. Neuropsych: Acute encephalopathy resolving this is likely a combination of medication effect and possible ICU delirium coupled with sepsis. 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 In addition we will avoid sensory deprivation and focus on sabianism of sleep-wake cycle. Pulm: Acute on chronic hypoxic hypercapnic respiratory failure s/t post operative atelectasis and splinting. Stable oxygenation today on nasal cannula for periods of increased work of breathing which is mediated primarily through anxiety she continues positive airway pressure support. Continue antimicrobials for pneumonia bronchodilators for COPD I did not see any additional reason especially given recent surgery to continue IV steroids at this time but can reconsider based upon clinical course. Continue to wean FiO2 to keep saturation greater than 80% Cards: History of CAD, CHF, HTN. Hypertension much better controlled today. Troponin elevation which is likely demand ischemia she has been evaluated by cardiology troponin is trending down. Atrial fibrillation which is currently rate controlled. Blood pressure acceptable. Plan to restart warfarin been able to take by mouth medications FEN-GI: Postop day #5 status post exploratory celiotomy with small bowel resection continued total parenteral nutrition; Gen. surgery following NG tube removed yesterday she is okay for clear liquid diet and by mouth medications and will discuss with the surgeon when he anticipates will able to give her oral medications. Renal: No SYLWIA acceptable urine output hyperkalemia has resolved ID: Presented with sepsis likely intra-abdominal and was being treated with Levaquin and Flagyl for this and also possibility of pneumonia going into surgery however post operatively white count was trending down yesterday she developed worsening altered mental status and new white count elevation which was likely related to development of pneumonia with broad her antimicrobials to cover both intra-abdominal sources as well as hospital-acquired pathogens we will plan to de-escalate next 48 hours if cultures remain negative. Lactate is within normal limits Heme/Onc: Mild postoperative anemia which is stable I suspect that her persistent coagulopathy is not related to warfarin as much as underlying nutritional deficiency for which I will give vitamin K. Plan to restart DVT prophylaxis at present with likely progression failure heparin infusion for stroke prevention if further delay in oral anticoagulation Endo: Glucose Monitored and under reasonable control we will continue to monitor revealed 4 hours and bolus insulin per protocol Integ/MSK: Skin Care per routine ICU Nursing Protocol to prevent ulcers. Lines: All lines examined without evidence of infection including: PIVs and Urinary Jones Cath and PICC line Dispo: Stable for transfer to stepdown unit for ongoing nursing needs. CODE: Full Code. (2) Acute exacerbation of chronic obstructive airways disease Current Visit: No Status: Acute (3) CAD (coronary artery disease) Current Visit: Yes Status: Chronic Qualifiers: Coronary Disease-Associated Artery/Lesion type: [place] artery [place] vs. transplanted heart: [place] heart Associated angina: without angina Qualified Code(s): I25.10 - Atherosclerotic heart disease of [place] coronary artery without angina pectoris (4) Atrial fibrillation Current Visit: Yes Status: Chronic Qualifiers: Atrial fibrillation type: chronic Qualified Code(s): I48.2 - Chronic atrial fibrillation (5) Acute on chronic respiratory failure Current Visit: Yes Status: Acute Qualifiers: Respiratory failure complication: hypercapnia Qualified Code(s): J96.22 - Acute and chronic respiratory failure with hypercapnia (6) Chronic combined systolic and diastolic congestive heart failure Current Visit: No Status: Chronic (7) PNA (pneumonia) Current Visit: Yes Status: Acute Qualifiers: Pneumonia type: due to unspecified organism Laterality: bilateral Lung location: lower lobe of lung Qualified Code(s): J18.9 - Pneumonia, unspecified organism (8) Sepsis Current Visit: Yes Status: Acute Qualifiers: Sepsis type: sepsis due to unspecified organism Qualified Code(s): A41.9 - Sepsis, unspecified organism (9) Partial small bowel obstruction Current Visit: Yes Status: Acute (10) Moderate protein-calorie malnutrition Current Visit: Yes Status: Acute (11) Hyperkalemia Current Visit: Yes Status: Acute Subjective Principal diagnosis: s/p exploratory celiostomy with SBR Interval history: Ms. [place] as made significant improvement in overall status in the last 24 hours. She is now awake and alert and able to follow commands her anxiety is being treated with Precedex at present she is active made such improvement that she is requesting "free weights" that she could lift in bed. Had a mild bump in troponin that quickly down trended cardiology was consulted for this. She denies any active chest pain at present. Objective PUL Vital signs: Last Vital Signs Temp 97.7 F 03/01/17 07:00 Pulse 69 03/01/17 07:00 Resp 32 03/01/17 07:00 BP 111/60 03/01/17 07:00 Pulse Ox 97 03/01/17 07:00 General appearance: no acute distress Eyes: nonicteric ENT: oropharynx dry Auscultation: bilateral: diminished breath sounds (Scattered rales no wheezes) Cardiovascular: irregular rhythm Gastrointestinal: soft, non-tender (Midline incision dressed and this is clean dry and intact) Extremities: no edema normal mental status, non-focal exam Results - Laboratory Findings CBC and BMP: 03/01/17 10:48 03/01/17 10:45 ABG ABG pH 7.41 pH Units (7.32-7.45) 02/28/17 10:12 ABG pCO2 36 mmHg (35-45) 02/28/17 10:12 ABG pO2 76 mmHg (85-104) L 02/28/17 10:12 ABG O2 Saturation 95 % (95-98) 02/28/17 10:12 PT/INR, D-dimer PT 23.7 Seconds (9.4-12.1) H 03/01/17 03:32 Abnormal lab findings: Abnormal lab results WBC 13.4 K/mcL (4.3-11.1) H D 02/28/17 05:15 RBC 3.11 M/mcL (3.82-4.97) L 02/28/17 05:15 Hgb 9.1 g/dL (11.5-15.4) L 02/28/17 05:15 Hct 30.1 % (35.3-44.9) L 02/28/17 05:15 MCHC 30.2 g/dL (31.6-35.5) L 02/28/17 05:15 RDW 16.0 % (11.5-14.5) H 02/28/17 05:15 Neutrophils # 10.1 K/mcL (1.6-8.9) H 02/28/17 05:15 Monocytes # 1.7 K/mcL (0.0-1.3) H 02/28/17 05:15 Nucleated RBCs/100 WBC 0.4 /100 WBC (0) H 02/28/17 05:15 PT 23.7 Seconds (9.4-12.1) H 03/01/17 03:32 ABG pO2 76 mmHg (85-104) L 02/28/17 10:12 Chloride 113 mEq/L (98-109) H 02/28/17 05:15 BUN 38 mg/dL (7-20) H 02/28/17 05:15 BUN/Creatinine Ratio 49 (6-26) H 02/28/17 05:15 Glucose 180 mg/dL (70-99) H 02/28/17 05:15 POC Glucose 205 (58-89) H 03/01/17 07:45 Hemoglobin A1c 5.8 % (-5.6) H 02/23/17 00:42 Calculated Osmolality 308 (280-300) H 02/28/17 05:15 Troponin I 0.15 ng/mL (0-0.03) H* 03/01/17 01:40 Serum Total Protein 5.6 g/dL (6.0-8.3) L 02/27/17 04:22 Albumin 2.6 g/dL (3.5-5.0) L 02/27/17 04:22 Albumin/Globulin Ratio 0.9 (1.1-2.2) L 02/27/17 04:22 Prealbumin 10.0 mg/dL (16.0-38.0) L 02/26/17 03:00 Ur Specimen Adequacy See below A 02/28/17 13:05 Urine Protein 30 mg/dL (Neg-Trace) H 02/28/17 13:05 - Microbiology Findings Microbiology Findings: Microbiology, Last 48 Hours 02/25/17 16:20 Sputum Culture - Final Sputum - Clinical Findings Intake & Output: Intake & Output 02/28/17 03/01/17 03/01/17 23:59 07:59 15:59 Intake Total 2258 / 2258 600 / 600 Output Total 750 / 750 350 / 350 Balance 1508 / 1508 250 / 250 Weight 62.5 kg - VTE Documentation of Mechanical Device: Venous foot pump, device Consult Discharge Plan - Plan Referrals: Jeff Cervantes MD [Primary Care Provider] -
[2017-03-01] MEDS: Piperacillin/Tazobactam 3.375 GM in D5% in Water (Mini-Bag+) 100 ML IVPB SCH ×3 (09:01→23:34)
[2017-03-01] MEDS: Nicotine 14 MG PATCH.TD24 TD SCH (09:02)
[2017-03-01] MEDS: Pantoprazole 40 MG VIAL IVP SCH (09:02)
[2017-03-01] MEDS: Aspirin 81 MG TAB.CHEW PO SCH (09:09)
[2017-03-01] MEDS: Polymyxn-B/Trimeth Opth Drops 10 ML BOTTLE LEFT EYE SCH ×4 (09:09→21:31)
--- NOTE | 2017-03-01 09:17 | General Surgery Progress Note ---
<Grace Liu - Last Filed: 03/01/17 09:15> Date of Encounter: 03/01/17 Time of Encounter: 08:00 - Assessment and Plan (1) Ischemic necrosis of small bowel Current Visit: Yes Status: Acute Postop day 5 exploratory ceiliotomy, small bowel resection -continue supportive care and discomfort management; await return of bowel function -NG D/C'd 02/28 Hold PO meds while waiting the return of bowel function -She reports flatus despite faint bowel signs on assessment TPN; total fluid rate goal TPN rate IV antibiotics: Zosyn and Vancomycin daily dressing changes pack with 1/4 inch playing cause PT OT out of bed to chair as tolerated PPI therapy daily repeat a.m. labs (2) Partial small bowel obstruction Current Visit: Yes Status: Acute See above (3) DVT prophylaxis Current Visit: Yes Status: Acute Bilateral foot pumps INR 2.2 out of bed with PT and OT as tolerated (4) PNA (pneumonia) Current Visit: Yes Status: Acute Management per pulmonary critical care. IV antibiotics Zosyn and Vancomycin 02 per nasal cannula. We'll continue to follow Qualifiers: Pneumonia type: due to unspecified organism Laterality: bilateral Lung location: lower lobe of lung Qualified Code(s): J18.9 - Pneumonia, unspecified organism (5) Moderate protein-calorie malnutrition Current Visit: Yes Status: Acute See above Subjective Patient reports: no new complaints, feels better, still having pain, pain is less, flatus, no bowel movement, shortness of breath, afebrile Objective Vital Signs - Last 8 Hours Temp Pulse Resp BP Pulse Ox 03/01/17 08:33 97.7 F 03/01/17 07:00 97.7 F 69 32 111/60 97 03/01/17 06:00 69 27 111/66 97 03/01/17 05:00 69 32 106/49 96 03/01/17 04:50 97.1 F L 03/01/17 04:08 26 94 03/01/17 04:00 69 30 109/53 94 03/01/17 03:15 71 32 109/54 95 03/01/17 02:11 69 28 152/101 94 Intake and Output 02/28/17 03/01/17 03/01/17 23:59 07:59 15:59 Intake Total 2258 / 2258 600 / 600 Output Total 750 / 750 350 / 350 150 / 150 Balance 1508 / 1508 250 / 250 -150 / -150 Intake: IV Fluids 2258 / 2258 600 / 600 PRECEDEX Premix 400 mcg In 100 3 / 3 ml As IVC .STK-MED ONE Rx#: [id number] Clinimix E 5%-15% SOLUTION 2, 1905 / 1905 000 ML @ 65 mls/hr IVC .Q24H [facility] with M.v.i. Adult 10 ml Rx# :[id number] Intralipid 20% 250 ML @ 21 mls/ 250 / 250 hr IVPB DAILY@1700 PENDING SALE TO [facility] Rx#: [id number] Zosyn 3.375 GM In Dextrose 5% ( 100 / 100 100 / 100 Minibag+) 100 ML 100 ML @ 25 mls/hr IVPB Q8HR PENDING SALE TO [facility] Rx#: [id number] Vancocin 1,000 MG In Dextrose 5 250 / 250 250 / 250 % 250 ML @ 167 mls/hr IVPB Q12H PENDING SALE TO [facility] Rx#:[id number] Oral 0 / 0 0 / 0 Output: Catheter 750 / 750 350 / 350 150 / 150 Other: # Bowel Movements 0 Weight 62.5 kg Blood Glucose* 222 205 Patient Weight 03/01/17 23:59 Weight 62.5 kg - General physical appearance no distress, moderate pain, chronically ill - ENT atraumatic, normocephalic - Neck Neck exam: trachea midline - Respiratory other (Decreased and course. Appears SOB at rest. O2 per NC noted.) - Cardiovascular Cardiovascular exam: Present: RRR - Abdomen Abdomen: Present: bowel sounds present (Faint), soft, tender (Expected post- operative) - Incision Incision: Present: clean and dry, intact (Margins are in tact with the exception of areas that are packed. No s/s of infection noted. ) - Integumentary no rash - Neurologic normal coordination, normal sensation - Musculoskeletal other (Kyphotic) - Psychiatric oriented to time, oriented to person, oriented to place, memory intact - Labs 02/28/17 05:15 02/28/17 11:15 Diabetes panel 02/28/17 Range/Units 11:15 Potassium 4.0 D (3.5-4.5) mEq/L Pituitary panel 02/28/17 Range/Units 11:15 Potassium 4.0 D (3.5-4.5) mEq/L Adrenal panel 02/28/17 Range/Units 11:15 Potassium 4.0 D (3.5-4.5) mEq/L - VTE Documentation of Mechanical Device: Venous foot pump, device Consult Discharge Plan - Plan Referrals: Jeff Cervantes MD [Primary Care Provider] - <Soy Mcmillan - Last Filed: 03/01/17 14:25> Date of Encounter: 03/01/17 - Assessment and Plan (1) Partial small bowel obstruction Current Visit: Yes Status: Acute (2) Ischemic necrosis of small bowel Current Visit: Yes Status: Acute Objective Vital Signs - Last 8 Hours Temp Pulse Resp BP Pulse Ox 03/01/17 13:00 98 F 03/01/17 12:00 69 30 93/53 95 03/01/17 11:15 69 36 108/52 95 03/01/17 10:00 69 40 122/69 94 03/01/17 09:00 69 34 140/72 98 03/01/17 08:33 97.7 F 03/01/17 07:00 97.7 F 69 32 111/60 97 Intake and Output 02/28/17 03/01/17 03/01/17 23:59 07:59 15:59 Intake Total 2258 / 2258 600 / 600 342 / 342 Output Total 750 / 750 350 / 350 250 / 250 Balance 1508 / 1508 250 / 250 92 / 92 Intake: IV Fluids 2258 / 2258 600 / 600 122 / 122 PRECEDEX Premix 400 mcg In 100 ml @ 0.2 MCG/KG/HR 3.125 mls/hr IVC .Q24H [facility] Rx#:[id number] Clinimix E 5%-15% SOLUTION 2, 1905 / 1905 000 ML @ 65 mls/hr IVC .Q24H [facility] with M.v.i. Adult 10 ml Rx# :[id number] Intralipid 20% 250 ML @ 21 mls/ 250 / 250 hr IVPB DAILY@1700 [facility] Rx#: [id number] Zosyn 3.375 GM In Dextrose 5% ( 100 / 100 100 / 100 100 / 100 Minibag+) 100 ML 100 ML @ 25 mls/hr IVPB Q8HR [facility] Rx#: [id number] Vancocin 1,000 MG In Dextrose 5 250 / 250 250 / 250 % 250 ML @ 167 mls/hr IVPB Q12H [facility] Rx#:[id number] Oral 0 / 0 0 / 0 220 / 220 Output: Catheter 750 / 750 350 / 350 250 / 250 Other: Meal Lunch Percent of Meal Consumed 30% # Bowel Movements 0 Weight 62.5 kg Blood Glucose* 222 205 190 Patient Weight 03/01/17 23:59 Weight 62.5 kg - Labs 03/01/17 10:48 03/01/17 10:45 Diabetes panel 03/01/17 Range/Units 10:45 Sodium 140 (136-145) mEq/L Potassium 3.2 L (3.5-4.5) mEq/L Chloride 112 H (98-109) mEq/L Carbon Dioxide 20 (19-29) mEq/L BUN 38 H (7-20) mg/dL Creatinine 0.69 (0.57-1.11) mg/dL Glucose 181 H (70-99) mg/dL Calcium 8.1 L (8.6-10.8) mg/dL Calcium panel 03/01/17 Range/Units 10:45 Calcium 8.1 L (8.6-10.8) mg/dL Pituitary panel 03/01/17 Range/Units 10:45 Sodium 140 (136-145) mEq/L Potassium 3.2 L (3.5-4.5) mEq/L Chloride 112 H (98-109) mEq/L Carbon Dioxide 20 (19-29) mEq/L BUN 38 H (7-20) mg/dL Creatinine 0.69 (0.57-1.11) mg/dL Glucose 181 H (70-99) mg/dL Calcium 8.1 L (8.6-10.8) mg/dL Adrenal panel 03/01/17 Range/Units 10:45 Sodium 140 (136-145) mEq/L Potassium 3.2 L (3.5-4.5) mEq/L Chloride 112 H (98-109) mEq/L Carbon Dioxide 20 (19-29) mEq/L BUN 38 H (7-20) mg/dL Creatinine 0.69 (0.57-1.11) mg/dL Glucose 181 H (70-99) mg/dL Calcium 8.1 L (8.6-10.8) mg/dL - Attending Attestation For this encounter, I have reviewed the RECORDS ANALYSIS MANAGER or PA documentation, treatment plan, and medical decision making; and I have had face to face time with this patient. Reviewed the assessment and evaluation with the nurse practitioner and agree with the above. Patient tolerating clear liquids. Passing flatus. I do think it would be okay to start by mouth medications and consider advancement to full liquids tomorrow if she continues to tolerate her current diet. On TPN. To consider weaning off TPN if she continues to tolerate by mouth diet.
[2017-03-01] MEDS: Beclomethasone 80mcg MDI IH SCH ×2 (09:54→21:57)
[2017-03-01 11:06] LABS: Basophils # 0.1 K/mcL (0.0-0.2); Basophils % 0.6 %; Eosinophils # 0.3 K/mcL (0.0-0.6); Eosinophils % 2.1 %; Hematocrit 31.5 % (35.3-44.9); Hemoglobin 9.7 g/dL (11.5-15.4); Immature Granulocytes % 4.8 % (0-4); Immature Platelets 4.7 % (1.1-6.1); Lymphocytes # 0.9 K/mcL (0.6-4.6); Lymphocytes % 6.2 %; Mean Corpuscular HGB Conc 30.8 g/dL (31.6-35.5); Mean Corpuscular Hemoglobin 29.5 pg (28.0-33.3); Mean Corpuscular Volume 95.7 fL (83.0-100.0); Mean Platelet Volume 10.3 fL (9.4-12.4); Monocytes # 1.1 K/mcL (0.0-1.3); Monocytes % 7.9 %; Neutrophils # 11.2 K/mcL (1.6-8.9); Nucleated Red Blood Cells 0.4 /100 WBC (0); Platelet Count 203 K/mcL (140-400); Red Blood Count 3.29 M/mcL (3.82-4.97); Red Cell Distribution Width 15.6 % (11.5-14.5); Segmented Neutrophils % 78.4 %
[2017-03-01 11:49] LABS: BUN/Creatinine Ratio 55 (6-26); Blood Urea Nitrogen 38 mg/dL (7-20); Calcium 8.1 mg/dL (8.6-10.8); Carbon Dioxide 20 mEq/L (19-29); Chloride 112 mEq/L (98-109); Glucose 181 mg/dL (70-99); Osmolality,Calculated 304 (280-300); Potassium 3.2 mEq/L (3.5-4.5); Sodium 140 mEq/L (136-145); eGFR For African Americans > 60 (> 60); eGFR For Non-African Americans > 60 (> 60)
--- NOTE | 2017-03-01 11:56 | Cardiology Consult Note ---
<DominikIftikhar schwartz Zana - Last Filed: 03/01/17 12:02> Date of Encounter: 03/01/17 Time of Encounter: 11:56 Assessment and Plan (1) Elevated troponin Current Visit: Yes Status: Acute Troponins 0.26, 0.18, 0.15--mildly elevated and downtrending in setting of s/p bowel resection and acute on chronic respiratory failure requiring BiPAP and suspected PNA. Suspect demand ischemia, nondiagnostic for ACS. Pt denies chest pain. INR 2.2 even with Coumadin on hold. Echo 02/2016 EF preserved 55%, mild MR, moderately severe TR, moderate pHTN. Do not recommend any repeat cardiac testing at this time. Can follow-up as outpt. Anticipate sign off once seen and evaluated by Dr. Parker. (2) Atrial fibrillation Current Visit: Yes Status: Chronic Known chronic A-Fib. Paced with underlying A-Fib. Currently rate controlled. 12 hr tele AVG HR 70. PO meds not yet resumed, but on scheduled IV lopressor. Resume PO BB once able to tolerate. Anticoagulated on Coumadin at home. Has been held for surgery while inpt and despite holding, INR still therapeutic at 2.2.--unclear why. AST/ALT normal. Qualifiers: Atrial fibrillation type: chronic Qualified Code(s): I48.2 - Chronic atrial fibrillation (3) CAD (coronary artery disease) Current Visit: Yes Status: Chronic Last [facility] 03/01/10 severe 2V CAD, patent pLAD stent, 50% stenosis OM1, EF 65% with mild hypokinesis of apical wall. Pt denies chest pain. Currently not on PO meds. Once resumed, recommend resuming Plavix, Statin, BB. Pt was not on ASA at home since she was on Plavix and Coumadin. Qualifiers: Coronary Disease-Associated Artery/Lesion type: [place] artery [place] vs. transplanted heart: [place] heart Associated angina: without angina Qualified Code(s): I25.10 - Atherosclerotic heart disease of [place] coronary artery without angina pectoris (4) Pacemaker Current Visit: Yes Status: Chronic Follow-up in device clinic as outpt. Discussion w patient/family: The assessment and plan as outlined above was discussed with the patient and/or family members who expressed understanding and agreement. All questions were answered. Thank you for involving us in the care of your patient. Please call with any questions. I will discuss all the above with Dr. Parker and make changes as necessary. History of Present Illness Consult date: 03/01/17 Requesting physician: Jason Sequeira Consult reason: elevated troponin Chief complaint: abdominal pain History of present illness: Ms. Montana is a 71 year old female with PMH of A.fib anticoagulated on Coumadin, diastolic CHF, COPD, CAD s/p stents, HLD, HTN, s/p PPM, CKD, anxiety, depression , mild mitral regurgitation, moderately severe tricuspid regurgitation, colonic AVM at the hepatic flexure, atrophic gastritis, diverticulosis, Schatzki's ring at the GE junction status post dilatation and chronic anemia that initially presented to the ED with complaints of abdominal pain. She was since found to have small bowel obstruction, ischemic bowel s/p bowel resection that has since developed acute respiratory failure post op now requiring BiPAP, suspected PNA. Troponins found to be 0.26, 0.18 and 0.15. Cardiology consulted for further recommendations. Pt denies chest pain. Prior CV testing: [facility] 03/01/10: severe 2-vessel CAD, patent proximal LAD stent, 50% stenosis of OM1 , LVEF 65% with mild hypokinesis of apical wall TTE 03/17/14: LVEF 55-60%, mildly dilated RV, mild-moderately dilated LA, moderate-severely dilated RA, mild MR, moderate TR, RVSP 44 Holter 08/30/14: paced rhythm, underlying rhyhtm may be atrial fibrillation CUS 09/08/14: bilateral ICA has nonstenotic plaque LE arterial study 12/22/14: arterial hemodynamics well maintained at rest TTE 03/06/15: LVEF 50-55%, indeterminate diastolic function, severe biatrial enlargement, moderate-severe posteriorly directed MR, moderate TR, RVSP 52. TTE 02/20/16: LVEF 55%, moderate biatrial enlargement, mild-moderately dilated RV with normal function, mild MR, moderate-severe TR, mild OK, RVSP 50. Past Med Surg Social Fam HX - Past Medical History Medical history: atrial fibrillation, CHF, COPD, coronary artery disease, hyperlipidemia, hypertension, myocardial infarction, renal disease, TIA, other Psychiatric history: anxiety, depression - Past Surgical History Surgical History: angioplasty/stent, cholecystectomy, other (Partial hysterectomy, ankle surgery, bilateral shoulder surgery) - Social History Smoking Status: Current every day smoker Smokeless Tobacco Status: No Alcohol use: none Drug use: none - Family History Mother Hx Family Neuromuscular Disorders: Yes (epilipsy) Medications and Allergies Albuterol Sulfate [Albuterol Inhaler] 2 puff IH Q6H PRN 03/05/15 [History] Carvedilol 25 mg PO BID 03/05/15 [History] Esomeprazole Magnesium [Nexium] 40 mg PO DAILY 03/05/15 [History] Melatonin [Melatin] 3 mg PO HS 03/05/15 [History] Simvastatin 40 mg PO QPM 03/05/15 [History] Beclomethasone Diprop 80mcg [Qvar 80 mcg] 1 puff IH BID 05/25/16 [History] Buspirone HCl [Buspar] 5 mg PO BID 05/25/16 [History] Clopidogrel [Plavix] 75 mg PO DAILY 05/25/16 [History] Ezetimibe [Zetia] 10 mg PO DAILY 05/25/16 [History] GlipiZIDE XL (24 HR) [Glucotrol XL] 2.5 mg PO DAILY 05/25/16 [History] Ipratropium/Albuterol Neb [Duoneb] 3 ml IH Q6HR PRN 05/25/16 [History] Lipase/Protease/Amylase [Creon Dr 6,000 Units Capsule] 6,000 unit PO ACHS [History] Lisinopril [Zestril] 5 mg PO DAILY 05/25/16 [History] Oxycodone HCl 10 mg PO Q6H PRN 05/25/16 [History] Ranitidine HCl [Zantac] 150 mg PO BID 05/25/16 [History] Tizanidine HCl 2 mg PO Q8H PRN 05/25/16 [History] TraZODone 50 mg PO HS 05/25/16 [History] Venlafaxine [Effexor] 75 mg PO BID 05/25/16 [History] Warfarin [Coumadin] 2 mg PO DAILY 01/31/17 [History] Doxycycline 100 mg PO BID 02/22/17 [History] Furosemide [Lasix] 20 mg PO BID PRN 02/22/17 [History] Mirtazapine [Remeron] 15 mg PO HS 02/22/17 [History] Ranolazine [Ranexa] 500 mg PO BID 02/22/17 [History] 3 Allergy/AdvReac Type Severity Reaction Status Date / Time Latex, Natural Rubber Allergy Severe Swelling Verified 05/25/16 10:00 of Lip/Tongue/Throat All Systems Review: A 10-system review of systems was performed and is negative for pertinent findings except as documented above in the HPI. - Cardiovascular Cardiovascular: dyspnea at rest, dyspnea on exertion - Respiratory Respiratory: dyspnea - Gastrointestinal Gastrointestinal: abdominal pain Physical Examination Vital Signs, Last 4 Hours Temp Pulse Resp BP Pulse Ox 03/01/17 11:15 69 36 108/52 95 03/01/17 10:00 69 40 122/69 94 03/01/17 09:00 69 34 140/72 98 03/01/17 08:33 97.7 F Vital Signs Temp Pulse Resp BP Pulse Ox 03/01/17 11:15 69 36 108/52 95 03/01/17 10:00 69 40 122/69 94 03/01/17 09:00 69 34 140/72 98 03/01/17 08:33 97.7 F 03/01/17 07:00 97.7 F 69 32 111/60 97 03/01/17 06:00 69 27 111/66 97 03/01/17 05:00 69 32 106/49 96 03/01/17 04:50 97.1 F L 03/01/17 04:08 26 94 03/01/17 04:00 69 30 109/53 94 03/01/17 03:15 71 32 109/54 95 03/01/17 02:11 69 28 152/101 94 03/01/17 01:00 69 26 114/60 94 03/01/17 00:16 97.3 F L 03/01/17 00:00 69 28 120/62 94 02/28/17 23:40 79 28 135/63 95 02/28/17 22:54 26 94 02/28/17 22:00 69 26 158/78 94 02/28/17 21:00 87 30 172/95 93 02/28/17 20:00 69 30 164/92 93 02/28/17 19:15 97.5 F L 69 26 157/79 93 02/28/17 18:00 69 26 141/68 95 02/28/17 17:30 69 30 140/64 93 02/28/17 16:30 69 22 147/76 91 02/28/17 16:12 69 30 186/88 92 02/28/17 16:09 97.6 F 02/28/17 15:58 25 98 02/28/17 15:00 69 30 152/86 95 02/28/17 14:00 69 34 155/94 97 02/28/17 13:28 69 34 149/84 97 02/28/17 12:30 69 33 143/87 96 02/28/17 12:04 69 42 170/100 95 Intake and Output 02/28/17 03/01/17 03/01/17 23:59 07:59 15:59 Intake Total 2258 / 2258 600 / 600 142 / 142 Output Total 750 / 750 350 / 350 150 / 150 Balance 1508 / 1508 250 / 250 -8 / -8 Intake: IV Fluids 2258 / 2258 600 / 600 PRECEDEX Premix 400 mcg In 100 3 / 3 ml @ 0.2 MCG/KG/HR 3.125 mls/hr IVC .Q24H REMY Rx#:[id number] Clinimix E 5%-15% SOLUTION 2, 1905 / 1905 000 ML @ 65 mls/hr IVC .Q24H REMY with M.v.i. Adult 10 ml Rx# :[id number] Intralipid 20% 250 ML @ 21 mls/ 250 / 250 hr IVPB DAILY@1700 REMY Rx#: [id number] Zosyn 3.375 GM In Dextrose 5% ( 100 / 100 100 / 100 Minibag+) 100 ML 100 ML @ 25 mls/hr IVPB Q8HR REMY Rx#: [id number] Vancocin 1,000 MG In Dextrose 5 250 / 250 250 / 250 % 250 ML @ 167 mls/hr IVPB Q12H REMY Rx#:[id number] Oral 0 / 0 0 / 0 120 / 120 Output: Catheter 750 / 750 350 / 350 150 / 150 Other: Meal Breakfast Percent of Meal Consumed 30% # Bowel Movements 0 Weight 62.5 kg Blood Glucose* 222 205 Patient Weight 03/01/17 23:59 Weight 62.5 kg General: Other (on BiPAP) HEENT: Atraumatic, Normocephaly, Mucus Membranes Moist Neck: No JVD, Normal carotid pulses Cardiac: Other (irregularly irregular) Lungs: Other (on BiPAP) Neuro: Alert and responsive, No focal deficits noted Abdomen: Other (tender) Results 03/01/17 10:48 03/01/17 10:45 Lab Results 02/28/17 02/28/17 03/01/17 17:20 21:32 01:40 WBC Hgb Hct Plt Count INR Troponin I 0.26 H* 0.18 H* 0.15 H* 03/01/17 03/01/17 03:32 10:48 WBC 14.3 H Hgb 9.7 L Hct 31.5 L Plt Count 203 INR 2.2 Troponin I Short CBC 03/01/17 Range/Units 10:48 WBC 14.3 H (4.3-11.1) K/mcL Hgb 9.7 L (11.5-15.4) g/dL Hct 31.5 L (35.3-44.9) % Plt Count 203 (140-400) K/mcL Neutrophils # 11.2 H (1.6-8.9) K/mcL BMP 03/01/17 Range/Units 10:45 Sodium 140 (136-145) mEq/L Potassium 3.2 L (3.5-4.5) mEq/L Chloride 112 H (98-109) mEq/L Carbon Dioxide 20 (19-29) mEq/L BUN 38 H (7-20) mg/dL Creatinine 0.69 (0.57-1.11) mg/dL Glucose 181 H (70-99) mg/dL Calcium 8.1 L (8.6-10.8) mg/dL Cardiac Enzymes 03/01/17 02/28/17 02/28/17 Range/Units 01:40 21:32 17:20 Troponin I 0.15 H* 0.18 H* 0.26 H* (0-0.03) ng/mL Urine 02/28/17 Range/Units 13:05 Urine Color Yellow (Yellow) Urine Clarity Clear (Clear) Urine pH 6.0 (5.0-8.0) pH Units Ur Specific [place] 1.019 (1.010-1.025) Urine Protein 30 H (Neg-Trace) mg/dL Urine Glucose (UA) Normal (Normal) mg/dL Impressions Chest X-Ray 02/28/17 09:22 IMPRESSION: Bilateral interstitial opacities with slightly increased left basilar airspace opacity. Findings may be related to edema and/or pneumonia. D/ / 02/28/2017 11:54:45 Adelita White MD / earnold Interpreting Provider: Adelita White MD Active Medications Albuterol Sulfate (Albuterol Inhaler) 2 puff IH Q6H PRN PRN Reason: Shortness Of Breath Stop: 08/29/17 09:31 Albuterol/Ipratropium (Duoneb) 3 ml IH [id number] REMY Stop: 08/25/17 04:01 Last Admin: 03/01/17 09:54 Dose: 3 ml Lipase/Protease/Amylase (Creon Dr 6,000 Units Capsule) 1 each PO ACHS REMY Stop: 08/25/17 08:01 Last Admin: 02/28/17 08:05 Dose: Not Given Aspirin (Aspirin) 81 mg PO DAILY REMY Stop: 08/30/17 18:31 Last Admin: 03/01/17 09:09 Dose: 81 mg Beclomethasone Dipropionate (Qvar 80 Mcg) 1 puff IH BIDRESP REMY PRN Reason: Protocol Stop: 08/25/17 10:01 Last Admin: 03/01/17 09:54 Dose: 1 puff Buspirone HCl (Buspar) 5 mg PO BID REMY Stop: 08/25/17 09:01 Last Admin: 02/28/17 08:06 Dose: Not Given Carvedilol (Coreg) 25 mg PO BID REMY PRN Reason: Protocol Stop: 08/25/17 09:01 Last Admin: 02/28/17 08:06 Dose: Not Given Furosemide (Lasix) 20 mg PO BID PRN PRN Reason: fluid retention Stop: 08/29/17 09:31 Heparin Sodium (Porcine) (Heparin) 5,000 unit SQ Q12HCO REMY Stop: 08/31/17 18:01 Hydralazine HCl (Hydralazine) 10 mg IVP Q6H REMY Stop: 08/29/17 09:31 Last Admin: 03/01/17 09:33 Dose: 10 mg Hydromorphone HCl (Dilaudid) 1 mg IVP Q2HR PRN PRN Reason: Pain Stop: 08/25/17 08:32 Last Admin: 03/01/17 09:21 Dose: 1 mg Calcium Gluconate 1,000 mg/ (Dextrose) 110 mls @ 50 mls/hr IVPB Q6HR PRN PRN Reason: Hypocalcemia Stop: 08/27/17 11:01 Fat Emulsion Intravenous (Intralipid 20%) 250 mls @ 21 mls/hr IVPB DAILY@1700 REMY Stop: 08/28/17 17:01 Last Infusion: 03/01/17 05:00 Dose: Infused Dextrose (Dextrose 10% Water 500 Ml Ivbag) 500 mls @ 50 mls/hr IVC .Q10H PRN PRN Reason: TPN delayed or interrupted Stop: 08/28/17 11:06 Multivitamins 10 ml/ Amino (Acids/Electrolytes) 2,010 mls @ 65 mls/hr IVC .Q24H REMY PRN Reason: Protocol Stop: 03/01/17 16:59 Last Admin: 02/28/17 16:28 Dose: 65 ml/hr, 65 mls/hr Piperacillin Sod/Tazobactam (Sod 3.375 gm/ Dextrose) 100 mls @ 25 mls/hr IVPB Q8HR REMY Stop: 08/30/17 16:01 Last Admin: 03/01/17 09:01 Dose: 25 mls/hr Vancomycin HCl 1,000 mg/ (Dextrose) 250 mls @ 167 mls/hr IVPB Q12H REMY PRN Reason: Protocol Stop: 08/30/17 13:01 Last Infusion: 03/01/17 03:20 Dose: Infused Dexmedetomidine HCl (Precedex Premix) 400 mcg in 100 mls @ 3.125 mls/hr IVC .Q24H REMY; 0.2 MCG/KG/HR PRN Reason: Protocol Stop: 08/31/17 07:01 Last Titration: 03/01/17 11:15 Dose: 0 mcg/kg/hr, 0 mls/hr Multivitamins 10 ml/ Amino (Acids/Electrolytes) 2,010 mls @ 65 mls/hr IVC .Q24H REMY PRN Reason: Protocol Stop: 03/02/17 16:59 Multivitamins 10 ml/ Amino (Acids/Electrolytes) 2,010 mls @ 65 mls/hr IVC .Q24H REMY PRN Reason: Protocol Stop: 03/03/17 16:59 Multivitamins 10 ml/ Amino (Acids/Electrolytes) 2,010 mls @ 65 mls/hr IVC .Q24H REMY PRN Reason: Protocol Stop: 03/04/17 16:59 Phytonadione 5 mg/ Sodium (Chloride) 50.5 mls @ 100 mls/hr IVPB DAILY [facility] Stop: 03/03/17 09:31 Insulin Human Lispro (Humalog) 0 units SQ Q4HR REMY PRN Reason: Protocol Stop: 08/31/17 12:01 Lorazepam (Ativan) 1 mg IVP Q8HR PRN PRN Reason: Anxiety Stop: 08/29/17 22:03 Last Admin: 02/28/17 08:49 Dose: 1 mg Metoprolol Tartrate (Lopressor) 5 mg IVP Q6HR [facility] Stop: 08/29/17 12:01 Last Admin: 03/01/17 06:28 Dose: Not Given Mirtazapine (Remeron) 15 mg PO HS [facility] Stop: 08/25/17 21:01 Last Admin: 02/27/17 20:04 Dose: Not Given Morphine Sulfate (Morphine Sulfate) 2 mg IVP Q4HR PRN PRN Reason: Moderate Pain Stop: 08/24/17 21:53 Last Admin: 03/01/17 01:45 Dose: 2 mg Naloxone HCl (Narcan) 0.4 mg IVP Q2MIN PRN PRN Reason: Opioid Reversal Stop: 08/24/17 21:53 Last Admin: 02/28/17 11:31 Dose: 0.4 mg Nicotine (Nicoderm) 14 mg TD DAILY [facility] PRN Reason: Protocol Stop: 08/24/17 23:31 Last Admin: 03/01/17 09:02 Dose: 14 mg Ondansetron HCl (Zofran) 4 mg IVP Q8HR PRN PRN Reason: Nausea And Vomiting Stop: 08/24/17 21:53 Oxycodone HCl (Roxicodone) 10 mg PO Q6H PRN PRN Reason: Moderate Pain Pantoprazole Sodium (Protonix) 40 mg IVP DAILY [facility] Stop: 08/24/17 22:01 Last Admin: 03/01/17 09:02 Dose: 40 mg Polymyxin/Trimethoprim Sulfate (Polytrim Opth Drops) 1 drop LEFT EYE QID [facility] Stop: 08/28/17 09:46 Last Admin: 03/01/17 09:09 Dose: 1 drop Ranolazine (Ranexa) 500 mg PO BID [facility] Stop: 08/25/17 09:01 Last Admin: 02/27/17 20:04 Dose: Not Given Simvastatin (Zocor) 40 mg PO QPM [facility] PRN Reason: Protocol Stop: 08/25/17 18:01 Last Admin: 02/27/17 17:04 Dose: Not Given Trazodone HCl (Trazodone) 50 mg PO HS [facility] Stop: 08/29/17 21:01 Last Admin: 02/27/17 20:04 Dose: Not Given Venlafaxine HCl (Effexor) 75 mg PO BID [facility] Stop: 08/25/17 09:01 Last Admin: 02/28/17 08:06 Dose: Not Given - Imaging and Cardiology Echo: report reviewed Cardiac cath: report reviewed - EKG Interpretation EKG results cardiology: other (12 hr tele AVG HR 70, underlying rhythm appears A -Fib.) Consult Discharge Plan - Plan Referrals: Jeff Cervantes MD [Primary Care Provider] - <Mirtha Parker - Last Filed: 03/01/17 19:21> Date of Encounter: 03/01/17 Assessment and Plan Discussion w patient/family: The assessment and plan as outlined above was discussed with the patient and/or family members who expressed understanding and agreement. All questions were answered. Thank you for involving us in the care of your patient. Please call with any questions. History of Present Illness History of present illness: Ms. Montana is a 71 year old female All Systems Review: A 10-system review of systems was performed and is negative for pertinent findings except as documented above in the HPI. Physical Examination Vital Signs, Last 4 Hours Temp Pulse Resp BP Pulse Ox 03/01/17 16:24 97.3 F L 03/01/17 16:03 44 163/120 99 03/01/17 15:15 69 28 133/67 99 Results 03/01/17 10:48 03/01/17 10:45 Lab Results 02/28/17 03/01/1717 21:32 01:40 03:32 WBC Hgb Hct Plt Count INR 2.2 Sodium Potassium Chloride Carbon Dioxide BUN Creatinine Glucose Calcium Troponin I 0.18 H* 0.15 H* 03/01/17 03/01/17 10:45 10:48 WBC 14.3 H Hgb 9.7 L Hct 31.5 L Plt Count 203 INR Sodium 140 Potassium 3.2 L Chloride 112 H Carbon Dioxide 20 BUN 38 H Creatinine 0.69 Glucose 181 H Calcium 8.1 L Troponin I - Attending Attestation I examined this patient and my medical decision-making was reviewed with the Resident Physician. I agree with the documented findings, disposition and treatment plan. Ms. Montana developed acute respiratory failure s/p bowel resection for ischemic bowel. She was placed on BIPAP and improved. Troponins mildly elevated, now downtrending, in this setting. ECG is paced with underlying atrial fibrillation which is known. Despite holding coumadin, she is coagulopathic, INR 2.2. She denies chest pain to me. She appears comfortable on nasal cannula. Suspect troponins reflect demand ischemia. Patient would not qualify for an invasive approach at this time secondary to coagulopathy. She is overall positive 6L, renal function is normal and BP stable - consider IV diuresis. No further recommendations. Resume cardiac medications as clinical course improves. Please call with questions. Will sign off.
[2017-03-01] MEDS ORDERED: Furosemide 40 MG/4 ML VIAL IVP ONE ×2 (13:45→16:05)
[2017-03-01] MEDS: *HR* OxyCODONE Immed Rel 5 MG TABLET PO PRN (16:12)
[2017-03-01] MEDS ORDERED: Clinimix E 5%-15% SOLUTION 2,000 ML with MVI, adult with vitamin K 10 ML IVC SCH (17:00)
[2017-03-01] MEDS: *HR* Heparin 5,000 UNIT/ML VIAL SQ SCH (18:21)
[2017-03-01] MEDS: Ranolazine 500 MG TAB.ER.12H PO SCH (21:33)
[2017-03-02] MEDS: Vancomycin 1,000 MG in D5% in Water 250 ML IVPB SCH (01:15)
[2017-03-02] MEDS: *HR* OxyCODONE Immed Rel 5 MG TABLET PO PRN (02:46)
[2017-03-02 03:20] LABS: Hematocrit 32.2 % (35.3-44.9); Hemoglobin 10.1 g/dL (11.5-15.4); Mean Corpuscular HGB Conc 31.4 g/dL (31.6-35.5); Mean Corpuscular Hemoglobin 29.5 pg (28.0-33.3); Mean Corpuscular Volume 94.2 fL (83.0-100.0); Mean Platelet Volume 10.3 fL (9.4-12.4); Nucleated Red Blood Cells 0.6 /100 WBC (0); Platelet Count 224 K/mcL (140-400); Red Blood Count 3.42 M/mcL (3.82-4.97); Red Cell Distribution Width 15.6 % (11.5-14.5)
[2017-03-02 03:25] LABS: INR 1.6; Prothrombin Time 17.7 Seconds (9.4-12.1)
[2017-03-02 03:33] LABS: BUN/Creatinine Ratio 53 (6-26); Blood Urea Nitrogen 41 mg/dL (7-20); Calcium 8.7 mg/dL (8.6-10.8); Carbon Dioxide 19 mEq/L (19-29); Chloride 107 mEq/L (98-109); Glucose 181 mg/dL (70-99); Osmolality,Calculated 295 (280-300); Sodium 135 mEq/L (136-145); eGFR For African Americans > 60 (> 60); eGFR For Non-African Americans > 60 (> 60)
[2017-03-02 03:41] LABS: Eosinophils # 0.4 K/mcL (0.0-0.6); Lymphocytes # 1.1 K/mcL (0.6-4.6); Monocytes # 1.9 K/mcL (0.0-1.3); Neutrophils # 15.5 K/mcL (1.6-8.9)
[2017-03-02] MEDS: Ipratropium/Albuterol Neb 3 ML IH SCH ×4 (03:42→21:31)
[2017-03-02 03:44] LABS: Large Platelets Present (Not Present); Platelet Estimate Normal (Normal)
[2017-03-02] MEDS: Dexmedetomidine HCl 400 MCG/100 ML MLS IVC SCH ×2 (03:45→20:52)
[2017-03-02 04:01] LABS: Potassium 4.4 mEq/L (3.5-4.5)
[2017-03-02] MEDS: Insulin LISPRO 300 UNITS/3 ML VIAL SQ SCH ×5 (05:46→20:52)
[2017-03-02] MEDS: *HR* Heparin 5,000 UNIT/ML VIAL SQ SCH (05:46)
--- NOTE | 2017-03-02 07:11 | Pulmonology Consult Note ---
Date of Encounter: 03/02/17 Time of Encounter: 07:10 Assessment and Plan (1) Encephalopathy Current Visit: Yes Status: Acute Management was reviewed during multidisciplinary critical care rounds. Neuropsych: Acute encephalopathy resolving. She has significant anxiety and apparently this is a baseline problem for her clearly this is complicating her underlying obstructive lung disease. We are cautiously restarting her multiple home antidepressants and anxiolytics I restarted venlafaxine we will plan to start BuSpar and next 24-48 hours based upon clinical response. She is also scheduled to receive mirtazapine in the evening. In addition we will avoid sensory deprivation and focus on orthodox of sleep-wake cycle. Pulm: Acute on chronic hypoxic hypercapnic respiratory failure s/t post operative atelectasis and splinting. Stable oxygenation today on nasal cannula. Okay to intermittently use noninvasive ventilation as needed for work of breathing generally this is precipitated by anxiety Cards: History of CAD, CHF, HTN. Hypertension much better controlled. I have restarted her home dose of Coreg and we will continue to treat blood pressure with hydralazine pushes as needed based upon pressure readings could start hydralazine scheduled until patient can safely restart MERYL inhibitor as she takes home. She has a history of atrial fibrillation currently in paced rhythm with underlying rhythm atrial fibrillation. I restarted her home warfarin for this and an interim we will start heparin infusion until she is anticoagulated fully with Coumadin. Cardiology is seeing the patient for possible ACS which I think is demand ischemia. FEN-GI: Postop day #6 status post exploratory celiotomy with small bowel resection continued total parenteral nutrition; continue diet per surgery recommendations in this case full liquids Renal: No SYLWIA acceptable urine output hyperkalemia has resolved ID: Her treating for intra-abdominal sepsis this has been transitioned to Vantin and Zosyn for possibility of hospital-acquired pneumonia in the last 48 hours cultures as far are negative so plan to de-escalate antibiotics Heme/Onc: Mild postoperative anemia which is stable heparin infusion started for atrial fibrillation I will also restart her home warfarin once therapeutic heparin infusion can be stopped. Endo: Glucose Monitored and under reasonable control we will continue to monitor revealed 4 hours while on TPN and bolus insulin per protocol Integ/MSK: Skin Care per routine ICU Nursing Protocol to prevent ulcers. We will start PT/OT today Lines: All lines examined without evidence of infection including: PIVs and Urinary Jones Cath and PICC line Dispo: Stable for transfer to stepdown unit for ongoing nursing needs. Report called to the admitting hospitalist who graciously accepted transfer of care CODE: Full Code. (2) Acute exacerbation of chronic obstructive airways disease Current Visit: No Status: Acute (3) CAD (coronary artery disease) Current Visit: Yes Status: Chronic Qualifiers: Coronary Disease-Associated Artery/Lesion type: [place] artery [place] vs. transplanted heart: [place] heart Associated angina: without angina Qualified Code(s): I25.10 - Atherosclerotic heart disease of [place] coronary artery without angina pectoris (4) Atrial fibrillation Current Visit: Yes Status: Chronic Qualifiers: Atrial fibrillation type: chronic Qualified Code(s): I48.2 - Chronic atrial fibrillation (5) Acute on chronic respiratory failure Current Visit: Yes Status: Acute Qualifiers: Respiratory failure complication: hypercapnia Qualified Code(s): J96.22 - Acute and chronic respiratory failure with hypercapnia (6) Chronic combined systolic and diastolic congestive heart failure Current Visit: No Status: Chronic (7) PNA (pneumonia) Current Visit: Yes Status: Acute Qualifiers: Pneumonia type: due to unspecified organism Laterality: bilateral Lung location: lower lobe of lung Qualified Code(s): J18.9 - Pneumonia, unspecified organism (8) Sepsis Current Visit: Yes Status: Acute Qualifiers: Sepsis type: sepsis due to unspecified organism Qualified Code(s): A41.9 - Sepsis, unspecified organism (9) Partial small bowel obstruction Current Visit: Yes Status: Acute (10) Moderate protein-calorie malnutrition Current Visit: Yes Status: Acute (11) Hyperkalemia Current Visit: Yes Status: Acute History of Present Illness Consult date: 03/02/17 Past Med Surg Social Fam HX - Past Medical History Medical history: atrial fibrillation, CHF, COPD, coronary artery disease, hyperlipidemia, hypertension, myocardial infarction, renal disease, TIA, other Psychiatric history: anxiety, depression - Past Surgical History Surgical History: angioplasty/stent, cholecystectomy, other (Partial hysterectomy, ankle surgery, bilateral shoulder surgery) - Social History Smoking Status: Current every day smoker Smokeless Tobacco Status: No Alcohol use: none Drug use: none - Family History Mother Hx Family Neuromuscular Disorders: Yes (epilipsy) Medications and Allergies Albuterol Sulfate [Albuterol Inhaler] 2 puff IH Q6H PRN 03/05/15 [History] Carvedilol 25 mg PO BID 03/05/15 [History] Esomeprazole Magnesium [Nexium] 40 mg PO DAILY 03/05/15 [History] Melatonin [Melatin] 3 mg PO HS 03/05/15 [History] Simvastatin 40 mg PO QPM 03/05/15 [History] Beclomethasone Diprop 80mcg [Qvar 80 mcg] 1 puff IH BID 05/25/16 [History] Buspirone HCl [Buspar] 5 mg PO BID 05/25/16 [History] Clopidogrel [Plavix] 75 mg PO DAILY 05/25/16 [History] Ezetimibe [Zetia] 10 mg PO DAILY 05/25/16 [History] GlipiZIDE XL (24 HR) [Glucotrol XL] 2.5 mg PO DAILY 05/25/16 [History] Ipratropium/Albuterol Neb [Duoneb] 3 ml IH Q6HR PRN 05/25/16 [History] Lipase/Protease/Amylase [Creon Dr 6,000 Units Capsule] 6,000 unit PO ACHS [History] Lisinopril [Zestril] 5 mg PO DAILY 05/25/16 [History] Oxycodone HCl 10 mg PO Q6H PRN 05/25/16 [History] Ranitidine HCl [Zantac] 150 mg PO BID 05/25/16 [History] Tizanidine HCl 2 mg PO Q8H PRN 05/25/16 [History] TraZODone 50 mg PO HS 05/25/16 [History] Venlafaxine [Effexor] 75 mg PO BID 05/25/16 [History] Warfarin [Coumadin] 2 mg PO DAILY 01/31/17 [History] Doxycycline 100 mg PO BID 02/22/17 [History] Furosemide [Lasix] 20 mg PO BID PRN 02/22/17 [History] Mirtazapine [Remeron] 15 mg PO HS 02/22/17 [History] Ranolazine [Ranexa] 500 mg PO BID 02/22/17 [History] 3 Allergy/AdvReac Type Severity Reaction Status Date / Time Latex, Natural Rubber Allergy Severe Swelling Verified 05/25/16 10:00 of Lip/Tongue/Throat All Systems: A 10-system review of systems was performed and is negative for pertinent findings except as documented above in the HPI. Physical Examination Vital Signs: Vital Signs, Last 4 Hours Temp Pulse Resp BP Pulse Ox 03/02/17 06:00 69 30 135/65 100 03/02/17 05:30 69 29 100/54 100 03/02/17 04:08 69 26 109/55 100 03/02/17 03:53 99.2 F 03/02/17 03:42 36 111/45 100 Results - Laboratory Findings CBC and BMP: 03/02/17 03:03 03/02/17 03:03 ABG ABG pH 7.41 pH Units (7.32-7.45) 02/28/17 10:12 ABG pCO2 36 mmHg (35-45) 02/28/17 10:12 ABG pO2 76 mmHg (85-104) L 02/28/17 10:12 ABG O2 Saturation 95 % (95-98) 02/28/17 10:12 PT/INR, D-dimer PT 17.7 Seconds (9.4-12.1) H 03/02/17 03:03 Abnormal lab findings: Abnormal lab results WBC 18.9 K/mcL (4.3-11.1) H 03/02/17 03:03 RBC 3.42 M/mcL (3.82-4.97) L 03/02/17 03:03 Hgb 10.1 g/dL (11.5-15.4) L 03/02/17 03:03 Hct 32.2 % (35.3-44.9) L 03/02/17 03:03 MCHC 31.4 g/dL (31.6-35.5) L 03/02/17 03:03 RDW 15.6 % (11.5-14.5) H 03/02/17 03:03 Immature Gran % 4.8 % (0-4) H 03/01/17 10:48 Neutrophils # 15.5 K/mcL (1.6-8.9) H 03/02/17 03:03 Monocytes # 1.9 K/mcL (0.0-1.3) H 03/02/17 03:03 Nucleated RBCs/100 WBC 0.6 /100 WBC (0) H 03/02/17 03:03 Large Platelets Present (Not Present) A 03/02/17 03:03 PT 17.7 Seconds (9.4-12.1) H 03/02/17 03:03 ABG pO2 76 mmHg (85-104) L 02/28/17 10:12 Sodium 135 mEq/L (136-145) L 03/02/17 03:03 BUN 41 mg/dL (7-20) H 03/02/17 03:03 BUN/Creatinine Ratio 53 (6-26) H 03/02/17 03:03 Glucose 181 mg/dL (70-99) H 03/02/17 03:03 POC Glucose 186 (58-89) H 03/02/17 03:55 Hemoglobin A1c 5.8 % (-5.6) H 02/23/17 00:42 Troponin I 0.15 ng/mL (0-0.03) H* 03/01/17 01:40 Serum Total Protein 5.6 g/dL (6.0-8.3) L 02/27/17 04:22 Albumin 2.6 g/dL (3.5-5.0) L 02/27/17 04:22 Albumin/Globulin Ratio 0.9 (1.1-2.2) L 02/27/17 04:22 Prealbumin 10.0 mg/dL (16.0-38.0) L 02/26/17 03:00 Ur Specimen Adequacy See below A 02/28/17 13:05 Urine Protein 30 mg/dL (Neg-Trace) H 02/28/17 13:05 - Microbiology Findings Microbiology Findings: Microbiology, Last 48 Hours 02/25/17 16:20 Sputum Culture - Final Sputum - Clinical Findings Intake & Output: Intake & Output 03/01/17 03/01/17 03/02/17 15:59 23:59 07:59 Intake Total 642.5 / 642.5 1983.1 / 1982.1 143.6 / 143.6 Output Total 250 / 250 2049 / 2049 425 / 425 Balance 392.5 / 392.5 -66.9 / -66.9 -281.4 / -281.4 Weight 64.205 kg Consult Discharge Plan - Plan Referrals: Jeff Cervantes MD [Primary Care Provider] -
[2017-03-02] MEDS ORDERED: *HR* Heparin 5,000 UNIT/ML VIAL IVP PRN ×3 (07:12→07:39)
[2017-03-02] MEDS ORDERED: *HR* Heparin 5,000 UNIT/ML VIAL IVP ONE ×2 (07:12→07:39)
[2017-03-02] MEDS ORDERED: *HR* Warfarin 2.5 MG TABLET PO ONE ×2 (07:14→07:39)
[2017-03-02] MEDS ORDERED: Heparin 25,000 UNIT/500 ML D5W 25,000 UNIT/500 ML MLS IVC SCH (07:15)
[2017-03-02] MEDS ORDERED: *HR* OxyCODONE Immed Rel 5 MG TABLET PO PRN (07:39)
[2017-03-02] MEDS ORDERED: D10% in Water 500 ML IVC PRN (07:39)
[2017-03-02] MEDS ORDERED: Clinimix E 5%-15% SOLUTION 2,000 ML with MVI, adult with vitamin K 10 ML IVC SCH ×3 (07:39→17:00)
[2017-03-02] MEDS ORDERED: Naloxone 0.4 MG/ML INJ IVP PRN (07:39)
[2017-03-02] MEDS ORDERED: Calcium Gluconate 1,000 MG in D5% in Water 100 ML IVPB PRN (07:39)
[2017-03-02] MEDS ORDERED: *HR* LORazepam 2 MG/ML VIAL IVP PRN (07:39)
[2017-03-02] MEDS ORDERED: Furosemide 20 MG TABLET PO PRN (07:39)
[2017-03-02] MEDS: *HR* HYDROmorphone (PF) 1 MG/ML SYRINGE IVP PRN ×2 (08:18→11:56)
--- NOTE | 2017-03-02 08:20 | Pulmonology Progress Note ---
Date of Encounter: 03/02/17 Time of Encounter: 08:18 Assessment and Plan (1) Encephalopathy Current Visit: Yes Status: Acute Management was reviewed during multidisciplinary critical care rounds. Neuropsych: Acute encephalopathy resolving. She has significant anxiety and apparently this is a baseline problem for her clearly this is complicating her underlying obstructive lung disease. We are cautiously restarting her multiple home antidepressants and anxiolytics I restarted venlafaxine we will plan to start BuSpar and next 24-48 hours based upon clinical response. She is also scheduled to receive mirtazapine in the evening. In addition we will avoid sensory deprivation and focus on yarsanism of sleep-wake cycle. Pulm: Acute on chronic hypoxic hypercapnic respiratory failure s/t post operative atelectasis and splinting. Stable oxygenation today on nasal cannula. Okay to intermittently use noninvasive ventilation as needed for work of breathing generally this is precipitated by anxiety Cards: History of CAD, CHF, HTN. Hypertension much better controlled. I have restarted her home dose of Coreg and we will continue to treat blood pressure with hydralazine pushes as needed based upon pressure readings could start hydralazine scheduled until patient can safely restart MERYL inhibitor as she takes home. She has a history of atrial fibrillation currently in paced rhythm with underlying rhythm atrial fibrillation. I restarted her home warfarin for this and an interim we will start heparin infusion until she is anticoagulated fully with Coumadin. Cardiology is seeing the patient for possible ACS which I think is demand ischemia. FEN-GI: Postop day #6 status post exploratory celiotomy with small bowel resection continued total parenteral nutrition; continue diet per surgery recommendations in this case full liquids Renal: No SYLWIA acceptable urine output hyperkalemia has resolved ID: Her treating for intra-abdominal sepsis this has been transitioned to Vantin and Zosyn for possibility of hospital-acquired pneumonia in the last 48 hours cultures as far are negative so plan to de-escalate antibiotics Heme/Onc: Mild postoperative anemia which is stable heparin infusion started for atrial fibrillation I will also restart her home warfarin once therapeutic heparin infusion can be stopped. Endo: Glucose Monitored and under reasonable control we will continue to monitor revealed 4 hours while on TPN and bolus insulin per protocol Integ/MSK: Skin Care per routine ICU Nursing Protocol to prevent ulcers. We will start PT/OT today Lines: All lines examined without evidence of infection including: PIVs and Urinary Jones Cath and PICC line Dispo: Stable for transfer to stepdown unit for ongoing nursing needs. Report called to the admitting hospitalist who graciously accepted transfer of care CODE: Full Code. (2) Acute exacerbation of chronic obstructive airways disease Current Visit: No Status: Acute (3) CAD (coronary artery disease) Current Visit: Yes Status: Chronic Qualifiers: Coronary Disease-Associated Artery/Lesion type: [place] artery [place] vs. transplanted heart: [place] heart Associated angina: without angina Qualified Code(s): I25.10 - Atherosclerotic heart disease of [place] coronary artery without angina pectoris (4) Atrial fibrillation Current Visit: Yes Status: Chronic Qualifiers: Atrial fibrillation type: chronic Qualified Code(s): I48.2 - Chronic atrial fibrillation (5) Acute on chronic respiratory failure Current Visit: Yes Status: Acute Qualifiers: Respiratory failure complication: hypercapnia Qualified Code(s): J96.22 - Acute and chronic respiratory failure with hypercapnia (6) Chronic combined systolic and diastolic congestive heart failure Current Visit: No Status: Chronic (7) PNA (pneumonia) Current Visit: Yes Status: Acute Qualifiers: Pneumonia type: due to unspecified organism Laterality: bilateral Lung location: lower lobe of lung Qualified Code(s): J18.9 - Pneumonia, unspecified organism (8) Sepsis Current Visit: Yes Status: Acute Qualifiers: Sepsis type: sepsis due to unspecified organism Qualified Code(s): A41.9 - Sepsis, unspecified organism (9) Partial small bowel obstruction Current Visit: Yes Status: Acute (10) Moderate protein-calorie malnutrition Current Visit: Yes Status: Acute (11) Hyperkalemia Current Visit: Yes Status: Acute Subjective Principal diagnosis: s/p exploratory celiostomy with SBR Interval history: No acute events overnight. Patient hemodynamically stable. She denies chest pain today. She continues to have frequent bouts of anxiety requiring morphine this also increases work of breathing and it response to positive airway pressure support. Objective PUL Vital signs: Last Vital Signs Temp 98.6 F 03/02/17 08:10 Pulse 69 03/02/17 06:00 Resp 30 03/02/17 06:00 BP 135/65 03/02/17 06:00 Pulse Ox 100 03/02/17 06:00 General appearance: no acute distress, other (Frail appearing) Auscultation: bilateral: diminished breath sounds (No wheeze today) Cardiovascular: irregular rhythm Gastrointestinal: normoactive bowel sounds, non-tender, other (Midline scar is drastically different intact) Integumentary: normal normal mental status, non-focal exam anxious Results - Laboratory Findings CBC and BMP: 03/02/17 03:03 03/02/17 03:03 ABG ABG pH 7.41 pH Units (7.32-7.45) 02/28/17 10:12 ABG pCO2 36 mmHg (35-45) 02/28/17 10:12 ABG pO2 76 mmHg (85-104) L 02/28/17 10:12 ABG O2 Saturation 95 % (95-98) 02/28/17 10:12 PT/INR, D-dimer PT 17.7 Seconds (9.4-12.1) H 03/02/17 03:03 Abnormal lab findings: Abnormal lab results WBC 18.9 K/mcL (4.3-11.1) H 03/02/17 03:03 RBC 3.42 M/mcL (3.82-4.97) L 03/02/17 03:03 Hgb 10.1 g/dL (11.5-15.4) L 03/02/17 03:03 Hct 32.2 % (35.3-44.9) L 03/02/17 03:03 MCHC 31.4 g/dL (31.6-35.5) L 03/02/17 03:03 RDW 15.6 % (11.5-14.5) H 03/02/17 03:03 Immature Gran % 4.8 % (0-4) H 03/01/17 10:48 Neutrophils # 15.5 K/mcL (1.6-8.9) H 03/02/17 03:03 Monocytes # 1.9 K/mcL (0.0-1.3) H 03/02/17 03:03 Nucleated RBCs/100 WBC 0.6 /100 WBC (0) H 03/02/17 03:03 Large Platelets Present (Not Present) A 03/02/17 03:03 PT 17.7 Seconds (9.4-12.1) H 03/02/17 03:03 ABG pO2 76 mmHg (85-104) L 02/28/17 10:12 Sodium 135 mEq/L (136-145) L 03/02/17 03:03 BUN 41 mg/dL (7-20) H 03/02/17 03:03 BUN/Creatinine Ratio 53 (6-26) H 03/02/17 03:03 Glucose 181 mg/dL (70-99) H 03/02/17 03:03 POC Glucose 187 (58-89) H 03/02/17 07:36 Hemoglobin A1c 5.8 % (-5.6) H 02/23/17 00:42 Troponin I 0.15 ng/mL (0-0.03) H* 03/01/17 01:40 Serum Total Protein 5.6 g/dL (6.0-8.3) L 02/27/17 04:22 Albumin 2.6 g/dL (3.5-5.0) L 02/27/17 04:22 Albumin/Globulin Ratio 0.9 (1.1-2.2) L 02/27/17 04:22 Prealbumin 10.0 mg/dL (16.0-38.0) L 02/26/17 03:00 Ur Specimen Adequacy See below A 02/28/17 13:05 Urine Protein 30 mg/dL (Neg-Trace) H 02/28/17 13:05 - Microbiology Findings Microbiology Findings: Microbiology, Last 48 Hours 02/25/17 16:20 Sputum Culture - Final Sputum - Clinical Findings Intake & Output: Intake & Output 03/01/17 03/02/17 03/02/17 23:59 07:59 15:59 Intake Total 1982.1 / 1982.1 143.6 / 143.6 Output Total 2049 425 / 425 250 / 250 Balance -66.9 / -66.9 -281.4 / -281.4 -250 / -250 Weight 64.205 kg - VTE Documentation of Mechanical Device: Venous foot pump, device Consult Discharge Plan - Plan Referrals: Jeff Cervantes MD [Primary Care Provider] -
[2017-03-02] MEDS: Piperacillin/Tazobactam 3.375 GM in D5% in Water (Mini-Bag+) 100 ML IVPB SCH ×2 (08:23→16:09)
[2017-03-02] MEDS: Aspirin 81 MG TAB.CHEW PO SCH (09:11)
[2017-03-02] MEDS: Ranolazine 500 MG TAB.ER.12H PO SCH ×3 (09:11→21:14)
[2017-03-02] MEDS: Nicotine 14 MG PATCH.TD24 TD SCH (09:14)
[2017-03-02] MEDS: Pantoprazole 40 MG VIAL IVP SCH (09:14)
[2017-03-02] MEDS: Heparin 25,000 UNIT/500 ML D5W 25,000 UNIT/500 ML MLS IVC SCH (09:30)
[2017-03-02] MEDS: Polymyxn-B/Trimeth Opth Drops 10 ML BOTTLE LEFT EYE SCH ×4 (09:47→21:13)
--- NOTE | 2017-03-02 10:11 | General Surgery Progress Note ---
Date of Encounter: 03/02/17 Time of Encounter: 09:40 - Assessment and Plan (1) Ischemic necrosis of small bowel Current Visit: Yes Status: Acute The patient is had small bowel resection secondary to internal herniation and loss of blood supply to a segment of small bowel in the pelvis. She is recovering from her bowel resection however has extensive comorbid conditions. She will be transferred out of the intensive care unit today. Maintain clear liquids. Subjective Narrative: The patient is tolerating clear liquids. She is being transferred out of the ICU today. She had small bowel resection. She is having bowel movements. She is tolerating clear liquids. Objective Vital Signs - Last 8 Hours Temp Pulse Resp BP Pulse Ox 03/02/17 09:12 26 100 03/02/17 08:10 98.6 F 03/02/17 06:00 69 30 135/65 100 03/02/17 05:30 69 29 100/54 100 03/02/17 04:08 69 26 109/55 100 03/02/17 03:53 99.2 F 03/02/17 03:42 36 111/45 100 03/02/17 03:00 69 36 151/62 100 03/02/17 02:30 77 30 138/70 100 Intake and Output 03/01/17 03/02/17 03/02/17 23:59 07:59 15:59 Intake Total 1982. 143.6 / 143.6 Output Total 2049 425 / 425 250 / 250 Balance -66.9 / -66.9 -281.4 / -281.4 -250 / -250 Intake: IV Fluids 143.6 / 143.6 PRECEDEX Premix 400 mcg In 100 38.1 / 38.1 43.6 / 43.6 ml @ 0.2 MCG/KG/HR 3.125 mls/hr IVC .Q24H REMY Rx#:[id number] Clinimix E 5%-15% SOLUTION 2, 1645 / 1645 000 ML @ 65 mls/hr IVC .Q24H REMY with M.v.i. Adult 10 ml Rx# :[id number] Zosyn 3.375 GM In Dextrose 5% ( 100 / 100 100 / 100 Minibag+) 100 ML 100 ML @ 25 mls/hr IVPB Q8HR REMY Rx#: [id number] Potassium Chloride 20 mEq/100 100 / 100 mL 20 meq In 100 ml @ 100 mls/ hr IVPB Q1H PRN Rx#:[id number] Oral 0 / 0 Output: Straight Cath 425 / 425 Catheter 2049 250 / 250 Other: Weight 64.205 kg Blood Glucose* 183 186 187 Patient Weight 03/02/17 23:59 Weight 64.205 kg - General physical appearance no pain, chronically ill - Respiratory wheezing: bilateral (Decreased breath sounds on CPAP) - Cardiovascular Cardiovascular exam: Present: RRR, no murmurs/rubs/gallops - Abdomen Abdomen: Present: bowel sounds present, soft, non tender - Incision Incision: Present: clean and dry - Labs 03/02/17 03:03 03/02/17 03:03 Diabetes panel 03/01/17 03/02/17 Range/Units 10:45 03:03 Sodium 140 135 L (136-145) mEq/L Potassium 3.2 L 4.4 D (3.5-4.5) mEq/L Chloride 112 H 107 (98-109) mEq/L Carbon Dioxide 20 19 (19-29) mEq/L BUN 38 H 41 H (7-20) mg/dL Creatinine 0.69 0.78 (0.57-1.11) mg/dL Glucose 181 H 181 H (70-99) mg/dL Calcium 8.1 L 8.7 (8.6-10.8) mg/dL Calcium panel 03/01/17 03/02/17 Range/Units 10:45 03:03 Calcium 8.1 L 8.7 (8.6-10.8) mg/dL Pituitary panel 03/01/17 03/02/17 Range/Units 10:45 03:03 Sodium 140 135 L (136-145) mEq/L Potassium 3.2 L 4.4 D (3.5-4.5) mEq/L Chloride 112 H 107 (98-109) mEq/L Carbon Dioxide 20 19 (19-29) mEq/L BUN 38 H 41 H (7-20) mg/dL Creatinine 0.69 0.78 (0.57-1.11) mg/dL Glucose 181 H 181 H (70-99) mg/dL Calcium 8.1 L 8.7 (8.6-10.8) mg/dL Adrenal panel 03/01/17 03/02/17 Range/Units 10:45 03:03 Sodium 140 135 L (136-145) mEq/L Potassium 3.2 L 4.4 D (3.5-4.5) mEq/L Chloride 112 H 107 (98-109) mEq/L Carbon Dioxide 20 19 (19-29) mEq/L BUN 38 H 41 H (7-20) mg/dL Creatinine 0.69 0.78 (0.57-1.11) mg/dL Glucose 181 H 181 H (70-99) mg/dL Calcium 8.1 L 8.7 (8.6-10.8) mg/dL - VTE Documentation of Mechanical Device: Venous foot pump, device Consult Discharge Plan - Plan Referrals: Jeff Cervantes MD [Primary Care Provider] -
[2017-03-02] MEDS: Beclomethasone 80mcg MDI IH SCH ×2 (11:11→21:31)
[2017-03-02] MEDS ORDERED: *HR* Metoprolol 5 MG/5 ML VIAL IVP SCH (12:00)
[2017-03-02] MEDS ORDERED: Aminoglycoside Consult 1 EACH MC ONE (13:14)
[2017-03-02] MEDS ORDERED: clonazePAM 0.5 MG TABLET PO SCH (15:00)
[2017-03-02] MEDS: Ondansetron 4 MG/2 ML VIAL IVP PRN (15:12)
[2017-03-02] MEDS ORDERED: 0.9 % Sodium Chloride 500 ML IVC ONE (15:58)
[2017-03-02] MEDS ORDERED: Mirtazapine 15 MG TABLET PO SCH (21:00)
[2017-03-02] MEDS ORDERED: traZODone 50 MG TABLET PO SCH (21:00)
[2017-03-02 21:53] LABS: Activated Partial Thrombo Time 34.4 Seconds (26.0-36.0); INR 1.5; Prothrombin Time 16.3 Seconds (9.4-12.1)
[2017-03-03] MEDS: Piperacillin/Tazobactam 3.375 GM in D5% in Water (Mini-Bag+) 100 ML IVPB SCH ×4 (01:04→23:50)
[2017-03-03] MEDS: Insulin LISPRO 300 UNITS/3 ML VIAL SQ SCH ×7 (01:05→23:57)
[2017-03-03 03:07] LABS: Hematocrit 26.1 % (35.3-44.9); Immature Platelets 4.9 % (1.1-6.1); Mean Corpuscular Hemoglobin 29.8 pg (28.0-33.3); Nucleated Red Blood Cells 0.4 /100 WBC (0); Platelet Count 196 K/mcL (140-400); Red Blood Count 2.72 M/mcL (3.82-4.97); Red Cell Distribution Width 15.5 % (11.5-14.5)
[2017-03-03 03:08] LABS: Hemoglobin 8.1 g/dL (11.5-15.4)
[2017-03-03] MEDS: Ipratropium/Albuterol Neb 3 ML IH SCH ×4 (03:17→21:48)
[2017-03-03 03:18] LABS: BUN/Creatinine Ratio 54 (6-26); Blood Urea Nitrogen 47 mg/dL (7-20); Carbon Dioxide 21 mEq/L (19-29); Chloride 105 mEq/L (98-109); Glucose 215 mg/dL (70-99); Osmolality,Calculated 297 (280-300); Potassium 4.2 mEq/L (3.5-4.5); Sodium 134 mEq/L (136-145); eGFR For African Americans > 60 (> 60); eGFR For Non-African Americans > 60 (> 60)
[2017-03-03 03:32] LABS: Eosinophils # 0.2 K/mcL (0.0-0.6); Lymphocytes # 1.1 K/mcL (0.6-4.6); Monocytes # 0.2 K/mcL (0.0-1.3); Neutrophils # 13.5 K/mcL (1.6-8.9); Platelet Estimate Normal (Normal)
[2017-03-03 03:46] LABS: Activated Partial Thrombo Time 130.4 Seconds (26.0-36.0)
[2017-03-03 03:59] LABS: Heparin anti-factor XA UFH 0.42 IU/mL (0.30-0.70)
[2017-03-03 04:33] LABS: Magnesium 1.3 mg/dL (1.6-2.6); Phosphorous 4.5 mg/dL (2.3-4.7)
[2017-03-03] MEDS: Ondansetron 4 MG/2 ML VIAL IVP PRN (05:49)
--- NOTE | 2017-03-03 07:09 | Pulmonology Progress Note ---
<Jason Sequeira W - Last Filed: 03/03/17 09:25> Date of Encounter: 03/03/17 Assessment and Plan (1) Encephalopathy Current Visit: Yes Status: Acute (2) Acute exacerbation of chronic obstructive airways disease Current Visit: Yes Status: Acute (3) CAD (coronary artery disease) Current Visit: Yes Status: Chronic Qualifiers: Coronary Disease-Associated Artery/Lesion type: squaxin artery [place] vs. transplanted heart: squaxin heart Associated angina: without angina Qualified Code(s): I25.10 - Atherosclerotic heart disease of squaxin coronary artery without angina pectoris (4) Atrial fibrillation Current Visit: Yes Status: Chronic Qualifiers: Atrial fibrillation type: chronic Qualified Code(s): I48.2 - Chronic atrial fibrillation (5) Acute on chronic respiratory failure Current Visit: Yes Status: Acute Qualifiers: Respiratory failure complication: hypercapnia Qualified Code(s): J96.22 - Acute and chronic respiratory failure with hypercapnia (6) Chronic combined systolic and diastolic congestive heart failure Current Visit: Yes Status: Chronic (7) PNA (pneumonia) Current Visit: Yes Status: Acute Qualifiers: Pneumonia type: due to unspecified organism Laterality: bilateral Lung location: lower lobe of lung Qualified Code(s): J18.9 - Pneumonia, unspecified organism (8) Sepsis Current Visit: Yes Status: Acute Qualifiers: Sepsis type: sepsis due to unspecified organism Qualified Code(s): A41.9 - Sepsis, unspecified organism (9) Partial small bowel obstruction Current Visit: Yes Status: Acute (10) Moderate protein-calorie malnutrition Current Visit: Yes Status: Acute (11) Hyperkalemia Current Visit: Yes Status: Acute Objective PUL Vital signs: Last Vital Signs Temp 97.3 F L 03/03/17 04:00 Pulse 69 03/03/17 09:00 Resp 28 03/03/17 09:00 BP 110/52 03/03/17 09:00 Pulse Ox 100 03/03/17 09:00 Results - Laboratory Findings CBC and BMP: 03/03/17 02:56 03/03/17 02:56 ABG ABG pH 7.41 pH Units (7.32-7.45) 02/28/17 10:12 ABG pCO2 36 mmHg (35-45) 02/28/17 10:12 ABG pO2 76 mmHg (85-104) L 02/28/17 10:12 ABG O2 Saturation 95 % (95-98) 02/28/17 10:12 PT/INR, D-dimer PT 16.3 Seconds (9.4-12.1) H 03/02/17 21:27 Abnormal lab findings: Abnormal lab results WBC 15.2 K/mcL (4.3-11.1) H 03/03/17 02:56 RBC 2.72 M/mcL (3.82-4.97) L 03/03/17 02:56 Hgb 8.1 g/dL (11.5-15.4) L D 03/03/17 02:56 Hct 26.1 % (35.3-44.9) L 03/03/17 02:56 MCHC 31.0 g/dL (31.6-35.5) L 03/03/17 02:56 RDW 15.5 % (11.5-14.5) H 03/03/17 02:56 Immature Gran % 4.8 % (0-4) H 03/01/17 10:48 Band Neutrophils % 5.0 % (0-4) H 03/03/17 02:56 Metamyelocytes % 1.0 % (0) H 03/03/17 02:56 Myelocytes % 1.0 % (0) H 03/03/17 02:56 Neutrophils # 13.5 K/mcL (1.6-8.9) H 03/03/17 02:56 Nucleated RBCs/100 WBC 0.4 /100 WBC (0) H 03/03/17 02:56 Large Platelets Present (Not Present) A 03/02/17 03:03 PT 16.3 Seconds (9.4-12.1) H 03/02/17 21:27 ABG pO2 76 mmHg (85-104) L 02/28/17 10:12 Sodium 134 mEq/L (136-145) L 03/03/17 02:56 BUN 47 mg/dL (7-20) H 03/03/17 02:56 BUN/Creatinine Ratio 54 (6-26) H 03/03/17 02:56 Glucose 215 mg/dL (70-99) H 03/03/17 02:56 POC Glucose 138 (58-89) H 03/03/17 07:11 Hemoglobin A1c 5.8 % (-5.6) H 02/23/17 00:42 Calcium 8.0 mg/dL (8.6-10.8) L 03/03/17 02:56 Magnesium 1.3 mg/dL (1.6-2.6) L 03/03/17 02:56 Troponin I 0.15 ng/mL (0-0.03) H* 03/01/17 01:40 Serum Total Protein 5.6 g/dL (6.0-8.3) L 02/27/17 04:22 Albumin 2.6 g/dL (3.5-5.0) L 02/27/17 04:22 Albumin/Globulin Ratio 0.9 (1.1-2.2) L 02/27/17 04:22 Prealbumin 10.0 mg/dL (16.0-38.0) L 02/26/17 03:00 Ur Specimen Adequacy See below A 02/28/17 13:05 Urine Protein 30 mg/dL (Neg-Trace) H 02/28/17 13:05 Vancomycin Trough 31.2 mcg/mL (10-20) H* 03/02/17 11:55 - Microbiology Findings Microbiology Findings: Microbiology, Last 48 Hours 02/28/17 13:05 Blood Culture - Preliminary Peripheral Central Cath, Picc No growth. 02/28/17 12:57 Blood Culture - Preliminary Peripheral Venipuncture No growth. 02/28/17 12:57 Blood Culture - Preliminary Peripheral Venipuncture No growth. - Clinical Findings Intake & Output: Intake & Output 03/02/17 03/03/17 03/03/17 23:59 07:59 15:59 Intake Total 1647 / 1647 466 / 466 Output Total 175 / 175 325 / 325 Balance 1472 / 1472 141 / 141 Consult Discharge Plan - Plan Referrals: Jeff Cervantes MD [Primary Care Provider] - - Attending Attestation I examined this patient and my medical decision-making was reviewed with the Resident Physician. I agree with the documented findings, disposition and treatment plan as described except to the extent set forth below. We independently had [id number] contact with the patient Patient seen and examined at bedside Labs, radiology, chart personally reviewed. Management was reviewed during multidisciplinary critical care rounds. Neuropsych: Severe anxiety complicated by breathlessness and pain. She has multiple anxiolytics narcotics to try to control symptoms however there is this is been a difficult balance to obtain between over sedating the patient and optimal control of symptoms. I further adjusted her medication regimen today and we will consult the palliative care service for help with this difficult situation. 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 Pulm: Acute on chronic hypoxic hypercapnic respiratory failure s/t post operative atelectasis and splinting. Stable oxygenation today on nasal cannula. Okay to intermittently use noninvasive ventilation as needed for work of breathing generally this is precipitated by anxiety. Cards: History of CAD, CHF, HTN. Hypertension controlled. FEN-GI: Postop day #7 status post exploratory celiotomy with small bowel resection continued total parenteral nutrition; continue diet per surgery recommendations in this case full liquids Renal: No SYLWIA acceptable urine output hyperkalemia has resolved ID: Continue peppers on the Bactrim for intra-abdominal sepsis as well as likely postoperative pneumonia. I feel she is stable from infectious standpoint. Heme/Onc: Slightly drop in hemoglobin overnight after institution of heparin drip no overt signs of bleeding we will recheck hemoglobin may need to stop heparin because of this. Also concerned about right upper extremity DVT ultrasound of the right upper extremity is pending if positive would need to pull PICC line. Indication for heparin infusion as chronic atrial fibrillation and more likely now VTE. Endo: Glucose Monitored and under reasonable control we will continue to monitor revealed 4 hours while on TPN and bolus insulin per protocol Integ/MSK: Skin Care per routine ICU Nursing Protocol to prevent ulcers. Physical therapy has been consulted Lines: All lines examined without evidence of infection including Dispo: Stable for transfer to stepdown unit for ongoing nursing needs. CODE: Full Code. <Marielos Ponce - Last Filed: 03/03/17 10:13> Date of Encounter: 03/03/17 Time of Encounter: 08:30 Assessment and Plan (1) Acute on chronic respiratory failure Current Visit: Yes Status: Acute Patient presented status post exploratory celiotomy with small bowel resection. Patient remained intubated. Patient now on BiPAP. Oxygen saturations within normal limits. Qualifiers: Respiratory failure complication: hypercapnia Qualified Code(s): J96.22 - Acute and chronic respiratory failure with hypercapnia (2) Encephalopathy Current Visit: Yes Status: Acute Patient acutely altered when she originally presented to the ICU. Most likely due to hypercapnia. Patient alert and oriented 3 today. (3) DVT of axillary vein, acute right Current Visit: Yes Status: Acute Bedside Doppler showed possible right sided axillary deep vein thrombus. Awaiting final report at this time. Patient started on heparin drip. (4) Hyperkalemia Current Visit: Yes Status: Acute Patient's potassium now 4.2. Continue to closely monitor. (5) Moderate protein-calorie malnutrition Current Visit: Yes Status: Acute Chronic condition. Patient currently on clear liquid diet. Consulted nutrition (6) PNA (pneumonia) Current Visit: Yes Status: Acute Chest x-ray showed Bilateral interstitial opacities with slightly increased left basilar airspace opacity. Findings may be related to edema and/or pneumonia. Patient currently receiving Zosyn. Qualifiers: Pneumonia type: due to unspecified organism Laterality: bilateral Lung location: lower lobe of lung Qualified Code(s): J18.9 - Pneumonia, unspecified organism (7) Partial small bowel obstruction Current Visit: Yes Status: Acute post exploratory celiotomy and small bowel resection due to small bowel obstruction. Management per surgery. (8) Sepsis Current Visit: Yes Status: Acute Patient currently being treated with Zosyn. White blood cell count is decreased at 15.2. Blood cultures do not show any growth at this time. Qualifiers: Sepsis type: sepsis due to unspecified organism Qualified Code(s): A41.9 - Sepsis, unspecified organism (9) Atrial fibrillation Current Visit: Yes Status: Chronic Chronic condition. Patient currently rate controlled. Qualifiers: Atrial fibrillation type: chronic Qualified Code(s): I48.2 - Chronic atrial fibrillation (10) CAD (coronary artery disease) Current Visit: Yes Status: Chronic Cardiology consult. Continue outpatient management. Qualifiers: Coronary Disease-Associated Artery/Lesion type: squaxin artery [place] vs. transplanted heart: squaxin heart Associated angina: without angina Qualified Code(s): I25.10 - Atherosclerotic heart disease of squaxin coronary artery without angina pectoris (11) Acute exacerbation of chronic obstructive airways disease Current Visit: Yes Status: Acute Acute on chronic hypoxic hypercapnic respiratory failure s/t post operative atelectasis and splinting. Stable oxygenation today on nasal cannula. Okay to intermittently use noninvasive ventilation as needed for work of breathing generally this is precipitated by anxiety (12) Chronic combined systolic and diastolic congestive heart failure Current Visit: Yes Status: Chronic Patient had elevated troponin while in the hospital. Cardiology has been consulted. Most likely supply demand mismatch. (13) DVT prophylaxis Current Visit: Yes Status: Acute Patient currently on heparin Subjective Principal diagnosis: s/p exploratory celiostomy with SBR Interval history: No acute events overnight. Patient remains stable at this time. Patient currently off Precedex. We will evaluate her medication list and transfer her to the floor. She will go to a stepdown unit. Palliative care has been consulted to follow-up with family with hopes of better plans for the patient's overall anxiety. Objective PUL Vital signs: Last Vital Signs Temp 97.3 F L 03/03/17 04:00 Pulse 73 03/03/17 06:00 Resp 32 03/03/17 06:00 BP 106/65 03/03/17 06:00 Pulse Ox 100 03/03/17 06:00 General appearance: no acute distress, alert Eyes: nonicteric ENT: oropharynx moist Neck: supple, no JVD Effort: mildly labored Auscultation: bilateral: clear Cardiovascular: regular rate and rhythm Gastrointestinal: normoactive bowel sounds, non-distended Integumentary: normal Extremities: no cyanosis, no edema Musculoskeletal: no deformities Gait: normal posture normal mental status, non-focal exam mood appropriate, affect normal Results - Laboratory Findings CBC and BMP: 03/03/17 09:25 03/03/17 02:56 ABG ABG pH 7.41 pH Units (7.32-7.45) 02/28/17 10:12 ABG pCO2 36 mmHg (35-45) 02/28/17 10:12 ABG pO2 76 mmHg (85-104) L 02/28/17 10:12 ABG O2 Saturation 95 % (95-98) 02/28/17 10:12 PT/INR, D-dimer PT 16.3 Seconds (9.4-12.1) H 03/02/17 21:27 Abnormal lab findings: Abnormal lab results WBC 15.2 K/mcL (4.3-11.1) H 03/03/17 02:56 RBC 2.72 M/mcL (3.82-4.97) L 03/03/17 02:56 Hgb 8.1 g/dL (11.5-15.4) L D 03/03/17 02:56 Hct 26.1 % (35.3-44.9) L 03/03/17 02:56 MCHC 31.0 g/dL (31.6-35.5) L 03/03/17 02:56 RDW 15.5 % (11.5-14.5) H 03/03/17 02:56 Immature Gran % 4.8 % (0-4) H 03/01/17 10:48 Band Neutrophils % 5.0 % (0-4) H 03/03/17 02:56 Metamyelocytes % 1.0 % (0) H 03/03/17 02:56 Myelocytes % 1.0 % (0) H 03/03/17 02:56 Neutrophils # 13.5 K/mcL (1.6-8.9) H 03/03/17 02:56 Nucleated RBCs/100 WBC 0.4 /100 WBC (0) H 03/03/17 02:56 Large Platelets Present (Not Present) A 03/02/17 03:03 PT 16.3 Seconds (9.4-12.1) H 03/02/17 21:27 ABG pO2 76 mmHg (85-104) L 02/28/17 10:12 Sodium 134 mEq/L (136-145) L 03/03/17 02:56 BUN 47 mg/dL (7-20) H 03/03/17 02:56 BUN/Creatinine Ratio 54 (6-26) H 03/03/17 02:56 Glucose 215 mg/dL (70-99) H 03/03/17 02:56 POC Glucose 201 (58-89) H 03/03/17 04:01 Hemoglobin A1c 5.8 % (-5.6) H 02/23/17 00:42 Calcium 8.0 mg/dL (8.6-10.8) L 03/03/17 02:56 Magnesium 1.3 mg/dL (1.6-2.6) L 03/03/17 02:56 Troponin I 0.15 ng/mL (0-0.03) H* 03/01/17 01:40 Serum Total Protein 5.6 g/dL (6.0-8.3) L 02/27/17 04:22 Albumin 2.6 g/dL (3.5-5.0) L 02/27/17 04:22 Albumin/Globulin Ratio 0.9 (1.1-2.2) L 02/27/17 04:22 Prealbumin 10.0 mg/dL (16.0-38.0) L 02/26/17 03:00 Ur Specimen Adequacy See below A 02/28/17 13:05 Urine Protein 30 mg/dL (Neg-Trace) H 02/28/17 13:05 Vancomycin Trough 31.2 mcg/mL (10-20) H* 03/02/17 11:55 - Microbiology Findings Microbiology Findings: Microbiology, Last 48 Hours 02/28/17 13:05 Blood Culture - Preliminary Peripheral Central Cath, Picc No growth. 02/28/17 12:57 Blood Culture - Preliminary Peripheral Venipuncture No growth. 02/28/17 12:57 Blood Culture - Preliminary Peripheral Venipuncture No growth. - Clinical Findings Intake & Output: Intake & Output 03/02/17 03/02/17 03/03/17 15:59 23:59 07:59 Intake Total 393.8 / 393.8 1647 / 1647 466 / 466 Output Total 500 / 500 175 / 175 325 / 325 Balance -106.2 / -106.2 1472 / 1472 141 / 141 - VTE Documentation of Mechanical Device: Venous foot pump, device
[2017-03-03 09:34] LABS: Hematocrit 25.8 % (35.3-44.9); Mean Corpuscular Hemoglobin 29.5 pg (28.0-33.3); Mean Corpuscular Volume 95.2 fL (83.0-100.0); Mean Platelet Volume 10.2 fL (9.4-12.4); Nucleated Red Blood Cells 0.6 /100 WBC (0); Platelet Count 194 K/mcL (140-400); Red Blood Count 2.71 M/mcL (3.82-4.97); Red Cell Distribution Width 15.6 % (11.5-14.5)
[2017-03-03 09:39] LABS: INR 1.7; Prothrombin Time 18.4 Seconds (9.4-12.1)
[2017-03-03] MEDS: Dexmedetomidine HCl 400 MCG/100 ML MLS IVC SCH (09:47)
[2017-03-03] MEDS: Nicotine 14 MG PATCH.TD24 TD SCH (09:48)
[2017-03-03] MEDS: Pantoprazole 40 MG VIAL IVP SCH (09:48)
[2017-03-03] MEDS: Ranolazine 500 MG TAB.ER.12H PO SCH ×2 (09:48→20:37)
[2017-03-03] MEDS: Aspirin 81 MG TAB.CHEW PO SCH (09:49)
[2017-03-03] MEDS: Polymyxn-B/Trimeth Opth Drops 10 ML BOTTLE LEFT EYE SCH ×4 (09:50→19:35)
[2017-03-03 10:11] LABS: Eosinophils # 0.3 K/mcL (0.0-0.6); Lymphocytes # 0.9 K/mcL (0.6-4.6); Monocytes # 2.8 K/mcL (0.0-1.3); Platelet Estimate Normal (Normal)
[2017-03-03] MEDS: Nystatin SUSP 5 ML UD.LIQ PO SCH ×4 (10:14→20:37)
--- NOTE | 2017-03-03 10:27 | Palliative - Consult Note ---
Date of Encounter: 03/03/17 Time of Encounter: 10:00 - Assessment and Plan (1) Anxiety Current Visit: No Status: Chronic Assessment and plan: Patient with PMH of Anxiety which is managed at home with Ativan po. Patient with severe oxygen dependent COPD. Patient s/p bowel resection and has been in ICU. Patient to transfer out of ICU today to medical floor. Patient has PT & OT ordered and is now willing to participate. Patient ambulates at home with walker and needs begin ambulation and OOB for exercise. Will add low dose po Ativan po 0.5mg every 6 hrs. Patient TPN being weaned and clear liquids being tolerated. (2) Tobacco abuse Current Visit: Yes Status: Chronic Assessment and plan: Patient fdc smoker and currently has Nicotine patch on. Reports that this assist with urge. Will increase patch to 21 mg to assist with urge management. (3) Dyspnea Current Visit: No Status: Acute Assessment and plan: Patient with severe COPD. Continue supplemental oxygen, bipap as needed, low dose morphine to facilitate breathing and anxiety. Qualifiers: Dyspnea type: unspecified Qualified Code(s): R06.00 - Dyspnea, unspecified (4) Pain Current Visit: Yes Status: Acute Assessment and plan: Patient complains of right great toe pain. Current regimen includes scheduled Oxycodone and Dilaudid for BTP. Right great toe is sore to touch, no redness, decreased mobility and ache. Rates discomfort a 3/10. Will follow BTP usage and adjust as needed. (5) Depression Current Visit: Yes Status: Acute Assessment and plan: Currently on Effexor and takes Trazodone at HS. Continue as ordered. Transition out of ICU and participate in PT & OT. Qualifiers: Depression Type: unspecified Qualified Code(s): F32.9 - Major depressive disorder, single episode, unspecified (6) Partial small bowel obstruction Current Visit: Yes Status: Acute Assessment and plan: POD #7. Patient now taking clears and TPN being weaned. Bowel sounds present and bowel movements reports. Get OOB to chair and participate in therapy. (7) Acute exacerbation of chronic obstructive airways disease Current Visit: Yes Status: Acute (8) COPD exacerbation Current Visit: No Status: Acute Palliative-CN HPI - Data of Consult Patient: new to practice Consult date: 03/03/17 Requesting Physician: Marielos Ponce Care Provider: Jeff Cervantes MD - Consult Narrative Palliative Care/Comfort Measures: Palliative care Reason for consult: Symptom management History of present illness: Ms. Montana is a 71 year old female admitted with abdominal pain. Surgery consult obtained and patient was taken to OR on 02/24/17 and under went a bowel resection for an ischemic bowel obstruction. Patient with history of COPD and was challenging to extubate post-operatively and was admitted to the ICU for ventilation management post-op. 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 Patient extubated on 02/26/17 and has been having anxiety. This palliative care consult is for symptom management for dyspnea and anxiety. Upon this consult the patient is alert and oriented and is resting comfortable with her daughter at [place] at bedside. Case discussed with Dr. Sequeira and Dr. Ponce. CC: Lizz Obregon MD Past Med Surg Social Fam HX - Past Medical History Source: patient, old records reviewed, obtained from family Medical history: atrial fibrillation, CHF, COPD, coronary artery disease, hyperlipidemia, hypertension, myocardial infarction, renal disease, TIA, other Psychiatric history: anxiety, depression - Past Surgical History Surgical History: angioplasty/stent, cholecystectomy, other (Partial hysterectomy, ankle surgery, bilateral shoulder surgery) - Social History Smoking Status: Current every day smoker Smokeless Tobacco Status: No Alcohol use: none Drug use: none Occupational status: retired Current living situation: Home Activity Level: Uses cane/walker Recent Out of Country Travel Within the Last 8 Weeks: No Exposure or Possible Exposure to Illness During Travel: No - Family History Mother Hx Family Neuromuscular Disorders: Yes (epilipsy) Medications and Allergies Albuterol Sulfate [Albuterol Inhaler] 2 puff IH Q6H PRN 03/05/15 [History] Carvedilol 25 mg PO BID 03/05/15 [History] Esomeprazole Magnesium [Nexium] 40 mg PO DAILY 03/05/15 [History] Melatonin [Melatin] 3 mg PO HS 03/05/15 [History] Simvastatin 40 mg PO QPM 03/05/15 [History] Beclomethasone Diprop 80mcg [Qvar 80 mcg] 1 puff IH BID 05/25/16 [History] Buspirone HCl [Buspar] 5 mg PO BID 05/25/16 [History] Clopidogrel [Plavix] 75 mg PO DAILY 05/25/16 [History] Ezetimibe [Zetia] 10 mg PO DAILY 05/25/16 [History] GlipiZIDE XL (24 HR) [Glucotrol XL] 2.5 mg PO DAILY 05/25/16 [History] Ipratropium/Albuterol Neb [Duoneb] 3 ml IH Q6HR PRN 05/25/16 [History] Lipase/Protease/Amylase [Forrest Dr 6,000 Units Capsule] 6,000 unit PO ACHS [History] Lisinopril [Zestril] 5 mg PO DAILY 05/25/16 [History] Oxycodone HCl 10 mg PO Q6H PRN 05/25/16 [History] Ranitidine HCl [Zantac] 150 mg PO BID 05/25/16 [History] Tizanidine HCl 2 mg PO Q8H PRN 05/25/16 [History] TraZODone 50 mg PO HS 05/25/16 [History] Venlafaxine [Effexor] 75 mg PO BID 05/25/16 [History] Warfarin [Coumadin] 2 mg PO DAILY 01/31/17 [History] Doxycycline 100 mg PO BID 02/22/17 [History] Furosemide [Lasix] 20 mg PO BID PRN 02/22/17 [History] Mirtazapine [Remeron] 15 mg PO HS 02/22/17 [History] Ranolazine [Ranexa] 500 mg PO BID 02/22/17 [History] 3 Allergy/AdvReac Type Severity Reaction Status Date / Time Latex, Natural Rubber Allergy Severe Swelling Verified 05/25/16 10:00 of Lip/Tongue/Throat All systems: reviewed and no additional remarkable complaints except as stated ( abdominal tenderness, left great toe pain) - Constitutional Constitutional ROS PAL: fatigue - EENT Eyes: requires corrective lenses - Cardiovascular Cardiovascular ROS: as per HPI - Respiratory Respiratory: as per HPI - Gastrointestinal Gastrointestinal: abdominal pain - Musculoskeletal Musculoskeletal ROS IM: muscle weakness - Integumentary ROS Integumentary: wounds (abdominal midline) - Psychiatric Psychiatric general PM: depression Palliative Care-Exam - Constitutional Vitals: Temp Pulse Resp BP Pulse Ox 97.3 F L 69 29 115/59 98 03/03/17 04:00 03/03/17 10:00 03/03/17 10:00 03/03/17 10:00 03/03/17 10:00 General appearance: Present: cooperative, no acute distress - Head Head Exam: Present: atraumatic - Eye Eye exam: Present: PERRL Pupils: Present: PERRL - ENT ENT exam: Present: mucous membranes moist - Respiratory Respiratory exam: Present: decreased breath sounds - Expanded Respiratory Exam Location: decreased breath sounds: Left, Right, Lower - Cardiovascular Cardiovascular exam: Present: irregular rhythm, +S1, +S2 - Expanded Cardiovascular Exam Peripheral pulses: 1+: Femoral (L) PM, Femoral (R) PM, Posterior Tibialis (L), Posterior Tibialis (R), 2+: Carotid (L) PM, Carotid (R) PM, Radial (L), Radial ( R), Dorsalis Pedis (L) PM, Dorsalis Pedis (R) PM - GI/Abdominal Exam GI/Abdominal exam: Present: diminished bowel sounds, soft, tenderness additional comments: Passing gas and having BMs - Rectal Rectal exam: Present: deferred - Catheter Type: Urethral (Jones) (clear yellow urine) - Expanded Upper Extremities Exam Upper Arm exam: Present: full ROM Forearm wrist exam: Present: full ROM - Expanded Lower Extremities Exam Upper Leg exam: Present: full ROM - Neurological Exam Neurological exam: Present: alert, oriented X3 - Expanded Neurological Exam Coma Scale Eye Opening: Spontaneous Coma Scale Motor Response: Obeys Commands Coma Scale Verbal Response: Oriented Coma Scale Total: 15 - Skin Skin exam: Present: pallor Internal Medicine - CN: Reslt - Labs CBC & Chem 7: 03/03/17 09:25 03/03/17 02:56 Labs: Short CBC 03/03/17 03/03/17 Range/Units 02:56 09:25 WBC 15.2 H 15.3 H (4.3-11.1) K/mcL Hgb 8.1 L D 8.0 L (11.5-15.4) g/dL Hct 26.1 L 25.8 L (35.3-44.9) % Plt Count 196 194 (140-400) K/mcL Neutrophils # 13.5 H 11.0 H (1.6-8.9) K/mcL BMP 03/03/17 02:56 Sodium 134 L Potassium 4.2 Chloride 105 Carbon Dioxide 21 BUN 47 H Creatinine 0.87 Glucose 215 H Calcium 8.0 L - ABG Interpretation ABG results: ABG ABG pH 7.41 pH Units (7.32-7.45) 02/28/17 10:12 ABG pCO2 36 mmHg (35-45) 02/28/17 10:12 ABG pO2 76 mmHg (85-104) L 02/28/17 10:12 ABG O2 Saturation 95 % (95-98) 02/28/17 10:12 PT/INR, D-dimer PT 18.4 Seconds (9.4-12.1) H 03/03/17 09:25 Consult Discharge Plan - Plan Referrals: Jeff Cervantes MD [Primary Care Provider] - Palliative Quality Palliative Quality: Screen for Code Status: Yes, Screen for Goals of Care: Yes, Screen for Pain: Yes, If Pain Regimen Started, Initiate Bowel Regimen: Yes, Screen for Nausea/Vomitting: Yes
[2017-03-03] MEDS ORDERED: *HR* LORazepam 0.5 MG TABLET PO PRN (11:03)
[2017-03-03] MEDS: Beclomethasone 80mcg MDI IH SCH ×2 (11:19→21:49)
[2017-03-03] MEDS: *HR* HYDROmorphone (PF) 1 MG/ML SYRINGE IVP PRN (16:13)
[2017-03-03] MEDS ORDERED: Clinimix E 5%-15% SOLUTION 2,000 ML with MVI, adult with vitamin K 10 ML IVC SCH ×2 (17:00)
[2017-03-03] MEDS: *HR* OxyCODONE ER (12 HR) 10 MG TABLET PO SCH (17:13)
[2017-03-03] MEDS: Heparin 25,000 UNIT/500 ML D5W 25,000 UNIT/500 ML MLS IVC SCH (17:15)
[2017-03-04] MEDS: *HR* Morphine 2 MG/ML SYRINGE IVP PRN ×3 (02:27→15:11)
[2017-03-04] MEDS: Ipratropium/Albuterol Neb 3 ML IH SCH ×4 (03:57→21:50)
[2017-03-04 04:10] LABS: BUN/Creatinine Ratio 49 (6-26); Blood Urea Nitrogen 42 mg/dL (7-20); Calcium 8.6 mg/dL (8.6-10.8); Carbon Dioxide 20 mEq/L (19-29); Chloride 108 mEq/L (98-109); Glucose 111 mg/dL (70-99); Magnesium 1.4 mg/dL (1.6-2.6); Osmolality,Calculated 297 (280-300); Phosphorous 3.8 mg/dL (2.3-4.7); Potassium 4.6 mEq/L (3.5-4.5); Sodium 138 mEq/L (136-145); eGFR For African Americans > 60 (> 60); eGFR For Non-African Americans > 60 (> 60)
[2017-03-04] MEDS: Insulin LISPRO 300 UNITS/3 ML VIAL SQ SCH ×6 (05:27→23:52)
[2017-03-04] MEDS: *HR* OxyCODONE ER (12 HR) 10 MG TABLET PO SCH ×2 (05:29→16:57)
[2017-03-04] MEDS: Dexmedetomidine HCl 400 MCG/100 ML MLS IVC SCH (07:32)
--- NOTE | 2017-03-04 08:35 | Electrocardiograph Report ---
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
[2017-03-04] MEDS: Aspirin 81 MG TAB.CHEW PO SCH (08:52)
[2017-03-04] MEDS: Pantoprazole 40 MG VIAL IVP SCH (08:52)
[2017-03-04] MEDS: Nystatin SUSP 5 ML UD.LIQ PO SCH ×5 (08:52→20:49)
[2017-03-04] MEDS: Polymyxn-B/Trimeth Opth Drops 10 ML BOTTLE LEFT EYE SCH ×4 (08:55→20:46)
[2017-03-04] MEDS: Heparin 25,000 UNIT/500 ML D5W 25,000 UNIT/500 ML MLS IVC SCH (08:56)
[2017-03-04] MEDS: Piperacillin/Tazobactam 3.375 GM in D5% in Water (Mini-Bag+) 100 ML IVPB SCH ×3 (08:56→23:58)
[2017-03-04] MEDS: Nicotine 14 MG PATCH.TD24 TD SCH (08:58)
--- NOTE | 2017-03-04 09:08 | Internal Med Progress Note ---
Date of Encounter: 03/04/17 Time of Encounter: 08:40 - Assessment and plan (1) DVT of axillary vein, acute right Current Visit: Yes Status: Acute Assessment and plan: due to PICC line; continue IV Heparin drip and start Coumadin when possible. PICC line to be pulled out today and replace in left arm. (2) Acute on chronic respiratory failure Current Visit: Yes Status: Acute Assessment and plan: improving; currently saturating well on NC; continue to monitor; Qualifiers: Respiratory failure complication: hypercapnia Qualified Code(s): J96.22 - Acute and chronic respiratory failure with hypercapnia (3) Partial small bowel obstruction Current Visit: Yes Status: Acute Assessment and plan: Surgery on board; patient underwent exploratory celiotomy and partial SB resection; tolerates limited clear liquid diet; plan is to continue TPN with new PICC line in left arm; postop wound care per Surgery. Patient reports bowel movements but none documented; (4) Acute exacerbation of chronic obstructive airways disease Current Visit: Yes Status: Acute Assessment and plan: Improving. Continue bronchodilators, ICS, and supplemental O2; not on enteral or IV steroids; empiric IV Zosyn for intraabdominal infection. (5) Hypertension Current Visit: Yes Status: Chronic Assessment and plan: BP well-controlled; on beta kalie; Qualifiers: Hypertension type: essential hypertension Qualified Code(s): I10 - Essential (primary) hypertension (6) CAD (coronary artery disease) Current Visit: Yes Status: Chronic Qualifiers: Coronary Disease-Associated Artery/Lesion type: [place] artery [place] vs. transplanted heart: [place] heart Associated angina: without angina Qualified Code(s): I25.10 - Atherosclerotic heart disease of [place] coronary artery without angina pectoris (7) Tobacco abuse Current Visit: Yes Status: Chronic Assessment and plan: continue Nicotine transdermal patch. (8) Atrial fibrillation Current Visit: Yes Status: Chronic Assessment and plan: rate-controlled; continue beta kalie; Coumadin has been held for surgery and now on iV Heparin drip; Qualifiers: Atrial fibrillation type: chronic Qualified Code(s): I48.2 - Chronic atrial fibrillation (9) Delirium due to general medical condition Current Visit: Yes Status: Acute (10) Cirrhosis of liver Current Visit: Yes Status: Suspected Qualifiers: Hepatic cirrhosis type: unspecified hepatic cirrhosis Ascites presence: without ascites Qualified Code(s): K74.60 - Unspecified cirrhosis of liver (11) Diabetes mellitus type 2, insulin dependent Current Visit: Yes Status: Chronic Assessment and plan: continue Accucheck blood glucose monitoring. sliding scale insulin. diabetic diet. (12) Anxiety Current Visit: Yes Status: Chronic (13) Moderate protein-calorie malnutrition Current Visit: Yes Status: Acute Assessment and plan: Life Science Technician on board; on TPN along with PO diet; - Subjective Interval history: Feels much better today, per patient and her family at bedside; reported some GI distress earlier, but currently no nausea, vomiting, abdominal pain; has been on BiPAP last night, now on NC; has bowel movements; - Constitutional Vitals: Temp Pulse Resp BP Pulse Ox 98.2 F 69 24 126/61 98 03/04/17 07:15 03/04/17 08:03 03/04/17 08:00 03/04/17 08:00 03/04/17 08:00 General appearance: Present: cooperative, A&O X 3, answers questions appropriately - Respiratory Respiratory exam: Present: decreased breath sounds (slight decrease in air entry B/L), CTAB. Absent: accessory muscle use, rales, rhonchi, wheezes - Cardiovascular Cardiovascular exam: Present: RRR, +S1, +S2. Absent: diastolic murmur, gallop, rubs, systolic murmur - GI/Abdominal GI/Abdominal exam: Present: diminished bowel sounds, distended, soft, no peritoneal signs. Absent: tenderness Additional comments: midline surgical incision with dressing intact, dry; - Extremities Exam Extremities exam: Present: warm, radial pulses palpable and symmetrical. Absent : calf tenderness, cyanotic, pedal edema Additional comments: right arm edema and tenderness+; has PICC line and Power [place] IV in place; - Neurological Exam Neurological exam: Present: CN II-XII intact, oriented X3, no focal deficits. Absent: pronater drift, facial droop, speech deficit Internal Medicine: Result - Labs CBC & Chem 7: 03/03/17 09:25 03/04/17 03:33 Labs: Short CBC 03/03/17 Range/Units 09:25 WBC 15.3 H (4.3-11.1) K/mcL Hgb 8.0 L (11.5-15.4) g/dL Hct 25.8 L (35.3-44.9) % Plt Count 194 (140-400) K/mcL Neutrophils # 11.0 H (1.6-8.9) K/mcL BMP 03/04/17 03:33 Sodium 138 Potassium 4.6 H Chloride 108 Carbon Dioxide 20 BUN 42 H Creatinine 0.85 Glucose 111 H Calcium 8.6 - ABG Interpretation ABG results: ABG ABG pH 7.41 pH Units (7.32-7.45) 02/28/17 10:12 ABG pCO2 36 mmHg (35-45) 02/28/17 10:12 ABG pO2 76 mmHg (85-104) L 02/28/17 10:12 ABG O2 Saturation 95 % (95-98) 02/28/17 10:12 PT/INR, D-dimer PT 18.4 Seconds (9.4-12.1) H 03/03/17 09:25 - VTE Documentation of Mechanical Device: Venous foot pump, device Consult Discharge Plan - Plan Referrals: Jeff Cervantes MD [Primary Care Provider] -
[2017-03-04] MEDS ORDERED: Magnesium Sulfate 2 GM in D5% in Water 100 ML IVPB ONE (09:18)
--- NOTE | 2017-03-04 09:50 | General Surgery Progress Note ---
<Grace Liu - Last Filed: 03/04/17 09:48> Date of Encounter: 03/04/17 Time of Encounter: 09:00 - Assessment and Plan (1) Ischemic necrosis of small bowel Current Visit: Yes Status: Acute Postop day 8 exploratory ceiliotomy, small bowel resection (02/24/2017 Dr. Mcmillan) -continue supportive care and discomfort management; await return of bowel function -NG D/C'd 02/28 -She reports flatus despite faint bowel sounds and abdominal distention on assessment. She reports BM although last recorded is 03/01/2017 (smear) -Daily dressing changes pack with 1/4 inch playing gauze -Clear liquid diet (noted RUE DVT and PICC needs to be oulled. No TPN currently infusing) PICC to left arm, resume TPN and lipids as pt is unable to tolerate enough p.o. due to ileus. -Add Reglan -Add colace -PT OT -out of bed to chair as tolerated -Noted palliative care consult PPI therapy daily (2) Partial small bowel obstruction Current Visit: Yes Status: Acute See above (3) DVT prophylaxis Current Visit: Yes Status: Acute Management per medicine (4) PNA (pneumonia) Current Visit: Yes Status: Acute Management per pulmonary critical care. IV antibiotics Zosyn 02 per nasal cannula. Noted palliative care consult for management of anxiety and SOB. We'll continue to follow Qualifiers: Pneumonia type: due to unspecified organism Laterality: bilateral Lung location: lower lobe of lung Qualified Code(s): J18.9 - Pneumonia, unspecified organism (5) Moderate protein-calorie malnutrition Current Visit: Yes Status: Acute Continue TPN and Lipids (6) Postoperative ileus Current Visit: Yes Status: Acute See above Subjective Patient reports: no new complaints, feels better, still having pain, pain is less, voiding w/o difficulty (Per hendrickson), flatus, bowel movement (Smear on 03/01), nausea Objective Vital Signs - Last 8 Hours Temp Pulse Resp BP Pulse Ox 03/04/17 08:03 69 03/04/17 08:00 69 24 126/61 98 03/04/17 07:15 98.2 F 03/04/17 05:30 97.9 F 69 18 113/52 95 03/04/17 03:57 18 95 03/04/17 03:36 69 18 127/63 99 Intake and Output 03/03/17 03/04/17 03/04/17 23:59 07:59 15:59 Intake Total 340 / 340 100 / 100 Output Total 450 / 450 350 / 350 Balance -110 / -110 -250 / -250 Intake: IV Fluids 100 / 100 100 / 100 Zosyn 3.375 GM In Dextrose 5% ( 100 / 100 100 / 100 Minibag+) 100 ML 100 ML @ 25 mls/hr IVPB Q8HR [facility] Rx#: [id number] Oral 240 / 240 Output: Catheter 450 / 450 350 / 350 Other: Blood Glucose* 100 120 - General physical appearance no distress, moderate pain - Eyes normal ocular movement - ENT atraumatic, normocephalic - Neck Neck exam: trachea midline - Respiratory clear to auscultation, other (Decreased, clear, anteriorly) - Cardiovascular Cardiovascular exam: Present: RRR, murmurs - Abdomen Abdomen: Present: bowel sounds present (Faint and Hypoactive), soft, distended - Incision Incision: Present: open (Packing noted) - Integumentary no rash - Neurologic normal sensation, other (Alert and answers questions appropriately) - Psychiatric oriented to person, oriented to place - Labs 03/03/17 09:25 03/04/17 03:33 Diabetes panel 03/04/17 Range/Units 03:33 Sodium 138 (136-145) mEq/L Potassium 4.6 H (3.5-4.5) mEq/L Chloride 108 (98-109) mEq/L Carbon Dioxide 20 (19-29) mEq/L BUN 42 H (7-20) mg/dL Creatinine 0.85 (0.57-1.11) mg/dL Glucose 111 H (70-99) mg/dL Calcium 8.6 (8.6-10.8) mg/dL Calcium panel 03/04/17 Range/Units 03:33 Calcium 8.6 (8.6-10.8) mg/dL Phosphorus 3.8 (2.3-4.7) mg/dL Pituitary panel 03/04/17 Range/Units 03:33 Sodium 138 (136-145) mEq/L Potassium 4.6 H (3.5-4.5) mEq/L Chloride 108 (98-109) mEq/L Carbon Dioxide 20 (19-29) mEq/L BUN 42 H (7-20) mg/dL Creatinine 0.85 (0.57-1.11) mg/dL Glucose 111 H (70-99) mg/dL Calcium 8.6 (8.6-10.8) mg/dL Adrenal panel 03/04/17 Range/Units 03:33 Sodium 138 (136-145) mEq/L Potassium 4.6 H (3.5-4.5) mEq/L Chloride 108 (98-109) mEq/L Carbon Dioxide 20 (19-29) mEq/L BUN 42 H (7-20) mg/dL Creatinine 0.85 (0.57-1.11) mg/dL Glucose 111 H (70-99) mg/dL Calcium 8.6 (8.6-10.8) mg/dL - VTE Documentation of Mechanical Device: Venous foot pump, device Consult Discharge Plan - Plan Referrals: Jeff Cervantes MD [Primary Care Provider] - <Soy Mcmillan - Last Filed: 03/04/17 12:31> Date of Encounter: 03/04/17 - Assessment and Plan (1) Partial small bowel obstruction Current Visit: Yes Status: Acute (2) Ischemic necrosis of small bowel Current Visit: Yes Status: Acute Objective Vital Signs - Last 8 Hours Temp Pulse Resp BP Pulse Ox 03/04/17 12:00 69 18 94/48 100 03/04/17 11:12 20 98 03/04/17 10:00 69 20 117/61 98 03/04/17 08:03 69 03/04/17 08:00 69 24 126/61 98 03/04/17 07:15 98.2 F 03/04/17 05:30 97.9 F 69 18 113/52 95 Intake and Output 03/03/17 03/04/17 03/04/17 23:59 07:59 15:59 Intake Total 340 / 340 100 / 100 Output Total 450 / 450 350 / 350 Balance -110 / -110 -250 / -250 Intake: IV Fluids 100 / 100 100 / 100 Zosyn 3.375 GM In Dextrose 5% ( 100 / 100 100 / 100 Minibag+) 100 ML 100 ML @ 25 mls/hr IVPB Q8HR [facility] Rx#: [id number] Oral 240 / 240 Output: Catheter 450 / 450 350 / 350 Other: Blood Glucose* 100 120 - Labs 09/24/17 09:25 03/04/17 03:33 Diabetes panel 03/04/17 Range/Units 03:33 Sodium 138 (136-145) mEq/L Potassium 4.6 H (3.5-4.5) mEq/L Chloride 108 (98-109) mEq/L Carbon Dioxide 20 (19-29) mEq/L BUN 42 H (7-20) mg/dL Creatinine 0.85 (0.57-1.11) mg/dL Glucose 111 H (70-99) mg/dL Calcium 8.6 (8.6-10.8) mg/dL Calcium panel 03/04/17 Range/Units 03:33 Calcium 8.6 (8.6-10.8) mg/dL Phosphorus 3.8 (2.3-4.7) mg/dL Pituitary panel 03/04/17 Range/Units 03:33 Sodium 138 (136-145) mEq/L Potassium 4.6 H (3.5-4.5) mEq/L Chloride 108 (98-109) mEq/L Carbon Dioxide 20 (19-29) mEq/L BUN 42 H (7-20) mg/dL Creatinine 0.85 (0.57-1.11) mg/dL Glucose 111 H (70-99) mg/dL Calcium 8.6 (8.6-10.8) mg/dL Adrenal panel 03/04/17 Range/Units 03:33 Sodium 138 (136-145) mEq/L Potassium 4.6 H (3.5-4.5) mEq/L Chloride 108 (98-109) mEq/L Carbon Dioxide 20 (19-29) mEq/L BUN 42 H (7-20) mg/dL Creatinine 0.85 (0.57-1.11) mg/dL Glucose 111 H (70-99) mg/dL Calcium 8.6 (8.6-10.8) mg/dL - Attending Attestation For this encounter, I have reviewed the SOD STRIPPER or PA documentation, treatment plan, and medical decision making; and I have had face to face time with this patient. I reviewed the above assessment and evaluation and agree with the above plan. Continue with TPN. Patient has had full return of her bowel function. Continue with clear liquids for now. Patient distended on examination. Mild nausea no vomiting.
[2017-03-04] MEDS: Ranolazine 500 MG TAB.ER.12H PO SCH ×2 (10:28→20:39)
[2017-03-04] MEDS: Beclomethasone 80mcg MDI IH SCH ×2 (11:07→21:49)
--- NOTE | 2017-03-04 11:41 | Venous Imaging Report ---
UE Venous Duplex Patient Name:Tata Montana Order Number:[id number] Procedure Date:03/03/2017 Date:1945ge:71 yrs Gender:Female Location:[facility] Room #: ICU2 Shipping Hand:Michelle Lamas RDCS Referring MD:Jason Sequeira MD Reading MD:Anand Kolb MD Primary Indications:Right arm swelling Secondary Indications: Risk Factors Yes/No Hx of DVT No Hx of Chemotherapy No Recent Surgery No Recent IV therapy ( past 2 weeks) Yes Impressions: Acute right axillary and cephalic vein thrombus Findings Venous Duplex Results: Right: Venous imaging of the upper extremity reveals full patency and normal vessel compressibility of the right jugular, right subclavian, right brachial, right basilic, right radial and right ulnar. Doppler signals in the evaluated veins were normal. There is an acute thrombus seen in the right axillary. It demonstrates an incompressible vein. Flow was absent and it did not augment. There is an acute thrombus seen in the right cephalic. It demonstrates an incompressible vein. Flow was absent and it did not augment. Left: Venous imaging of the upper extremity reveals full patency and normal vessel compressibility of the left subclavian. Doppler signals in the evaluated veins were normal. Prior Study: No prior study available for comparison. SPOKE TO UPON COMPLETION OF EXAM. Upper Extremity Venous Duplex Side Vein Compress Spontaneous Flow Augment Right Jugular Normal Yes Phasic Yes Right Subclavian Normal Yes Phasic Yes Right Axillary None no Absent no Right Brachial Normal Yes Phasic Yes Right Cephalic None no Absent no Right Basilic Normal Yes Phasic Yes Right Radial Normal Yes Phasic Yes Right Ulnar Normal Yes Phasic Yes Left Subclavian Normal Yes Phasic Yes Updated by Anand Kolb MD on 03/04/2017 11:35:33 AM electronically signed on 03/04/2017 11:35:45 AM with status of Final
[2017-03-04] MEDS: Metoclopramide 10 MG/2 ML VIAL IVP SCH ×3 (13:12→23:55)
--- NOTE | 2017-03-04 13:23 | Event Note ---
Date of Encounter: 03/04/17 Time of Encounter: 13:20 Patient resting quietly. She has been up in chair today and working with PT. No family present at this time. She has not required anything for anxiety since ordered yesterday. Taking po liquids. Restarting TPN today. D/W [facility] - will sign off. Please reconsult PRN.
--- NOTE | 2017-03-04 15:26 | Event Note ---
Date of Encounter: 03/04/17 Time of Encounter: 15:[address] Magallon (cardiology) regarding possible PICC line to Left UE given need for TPN. Dr. Magallon will review chart and place a note in chart regarding cardiolgy recommendations for PICC placement. Notified PICC team to wait to place line pending cardiology recommendations. IF LUE Picc cannot be placed, will discuss with attending. Will continue to monitor.
[2017-03-04] MEDS ORDERED: Clinimix E 5%-15% SOLUTION 2,000 ML with MVI, adult with vitamin K 10 ML IVC SCH (17:00)
[2017-03-05] MEDS: Heparin 25,000 UNIT/500 ML D5W 25,000 UNIT/500 ML MLS IVC SCH (00:01)
[2017-03-05] MEDS: *HR* HYDROmorphone (PF) 1 MG/ML SYRINGE IVP PRN ×3 (03:05→20:52)
[2017-03-05] MEDS: Ipratropium/Albuterol Neb 3 ML IH SCH ×4 (03:47→21:30)
[2017-03-05 04:22] LABS: BUN/Creatinine Ratio 40 (6-26); Blood Urea Nitrogen 39 mg/dL (7-20); Calcium 8.5 mg/dL (8.6-10.8); Carbon Dioxide 22 mEq/L (19-29); Chloride 104 mEq/L (98-109); Glucose 281 mg/dL (70-99); Magnesium 1.8 mg/dL (1.6-2.6); Osmolality,Calculated 298 (280-300); Phosphorous 4.3 mg/dL (2.3-4.7); Sodium 134 mEq/L (136-145); eGFR For African Americans > 60 (> 60); eGFR For Non-African Americans 56 (> 60)
[2017-03-05] MEDS: Metoclopramide 10 MG/2 ML VIAL IVP SCH ×4 (05:36→23:56)
[2017-03-05] MEDS: *HR* OxyCODONE ER (12 HR) 10 MG TABLET PO SCH (05:38)
[2017-03-05] MEDS: Insulin LISPRO 300 UNITS/3 ML VIAL SQ SCH ×5 (05:39→20:54)
[2017-03-05] MEDS: Aspirin 81 MG TAB.CHEW PO SCH (08:11)
[2017-03-05] MEDS: Piperacillin/Tazobactam 3.375 GM in D5% in Water (Mini-Bag+) 100 ML IVPB SCH ×3 (08:11→23:59)
[2017-03-05] MEDS: Pantoprazole 40 MG VIAL IVP SCH (08:11)
[2017-03-05] MEDS: Nicotine 14 MG PATCH.TD24 TD SCH (08:11)
[2017-03-05] MEDS: Ranolazine 500 MG TAB.ER.12H PO SCH ×2 (08:11→21:43)
[2017-03-05] MEDS: Nystatin SUSP 5 ML UD.LIQ PO SCH ×4 (08:12→20:43)
[2017-03-05] MEDS: Dexmedetomidine HCl 400 MCG/100 ML MLS IVC SCH (08:23)
--- NOTE | 2017-03-05 10:26 | General Surgery Progress Note ---
<Fatimah Ramirez - Last Filed: 03/05/17 16:54> Date of Encounter: 03/05/17 Time of Encounter: 09:00 - Assessment and Plan (1) Ischemic necrosis of small bowel Current Visit: Yes Status: Acute POD #9 of exploratory ceiliotomy, small bowel resection (02/24/2017 Dr. Mcmillan). Patient reports flatus. PE showed + loud, frequent bowel sounds. Wound without signs of infection. Changed dressing to mesalt. TPN initiated until ileus is resolved. Patient had a BM today. Plan: - daily wound checks pack with 1/4 inch playing gauze - Continue TPN until intaking enough calories by mouth, will try full liquids and protein supplements today - Protonix 40mg IVP daily -NG D/C'd 02/28 - Palliative care on board (2) Postoperative ileus Current Visit: Yes Status: Acute No BM since surgery. Postive bowel sounds present on PE. Patient placed on TPN yesterday (03/04). Will continue TPN until ileus resolved. Plan: - Reglan added (03/04) - Colace added (03/04) - continue getting out of bed as tolerated to help with bowel function return (3) Partial small bowel obstruction Current Visit: Yes Status: Acute continue plan above (4) DVT prophylaxis Current Visit: Yes Status: Acute Heparin drip due to DVT of axillary right vein 2/2 PICC line (5) COPD exacerbation Current Visit: No Status: Acute Currently on BIPAP and IV steroids Subjective Narrative: Patient is a 71 y/o female pmh of significant for COPD, CAD, [place], and hypertension who presents to [facility] with a 1 day history of right sided and lower abdominal pain with associated nausea and is now POD # 9 s/op exploratory ceiliotomy and small bowel resection (02/24/2017 Dr. Mcmillan) and found to have post-op ileus. Patient had a PICC line placed yesterday and has been tolerating TPN well. Patient had 1 BM today and is now urinating on her own as hendrickson d/c. Denies vomiting but has had some nausea. Objective Vital Signs - Last 8 Hours Temp Pulse Resp BP Pulse Ox 03/05/17 09:00 69 17 96 03/05/17 08:00 69 03/05/17 06:00 69 03/05/17 05:00 98.4 F 03/05/17 04:00 69 03/05/17 03:47 16 127/64 100 03/05/17 03:00 69 127/64 Intake and Output 03/04/17 03/05/17 03/05/17 23:59 07:59 15:59 Intake Total 525 / 525 100 / 100 220 / 220 Output Total 200 / 200 50 / 50 Balance 525 / 525 -100 / -100 170 / 170 Intake: IV Fluids 500 / 500 100 / 100 100 / 100 Heparin 25,000 UNIT/500 ML D5W 400 / 400 100 / 100 25,000 unit In 500 ml @ 12 UNIT /KG/HR 15.409 mls/hr IVC .Q24H [facility] Rx#:[id number] Zosyn 3.375 GM In Dextrose 5% ( 100 / 100 100 / 100 Minibag+) 100 ML 100 ML @ 25 mls/hr IVPB Q8HR [facility] Rx#: [id number] Oral 25 / 25 0 / 0 120 / 120 Output: Urine 200 / 200 50 / 50 Other: Meal Breakfast Percent of Meal Consumed 5% Weight 63.412 kg Blood Glucose* 80 215 Patient Weight 03/05/17 23:59 Weight 63.412 kg - General physical appearance well developed, well nourished - Respiratory normal expansion, other (currently on BIPAP, with no increase respiratory effort. ) - Cardiovascular Cardiovascular exam: Present: RRR, no murmurs/rubs/gallops - Abdomen Abdomen: Present: bowel sounds present (bowel sounds are loud and frequent), soft, distended Abdominal Tenderness: diffusely - Incision Incision: Present: serosanguinous (minimal amount), approximated (with packing present, changed dressing and switched to mesalt). Absent: purulent - Integumentary no rash - Neurologic normal coordination, normal sensation - Psychiatric speech is normal - Labs 03/03/17 09:25 03/05/17 03:24 Diabetes panel 03/05/17 Range/Units 03:24 Sodium 134 L (136-145) mEq/L Potassium 5.0 H (3.5-4.5) mEq/L Chloride 104 (98-109) mEq/L Carbon Dioxide 22 (19-29) mEq/L BUN 39 H (7-20) mg/dL Creatinine 0.97 (0.57-1.11) mg/dL Glucose 281 H (70-99) mg/dL Calcium 8.5 L (8.6-10.8) mg/dL Calcium panel 03/05/17 Range/Units 03:24 Calcium 8.5 L (8.6-10.8) mg/dL Phosphorus 4.3 (2.3-4.7) mg/dL Pituitary panel 03/05/17 Range/Units 03:24 Sodium 134 L (136-145) mEq/L Potassium 5.0 H (3.5-4.5) mEq/L Chloride 104 (98-109) mEq/L Carbon Dioxide 22 (19-29) mEq/L BUN 39 H (7-20) mg/dL Creatinine 0.97 (0.57-1.11) mg/dL Glucose 281 H (70-99) mg/dL Calcium 8.5 L (8.6-10.8) mg/dL Adrenal panel 03/05/17 Range/Units 03:24 Sodium 134 L (136-145) mEq/L Potassium 5.0 H (3.5-4.5) mEq/L Chloride 104 (98-109) mEq/L Carbon Dioxide 22 (19-29) mEq/L BUN 39 H (7-20) mg/dL Creatinine 0.97 (0.57-1.11) mg/dL Glucose 281 H (70-99) mg/dL Calcium 8.5 L (8.6-10.8) mg/dL - VTE Documentation of Mechanical Device: Venous foot pump, device Consult Discharge Plan - Plan Referrals: Jeff Cervantes MD [Primary Care Provider] - <Soy Mcmillan - Last Filed: 03/07/17 07:35> Date of Encounter: 03/05/17 - Assessment and Plan (1) Partial small bowel obstruction Current Visit: Yes Status: Acute (2) Ischemic necrosis of small bowel Current Visit: Yes Status: Acute Objective Vital Signs - Last 8 Hours Temp Pulse Resp BP Pulse Ox 03/07/17 04:40 98.2 F 70 20 107/67 96 03/07/17 04:10 18 97 03/07/17 02:24 98.4 F 69 20 120/65 99 03/07/17 02:09 97.4 F L 69 20 136/74 98 03/07/17 01:38 69 18 126/74 96 Intake and Output 03/06/17 03/06/17 03/07/17 15:59 23:59 07:59 Intake Total 100 / 100 1492 / 1492 833 / 833 Output Total 600 / 600 150 / 150 Balance 100 / 100 892 / 892 683 / 683 Intake: IV Fluids 100 / 100 323 / 323 133 / 133 0.9 % Sodium Chloride 250 ML @ 0 / 0 25 mls/hr IVC .Q10H [facility] Rx#: [id number] Heparin 25,000 UNIT/500 ML D5W 223 / 223 133 / 133 25,000 unit In 500 ml @ 12 UNIT /KG/HR 15.409 mls/hr IVC .Q24H [facility] Rx#:[id number] Zosyn 3.375 GM In Dextrose 5% ( 100 / 100 100 / 100 Minibag+) 100 ML 100 ML @ 25 mls/hr IVPB Q8HR [facility] Rx#: [id number] Oral 240 / 240 100 / 100 Blood Product 0 / 0 600 / 600 Rbcs Leuko Poor As-1 Unit 0 / 0 300 / 300 [id number] Rbcs Leuko Poor As-1 Unit 300 / 300 [id number] Other 929 / 929 Output: Urine 600 / 600 150 / 150 Other: Stool Size Small Stool Consistency soft Stool Characteristics Pasty Stool Color Brown # Bowel Movements 1 Blood Glucose* 173 207 180 - Labs 03/06/17 06:25 03/06/17 06:25 - Attending Attestation I examined this patient and my medical decision-making was reviewed with the Resident Physician. I agree with the documented findings, disposition and treatment plan as described except to the extent set forth below. I reviewed the assessment and evaluation and agree with the above plan.
[2017-03-05] MEDS: Beclomethasone 80mcg MDI IH SCH ×2 (10:57→21:30)
[2017-03-05] MEDS ORDERED: *HR* OxyCODONE ER (12 HR) 10 MG TABLET PO ONE (11:16)
[2017-03-05] MEDS: Polymyxn-B/Trimeth Opth Drops 10 ML BOTTLE LEFT EYE SCH ×4 (12:10→20:43)
[2017-03-05] MEDS: *HR* OxyCODONE ER (12 HR) 20 MG TABLET PO SCH ×2 (15:52→23:55)
[2017-03-05] MEDS ORDERED: Clinimix 5%-20% SOLUTION 2,000 ML with MVI, adult with vitamin K 10 ML, Sodium Phosph... IVC SCH (17:00)
[2017-03-06] MEDS: Insulin LISPRO 300 UNITS/3 ML VIAL SQ SCH ×6 (00:08→20:43)
[2017-03-06] MEDS: *HR* HYDROmorphone (PF) 1 MG/ML SYRINGE IVP PRN ×2 (03:52→20:38)
[2017-03-06] MEDS: Ipratropium/Albuterol Neb 3 ML IH SCH ×5 (04:28→21:15)
[2017-03-06] MEDS: Heparin 25,000 UNIT/500 ML D5W 25,000 UNIT/500 ML MLS IVC SCH (05:28)
[2017-03-06 06:35] LABS: Hematocrit 23.2 % (35.3-44.9); Mean Corpuscular HGB Conc 30.2 g/dL (31.6-35.5); Mean Corpuscular Hemoglobin 29.4 pg (28.0-33.3); Mean Corpuscular Volume 97.5 fL (83.0-100.0); Mean Platelet Volume 10.7 fL (9.4-12.4); Nucleated Red Blood Cells 0.6 /100 WBC (0); Platelet Count 194 K/mcL (140-400); Red Blood Count 2.38 M/mcL (3.82-4.97); Red Cell Distribution Width 15.8 % (11.5-14.5)
[2017-03-06 06:45] LABS: BUN/Creatinine Ratio 46 (6-26); Blood Urea Nitrogen 47 mg/dL (7-20); Calcium 8.6 mg/dL (8.6-10.8); Carbon Dioxide 22 mEq/L (19-29); Chloride 103 mEq/L (98-109); Glucose 148 mg/dL (70-99); Magnesium 1.6 mg/dL (1.6-2.6); Osmolality,Calculated 291 (280-300); Phosphorous 4.4 mg/dL (2.3-4.7); Potassium 4.3 mEq/L (3.5-4.5); Sodium 133 mEq/L (136-145); eGFR For African Americans > 60 (> 60); eGFR For Non-African Americans 53 (> 60)
[2017-03-06] MEDS: Metoclopramide 10 MG/2 ML VIAL IVP SCH ×3 (06:54→18:20)
[2017-03-06] MEDS: Beclomethasone 80mcg MDI IH SCH ×3 (08:09→21:15)
[2017-03-06] MEDS: Ranolazine 500 MG TAB.ER.12H PO SCH ×2 (08:13→20:44)
[2017-03-06] MEDS: *HR* OxyCODONE ER (12 HR) 20 MG TABLET PO SCH ×2 (08:13→15:53)
[2017-03-06] MEDS: Pantoprazole 40 MG VIAL IVP SCH (08:13)
[2017-03-06] MEDS: Aspirin 81 MG TAB.CHEW PO SCH (08:14)
[2017-03-06] MEDS: Nystatin SUSP 5 ML UD.LIQ PO SCH ×4 (08:14→20:44)
[2017-03-06] MEDS: Nicotine 14 MG PATCH.TD24 TD SCH (08:15)
[2017-03-06] MEDS: Polymyxn-B/Trimeth Opth Drops 10 ML BOTTLE LEFT EYE SCH ×4 (08:16→20:44)
[2017-03-06] MEDS: Piperacillin/Tazobactam 3.375 GM in D5% in Water (Mini-Bag+) 100 ML IVPB SCH ×2 (08:18→15:53)
[2017-03-06 08:21] LABS: Lymphocytes # 2.1 K/mcL (0.6-4.6); Monocytes # 0.5 K/mcL (0.0-1.3)
[2017-03-06 08:22] LABS: Hypochromasia Present (Not Present); Platelet Estimate Normal (Normal)
[2017-03-06] MEDS: Dexmedetomidine HCl 400 MCG/100 ML MLS IVC SCH (08:43)
--- NOTE | 2017-03-06 12:03 | General Surgery Progress Note ---
<Grace Liu - Last Filed: 03/06/17 12:03> Date of Encounter: 03/06/17 Time of Encounter: 12:01 - Assessment and Plan (1) Ischemic necrosis of small bowel Current Visit: Yes Status: Acute Postop day 10 exploratory ceiliotomy, small bowel resection (02/24/2017 Dr. Mcmillan) -continue supportive care and discomfort management -NG D/C'd 02/28 -Large bowel movement 03/05/2017 -Full liquid diet with Ensure TID May consider calorie count per dietary if she is not taking adequate p.o. to wean TPN -Continue Reglan and colace. Can d/c if she has loose stool -Noted RUE DVT and PICC needs to be oulled. No TPN currently infusing) PICC to left arm, resume TPN and lipids as pt is unable to tolerate enough p.o. due to ileus. -PT OT -out of bed to chair as tolerated -PPI therapy daily (2) Partial small bowel obstruction Current Visit: Yes Status: Acute See above (3) DVT prophylaxis Current Visit: Yes Status: Acute Management per medicine; She is now on therapeutic heparin (4) PNA (pneumonia) Current Visit: Yes Status: Acute Management per medicine WBC is down trending Qualifiers: Pneumonia type: due to unspecified organism Laterality: bilateral Lung location: lower lobe of lung Qualified Code(s): J18.9 - Pneumonia, unspecified organism (5) Moderate protein-calorie malnutrition Current Visit: Yes Status: Acute Continue TPN and Lipids until adequate p.o.; See above (6) Postoperative ileus Current Visit: Yes Status: Resolved See above Subjective Patient reports: no new complaints, feels better, still having pain, pain is less, tolerating liquids well, voiding w/o difficulty, flatus, bowel movement, afebrile Objective Vital Signs - Last 8 Hours Resp Pulse Ox 03/06/17 04:29 16 97 Intake and Output 03/05/17 03/06/17 03/06/17 23:59 07:59 15:59 Intake Total 1420 / 1420 487 / 487 Output Total 200 / 200 150 / 150 Balance 1220 / 1220 337 / 337 Intake: IV Fluids 1300 / 1300 487 / 487 Heparin 25,000 UNIT/500 ML D5W 487 / 487 25,000 unit In 500 ml @ 12 UNIT /KG/HR 15.409 mls/hr IVC .Q24H [facility] Rx#:[id number] Clinimix E 5%-15% SOLUTION 2, 1200 / 1200 000 ML @ 50 mls/hr IVC .Q24H [facility] with M.v.i. Adult 10 ml Rx# :[id number] Zosyn 3.375 GM In Dextrose 5% ( 100 / 100 0 / 0 Minibag+) 100 ML 100 ML @ 25 mls/hr IVPB Q8HR [facility]Y Rx#: [id number] Oral 120 / 120 Output: Urine 200 / 200 150 / 150 Other: Meal Dinner Percent of Meal Consumed 25% Stool Size Small Stool Consistency liquid Stool Characteristics Normal for Patient Stool Color Brown # Bowel Movements 1 Weight 64.3 kg Blood Glucose* 201 191 114 Patient Weight 03/06/17 23:59 Weight 64.3 kg - General physical appearance no distress, moderate pain (with palpation of the abdomen. Expecte dpost- operative) - Eyes normal ocular movement - ENT atraumatic, normocephalic - Neck Neck exam: trachea midline - Respiratory other (Decreased, clear, bibasilar) - Cardiovascular Cardiovascular exam: Present: RRR, murmurs - Abdomen Abdomen: Present: bowel sounds present, soft, tender (expected postoperative) Hernia: none - Incision Incision: Present: open (Packed with mesalt. No s/s of infections) - Integumentary no rash - Neurologic normal sensation - Musculoskeletal other (Kyphotic) - Psychiatric oriented to person, oriented to place, speech is normal - Labs 03/06/17 06:25 03/06/17 06:25 Diabetes panel 03/06/17 Range/Units 06:25 Sodium 133 L (136-145) mEq/L Potassium 4.3 (3.5-4.5) mEq/L Chloride 103 (98-109) mEq/L Carbon Dioxide 22 (19-29) mEq/L BUN 47 H (7-20) mg/dL Creatinine 1.03 (0.57-1.11) mg/dL Glucose 148 H (70-99) mg/dL Calcium 8.6 (8.6-10.8) mg/dL Calcium panel 03/06/17 Range/Units 06:25 Calcium 8.6 (8.6-10.8) mg/dL Phosphorus 4.4 (2.3-4.7) mg/dL Pituitary panel 03/06/17 Range/Units 06:25 Sodium 133 L (136-145) mEq/L Potassium 4.3 (3.5-4.5) mEq/L Chloride 103 (98-109) mEq/L Carbon Dioxide 22 (19-29) mEq/L BUN 47 H (7-20) mg/dL Creatinine 1.03 (0.57-1.11) mg/dL Glucose 148 H (70-99) mg/dL Calcium 8.6 (8.6-10.8) mg/dL Adrenal panel 03/06/17 Range/Units 06:25 Sodium 133 L (136-145) mEq/L Potassium 4.3 (3.5-4.5) mEq/L Chloride 103 (98-109) mEq/L Carbon Dioxide 22 (19-29) mEq/L BUN 47 H (7-20) mg/dL Creatinine 1.03 (0.57-1.11) mg/dL Glucose 148 H (70-99) mg/dL Calcium 8.6 (8.6-10.8) mg/dL - VTE Documentation of Mechanical Device: Venous foot pump, device Consult Discharge Plan - Plan Referrals: Jeff Cervantes MD [Primary Care Provider] - <Soy Mcmillan - Last Filed: 03/07/17 07:27> Date of Encounter: 03/06/17 - Assessment and Plan (1) Partial small bowel obstruction Current Visit: Yes Status: Acute (2) Ischemic necrosis of small bowel Current Visit: Yes Status: Acute Objective Vital Signs - Last 8 Hours Temp Pulse Resp BP Pulse Ox 03/07/17 04:40 98.2 F 70 20 107/67 96 03/07/17 04:10 18 97 03/07/17 02:24 98.4 F 69 20 120/65 99 03/07/17 02:09 97.4 F L 69 20 136/74 98 03/07/17 01:38 69 18 126/74 96 Intake and Output 03/06/17 03/06/17 03/07/17 15:59 23:59 07:59 Intake Total 100 / 100 1492 / 1492 833 / 833 Output Total 600 / 600 150 / 150 Balance 100 / 100 892 / 892 683 / 683 Intake: IV Fluids 100 / 100 323 / 323 133 / 133 0.9 % Sodium Chloride 250 ML @ 0 / 0 25 mls/hr IVC .Q10H [facility] Rx#: [id number] Heparin 25,000 UNIT/500 ML D5W 223 / 223 133 / 133 25,000 unit In 500 ml @ 12 UNIT /KG/HR 15.409 mls/hr IVC .Q24H [facility] Rx#:[id number] Zosyn 3.375 GM In Dextrose 5% ( 100 / 100 100 / 100 Minibag+) 100 ML 100 ML @ 25 mls/hr IVPB Q8HR [facility] Rx#: [id number] Oral 240 / 240 100 / 100 Blood Product 0 / 0 600 / 600 Rbcs Leuko Poor As-1 Unit 0 / 0 300 / 300 [id number] Rbcs Leuko Poor As-1 Unit 300 / 300 [id number] Other 929 / 929 Output: Urine 600 / 600 150 / 150 Other: Stool Size Small Stool Consistency soft Stool Characteristics Pasty Stool Color Brown # Bowel Movements 1 Blood Glucose* 173 207 180 - Labs 03/06/17 06:25 03/06/17 06:25 - Attending Attestation For this encounter, I have reviewed the WORKFORCE DEVELOPMENT SPECIALIST or PA documentation, treatment plan, and medical decision making; and I have had face to face time with this patient. Reviewed the above assessment and evaluation and agree with the above-mentioned plan.
[2017-03-06] MEDS ORDERED: Clinimix 5%-20% SOLUTION 2,000 ML with MVI, adult with vitamin K 10 ML, Sodium Phosph... IVC SCH (17:00)
[2017-03-06] MEDS: *HR* Heparin 5,000 UNIT/ML VIAL IVP PRN (19:12)
--- NOTE | 2017-03-06 19:36 | Internal Med Progress Note ---
Date of Encounter: 03/06/17 Time of Encounter: 13:00 - Assessment and plan (1) Acute exacerbation of chronic obstructive airways disease Current Visit: Yes Status: Acute Assessment and plan: Improving. Continue aerosol treatment, IS, and supplemental O2; not on steroids. (2) DVT of axillary vein, acute right Current Visit: Yes Status: Acute Assessment and plan: due to PICC line managed by surgery to remove. (3) Partial small bowel obstruction Current Visit: Yes Status: Acute Assessment and plan: Resolved - Subjective Interval history: No complaints, no acute events - Constitutional Vitals: Temp Pulse Resp BP Pulse Ox 98.9 F 84 14 125/73 96 03/06/17 16:47 03/06/17 16:47 03/06/17 16:47 03/06/17 16:47 03/06/17 16:47 General appearance: Present: cooperative, A&O X 3, answers questions appropriately Exam: - Eyes normal ocular movement - ENT atraumatic, normocephalic - Neck Neck exam: trachea midline - Respiratory other (Decreased, clear, bibasilar) - Cardiovascular Cardiovascular exam: Present: RRR, murmurs - Abdomen Abdomen: Present: bowel sounds present, soft, tender (expected postoperative) - Integumentary no rash - Neurologic normal sensation Internal Medicine: Result - Labs CBC & Chem 7: 03/06/17 06:25 03/06/17 06:25 Labs: Short CBC 03/06/17 Range/Units 06:25 WBC 12.8 H (4.3-11.1) K/mcL Hgb 7.0 L (11.5-15.4) g/dL Hct 23.2 L (35.3-44.9) % Plt Count 194 (140-400) K/mcL Neutrophils # 10.0 H (1.6-8.9) K/mcL BMP 03/06/17 06:25 Sodium 133 L Potassium 4.3 Chloride 103 Carbon Dioxide 22 BUN 47 H Creatinine 1.03 Glucose 148 H Calcium 8.6 - ABG Interpretation ABG results: ABG ABG pH 7.41 pH Units (7.32-7.45) 02/28/17 10:12 ABG pCO2 36 mmHg (35-45) 02/28/17 10:12 ABG pO2 76 mmHg (85-104) L 02/28/17 10:12 ABG O2 Saturation 95 % (95-98) 02/28/17 10:12 PT/INR, D-dimer PT 18.4 Seconds (9.4-12.1) H 03/03/17 09:25 - VTE Documentation of Mechanical Device: Venous foot pump, device Consult Discharge Plan - Plan Referrals: Jeff Cervantes MD [Primary Care Provider] -
[2017-03-07] MEDS: *HR* OxyCODONE ER (12 HR) 20 MG TABLET PO SCH ×4 (00:26→23:24)
[2017-03-07] MEDS: Metoclopramide 10 MG/2 ML VIAL IVP SCH ×3 (00:26→11:45)
[2017-03-07] MEDS: Piperacillin/Tazobactam 3.375 GM in D5% in Water (Mini-Bag+) 100 ML IVPB SCH ×4 (00:26→23:25)
[2017-03-07] MEDS: Insulin LISPRO 300 UNITS/3 ML VIAL SQ SCH ×6 (00:28→21:01)
[2017-03-07] MEDS: 0.9 % Sodium Chloride 250 ML IVC SCH ×2 (00:43→03:50)
[2017-03-07] MEDS: *HR* HYDROmorphone (PF) 1 MG/ML SYRINGE IVP PRN ×3 (03:49→21:02)
[2017-03-07] MEDS: Ipratropium/Albuterol Neb 3 ML IH SCH ×4 (04:10→22:27)
[2017-03-07 08:39] LABS: Hematocrit 30.4 % (35.3-44.9); Hemoglobin 9.5 g/dL (11.5-15.4); Mean Corpuscular HGB Conc 31.3 g/dL (31.6-35.5); Mean Corpuscular Hemoglobin 29.8 pg (28.0-33.3); Mean Platelet Volume 10.5 fL (9.4-12.4); Nucleated Red Blood Cells 1.1 /100 WBC (0); Platelet Count 190 K/mcL (140-400); Red Blood Count 3.19 M/mcL (3.82-4.97); Red Cell Distribution Width 14.9 % (11.5-14.5)
[2017-03-07 08:40] LABS: Mean Corpuscular Volume 95.3 fL (83.0-100.0)
[2017-03-07 08:47] LABS: Glucose 139 mg/dL (70-99)
[2017-03-07 09:37] LABS: Eosinophils # 1.1 K/mcL (0.0-0.6); Lymphocytes # 1.8 K/mcL (0.6-4.6); Monocytes # 0.4 K/mcL (0.0-1.3); Neutrophils # 13.1 K/mcL (1.6-8.9)
[2017-03-07 09:38] LABS: Platelet Estimate Normal (Normal); Polychromasia 1+ (Not Present)
[2017-03-07] MEDS: Pantoprazole 40 MG VIAL IVP SCH (09:39)
[2017-03-07] MEDS: Aspirin 81 MG TAB.CHEW PO SCH (09:40)
[2017-03-07] MEDS: Nystatin SUSP 5 ML UD.LIQ PO SCH ×4 (09:41→21:01)
[2017-03-07] MEDS: Polymyxn-B/Trimeth Opth Drops 10 ML BOTTLE LEFT EYE SCH ×4 (09:41→21:06)
[2017-03-07] MEDS: Ranolazine 500 MG TAB.ER.12H PO SCH ×2 (09:41→21:01)
[2017-03-07] MEDS: Nicotine 14 MG PATCH.TD24 TD SCH (09:41)
[2017-03-07] MEDS: Heparin 25,000 UNIT/500 ML D5W 25,000 UNIT/500 ML MLS IVC SCH (09:42)
[2017-03-07] MEDS: *HR* Heparin 5,000 UNIT/ML VIAL IVP PRN (10:09)
[2017-03-07] MEDS: Beclomethasone 80mcg MDI IH SCH ×2 (10:32→22:27)
[2017-03-07 10:51] LABS: BUN/Creatinine Ratio 43 (6-26); Blood Urea Nitrogen 45 mg/dL (7-20); Calcium 8.5 mg/dL (8.6-10.8); Carbon Dioxide 20 mEq/L (19-29); Chloride 103 mEq/L (98-109); Osmolality,Calculated 292 (280-300); Potassium 4.4 mEq/L (3.5-4.5); Sodium 134 mEq/L (136-145); eGFR For African Americans > 60 (> 60); eGFR For Non-African Americans 52 (> 60)
--- NOTE | 2017-03-07 11:24 | General Surgery Progress Note ---
<Grace Liu - Last Filed: 03/07/17 11:38> Date of Encounter: 03/07/17 Time of Encounter: 11:23 - Assessment and Plan (1) Ischemic necrosis of small bowel Current Visit: Yes Status: Acute Postop day 11 exploratory ceiliotomy, small bowel resection (02/24/2017 Dr. Mcmillan); NG D/C'd 02/28; Ileus resolved No signs or symptoms of G.I. blood loss noted with low hemoglobin levels. Transfusion recommendations per hospitalist/primary service. No signs/symptoms of acute abdominal infection noted. Her abdomen is benign, incisions are WNL with packing, and she is noted to have a seroma at the left umbilical area. Noted increased WBC without bandemia (up from 12.8 to 17.7) and no clear source. -continue supportive care and discomfort management -Advance to soft diet with HP Ensure TID with trays May consider calorie count per dietary if she is not taking adequate p.o. to wean TPN -Will stop Reglan -PT OT is following. Out of bed at least TID with meals and as tolerated per PT/ OT recommendations (2) Partial small bowel obstruction Current Visit: Yes Status: Acute See above (3) DVT prophylaxis Current Visit: Yes Status: Acute Management per medicine; She is now on therapeutic heparin (4) PNA (pneumonia) Current Visit: Yes Status: Acute Management per medicine WBC is uptrended today. Will continue to follow Qualifiers: Pneumonia type: due to unspecified organism Laterality: bilateral Lung location: lower lobe of lung Qualified Code(s): J18.9 - Pneumonia, unspecified organism (5) Moderate protein-calorie malnutrition Current Visit: Yes Status: Acute Continue TPN and Lipids until adequate p.o.; See above Subjective Patient reports: no new complaints, feels better, still having pain, pain is less, tolerating liquids well, voiding w/o difficulty, flatus, bowel movement, shortness of breath (Intermittent SOB "no worse than usual"), afebrile Objective Vital Signs - Last 8 Hours Temp Pulse Resp BP Pulse Ox 03/07/17 10:35 20 96 03/07/17 08:34 98.2 F 69 16 152/79 96 03/07/17 04:40 98.2 F 70 20 107/67 96 03/07/17 04:10 18 97 Intake and Output 03/06/17 03/07/17 03/07/17 23:59 07:59 15:59 Intake Total 1492 / 1492 933 / 933 149 / 149 Output Total 600 / 600 150 / 150 50 / 50 Balance 892 / 892 783 / 783 99 / 99 Intake: IV Fluids 323 / 323 233 / 233 149 / 149 0.9 % Sodium Chloride 250 ML @ 0 / 0 25 mls/hr IVC .Q10H [facility] Rx#: [id number] Heparin 25,000 UNIT/500 ML D5W 223 / 223 133 / 133 149 / 149 25,000 unit In 500 ml @ 12 UNIT /KG/HR 15.409 mls/hr IVC .Q24H [facility] Rx#:[id number] Zosyn 3.375 GM In Dextrose 5% ( 100 / 100 100 / 100 Minibag+) 100 ML 100 ML @ 25 mls/hr IVPB Q8HR [facility] Rx#: [id number] Oral 240 / 240 100 / 100 Blood Product 0 / 0 600 / 600 Rbcs Leuko Poor As-1 Unit 0 / 0 300 / 300 [id number] Rbcs Leuko Poor As-1 Unit 300 / 300 [id number] Other 929 / 929 Output: Urine 600 / 600 150 / 150 50 / 50 Other: Stool Size Small Small Stool Consistency soft soft Stool Characteristics Pasty Stool Color Brown Brown # Bowel Movements 1 Blood Glucose* 207 180 138 - General physical appearance no distress, moderate pain, other (Sitting upright on BSC upon entering room. Assisted pt back to bed.) - ENT atraumatic, normocephalic - Neck Neck exam: trachea midline - Respiratory other (Decreased lung sounds. Inspiratory wheezes noted. ) - Cardiovascular Cardiovascular exam: Present: RRR, murmurs - Abdomen Abdomen: Present: bowel sounds present, soft, tender (Expected postoperative) - Incision Incision: Present: open (Seroma noted just superior to left the umbilicus; wound beds remain pink and moist. No purulent drainage noted.) - Integumentary no rash - Neurologic normal coordination, normal sensation - Musculoskeletal other (Kyphotic and generalized weakness) - Psychiatric oriented to time, oriented to person, oriented to place, memory intact - Labs 03/07/17 08:20 03/07/17 08:20 Diabetes panel 03/07/17 Range/Units 08:20 Sodium 134 L (136-145) mEq/L Potassium 4.4 (3.5-4.5) mEq/L Chloride 103 (98-109) mEq/L Carbon Dioxide 20 (19-29) mEq/L BUN 45 H (7-20) mg/dL Creatinine 1.05 (0.57-1.11) mg/dL Glucose 139 H (70-99) mg/dL Calcium 8.5 L (8.6-10.8) mg/dL Calcium panel 03/07/17 Range/Units 08:20 Calcium 8.5 L (8.6-10.8) mg/dL Pituitary panel 03/07/17 Range/Units 08:20 Sodium 134 L (136-145) mEq/L Potassium 4.4 (3.5-4.5) mEq/L Chloride 103 (98-109) mEq/L Carbon Dioxide 20 (19-29) mEq/L BUN 45 H (7-20) mg/dL Creatinine 1.05 (0.57-1.11) mg/dL Glucose 139 H (70-99) mg/dL Calcium 8.5 L (8.6-10.8) mg/dL Adrenal panel 03/07/17 Range/Units 08:20 Sodium 134 L (136-145) mEq/L Potassium 4.4 (3.5-4.5) mEq/L Chloride 103 (98-109) mEq/L Carbon Dioxide 20 (19-29) mEq/L BUN 45 H (7-20) mg/dL Creatinine 1.05 (0.57-1.11) mg/dL Glucose 139 H (70-99) mg/dL Calcium 8.5 L (8.6-10.8) mg/dL - VTE Documentation of Mechanical Device: Venous foot pump, device Consult Discharge Plan - Plan Referrals: Jeff Cervantes MD [Primary Care Provider] - <Soy Mcmillan - Last Filed: 03/08/17 07:17> Date of Encounter: 03/07/17 - Assessment and Plan (1) Partial small bowel obstruction Current Visit: Yes Status: Acute (2) Ischemic necrosis of small bowel Current Visit: Yes Status: Acute Objective Vital Signs - Last 8 Hours Temp Pulse Resp BP Pulse Ox 03/08/17 05:00 97.8 F 69 18 128/62 94 Intake and Output 03/07/17 03/07/17 03/08/17 15:59 23:59 07:59 Intake Total 249 / 249 1316 / 1316 248 / 248 Output Total 50 / 50 175 / 175 100 / 100 Balance 199 / 199 1141 / 1141 148 / 148 Intake: IV Fluids 249 / 249 1316 / 1316 248 / 248 Heparin 25,000 UNIT/500 ML D5W 149 / 149 248 / 248 25,000 unit In 500 ml @ 12 UNIT /KG/HR 15.409 mls/hr IVC .Q24H [facility] Rx#:[id number] Clinimix 5%-20% SOLUTION 2,000 1216 / 1216 ML @ 50 mls/hr IVC .Q24H [facility] with M.v.i. Adult 10 ml with Sodium Phosphate 30 MMOL with Sodium Chloride 4 MEQ/ML 10 MEQ with Magnesium Sulfate 10 MEQ with Calcium Gluconate 9 MEQ with Sodium Acetate 20 MEQ Rx#: [id number] Zosyn 3.375 GM In Dextrose 5% ( 100 / 100 100 / 100 Minibag+) 100 ML 100 ML @ 25 mls/hr IVPB Q8HR [facility] Rx#: [id number] Output: Urine 50 / 50 175 / 175 100 / 100 Other: Stool Size Small Small Stool Consistency soft soft Stool Color Brown Brown # Voids 1 Blood Glucose* 178 158 145 - Labs 03/08/17 04:25 03/08/17 04:25 Diabetes panel 03/07/17 03/08/17 03/08/17 Range/Units 08:20 04:25 04:25 Sodium 134 L 131 L (136-145) mEq/L Potassium 4.4 4.2 (3.5-4.5) mEq/L Chloride 103 101 (98-109) mEq/L Carbon Dioxide 20 21 (19-29) mEq/L BUN 45 H 44 H (7-20) mg/dL Creatinine 1.05 0.96 (0.57-1.11) mg/dL Glucose 139 H 134 H (70-99) mg/dL Calcium 8.5 L 8.3 L (8.6-10.8) mg/dL Triglycerides 73 (< 150) mg/dL Calcium panel 03/07/17 03/08/17 03/08/17 Range/Units 08:20 04:25 04:25 Calcium 8.5 L 8.3 L (8.6-10.8) mg/dL Phosphorus 3.8 (2.3-4.7) mg/dL Pituitary panel 03/07/17 03/08/17 Range/Units 08:20 04:25 Sodium 134 L 131 L (136-145) mEq/L Potassium 4.4 4.2 (3.5-4.5) mEq/L Chloride 103 101 (98-109) mEq/L Carbon Dioxide 20 21 (19-29) mEq/L BUN 45 H 44 H (7-20) mg/dL Creatinine 1.05 0.96 (0.57-1.11) mg/dL Glucose 139 H 134 H (70-99) mg/dL Calcium 8.5 L 8.3 L (8.6-10.8) mg/dL Adrenal panel 03/07/17 03/08/17 Range/Units 08:20 04:25 Sodium 134 L 131 L (136-145) mEq/L Potassium 4.4 4.2 (3.5-4.5) mEq/L Chloride 103 101 (98-109) mEq/L Carbon Dioxide 20 21 (19-29) mEq/L BUN 45 H 44 H (7-20) mg/dL Creatinine 1.05 0.96 (0.57-1.11) mg/dL Glucose 139 H 134 H (70-99) mg/dL Calcium 8.5 L 8.3 L (8.6-10.8) mg/dL - Attending Attestation For this encounter, I have reviewed the RESISTANCE WELDING MACHINE OPERATOR or PA documentation, treatment plan, and medical decision making; and I have had face to face time with this patient. The above assessment and evaluation and agree with the above plan. Continue dressing changes midline incision. Patient with nausea but no vomiting. Continue current diet this time and continue with TPN.
[2017-03-07] MEDS: Ondansetron 4 MG/2 ML VIAL IVP PRN (15:56)
[2017-03-07] MEDS ORDERED: Clinimix 5%-20% SOLUTION 2,000 ML with MVI, adult with vitamin K 10 ML, Sodium Phosph... IVC SCH (17:00)
--- NOTE | 2017-03-07 19:10 | Internal Med Progress Note ---
Date of Encounter: 03/08/17 Time of Encounter: 13:00 - Assessment and plan (1) Acute on chronic respiratory failure Current Visit: Yes Status: Acute Assessment and plan: 71 year old female with multiple co-morbidities including afib on coumadin, CHF , COPD, CAD, chronic kidney disease, presented on 02/22 with a partial small bowel obstruction as well as a possible pneumonia. She had an NGT placed and started on Levaquin/Flagyl. She required ex lap on 02/24 after NGT and conservative were not effective. Coumadin was reversed prior to procedure. She had difficulty with extubation due to pulmonary edema and pneumonia and so transferred to ICU. She was placed on broad spectrum antibiotics. She developed strangulated small bowel with ischemic necrosis. She had a left PICC line placed for starting TPN, and extubated as well. She refused bipap at that time. She had acute on chronic anemia with multifactoral causes. Initially seemed as though it was GI bleed as her ileostomy had some blood in it. However , there was no recurrence which suggested likely other cause. She has required multiple transfusions of PRBCs. On 03/04 she was found to have left upper extremity DVT. Her PICC line was removed and she was started on heparin. A right sided PICC was placed and TPN able to be restarted. Her post operative ileus has resolved, currently POD #11 s/p exploaratory ceilotomy and small bowel resection. She continues to make progress in regards to respiratory status. She has good appetite and is advancing her diet today. She remains on therapeutic heparin for DVT. Hemoglobin has been stable today. She has a leukocytosis today from 12 to 17. She is not on steroids and she is currently on Zosyn, afebrile, and hemodynamically stable. Plan: - Will follow-up with Surgery recs, currently advancing diet and continuing TPN as needed. - Will trend WBCs and monitor closely for infection. - Continue to trend H&H and transfuse PRBC as needed. May see improvement if she is able to tolerate diet and Ensure. - Since GI bleed is less likely cause of anemia, she should continue therapeutic heparin. Will discuss with team an appropriate time to bridge to coumadin. - Continue with PT/OT Qualifiers: Respiratory failure complication: hypercapnia Qualified Code(s): J96.22 - Acute and chronic respiratory failure with hypercapnia (2) Partial small bowel obstruction Current Visit: Yes Status: Acute Assessment and plan: Resolved (3) DVT of axillary vein, acute right Current Visit: Yes Status: Acute Assessment and plan: On therapeutic heparin (4) Acute exacerbation of chronic obstructive airways disease Current Visit: Yes Status: Acute Assessment and plan: On home inhalers for COPD (5) Anemia Current Visit: Yes Status: Acute Assessment and plan: Plan as above Qualifiers: Anemia type: other cause Other causes of anemia: chronic disease, other Qualified Code(s): D63.8 - Anemia in other chronic diseases classified elsewhere (6) Depression Current Visit: Yes Status: Acute Qualifiers: Depression Type: unspecified Qualified Code(s): F32.9 - Major depressive disorder, single episode, unspecified (7) Ischemic necrosis of small bowel Current Visit: Yes Status: Acute (8) Moderate protein-calorie malnutrition Current Visit: Yes Status: Acute (9) PNA (pneumonia) Current Visit: Yes Status: Acute Assessment and plan: Resolved. Though will monitor for any infections granted bump in WBC Qualifiers: Pneumonia type: due to unspecified organism Laterality: bilateral Lung location: lower lobe of lung Qualified Code(s): J18.9 - Pneumonia, unspecified organism (10) Sepsis Current Visit: Yes Status: Acute Assessment and plan: Resolved. Will monitor for any recurring infections. Qualifiers: Sepsis type: sepsis due to unspecified organism Qualified Code(s): A41.9 - Sepsis, unspecified organism (11) CAD (coronary artery disease) Current Visit: Yes Status: Chronic Assessment and plan: Continue current therapy Qualifiers: Coronary Disease-Associated Artery/Lesion type: [place] artery [place] vs. transplanted heart: [place] heart Associated angina: without angina Qualified Code(s): I25.10 - Atherosclerotic heart disease of [place] coronary artery without angina pectoris (12) Chronic combined systolic and diastolic congestive heart failure Current Visit: Yes Status: Chronic Assessment and plan: Stable (13) Diabetes mellitus type 2, insulin dependent Current Visit: Yes Status: Chronic Assessment and plan: Stable (14) Hypertension Current Visit: Yes Status: Chronic Assessment and plan: Stable Qualifiers: Hypertension type: essential hypertension Qualified Code(s): I10 - Essential (primary) hypertension - Subjective Interval history: No complaints, no acute events. Feels like she has more energy. Pain is decreased. No episodes of bleeding. - Constitutional Vitals: Temp Pulse Resp BP Pulse Ox 98.3 F 70 16 166/88 95 03/07/17 15:58 03/07/17 15:58 03/07/17 16:12 03/07/17 15:58 03/07/17 16:12 General appearance: Present: cooperative, A&O X 3, answers questions appropriately Exam: More alert compared to my exam yesterday. - Respiratory improved air exchange, no wheezing/rales/rhonchi - Cardiovascular Cardiovascular exam: Present: RRR, no murmurs/rubs/gallops - Abdomen Abdomen: Present: bowel sounds present (bowel sounds are loud and frequent), soft, distended Abdominal Tenderness: diffusely - Incision Incision: clean, dry, intact, no bleeding, no purulent drainage. - Integumentary no rash - Neurologic normal coordination, normal sensation Internal Medicine: Result - Labs CBC & Chem 7: 03/07/17 08:20 03/07/17 08:20 Labs: Short CBC 03/07/17 Range/Units 08:20 WBC 17.7 H (4.3-11.1) K/mcL Hgb 9.5 L D (11.5-15.4) g/dL Hct 30.4 L (35.3-44.9) % Plt Count 190 (140-400) K/mcL Neutrophils # 13.1 H (1.6-8.9) K/mcL BMP 03/07/17 08:20 Sodium 134 L Potassium 4.4 Chloride 103 Carbon Dioxide 20 BUN 45 H Creatinine 1.05 Glucose 139 H Calcium 8.5 L - ABG Interpretation ABG results: ABG ABG pH 7.41 pH Units (7.32-7.45) 02/28/17 10:12 ABG pCO2 36 mmHg (35-45) 02/28/17 10:12 ABG pO2 76 mmHg (85-104) L 02/28/17 10:12 ABG O2 Saturation 95 % (95-98) 02/28/17 10:12 PT/INR, D-dimer PT 18.4 Seconds (9.4-12.1) H 03/03/17 09:25 - VTE Documentation of Mechanical Device: Venous foot pump, device Consult Discharge Plan - Plan Referrals: Jeff Cervantes MD [Primary Care Provider] -
[2017-03-08] MEDS: Insulin LISPRO 300 UNITS/3 ML VIAL SQ SCH ×7 (01:44→23:41)
[2017-03-08] MEDS: *HR* HYDROmorphone (PF) 1 MG/ML SYRINGE IVP PRN ×2 (01:55→19:56)
[2017-03-08] MEDS: Ipratropium/Albuterol Neb 3 ML IH SCH ×4 (04:43→22:02)
[2017-03-08 04:45] LABS: Hematocrit 27.4 % (35.3-44.9); Hemoglobin 8.5 g/dL (11.5-15.4); Mean Corpuscular Hemoglobin 29.9 pg (28.0-33.3); Mean Corpuscular Volume 96.5 fL (83.0-100.0); Nucleated Red Blood Cells 0.7 /100 WBC (0); Platelet Count 134 K/mcL (140-400); Red Blood Count 2.84 M/mcL (3.82-4.97); Red Cell Distribution Width 15.2 % (11.5-14.5)
[2017-03-08 04:55] LABS: Magnesium 1.3 mg/dL (1.6-2.6); Phosphorous 3.8 mg/dL (2.3-4.7)
[2017-03-08 05:33] LABS: Lymphocytes # 1.7 K/mcL (0.6-4.6)
[2017-03-08 05:34] LABS: Large Platelets Present (Not Present); Platelet Clumps Few (Not Present); Reactive Lymphocytes Present (Not Present); Smudge Cells Present (Not Present); Toxic Granulation Present (Not Present)
[2017-03-08 05:41] LABS: Sodium 131 mEq/L (136-145)
[2017-03-08 05:42] LABS: Carbon Dioxide 21 mEq/L (19-29); Chloride 101 mEq/L (98-109); Potassium 4.2 mEq/L (3.5-4.5)
[2017-03-08 05:43] LABS: BUN/Creatinine Ratio 46 (6-26); Blood Urea Nitrogen 44 mg/dL (7-20); Glucose 134 mg/dL (70-99); Osmolality,Calculated 285 (280-300); eGFR For African Americans > 60 (> 60); eGFR For Non-African Americans 57 (> 60)
[2017-03-08 05:45] LABS: Calcium 8.3 mg/dL (8.6-10.8)
[2017-03-08 08:49] LABS: Activated Partial Thrombo Time 116.8 Seconds (26.0-36.0)
[2017-03-08 08:59] LABS: Heparin anti-factor XA UFH 0.51 IU/mL (0.30-0.70)
[2017-03-08] MEDS: Piperacillin/Tazobactam 3.375 GM in D5% in Water (Mini-Bag+) 100 ML IVPB SCH ×3 (09:44→23:40)
[2017-03-08] MEDS: Pantoprazole 40 MG VIAL IVP SCH (09:44)
[2017-03-08] MEDS ORDERED: Furosemide 40 MG/4 ML VIAL ONE (09:53)
[2017-03-08 09:55] LABS: ABG Base Excess -5.2 mEq/L (-2.0 to 3.0); ABG HCO3 22 mEq/L (21-27); ABG Oxygen Saturation 98 % (95-98); ABG PCO2 52 mmHg (35-45); ABG PH 7.24 pH Units (7.32-7.45); ABG PO2 114 mmHg (85-104); ABG TCO2 24 mEq/L (20-26)
[2017-03-08 09:58] LABS: Blood Gas Modality BIPAP
[2017-03-08] MEDS: Beclomethasone 80mcg MDI IH SCH ×2 (09:59→22:02)
[2017-03-08] MEDS ORDERED: Furosemide 40 MG/4 ML VIAL IVP ONE (10:00)
[2017-03-08] MEDS: *HR* OxyCODONE ER (12 HR) 20 MG TABLET PO SCH ×3 (10:01→23:41)
[2017-03-08] MEDS: Aspirin 81 MG TAB.CHEW PO SCH (10:02)
[2017-03-08] MEDS: Nystatin SUSP 5 ML UD.LIQ PO SCH ×4 (10:02→19:55)
[2017-03-08] MEDS: Ranolazine 500 MG TAB.ER.12H PO SCH ×2 (10:03→19:54)
[2017-03-08] MEDS: Polymyxn-B/Trimeth Opth Drops 10 ML BOTTLE LEFT EYE SCH ×4 (10:03→19:56)
[2017-03-08] MEDS: Nicotine 14 MG PATCH.TD24 TD SCH (10:04)
--- NOTE | 2017-03-08 10:21 | Internal Med Progress Note ---
Date of Encounter: 03/08/17 Time of Encounter: 10:18 - Assessment and plan (1) Acute on chronic respiratory failure Current Visit: Yes Status: Acute Assessment and plan: Acute worsening today. She was given 40 mg IV Lasix 1, ICU attending came to bedside and evaluated patient and patient will be transferred to intensive care unit. Stat labs are pending at this time Qualifiers: Respiratory failure complication: hypercapnia Qualified Code(s): J96.22 - Acute and chronic respiratory failure with hypercapnia (2) Acute decompensated heart failure Current Visit: Yes Status: Acute Assessment and plan: HFpEF (3) Partial small bowel obstruction Current Visit: Yes Status: Acute Assessment and plan: Resolved (4) DVT of axillary vein, acute right Current Visit: Yes Status: Acute Assessment and plan: On therapeutic heparin (5) Acute exacerbation of chronic obstructive airways disease Current Visit: Yes Status: Acute Assessment and plan: On home inhalers for COPD (6) Anemia Current Visit: Yes Status: Acute Assessment and plan: Plan as above Qualifiers: Anemia type: other cause Other causes of anemia: chronic disease, other Qualified Code(s): D63.8 - Anemia in other chronic diseases classified elsewhere (7) Ischemic necrosis of small bowel Current Visit: Yes Status: Acute (8) Moderate protein-calorie malnutrition Current Visit: Yes Status: Acute Assessment and plan: On TPN, is being held right now she is being transferred to the intensive careunit (9) PNA (pneumonia) Current Visit: Yes Status: Acute Assessment and plan: Resolved. Though will monitor for any infections granted bump in WBC Qualifiers: Pneumonia type: due to unspecified organism Laterality: bilateral Lung location: lower lobe of lung Qualified Code(s): J18.9 - Pneumonia, unspecified organism (10) Sepsis Current Visit: Yes Status: Acute Assessment and plan: Resolved. Will monitor for any recurring infections. Qualifiers: Sepsis type: sepsis due to unspecified organism Qualified Code(s): A41.9 - Sepsis, unspecified organism (11) CAD (coronary artery disease) Current Visit: Yes Status: Chronic Assessment and plan: Continue current therapy Qualifiers: Coronary Disease-Associated Artery/Lesion type: [place] artery [place] vs. transplanted heart: [place] heart Associated angina: without angina Qualified Code(s): I25.10 - Atherosclerotic heart disease of [place] coronary artery without angina pectoris (12) Diabetes mellitus type 2, insulin dependent Current Visit: Yes Status: Chronic (13) Hypertension Current Visit: Yes Status: Chronic Assessment and plan: We will monitor as patient is currently in distress Qualifiers: Hypertension type: essential hypertension Qualified Code(s): I10 - Essential (primary) hypertension - Subjective Interval history: Patient was somnolent this morning, did not respond to questions. Eventually she gradually became more dyspneic. She was placed on BiPAP and became more arousable but still in respiratory distress. Her vital signs were stable other than a transient episode of tachycardia. She was saturating 96% on 50% FiO2 on an IV. He did not complain of chest pain or nausea vomiting. Stat labs were obtained and are pending. Chest x-ray showed findings consistent with fluid overload. She was given Narcan as she is on scheduled oxycodone postoperatively , which did not change her respiratory status. - Constitutional Vitals: Temp Pulse Resp BP Pulse Ox 99.0 F 97 36 125/94 99 03/08/17 09:45 03/08/17 09:45 03/08/17 09:45 03/08/17 09:45 03/08/17 09:45 Exam: General: In acute distress, responds to verbal commands, is alert. HEENT: No focal neuro deficits. Cardio: Tachycardic X Lungs, coarse breath sounds at bases fair air exchange. Abdomen: Soft, nondistended no peritoneal signs. Incision dressing is clean dry and intact. Positive bowel sounds Extremities: No cyanosis no edema Internal Medicine: Result - Labs CBC & Chem 7: 03/08/17 04:25 03/08/17 04:25 Labs: Short CBC 03/08/17 Range/Units 04:25 WBC 16.6 H (4.3-11.1) K/mcL Hgb 8.5 L (11.5-15.4) g/dL Hct 27.4 L (35.3-44.9) % Plt Count 134 L (140-400) K/mcL Neutrophils # 13.0 H (1.6-8.9) K/mcL BMP 03/07/17 03/08/17 08:20 04:25 Sodium 134 L 131 L Potassium 4.4 4.2 Chloride 103 101 Carbon Dioxide 20 21 BUN 45 H 44 H Creatinine 1.05 0.96 Glucose 134 H Calcium 8.5 L 8.3 L - ABG Interpretation ABG results: ABG ABG pH 7.24 pH Units (7.32-7.45) L 03/08/17 09:40 ABG pCO2 52 mmHg (35-45) H 03/08/17 09:40 ABG pO2 114 mmHg (85-104) H 03/08/17 09:40 ABG O2 Saturation 98 % (95-98) 03/08/17 09:40 PT/INR, D-dimer PT 18.4 Seconds (9.4-12.1) H 03/03/17 09:25 - Impressions Impressions Chest X-Ray 03/08/17 09:09 IMPRESSION: 1. Stable pulmonary vascular congestion with small bilateral pleural effusions and bibasilar atelectasis. D/ / Yakov Parada MD / Yakov Parada MD Interpreting Provider: Yakov Parada MD - VTE Documentation of Mechanical Device: Venous foot pump, device Consult Discharge Plan - Plan Referrals: Jeff Cervantes MD [Primary Care Provider] -
--- NOTE | 2017-03-08 10:34 | General Surgery Progress Note ---
<Lorie Salas Christopher - Last Filed: 03/08/17 11:00> Date of Encounter: 03/08/17 Time of Encounter: 10:30 - Assessment and Plan (1) Ischemic necrosis of small bowel Current Visit: Yes Status: Acute POD #12 Exploratory ceiliotomy, Small bowel resection Soft, chopped meat diet and ensure protein supplements TID TPN stopped 03/07/17 NG discontinued 02/28/17; ileus resolved Daily wound care- cleanse with soap and water, pack with Mesalt ribbon cut down to 1/4 inch, cover with ABD pad and tape to secure with medipore tape WBC- 17.7>16.6 with resolution of bandemia IV antibiotics- Zosyn PT OT is following. Out of bed at least TID with meals and as tolerated per PT/ OT recommendations Supportive care and pain control PPI therapy daily Repeat am labs Transfer to ICU secondary to acute respiratory failure Obtain AAS for nausea and abdominal distention (2) Partial small bowel obstruction Current Visit: Yes Status: Acute See plan under ischemic bowel (3) Conjunctivitis Current Visit: Yes Status: Acute Eye gtt to left eyes QID Qualifiers: Conjunctivitis type: acute Acute conjunctivitis type: unspecified Laterality: left Qualified Code(s): H10.32 - Unspecified acute conjunctivitis , left eye (4) Moderate protein-calorie malnutrition Current Visit: Yes Status: Acute Soft, chopped meat diet and ensure protein supplements TID with meals Calorie counts TPN stopped 03/07/17 (5) PNA (pneumonia) Current Visit: Yes Status: Acute Management per pulmonary critical care IV antibiotics Chest x-ray now Bipap support Qualifiers: Pneumonia type: due to unspecified organism Laterality: bilateral Lung location: lower lobe of lung Qualified Code(s): J18.9 - Pneumonia, unspecified organism (6) Anemia Current Visit: Yes Status: Acute Hgb- 7>8.5 2 units of PRBC transfused over the past 48 hours Management per medicine service Repeat am labs Qualifiers: Anemia type: other cause Other causes of anemia: chronic disease, other Qualified Code(s): D63.8 - Anemia in other chronic diseases classified elsewhere (7) Acute on chronic respiratory failure Current Visit: Yes Status: Acute Patient transferred back to ICU for management of respiratory failure Currently on bipap support Management per pulmonary/critical care team Qualifiers: Respiratory failure complication: hypercapnia Qualified Code(s): J96.22 - Acute and chronic respiratory failure with hypercapnia (8) Atrial fibrillation Current Visit: Yes Status: Chronic Rate controlled Heparin gtt Management per medicine service Qualifiers: Atrial fibrillation type: chronic Qualified Code(s): I48.2 - Chronic atrial fibrillation (9) DVT prophylaxis Current Visit: Yes Status: Acute Heparin gtt Bilateral foot pumps for DVT prophylaxis Subjective Patient reports: voiding w/o difficulty, bowel movement (last BM 03/07/17), afebrile, other (Patient lethargic this morning and was given narcan; Experienced acute episode of respiratory distress after narcan given and more awake now; On Bipap now and being transferred to ICU for close monitoring) Objective Vital Signs - Last 8 Hours Temp Pulse Resp BP Pulse Ox 03/08/17 09:45 99.0 F 97 36 125/94 99 03/08/17 07:21 98.1 F 74 16 131/56 95 03/08/17 05:00 97.8 F 69 18 128/62 94 Intake and Output 03/07/17 03/08/17 03/08/17 23:59 07:59 15:59 Intake Total 1316 / 1316 798 / 798 47 / 47 Output Total 175 / 175 400 / 400 Balance 1141 / 1141 398 / 398 47 / 47 Intake: IV Fluids 1316 / 1316 348 / 348 47 / 47 Heparin 25,000 UNIT/500 ML D5W 248 / 248 47 / 47 25,000 unit In 500 ml @ 12 UNIT /KG/HR 15.409 mls/hr IVC .Q24H [facility] Rx#:[id number] Clinimix 5%-20% SOLUTION 2,000 1216 / 1216 ML @ 50 mls/hr IVC .Q24H [facility] with M.v.i. Adult 10 ml with Sodium Phosphate 30 MMOL with Sodium Chloride 4 MEQ/ML 10 MEQ with Magnesium Sulfate 10 MEQ with Calcium Gluconate 9 MEQ with Sodium Acetate 20 MEQ Rx#: [id number] Zosyn 3.375 GM In Dextrose 5% ( 100 / 100 100 / 100 Minibag+) 100 ML 100 ML @ 25 mls/hr IVPB Q8HR [facility] Rx#: [id number] Oral 450 / 450 Output: Urine 175 / 175 400 / 400 Other: Stool Size Small Stool Consistency soft Stool Color Brown # Voids 1 Blood Glucose* 158 162 130 - General physical appearance moderate distress, moderate pain, chronically ill, other (Patient experiencing acute episode of respiratory failure and is currently stable on bipap support) - Eyes PERRL, normal ocular movement - ENT dry mucosa, atraumatic, normocephalic - Neck Neck exam: trachea midline - Respiratory other (Patient tachypnic on bipap support; diminished breath sounds bilaterally) - Cardiovascular Cardiovascular exam: Present: irregular rhythm - Abdomen Abdomen: Present: bowel sounds present, soft, distended, tender, wound (Midline with serous drainage noted) - Incision Incision: Present: serous (small amount of drainage noted from midline without surrounding erythema or induration) - Neurologic CN 2-12 grossly intact - Musculoskeletal other (severe deconditioning) - Psychiatric oriented to person, oriented to place - Labs 03/08/17 04:25 03/08/17 04:25 Diabetes panel 03/07/17 03/08/17 03/08/17 Range/Units 08:20 04:25 04:25 Sodium 134 L 131 L (136-145) mEq/L Potassium 4.4 4.2 (3.5-4.5) mEq/L Chloride 103 101 (98-109) mEq/L Carbon Dioxide 20 21 (19-29) mEq/L BUN 45 H 44 H (7-20) mg/dL Creatinine 1.05 0.96 (0.57-1.11) mg/dL Glucose 134 H (70-99) mg/dL Calcium 8.5 L 8.3 L (8.6-10.8) mg/dL Triglycerides 73 (< 150) mg/dL Calcium panel 03/07/17 03/08/17 03/08/17 Range/Units 08:20 04:25 04:25 Calcium 8.5 L 8.3 L (8.6-10.8) mg/dL Phosphorus 3.8 (2.3-4.7) mg/dL Pituitary panel 03/07/17 03/08/17 Range/Units 08:20 04:25 Sodium 134 L 131 L (136-145) mEq/L Potassium 4.4 4.2 (3.5-4.5) mEq/L Chloride 103 101 (98-109) mEq/L Carbon Dioxide 20 21 (19-29) mEq/L BUN 45 H 44 H (7-20) mg/dL Creatinine 1.05 0.96 (0.57-1.11) mg/dL Glucose 134 H (70-99) mg/dL Calcium 8.5 L 8.3 L (8.6-10.8) mg/dL Adrenal panel 03/07/17 03/08/17 Range/Units 08:20 04:25 Sodium 134 L 131 L (136-145) mEq/L Potassium 4.4 4.2 (3.5-4.5) mEq/L Chloride 103 101 (98-109) mEq/L Carbon Dioxide 20 21 (19-29) mEq/L BUN 45 H 44 H (7-20) mg/dL Creatinine 1.05 0.96 (0.57-1.11) mg/dL Glucose 134 H (70-99) mg/dL Calcium 8.5 L 8.3 L (8.6-10.8) mg/dL - VTE Documentation of Mechanical Device: Venous foot pump, device Consult Discharge Plan - Plan Referrals: Jeff Cervantes MD [Primary Care Provider] - - Attending Attestation For this encounter, I have reviewed the TRACK WATCHMAN or PA documentation, treatment plan, and medical decision making; and I have had face to face time with this patient. <Soy Mcmillan - Last Filed: 03/08/17 16:43> Date of Encounter: 03/08/17 - Assessment and Plan (1) Partial small bowel obstruction Current Visit: Yes Status: Acute (2) Ischemic necrosis of small bowel Current Visit: Yes Status: Acute Objective Vital Signs - Last 8 Hours Temp Pulse Resp BP Pulse Ox 03/08/17 16:00 68 22 154/77 98 03/08/17 15:19 69 03/08/17 15:00 98.5 F 70 18 153/77 96 03/08/17 14:00 70 20 147/83 95 03/08/17 13:00 68 20 139/71 95 03/08/17 12:00 70 18 142/70 96 03/08/17 11:30 96 03/08/17 11:00 99.3 F 96 24 152/95 96 03/08/17 10:54 92 28 163/64 98 03/08/17 09:59 40 125/94 99 03/08/17 09:45 99.0 F 97 36 125/94 99 Intake and Output 03/08/17 03/08/1703/08/17 07:59 15:59 23:59 Intake Total 1048 / 1048 147 / 147 Output Total 400 / 400 2450 / 2450 Balance 648 / 648 -2303 / -2303 Intake: IV Fluids 598 / 598 147 / 147 Heparin 25,000 UNIT/500 ML D5W 248 / 248 47 / 47 25,000 unit In 500 ml @ 12 UNIT /KG/HR 15.409 mls/hr IVC .Q24H [facility] Rx#:[id number] Intralipid 20% 250 ML @ 21 mls/ 250 / 250 hr IVPB DAILY@1700 [facility] Rx#: [id number] Zosyn 3.375 GM In Dextrose 5% ( 100 / 100 100 / 100 Minibag+) 100 ML 100 ML @ 25 mls/hr IVPB Q8HR [facility] Rx#: [id number] Oral 450 / 450 0 / 0 Output: Urine 400 / 400 600 / 600 t 600 / 600 Catheter 1850 / 1850 Other: Blood Glucose* 162 98 - Labs 03/08/17 11:20 03/08/17 14:25 Diabetes panel 03/08/17 03/08/17 03/08/17 Range/Units 04:25 04:25 11:20 Sodium 131 L 132 L (136-145) mEq/L Potassium 4.2 3.7 (3.5-4.5) mEq/L Chloride 101 101 (98-109) mEq/L Carbon Dioxide 21 22 (19-29) mEq/L BUN 44 H 46 H (7-20) mg/dL Creatinine 0.96 0.94 (0.57-1.11) mg/dL Glucose 134 H 85 (70-99) mg/dL Calcium 8.3 L 8.6 (8.6-10.8) mg/dL Triglycerides 73 (< 150) mg/dL 03/08/17 Range/Units 14:25 Sodium 136 (136-145) mEq/L Potassium 3.8 (3.5-4.5) mEq/L Chloride 103 (98-109) mEq/L Carbon Dioxide 24 (19-29) mEq/L BUN 43 H (7-20) mg/dL Creatinine 0.87 (0.57-1.11) mg/dL Glucose 91 (70-99) mg/dL Calcium 8.8 (8.6-10.8) mg/dL Triglycerides (< 150) mg/dL Calcium panel 03/08/17 03/08/17 03/08/17 Range/Units 04:25 04:25 11:20 Calcium 8.3 L 8.6 (8.6-10.8) mg/dL Phosphorus 3.8 3.9 (2.3-4.7) mg/dL 03/08/17 Range/Units 14:25 Calcium 8.8 (8.6-10.8) mg/dL Phosphorus (2.3-4.7) mg/dL Pituitary panel 03/08/17 03/08/17 03/08/17 Range/Units 04:25 11:20 14:25 Sodium 131 L 132 L 136 (136-145) mEq/L Potassium 4.2 3.7 3.8 (3.5-4.5) mEq/L Chloride 101 101 103 (98-109) mEq/L Carbon Dioxide 21 22 24 (19-29) mEq/L BUN 44 H 46 H 43 H (7-20) mg/dL Creatinine 0.96 0.94 0.87 (0.57-1.11) mg/dL Glucose 134 H 85 91 (70-99) mg/dL Calcium 8.3 L 8.6 8.8 (8.6-10.8) mg/dL Adrenal panel 03/08/17 03/08/17 03/08/17 Range/Units 04:25 11:20 14:25 Sodium 131 L 132 L 136 (136-145) mEq/L Potassium 4.2 3.7 3.8 (3.5-4.5) mEq/L Chloride 101 101 103 (98-109) mEq/L Carbon Dioxide 21 22 24 (19-29) mEq/L BUN 44 H 46 H 43 H (7-20) mg/dL Creatinine 0.96 0.94 0.87 (0.57-1.11) mg/dL Glucose 134 H 85 91 (70-99) mg/dL Calcium 8.3 L 8.6 8.8 (8.6-10.8) mg/dL - Attending Attestation I recently reviewed the assessment and evaluation as mentioned above and agree with the above plan. Patient had respiratory failure and was transported to the ICU. Currently on BiPAP with decreased work of breathing noted. From surgical standpoint will continue with dressing changes and TPN. Once her status improves she will be able to resume by mouth diet.
[2017-03-08 11:32] LABS: Hematocrit 28.7 % (35.3-44.9); Hemoglobin 9.1 g/dL (11.5-15.4); Mean Corpuscular HGB Conc 31.7 g/dL (31.6-35.5); Mean Corpuscular Hemoglobin 30.1 pg (28.0-33.3); Mean Platelet Volume 10.4 fL (9.4-12.4); Nucleated Red Blood Cells 0.6 /100 WBC (0); Platelet Count 191 K/mcL (140-400); Red Blood Count 3.02 M/mcL (3.82-4.97)
--- NOTE | 2017-03-08 11:39 | Pulmonology Consult Note ---
<Randall Garces - Last Filed: 03/08/17 18:20> Date of Encounter: 03/08/17 Time of Encounter: 11:35 Assessment and Plan (1) Acute on chronic respiratory failure Current Visit: Yes Status: Acute Acute worsening today. Given 40mg IV Lasix x1 prior to coming to ICU. Patient CXR shows stable pulmonary vascular congestion with small bilateral pleural effusions and bibasilar atelectasis Currently on BI-PAP Qualifiers: Respiratory failure complication: hypercapnia Qualified Code(s): J96.22 - Acute and chronic respiratory failure with hypercapnia (2) Acute decompensated heart failure Current Visit: Yes Status: Acute Patient received lasix 40mg IV. Repeat electrolytes and obtain BNP CXR read as shown above Patient was switched to SQ lovenox started at 14:00. Heparin drip stopped. Consider that the TPN and heparin drip may have been contributing to fluid overload. Pt weight is also on hte higher end for her. 64.3kg compared to 56kg on admission BNP was 1273. Patient placed on IV lasix 40mg BID. (3) DVT of axillary vein, acute right Current Visit: Yes Status: Acute Discussed with pharmacist. Patient switch to lovenox SQ from heparin drip to possible contribution to fluid overload. (4) Ischemic necrosis of small bowel Current Visit: Yes Status: Acute Patient c/o abdominal pain. Lactate is being followed. Last lactate was 0.7 --> improved to 0.6. (5) Acute exacerbation of chronic obstructive airways disease Current Visit: Yes Status: Acute albuterol 2 puff IH Q6H Duoneb 3mg IH Q6H scheduled Qvar 80mcg 1 puff BID scheduled (6) CAD (coronary artery disease) Current Visit: Yes Status: Chronic Aspirin 81mg OD Qualifiers: Coronary Disease-Associated Artery/Lesion type: [place] artery [place] vs. transplanted heart: [place] heart Associated angina: without angina Qualified Code(s): I25.10 - Atherosclerotic heart disease of [place] coronary artery without angina pectoris (7) PNA (pneumonia) Current Visit: Yes Status: Acute Zosyn empirically. Qualifiers: Pneumonia type: due to unspecified organism Laterality: bilateral Lung location: lower lobe of lung Qualified Code(s): J18.9 - Pneumonia, unspecified organism (8) Anemia Current Visit: Yes Status: Acute Watching labs. Qualifiers: Anemia type: other cause Other causes of anemia: chronic disease, other Qualified Code(s): D63.8 - Anemia in other chronic diseases classified elsewhere (9) Moderate protein-calorie malnutrition Current Visit: Yes Status: Acute Patient TPN stopped. Nutrition will order patient TPN to be restarted on Saturday at 17:00. Continued on Saturday as well - custom bag no potassium Reorder patient supplements as well which include high protein Ensure vanilla flavored. (10) DVT prophylaxis Current Visit: Yes Status: Acute 60 mg SQ Q12H for DVT History of Present Illness Consult date: 03/08/17 Reason for consult: hypoxemia History of present illness: Patient is a 71F with PMHx afib on coumadin, CHF, COPD, CAD, CKD, initially presenting with pSBO as well as possible pneumonia on 02/22. Attempted to manage pSBO conservatively she was started on Levaquin/Flagyl, however patient required ex lap on 02/24 after NGT and conservative were not effective. She developed strangulated small bowel with ischemic necrosis. Started TPN and extubated. She had acute on chronic anemia with multifactorial causes. Initally thought to be GI bleed as her ileostomy had some blood in it. However, there was no recurrence which suggested likely other cause. Required multiple transfusions of PRBCs. 03/04 patient found to have LUE DVT. PICC line was moved from left to right side. TPN restarted. Currently pt is POD #11 exploratory ceilotomy and small bowel resection. Currently on Zosyn. Patient was making progress in regards to her respiratory status until this morning was somnolent, did not respond to questions. Became more dyspneic overtime. Placed on BiPAP and became more arousable but still in distress. Saturating at 96% on 50% FiO2 on an IV. No c/o of CP or N/V. CXR shows findings consistent with pulmonary edema. Patient was receiving TPN and heparin drip. Patient was given narcan as she has scheduled oxycodone postoperatively, which did not change her respiratory status. Past Med Surg Social Fam HX - Past Medical History Medical history: atrial fibrillation, CHF, COPD, coronary artery disease, hyperlipidemia, hypertension, myocardial infarction, renal disease, TIA, other Psychiatric history: anxiety, depression - Past Surgical History Surgical History: angioplasty/stent, cholecystectomy, other (Partial hysterectomy, ankle surgery, bilateral shoulder surgery) - Social History Smoking Status: Current every day smoker Smokeless Tobacco Status: No Alcohol use: none Drug use: none - Family History Mother Hx Family Neuromuscular Disorders: Yes (epilipsy) Medications and Allergies Albuterol Sulfate [Albuterol Inhaler] 2 puff IH Q6H PRN 03/05/15 [History] Carvedilol 25 mg PO BID 03/05/15 [History] Esomeprazole Magnesium [Nexium] 40 mg PO DAILY 03/05/15 [History] Melatonin [Melatin] 3 mg PO HS 03/05/15 [History] Simvastatin 40 mg PO QPM 03/05/15 [History] Beclomethasone Diprop 80mcg [Qvar 80 mcg] 1 puff IH BID 05/25/16 [History] Buspirone HCl [Buspar] 5 mg PO BID 05/25/16 [History] Clopidogrel [Plavix] 75 mg PO DAILY 05/25/16 [History] Ezetimibe [Zetia] 10 mg PO DAILY 05/25/16 [History] GlipiZIDE XL (24 HR) [Glucotrol XL] 2.5 mg PO DAILY 05/25/16 [History] Ipratropium/Albuterol Neb [Duoneb] 3 ml IH Q6HR PRN 05/25/16 [History] Lipase/Protease/Amylase [Creon Dr 6,000 Units Capsule] 6,000 unit PO ACHS [History] Lisinopril [Zestril] 5 mg PO DAILY 05/25/16 [History] Oxycodone HCl 10 mg PO Q6H PRN 05/25/16 [History] Ranitidine HCl [Zantac] 150 mg PO BID 05/25/16 [History] Tizanidine HCl 2 mg PO Q8H PRN 05/25/16 [History] TraZODone 50 mg PO HS 05/25/16 [History] Venlafaxine [Effexor] 75 mg PO BID 05/25/16 [History] Warfarin [Coumadin] 2 mg PO DAILY 01/31/17 [History] Doxycycline 100 mg PO BID 02/22/17 [History] Furosemide [Lasix] 20 mg PO BID PRN 02/22/17 [History] Mirtazapine [Remeron] 15 mg PO HS 02/22/17 [History] Ranolazine [Ranexa] 500 mg PO BID 02/22/17 [History] 3 Allergy/AdvReac Type Severity Reaction Status Date / Time Latex, Natural Rubber Allergy Severe Swelling Verified 05/25/16 10:00 of Lip/Tongue/Throat ROS unobtainable: due to mental status All Systems: A 10-system review of systems was performed and is negative for pertinent findings except as documented above in the HPI. Physical Examination Vital Signs: Vital Signs, Last 4 Hours Temp Pulse Resp BP Pulse Ox 03/08/17 11:30 96 03/08/17 11:00 99.3 F 96 24 152/95 96 03/08/17 10:54 92 28 163/64 98 03/08/17 09:45 99.0 F 97 36 125/94 99 General appearance: appears uncomfortable Eyes: nonicteric ENT: oropharynx dry Neck: supple Auscultation: bilateral: rales Percussion: bilateral: not dull Cardiovascular: regular rate and rhythm Gastrointestinal: normoactive bowel sounds Integumentary: normal Extremities: no cyanosis, edema (1+) Results - Laboratory Findings CBC and BMP: 03/08/17 11:20 03/08/17 14:25 ABG ABG pH 7.24 pH Units (7.32-7.45) L 03/08/17 09:40 ABG pCO2 52 mmHg (35-45) H 03/08/17 09:40 ABG pO2 114 mmHg (85-104) H 03/08/17 09:40 ABG O2 Saturation 98 % (95-98) 03/08/17 09:40 PT/INR, D-dimer PT 18.4 Seconds (9.4-12.1) H 03/03/17 09:25 Abnormal lab findings: Abnormal lab results WBC 17.1 K/mcL (4.3-11.1) H 03/08/17 11:20 RBC 3.02 M/mcL (3.82-4.97) L 03/08/17 11:20 Hgb 9.1 g/dL (11.5-15.4) L 03/08/17 11:20 Hct 28.7 % (35.3-44.9) L 03/08/17 11:20 RDW 15.0 % (11.5-14.5) H 03/08/17 11:20 Immature Gran % 4.8 % (0-4) H 03/01/17 10:48 Metamyelocytes % 2.0 % (0) H 03/08/17 04:25 Myelocytes % 4.0 % (0) H 03/08/17 04:25 Neutrophils # 13.0 K/mcL (1.6-8.9) H 03/08/17 04:25 Eosinophils # 1.1 K/mcL (0.0-0.6) H 03/07/17 08:20 Nucleated RBCs/100 WBC 0.6 /100 WBC (0) H 03/08/17 11:20 Reactive Lymphocytes Present (Not Present) A 03/08/17 04:25 Smudge Cells Present (Not Present) A 03/08/17 04:25 Toxic Granulation Present (Not Present) A 03/08/17 04:25 Clumped Platelets Few (Not Present) A 03/08/17 04:25 Large Platelets Present (Not Present) A 03/08/17 04:25 Polychromasia 1+ (Not Present) A 03/07/17 08:20 Hypochromasia Present (Not Present) A 03/06/17 06:25 PT 18.4 Seconds (9.4-12.1) H 03/03/17 09:25 APTT 116.8 Seconds (26.0-36.0) H* D 03/08/17 08:15 ABG pH 7.24 pH Units (7.32-7.45) L 03/08/17 09:40 ABG pCO2 52 mmHg (35-45) H 03/08/17 09:40 ABG pO2 114 mmHg (85-104) H 03/08/17 09:40 ABG Base Excess -5.2 mEq/L (-2.0 to 3.0) L 03/08/17 09:40 Sodium 131 mEq/L (136-145) L 03/08/17 04:25 BUN 44 mg/dL (7-20) H 03/08/17 04:25 Est GFR (Non-Af Amer) 57 (> 60) L 03/08/17 04:25 BUN/Creatinine Ratio 46 (6-26) H 03/08/17 04:25 Glucose 134 mg/dL (70-99) H 03/08/17 04:25 POC Glucose 130 (58-89) H 03/08/17 09:08 Hemoglobin A1c 5.8 % (-5.6) H 02/23/17 00:42 Calcium 8.3 mg/dL (8.6-10.8) L 03/08/17 04:25 Magnesium 1.3 mg/dL (1.6-2.6) L 03/08/17 04:25 Serum Total Protein 5.6 g/dL (6.0-8.3) L 02/27/17 04:22 Albumin 2.6 g/dL (3.5-5.0) L 02/27/17 04:22 Albumin/Globulin Ratio 0.9 (1.1-2.2) L 02/27/17 04:22 Prealbumin 12.0 mg/dL (16.0-38.0) L 03/04/17 03:33 Ur Specimen Adequacy See below A 02/28/17 13:05 Urine Protein 30 mg/dL (Neg-Trace) H 02/28/17 13:05 Vancomycin Trough 31.2 mcg/mL (10-20) H* 03/02/17 11:55 - Microbiology Findings Microbiology Findings: Microbiology, Last 48 Hours 02/28/17 13:05 Blood Culture - Final Peripheral Central Cath, Picc No growth. 02/28/17 12:57 Blood Culture - Final Peripheral Venipuncture No growth. 02/28/17 12:57 Blood Culture - Final Peripheral Venipuncture No growth. - Clinical Findings Intake & Output: Intake & Output 03/07/17 03/08/17 03/08/17 23:59 07:59 15:59 Intake Total 1316 / 1316 798 / 798 47 / 47 Output Total 175 / 175 400 / 400 600 / 600 Balance 1141 / 1141 398 / 398 -553 / -553 Consult Discharge Plan - Plan Referrals: Jeff Cervantes MD [Primary Care Provider] - <Ariel Barragan - Last Filed: 03/08/17 19:52> Date of Encounter: 03/08/17 All Systems: A 10-system review of systems was performed and is negative for pertinent findings except as documented above in the HPI. Physical Examination Vital Signs: Vital Signs, Last 4 Hours Pulse Resp BP Pulse Ox 03/08/17 18:00 68 20 160/80 94 03/08/17 17:00 68 20 161/99 96 03/08/17 16:00 68 22 154/77 98 Results - Laboratory Findings CBC and BMP: 03/08/17 11:20 03/08/17 14:25 ABG ABG pH 7.33 pH Units (7.32-7.45) 03/08/17 11:29 ABG pCO2 46 mmHg (35-45) H 03/08/17 11:29 ABG pO2 84 mmHg (85-104) L 03/08/17 11:29 ABG O2 Saturation 96 % (95-98) 03/08/17 11:29 PT/INR, D-dimer PT 18.4 Seconds (9.4-12.1) H 03/03/17 09:25 Abnormal lab findings: Abnormal lab results WBC 17.1 K/mcL (4.3-11.1) H 03/08/17 11:20 RBC 3.02 M/mcL (3.82-4.97) L 03/08/17 11:20 Hgb 9.1 g/dL (11.5-15.4) L 03/08/17 11:20 Hct 28.7 % (35.3-44.9) L 03/08/17 11:20 RDW 15.0 % (11.5-14.5) H 03/08/17 11:20 Immature Gran % 4.8 % (0-4) H 03/01/17 10:48 Band Neutrophils % 7.0 % (0-4) H 03/08/17 11:20 Metamyelocytes % 4.0 % (0) H 03/08/17 11:20 Myelocytes % 6.0 % (0) H 03/08/17 11:20 Neutrophils # 13.5 K/mcL (1.6-8.9) H 03/08/17 11:20 Eosinophils # 1.1 K/mcL (0.0-0.6) H 03/07/17 08:20 Nucleated RBCs/100 WBC 0.6 /100 WBC (0) H 03/08/17 11:20 Reactive Lymphocytes Present (Not Present) A 03/08/17 04:25 Smudge Cells Present (Not Present) A 03/08/17 04:25 Toxic Granulation Present (Not Present) A 03/08/17 04:25 Clumped Platelets Few (Not Present) A 03/08/17 04:25 Large Platelets Present (Not Present) A 03/08/17 04:25 Polychromasia 1+ (Not Present) A 03/08/17 11:20 Hypochromasia Present (Not Present) A 03/06/17 06:25 PT 18.4 Seconds (9.4-12.1) H 03/03/17 09:25 APTT 116.8 Seconds (26.0-36.0) H* D 03/08/17 08:15 ABG pCO2 46 mmHg (35-45) H 03/08/17 11:29 ABG pO2 84 mmHg (85-104) L 03/08/17 11:29 BUN 43 mg/dL (7-20) H 03/08/17 14:25 BUN/Creatinine Ratio 49 (6-26) H 03/08/17 14:25 POC Glucose 130 (58-89) H 03/08/17 09:08 Hemoglobin A1c 5.8 % (-5.6) H 02/23/17 00:42 B-Natriuretic Peptide 1273 pg/mL (0-100) H 03/08/17 14:25 Serum Total Protein 5.6 g/dL (6.0-8.3) L 02/27/17 04:22 Albumin 2.6 g/dL (3.5-5.0) L 02/27/17 04:22 Albumin/Globulin Ratio 0.9 (1.1-2.2) L 02/27/17 04:22 Prealbumin 12.0 mg/dL (16.0-38.0) L 03/04/17 03:33 Ur Specimen Adequacy See below A 02/28/17 13:05 Urine Protein 30 mg/dL (Neg-Trace) H 02/28/17 13:05 Vancomycin Trough 31.2 mcg/mL (10-20) H* 03/02/17 11:55 - Clinical Findings Intake & Output: Intake & Output 03/08/17 03/08/17 03/08/17 07:59 15:59 23:59 Intake Total 1048 / 1048 147 / 147 Output Total 400 / 400 2450 / 2450 Balance 648 / 648 -2303 / -2303 - Attending Attestation I saw the patient with the resident agree with History and Physical exam findings. Labs and Radiology were reviewed Patient was put on BIPAP worsening acute hypercarbic respiratory failure with altered mental status IT AUDITOR: Patient drowsy but wakes up to verbal stimuli and follows commands NECK : No JVD appreciated Pulmonary : Will continue the current BIPAP settings , patient is fluid overloaded which lead to increase work of breathing worsening V/Q mismatch in the setting of opioid use tipped her into acute hypercarbic respiratory failure will continue diuresis Cardiac : Will continue diuressis and control her A fib with RVR Nutrition/GI: Patient is on TPN will hold off TPN till her fluid status is adequately controlled , will start TPN tomorrow .Patient had Ischemic bowel with bowel resection repeated the Lactate it is trending towards normal. Renal : Labs and output reviewed . Heme onc : Upper Limb DVT patient is on Heparin drip reduce the volume received will Lovenox as her creatinine clearance is greater than 30 ID : No suspicion for infection will closely fellow . Disposition : To remain In ICU Code status: Full Code Family/POA: Daughter Spent 32 minutes of critical care
[2017-03-08 11:49] LABS: BUN/Creatinine Ratio 49 (6-26); Blood Urea Nitrogen 46 mg/dL (7-20); Calcium 8.6 mg/dL (8.6-10.8); Carbon Dioxide 22 mEq/L (19-29); Chloride 101 mEq/L (98-109); Glucose 85 mg/dL (70-99); Osmolality,Calculated 285 (280-300); Potassium 3.7 mEq/L (3.5-4.5); eGFR For African Americans > 60 (> 60); eGFR For Non-African Americans 59 (> 60)
[2017-03-08 11:50] LABS: Sodium 132 mEq/L (136-145)
[2017-03-08 11:55] LABS: ABG Base Excess -1.7 mEq/L (-2.0 to 3.0); ABG HCO3 24 mEq/L (21-27); ABG Oxygen Saturation 96 % (95-98); ABG PCO2 46 mmHg (35-45); ABG PH 7.33 pH Units (7.32-7.45); ABG PO2 84 mmHg (85-104); ABG TCO2 26 mEq/L (20-26); Blood Gas Modality BIPAP
[2017-03-08 11:59] LABS: Magnesium 1.6 mg/dL (1.6-2.6)
[2017-03-08 12:00] LABS: Phosphorous 3.9 mg/dL (2.3-4.7)
[2017-03-08 12:24] LABS: Basophils # 0.2 K/mcL (0.0-0.2); Lymphocytes # 0.9 K/mcL (0.6-4.6); Monocytes # 0.9 K/mcL (0.0-1.3); Neutrophils # 13.5 K/mcL (1.6-8.9); Platelet Estimate Normal (Normal)
[2017-03-08 12:25] LABS: Polychromasia 1+ (Not Present)
[2017-03-08] MEDS: *HR* Enoxaparin 60 MG/0.6 ML SYRINGE SQ SCH (14:08)
[2017-03-08 14:50] LABS: BUN/Creatinine Ratio 49 (6-26); Blood Urea Nitrogen 43 mg/dL (7-20); Calcium 8.8 mg/dL (8.6-10.8); Carbon Dioxide 24 mEq/L (19-29); Chloride 103 mEq/L (98-109); Glucose 91 mg/dL (70-99); Osmolality,Calculated 292 (280-300); Potassium 3.8 mEq/L (3.5-4.5); Sodium 136 mEq/L (136-145); eGFR For African Americans > 60 (> 60); eGFR For Non-African Americans > 60 (> 60)
--- NOTE | 2017-03-08 18:13 | Electrocardiograph Report ---
[address] [place], [place] [address] Test Date: 2017-03-08 Pat Name: Tata [place] Department: 114 Room: [facility] Gender: F Doctor Of Nursing Practice: : 1945 Requested By: Lisha Henderson Order Number: [id number] Reading MD: Lorie Tavarez Measurements Intervals [place] Rate: 78 P: DC: 0 QRS: -71 QRSD: 117 T: 91 QT: 364 QTc: 397 Interpretive Statements ELECTRONIC VENTRICULAR PACEMAKER ABNORMAL RHYTHM ECG Electronically Signed On 03-08-2017 18:12:38 EDT by Lorie Tavarez
[2017-03-08] MEDS: *HR* Metoprolol 5 MG/5 ML VIAL IVP PRN (18:40)
[2017-03-08] MEDS: Furosemide 40 MG/4 ML VIAL IVP SCH (19:55)
[2017-03-08] MEDS: Heparin 25,000 UNIT/500 ML D5W 25,000 UNIT/500 ML MLS IVC SCH (19:57)
[2017-03-09] MEDS: *HR* HYDROmorphone (PF) 1 MG/ML SYRINGE IVP PRN ×5 (02:24→21:11)
[2017-03-09] MEDS: *HR* Enoxaparin 60 MG/0.6 ML SYRINGE SQ SCH ×2 (02:24→13:15)
[2017-03-09 03:22] LABS: Hematocrit 28.7 % (35.3-44.9); Hemoglobin 9.2 g/dL (11.5-15.4); Mean Corpuscular HGB Conc 32.1 g/dL (31.6-35.5); Mean Corpuscular Hemoglobin 30.6 pg (28.0-33.3); Mean Corpuscular Volume 95.3 fL (83.0-100.0); Mean Platelet Volume 10.4 fL (9.4-12.4); Nucleated Red Blood Cells 0.4 /100 WBC (0); Platelet Count 186 K/mcL (140-400); Red Blood Count 3.01 M/mcL (3.82-4.97); Red Cell Distribution Width 15.3 % (11.5-14.5)
[2017-03-09 03:29] LABS: INR 1.4; Prothrombin Time 15.6 Seconds (9.4-12.1)
[2017-03-09 03:31] LABS: Magnesium 1.2 mg/dL (1.6-2.6); Phosphorous 3.6 mg/dL (2.3-4.7)
[2017-03-09 03:32] LABS: Activated Partial Thrombo Time 33.4 Seconds (26.0-36.0); BUN/Creatinine Ratio 47 (6-26); Blood Urea Nitrogen 40 mg/dL (7-20); Calcium 8.4 mg/dL (8.6-10.8); Carbon Dioxide 25 mEq/L (19-29); Chloride 102 mEq/L (98-109); Glucose 87 mg/dL (70-99); Osmolality,Calculated 293 (280-300); Potassium 3.8 mEq/L (3.5-4.5); Sodium 137 mEq/L (136-145); eGFR For African Americans > 60 (> 60); eGFR For Non-African Americans > 60 (> 60)
[2017-03-09 03:46] LABS: Eosinophils # 0.3 K/mcL (0.0-0.6); Hypochromasia Present (Not Present); Lymphocytes # 1.2 K/mcL (0.6-4.6); Monocytes # 0.3 K/mcL (0.0-1.3); Neutrophils # 12.7 K/mcL (1.6-8.9); Platelet Estimate Normal (Normal)
[2017-03-09] MEDS: Ipratropium/Albuterol Neb 3 ML IH SCH ×4 (04:34→21:22)
[2017-03-09] MEDS: Insulin LISPRO 300 UNITS/3 ML VIAL SQ SCH ×5 (04:39→21:14)
--- NOTE | 2017-03-09 07:35 | Pulmonology Progress Note ---
<PalaciosJuan Jose - Last Filed: 03/09/17 10:58> Date of Encounter: 03/09/17 Time of Encounter: 07:33 Assessment and Plan (1) Acute on chronic respiratory failure Current Visit: Yes Status: Acute Breathing improved today as she is adequately saturating on home dose oxygen of 3 L NC CXR did show stable pulmonary vascular congestion and she is on Lasix 40 IV BID Continue breathing treatments and BiPAP as needed Qualifiers: Respiratory failure complication: hypercapnia Qualified Code(s): J96.22 - Acute and chronic respiratory failure with hypercapnia (2) Acute on chronic diastolic (congestive) heart failure Current Visit: No Status: Acute Currently on diuresis with 40 IV BID CXR did demonstrate vascular congestion I/O did reveal 3 L UOP yesterday and kidney function is stable (3) Ischemic necrosis of small bowel Current Visit: Yes Status: Acute POD #13 exploratory ceiliotomy with small bowel resection Surgery on board, appreciate management of surgical site Patient not complaining of pain, diarrhea, bloody stools; will advance diet per surgery On day 8 Zosyn, will defer to surgery for duration of therapy (4) DVT of axillary vein, acute right Current Visit: Yes Status: Acute Continue on Lovenox SQ BID; no pain her arm or shortness of breath She will need to resume her Coumadin prior to discharge (5) Hypertension Current Visit: Yes Status: Chronic Blood pressures stable Continue Coreg and monitor vitals closely Qualifiers: Hypertension type: essential hypertension Qualified Code(s): I10 - Essential (primary) hypertension (6) CAD (coronary artery disease) Current Visit: Yes Status: Chronic No chest pain at this time Continue home ASA, BB, Zocor Qualifiers: Coronary Disease-Associated Artery/Lesion type: iroquois artery [place] vs. transplanted heart: iroquois heart Associated angina: without angina Qualified Code(s): I25.10 - Atherosclerotic heart disease of iroquois coronary artery without angina pectoris (7) Atrial fibrillation, permanent Current Visit: No Status: Chronic Currently in NSR and rate controlled on home Coreg Pacemaker in place as demonstrated by CXR Continue home ASA and she will need to resume Coumadin (8) Anemia in chronic illness Current Visit: No Status: Chronic Hb has been stable last few days without any signs of bleeding She did have 2 units pRBCs transfused during this visit (9) Diabetes mellitus type 2, insulin dependent Current Visit: Yes Status: Chronic Recent sugars have been acceptable while on q4 high dose SSI A1c checked 2 weeks ago was 5.8% (10) DVT prophylaxis Current Visit: Yes Status: Acute Currently on therapeutic Lovenox for RUE DVT Subjective Principal diagnosis: s/p exploratory celiostomy with SBR Interval history: Pt seen and examined. She states her breathing is doing well this morning and she has minimal pain from her incision in her abdomen. She has no issues with nausea, vomiting and did have bowel movements without any blood. Objective PUL Vital signs: Last Vital Signs Temp 98.4 F 03/09/17 03:47 Pulse 72 03/09/17 06:00 Resp 24 03/09/17 06:00 BP 122/63 03/09/17 06:00 Pulse Ox 95 03/09/17 06:00 General appearance: no acute distress, alert (x3) Eyes: nonicteric ENT: oropharynx moist Neck: supple Effort: normal Auscultation: bilateral: rales Percussion: bilateral: not dull Tactile fremitus: bilateral: normal Cardiovascular: regular rate and rhythm Gastrointestinal: normoactive bowel sounds, non-distended Integumentary: normal Extremities: no cyanosis, no clubbing, edema (2+) Musculoskeletal: no deformities, ROM normal normal mental status, non-focal exam mood appropriate, affect normal Results - Laboratory Findings CBC and BMP: 03/09/17 03:08 03/09/17 03:08 ABG ABG pH 7.33 pH Units (7.32-7.45) 03/08/17 11:29 ABG pCO2 46 mmHg (35-45) H 03/08/17 11:29 ABG pO2 84 mmHg (85-104) L 03/08/17 11:29 ABG O2 Saturation 96 % (95-98) 03/08/17 11:29 PT/INR, D-dimer PT 15.6 Seconds (9.4-12.1) H 03/09/17 03:08 Abnormal lab findings: Abnormal lab results WBC 14.4 K/mcL (4.3-11.1) H 03/09/17 03:08 RBC 3.01 M/mcL (3.82-4.97) L 03/09/17 03:08 Hgb 9.2 g/dL (11.5-15.4) L 03/09/17 03:08 Hct 28.7 % (35.3-44.9) L 03/09/17 03:08 RDW 15.3 % (11.5-14.5) H 03/09/17 03:08 Immature Gran % 4.8 % (0-4) H 03/01/17 10:48 Band Neutrophils % 7.0 % (0-4) H 03/08/17 11:20 Metamyelocytes % 4.0 % (0) H 03/08/17 11:20 Myelocytes % 6.0 % (0) H 03/08/17 11:20 Neutrophils # 12.7 K/mcL (1.6-8.9) H 03/09/17 03:08 Nucleated RBCs/100 WBC 0.4 /100 WBC (0) H 03/09/17 03:08 Reactive Lymphocytes Present (Not Present) A 03/08/17 04:25 Smudge Cells Present (Not Present) A 03/08/17 04:25 Toxic Granulation Present (Not Present) A 03/08/17 04:25 Clumped Platelets Few (Not Present) A 03/08/17 04:25 Large Platelets Present (Not Present) A 03/08/17 04:25 Polychromasia 1+ (Not Present) A 03/08/17 11:20 Hypochromasia Present (Not Present) A 03/09/17 03:08 PT 15.6 Seconds (9.4-12.1) H 03/09/17 03:08 ABG pCO2 46 mmHg (35-45) H 03/08/17 11:29 ABG pO2 84 mmHg (85-104) L 03/08/17 11:29 BUN 40 mg/dL (7-20) H 03/09/17 03:08 BUN/Creatinine Ratio 47 (6-26) H 03/09/17 03:08 POC Glucose 94 (58-89) H 03/08/17 23:39 Hemoglobin A1c 5.8 % (-5.6) H 02/23/17 00:42 Calcium 8.4 mg/dL (8.6-10.8) L 03/09/17 03:08 Magnesium 1.2 mg/dL (1.6-2.6) L 03/09/17 03:08 B-Natriuretic Peptide 1273 pg/mL (0-100) H 03/08/17 14:25 Serum Total Protein 5.6 g/dL (6.0-8.3) L 02/27/17 04:22 Albumin 2.6 g/dL (3.5-5.0) L 02/27/17 04:22 Albumin/Globulin Ratio 0.9 (1.1-2.2) L 02/27/17 04:22 Prealbumin 12.0 mg/dL (16.0-38.0) L 03/04/17 03:33 Ur Specimen Adequacy See below A 02/28/17 13:05 Urine Protein 30 mg/dL (Neg-Trace) H 02/28/17 13:05 Vancomycin Trough 31.2 mcg/mL (10-20) H* 03/02/17 11:55 - Clinical Findings Intake & Output: Intake & Output 03/08/17 03/08/17 03/09/17 15:59 23:59 07:59 Intake Total 147 / 147 200 / 200 550 / 550 Output Total 2450 / 2450 1300 / 1300 400 / 400 Balance -2303 / -2303 -1100 / -1100 150 / 150 Weight 68.447 kg - VTE Documentation of Mechanical Device: Venous foot pump, device Consult Discharge Plan - Plan Referrals: Jeff Cervantes MD [Primary Care Provider] - <Ariel Barragan S - Last Filed: 03/09/17 14:13> Date of Encounter: 03/09/17 Objective PUL Vital signs: Last Vital Signs Temp 97.7 F 03/09/17 11:41 Pulse 69 03/09/17 14:00 Resp 20 03/09/17 14:00 BP 122/96 03/09/17 14:00 Pulse Ox 96 03/09/17 14:00 Results - Laboratory Findings CBC and BMP: 03/09/17 03:08 03/09/17 13:19 ABG ABG pH 7.33 pH Units (7.32-7.45) 03/08/17 11:29 ABG pCO2 46 mmHg (35-45) H 03/08/17 11:29 ABG pO2 84 mmHg (85-104) L 03/08/17 11:29 ABG O2 Saturation 96 % (95-98) 03/08/17 11:29 PT/INR, D-dimer PT 15.6 Seconds (9.4-12.1) H 03/09/17 03:08 Abnormal lab findings: Abnormal lab results WBC 14.4 K/mcL (4.3-11.1) H 03/09/17 03:08 RBC 3.01 M/mcL (3.82-4.97) L 03/09/17 03:08 Hgb 9.2 g/dL (11.5-15.4) L 03/09/17 03:08 Hct 28.7 % (35.3-44.9) L 03/09/17 03:08 RDW 15.3 % (11.5-14.5) H 03/09/17 03:08 Immature Gran % 4.8 % (0-4) H 03/01/17 10:48 Band Neutrophils % 7.0 % (0-4) H 03/08/17 11:20 Metamyelocytes % 4.0 % (0) H 03/08/17 11:20 Myelocytes % 6.0 % (0) H 03/08/17 11:20 Neutrophils # 12.7 K/mcL (1.6-8.9) H 03/09/17 03:08 Nucleated RBCs/100 WBC 0.4 /100 WBC (0) H 03/09/17 03:08 Reactive Lymphocytes Present (Not Present) A 03/08/17 04:25 Smudge Cells Present (Not Present) A 03/08/17 04:25 Toxic Granulation Present (Not Present) A 03/08/17 04:25 Clumped Platelets Few (Not Present) A 03/08/17 04:25 Large Platelets Present (Not Present) A 03/08/17 04:25 Polychromasia 1+ (Not Present) A 03/08/17 11:20 Hypochromasia Present (Not Present) A 03/09/17 03:08 PT 15.6 Seconds (9.4-12.1) H 03/09/17 03:08 ABG pCO2 46 mmHg (35-45) H 03/08/17 11:29 ABG pO2 84 mmHg (85-104) L 03/08/17 11:29 Potassium 5.1 mEq/L (3.5-4.5) H D 03/09/17 13:19 BUN 40 mg/dL (7-20) H 03/09/17 03:08 BUN/Creatinine Ratio 47 (6-26) H 03/09/17 03:08 POC Glucose 94 (58-89) H 03/08/17 23:39 Hemoglobin A1c 5.8 % (-5.6) H 02/23/17 00:42 Calcium 8.4 mg/dL (8.6-10.8) L 03/09/17 03:08 Magnesium 1.5 mg/dL (1.6-2.6) L 03/09/17 13:19 B-Natriuretic Peptide 1273 pg/mL (0-100) H 03/08/17 14:25 Serum Total Protein 5.6 g/dL (6.0-8.3) L 02/27/17 04:22 Albumin 2.6 g/dL (3.5-5.0) L 02/27/17 04:22 Albumin/Globulin Ratio 0.9 (1.1-2.2) L 02/27/17 04:22 Prealbumin 12.0 mg/dL (16.0-38.0) L 03/04/17 03:33 Ur Specimen Adequacy See below A 02/28/17 13:05 Urine Protein 30 mg/dL (Neg-Trace) H 02/28/17 13:05 Vancomycin Trough 31.2 mcg/mL (10-20) H* 03/02/17 11:55 - Clinical Findings Intake & Output: Intake & Output 03/08/17 03/09/17 03/09/17 23:59 07:59 15:59 Intake Total 200 / 200 550 / 550 404 / 404 Output Total 1300 / 1300 700 / 700 500 / 500 Balance -1100 / -1100 -150 / -150 -96 / -96 Weight 68.447 kg - Attending Attestation I saw the patient with the resident agree with History and Physical exam findings. Labs and Radiology were reviewed Patient was put on BIPAP worsening acute hypercarbic respiratory failure with altered mental status now she is completely oriented PROCESS CONTROL MANAGER: Patient drowsy but wakes up to verbal stimuli and follows commands NECK : No JVD appreciated Pulmonary : Will continue the current BIPAP settings intermittent , Patient is fluid overloaded as long as renal function and blood pressure tolerate will keep diuresing will aim atleast negative 2.5 litres Cardiac : Will continue diuressis hemodynamically stable Nutrition/GI: To continue TPN ischemic bowel s/p surgery . Surgery following antibiotics Zosyn will touch base with surgery about stop date . Will follow surgery recs for advancing the diet Renal : Labs and output reviewed . Heme onc : Upper Limb DVT Changed to Lovenox ID : on IV Zosyn post surgery . Otherwise no evidence of infection Disposition : To remain In ICU Code status: Full Code Family/POA: Daughter
[2017-03-09] MEDS: Ranolazine 500 MG TAB.ER.12H PO SCH ×2 (07:49→21:11)
[2017-03-09] MEDS: Aspirin 81 MG TAB.CHEW PO SCH (07:49)
[2017-03-09] MEDS: Nystatin SUSP 5 ML UD.LIQ PO SCH ×4 (07:49→21:12)
[2017-03-09] MEDS: Nicotine 14 MG PATCH.TD24 TD SCH (07:49)
[2017-03-09] MEDS: Furosemide 40 MG/4 ML VIAL IVP SCH ×2 (07:49→21:11)
[2017-03-09] MEDS: *HR* OxyCODONE ER (12 HR) 20 MG TABLET PO SCH ×2 (07:49→15:01)
[2017-03-09] MEDS: Pantoprazole 40 MG VIAL IVP SCH (07:50)
[2017-03-09] MEDS: Magnesium Oxide 400 MG TABLET PO SCH (07:50)
[2017-03-09] MEDS: Piperacillin/Tazobactam 3.375 GM in D5% in Water (Mini-Bag+) 100 ML IVPB SCH ×3 (07:50→23:53)
[2017-03-09] MEDS: Polymyxn-B/Trimeth Opth Drops 10 ML BOTTLE LEFT EYE SCH ×4 (08:08→21:13)
[2017-03-09] MEDS ORDERED: Magnesium Sulfate 2 GM in D5% in Water 100 ML IVPB ONE (08:29)
[2017-03-09] MEDS ORDERED: Potassium Chloride Elixir 20 MEQ/15 ML UDC PO ONE (08:30)
[2017-03-09] MEDS: 0.9 % Sodium Chloride 250 ML IVC SCH ×2 (08:43→08:44)
[2017-03-09] MEDS: Beclomethasone 80mcg MDI IH SCH ×2 (09:20→21:22)
[2017-03-09 13:33] LABS: Magnesium 1.5 mg/dL (1.6-2.6)
[2017-03-09 13:44] LABS: Potassium 5.1 mEq/L (3.5-4.5)
--- NOTE | 2017-03-09 14:55 | General Surgery Progress Note ---
Date of Encounter: 03/09/17 Time of Encounter: 11:20 - Assessment and Plan (1) S/P small bowel resection Current Visit: Yes Status: Acute since she is back down to nasal cannula ok to restart diet: cardiac/diabetic/ soft (patient without teeth and complains of some dysphasia) continue daily dressing changes with mesalt, gauze/abd pad and tape OOB to chair as tolerates PT/OT (2) Acute on chronic respiratory failure Current Visit: Yes Status: Acute managment per pulmonary CCM - down to MO aggressive pulmonary toilet Qualifiers: Respiratory failure complication: hypercapnia Qualified Code(s): J96.22 - Acute and chronic respiratory failure with hypercapnia Subjective Narrative: patient denies any significant abdominal pain, no nausea is on nasal cannula is wanting toast to eat Objective Vital Signs - Last 8 Hours Temp Pulse Resp BP Pulse Ox 03/09/17 14:00 69 20 122/96 96 03/09/17 13:00 69 19 126/77 92 03/09/17 12:00 24 107/82 91 03/09/17 11:41 97.7 F 03/09/17 11:00 69 18 115/65 92 03/09/17 10:00 69 24 125/68 94 03/09/17 09:19 23 115/65 94 03/09/17 09:00 69 20 117/59 91 03/09/17 08:00 70 20 149/79 97 03/09/17 07:45 70 03/09/17 07:10 98.6 F 03/09/17 07:00 70 20 133/68 95 Intake and Output 03/08/17 03/09/17 03/09/17 23:59 07:59 15:59 Intake Total 200 / 200 550 / 550 404 / 404 Output Total 1300 / 1300 700 / 700 500 / 500 Balance -1100 / -1100 -150 / -150 -96 / -96 Intake: IV Fluids 100 / 100 550 / 550 404 / 404 Intralipid 20% 250 ML @ 21 mls/ 250 / 250 hr IVPB DAILY@1700 [facility] Rx#: [id number] Magnesium Sulfate 2 GM In 104 / 104 Dextrose 5% 100 ML @ 100 mls/hr IVPB ONCE ONE Rx#:[id number] Zosyn 3.375 GM In Dextrose 5% ( 100 / 100 100 / 100 100 / 100 Minibag+) 100 ML 100 ML @ 25 mls/hr IVPB Q8HR [facility] Rx#: [id number] Potassium Chloride 20 mEq/100 200 / 200 200 / 200 mL 20 meq In 100 ml @ 100 mls/ hr IVPB Q1H PRN Rx#:[id number] Oral 100 / 100 0 / 0 Output: Urine 400 / 400 t 400 / 400 Catheter 1300 / 1300 300 / 300 500 / 500 Other: Weight 68.447 kg Blood Glucose* 94 83 137 - General physical appearance well nourished, no distress - Eyes PERRL, normal ocular movement - ENT normal mucosa, normocephalic - Neck Neck exam: trachea midline - Respiratory normal expansion, clear to auscultation - Cardiovascular Cardiovascular exam: Present: RRR - Abdomen Abdomen: Present: soft, distended, tender (minimally diffusely) - Incision Incision: Present: clean and dry, open (with mesalt packing, serous drainage, no surrounding erythema) - Integumentary no rash, no growths - Neurologic CN 2-12 grossly intact - Musculoskeletal normal posture - Psychiatric oriented to time, oriented to person, oriented to place, speech is normal, memory intact - Labs 03/09/17 03:08 03/09/17 13:19 Diabetes panel 03/08/17 03/09/17 03/09/17 Range/Units 14:25 03:08 13:19 Sodium 136 137 (136-145) mEq/L Potassium 3.8 3.8 5.1 H D (3.5-4.5) mEq/L Chloride 103 102 (98-109) mEq/L Carbon Dioxide 24 25 (19-29) mEq/L BUN 43 H 40 H (7-20) mg/dL Creatinine 0.87 0.86 (0.57-1.11) mg/dL Glucose 91 87 (70-99) mg/dL Calcium 8.8 8.4 L (8.6-10.8) mg/dL Calcium panel 03/08/17 03/09/17 03/09/17 Range/Units 14:25 03:08 03:08 Calcium 8.8 8.4 L (8.6-10.8) mg/dL Phosphorus 3.6 (2.3-4.7) mg/dL Pituitary panel 03/08/17 03/09/17 03/09/17 Range/Units 14:25 03:08 13:19 Sodium 136 137 (136-145) mEq/L Potassium 3.8 3.8 5.1 H D (3.5-4.5) mEq/L Chloride 103 102 (98-109) mEq/L Carbon Dioxide 24 25 (19-29) mEq/L BUN 43 H 40 H (7-20) mg/dL Creatinine 0.87 0.86 (0.57-1.11) mg/dL Glucose 91 87 (70-99) mg/dL Calcium 8.8 8.4 L (8.6-10.8) mg/dL Adrenal panel 03/08/17 03/09/17 03/09/17 Range/Units 14:25 03:08 13:19 Sodium 136 137 (136-145) mEq/L Potassium 3.8 3.8 5.1 H D (3.5-4.5) mEq/L Chloride 103 102 (98-109) mEq/L Carbon Dioxide 24 25 (19-29) mEq/L BUN 43 H 40 H (7-20) mg/dL Creatinine 0.87 0.86 (0.57-1.11) mg/dL Glucose 91 87 (70-99) mg/dL Calcium 8.8 8.4 L (8.6-10.8) mg/dL - VTE Documentation of Mechanical Device: Venous foot pump, device Consult Discharge Plan - Plan Referrals: Jeff Cervantes MD [Primary Care Provider] -
[2017-03-09] MEDS ORDERED: Clinimix 5%-20% SOLUTION 2,000 ML with MVI, adult with vitamin K 10 ML, Sodium Phosph... IVC SCH (17:00)
--- NOTE | 2017-03-09 18:35 | Internal Med Progress Note ---
Date of Encounter: 03/09/17 Time of Encounter: 13:00 - Assessment and plan (1) Acute on chronic respiratory failure Current Visit: Yes Status: Acute Assessment and plan: Was transferred to ICU yesterday with acute onset fluid overload. She is improved with diuresis. Current management is with ICU team. Will follow. Qualifiers: Respiratory failure complication: hypercapnia Qualified Code(s): J96.22 - Acute and chronic respiratory failure with hypercapnia (2) Acute decompensated heart failure Current Visit: Yes Status: Acute Assessment and plan: As per problem #1 (3) Partial small bowel obstruction Current Visit: Yes Status: Acute Assessment and plan: Resolved (4) DVT of axillary vein, acute right Current Visit: Yes Status: Acute (5) Acute exacerbation of chronic obstructive airways disease Current Visit: Yes Status: Acute (6) Anemia Current Visit: Yes Status: Acute Assessment and plan: TPN is restarted today Qualifiers: Anemia type: other cause Other causes of anemia: chronic disease, other Qualified Code(s): D63.8 - Anemia in other chronic diseases classified elsewhere (7) Ischemic necrosis of small bowel Current Visit: Yes Status: Acute Assessment and plan: Stable (8) Moderate protein-calorie malnutrition Current Visit: Yes Status: Acute Assessment and plan: TPN restarted today (9) Sepsis Current Visit: Yes Status: Acute Qualifiers: Sepsis type: sepsis due to unspecified organism Qualified Code(s): A41.9 - Sepsis, unspecified organism (10) Diabetes mellitus type 2, insulin dependent Current Visit: Yes Status: Chronic - Subjective Interval history: He was seen in ICU. He was on BiPAP and responded to questions she denied any pain or mouth soreness from BiPAP mask. No fevers nausea vomiting diaphoresis - Constitutional Vitals: Temp Pulse Resp BP Pulse Ox 98.9 F 69 16 105/60 99 03/09/17 15:29 03/09/17 18:00 03/09/17 18:00 03/09/17 18:00 03/09/17 18:00 Exam: Gen: on bipap, AAOx3 Lungs: Fine crackles at bases, fair aeration of lungs; improved CVS: RRR, 2+ radial pulses b/l, 2+ tibial pulses b/l Ext: 1+ bipedal edema, venous stasis changes bilaterally Internal Medicine: Result - Labs CBC & Chem 7: 03/09/17 03:08 03/09/17 13:19 Labs: Short CBC 03/09/17 Range/Units 03:08 WBC 14.4 H (4.3-11.1) K/mcL Hgb 9.2 L (11.5-15.4) g/dL Hct 28.7 L (35.3-44.9) % Plt Count 186 (140-400) K/mcL Neutrophils # 12.7 H (1.6-8.9) K/mcL BMP 03/09/17 03/09/17 03:08 13:19 Sodium 137 Potassium 3.8 5.1 H D Chloride 102 Carbon Dioxide 25 BUN 40 H Creatinine 0.86 Glucose 87 Calcium 8.4 L - ABG Interpretation ABG results: ABG ABG pH 7.33 pH Units (7.32-7.45) 03/08/17 11:29 ABG pCO2 46 mmHg (35-45) H 03/08/17 11:29 ABG pO2 84 mmHg (85-104) L 03/08/17 11:29 ABG O2 Saturation 96 % (95-98) 03/08/17 11:29 PT/INR, D-dimer PT 15.6 Seconds (9.4-12.1) H 03/09/17 03:08 - VTE Documentation of Mechanical Device: Venous foot pump, device Consult Discharge Plan - Plan Referrals: Jeff Cervantes MD [Primary Care Provider] -
[2017-03-10] MEDS: Insulin LISPRO 300 UNITS/3 ML VIAL SQ SCH ×6 (00:03→20:23)
[2017-03-10] MEDS: *HR* OxyCODONE ER (12 HR) 20 MG TABLET PO SCH ×3 (00:40→15:02)
[2017-03-10] MEDS: *HR* Enoxaparin 60 MG/0.6 ML SYRINGE SQ SCH ×2 (00:40→13:37)
[2017-03-10] MEDS: *HR* HYDROmorphone (PF) 1 MG/ML SYRINGE IVP PRN (01:43)
[2017-03-10] MEDS: Ipratropium/Albuterol Neb 3 ML IH SCH ×4 (03:33→21:33)
[2017-03-10 03:59] LABS: Basophils # 0.1 K/mcL (0.0-0.2); Basophils % 0.5 %; Eosinophils # 0.1 K/mcL (0.0-0.6); Eosinophils % 0.6 %; Hematocrit 29.4 % (35.3-44.9); Hemoglobin 9.4 g/dL (11.5-15.4); Immature Platelets 5.2 % (1.1-6.1); Lymphocytes # 0.7 K/mcL (0.6-4.6); Lymphocytes % 3.6 %; Mean Corpuscular Hemoglobin 31.2 pg (28.0-33.3); Mean Corpuscular Volume 97.7 fL (83.0-100.0); Mean Platelet Volume 10.4 fL (9.4-12.4); Monocytes # 1.1 K/mcL (0.0-1.3); Monocytes % 5.8 %; Neutrophils # 16.2 K/mcL (1.6-8.9); Nucleated Red Blood Cells 1.2 /100 WBC (0); Platelet Count 217 K/mcL (140-400); Red Blood Count 3.01 M/mcL (3.82-4.97); Red Cell Distribution Width 15.6 % (11.5-14.5); Segmented Neutrophils % 83.5 %
[2017-03-10 04:02] LABS: BUN/Creatinine Ratio 47 (6-26); Blood Urea Nitrogen 41 mg/dL (7-20); Calcium 8.6 mg/dL (8.6-10.8); Carbon Dioxide 27 mEq/L (19-29); Chloride 98 mEq/L (98-109); Glucose 176 mg/dL (70-99); Magnesium 1.6 mg/dL (1.6-2.6); Osmolality,Calculated 292 (280-300); Phosphorous 2.9 mg/dL (2.3-4.7); Sodium 134 mEq/L (136-145); eGFR For African Americans > 60 (> 60); eGFR For Non-African Americans > 60 (> 60)
[2017-03-10 04:25] LABS: Platelet Estimate Normal (Normal); Polychromasia 2+ (Not Present)
[2017-03-10] MEDS ORDERED: Magnesium Sulfate 2 GM in D5% in Water 100 ML IVPB ONE (07:00)
--- NOTE | 2017-03-10 07:11 | Pulmonology Progress Note ---
<Juan Jose Palacios - Last Filed: 03/10/17 10:02> Date of Encounter: 03/10/17 Time of Encounter: 07:09 Assessment and Plan (1) Acute on chronic respiratory failure Current Visit: Yes Status: Acute Her breathing is stable as she is adequately saturating on home dose oxygen of 3 L NC CXR did show stable pulmonary vascular congestion and she is on Lasix 40 IV BID Continue breathing treatments and BiPAP as needed Given her lethargy and worsening leukocytosis, will obtain ABG and CXR to look for possible aspiration If she develops any fever, will have low threshold to obtain esteban-cultures and escalate antibiotic therapy Qualifiers: Respiratory failure complication: hypercapnia Qualified Code(s): J96.22 - Acute and chronic respiratory failure with hypercapnia (2) Acute on chronic diastolic (congestive) heart failure Current Visit: No Status: Acute Currently on diuresis with 40 IV BID, goal net negative of 2 L today CXR did demonstrate vascular congestion bilaterally I/O did reveal 1.8 L UOP yesterday and kidney function is stable (3) Ischemic necrosis of small bowel Current Visit: Yes Status: Acute POD #14 exploratory ceiliotomy with small bowel resection Surgery on board, appreciate management of surgical site Patient not complaining of pain, diarrhea, bloody stools; will advance diet per surgery On day 9 Zosyn, will defer to surgery for duration of therapy (4) DVT of axillary vein, acute right Current Visit: Yes Status: Acute Continue on Lovenox SQ BID; no pain her arm or shortness of breath She will need to resume her Coumadin prior to discharge (5) Hypertension Current Visit: Yes Status: Chronic Blood pressures remain stable Continue Coreg and monitor vitals closely Qualifiers: Hypertension type: essential hypertension Qualified Code(s): I10 - Essential (primary) hypertension (6) CAD (coronary artery disease) Current Visit: Yes Status: Chronic No chest pain at this time Continue home ASA, BB, Zocor Qualifiers: Coronary Disease-Associated Artery/Lesion type: [place] artery [place] vs. transplanted heart: [place] heart Associated angina: without angina Qualified Code(s): I25.10 - Atherosclerotic heart disease of [place] coronary artery without angina pectoris (7) Atrial fibrillation, permanent Current Visit: No Status: Chronic Currently in NSR and rate controlled on home Coreg Pacemaker in place as demonstrated by CXR with spikes seen on monitor Continue home ASA and she will need to resume Coumadin (8) Anemia in chronic illness Current Visit: No Status: Chronic Hb has been stable last few days without any signs of bleeding She did have 2 units pRBCs transfused during this visit (9) Diabetes mellitus type 2, insulin dependent Current Visit: Yes Status: Chronic Recent sugars have been acceptable while on q4 high dose SSI A1c checked 2 weeks ago was 5.8% (10) DVT prophylaxis Current Visit: Yes Status: Acute Currently on therapeutic Lovenox for RUE DVT Subjective Principal diagnosis: s/p exploratory celiostomy with SBR Interval history: Pt seen and examined. She is lethargic this morning stating she is tired. She is complaining of bilateral ear pain that started a couple days ago but denies any trouble hearing. She did complain of jaw pain earlier while on the BiPAP. Denies any chest pain, surgical site pain, nausea, vomiting, diarrhea. Objective PUL Vital signs: Last Vital Signs Temp 99 F 03/10/17 04:34 Pulse 69 03/10/17 07:00 Resp 30 03/10/17 07:00 BP 126/62 03/10/17 07:00 Pulse Ox 86 03/10/17 07:00 General appearance: no acute distress, lethargic Eyes: nonicteric ENT: oropharynx moist Neck: supple Effort: normal Auscultation: bilateral: rales Percussion: bilateral: not dull Tactile fremitus: bilateral: normal Cardiovascular: regular rate and rhythm Gastrointestinal: normoactive bowel sounds, non-distended, other (surgical site dressed, no drainage noted) Integumentary: normal Extremities: no cyanosis, no clubbing, edema (2+) Musculoskeletal: no deformities, ROM normal normal mental status, non-focal exam mood appropriate, affect normal Results - Laboratory Findings CBC and BMP: 03/10/17 03:40 03/10/17 03:40 ABG ABG pH 7.33 pH Units (7.32-7.45) 03/08/17 11:29 ABG pCO2 46 mmHg (35-45) H 03/08/17 11:29 ABG pO2 84 mmHg (85-104) L 03/08/17 11:29 ABG O2 Saturation 96 % (95-98) 03/08/17 11:29 PT/INR, D-dimer PT 15.6 Seconds (9.4-12.1) H 03/09/17 03:08 Abnormal lab findings: Abnormal lab results WBC 19.4 K/mcL (4.3-11.1) H 03/10/17 03:40 RBC 3.01 M/mcL (3.82-4.97) L 03/10/17 03:40 Hgb 9.4 g/dL (11.5-15.4) L 03/10/17 03:40 Hct 29.4 % (35.3-44.9) L 03/10/17 03:40 RDW 15.6 % (11.5-14.5) H 03/10/17 03:40 Immature Gran % 6.0 % (0-4) H 03/10/17 03:40 Band Neutrophils % 7.0 % (0-4) H 03/08/17 11:20 Metamyelocytes % 4.0 % (0) H 03/08/17 11:20 Myelocytes % 6.0 % (0) H 03/08/17 11:20 Neutrophils # 16.2 K/mcL (1.6-8.9) H 03/10/17 03:40 Nucleated RBCs/100 WBC 1.2 /100 WBC (0) H 03/10/17 03:40 Reactive Lymphocytes Present (Not Present) A 03/08/17 04:25 Smudge Cells Present (Not Present) A 03/08/17 04:25 Toxic Granulation Present (Not Present) A 03/08/17 04:25 Clumped Platelets Few (Not Present) A 03/08/17 04:25 Large Platelets Present (Not Present) A 03/08/17 04:25 Polychromasia 2+ (Not Present) A 03/10/17 03:40 Hypochromasia Present (Not Present) A 03/09/17 03:08 PT 15.6 Seconds (9.4-12.1) H 03/09/17 03:08 ABG pCO2 46 mmHg (35-45) H 03/08/17 11:29 ABG pO2 84 mmHg (85-104) L 03/08/17 11:29 Sodium 134 mEq/L (136-145) L 03/10/17 03:40 BUN 41 mg/dL (7-20) H 03/10/17 03:40 BUN/Creatinine Ratio 47 (6-26) H 03/10/17 03:40 Glucose 176 mg/dL (70-99) H 03/10/17 03:40 POC Glucose 174 (58-89) H 03/09/17 23:49 Hemoglobin A1c 5.8 % (-5.6) H 02/23/17 00:42 B-Natriuretic Peptide 1273 pg/mL (0-100) H 03/08/17 14:25 Serum Total Protein 5.6 g/dL (6.0-8.3) L 02/27/17 04:22 Albumin 2.6 g/dL (3.5-5.0) L 02/27/17 04:22 Albumin/Globulin Ratio 0.9 (1.1-2.2) L 02/27/17 04:22 Prealbumin 12.0 mg/dL (16.0-38.0) L 03/04/17 03:33 Ur Specimen Adequacy See below A 02/28/17 13:05 Urine Protein 30 mg/dL (Neg-Trace) H 02/28/17 13:05 Vancomycin Trough 31.2 mcg/mL (10-20) H* 03/02/17 11:55 - Clinical Findings Intake & Output: Intake & Output 03/09/17 03/09/17 03/10/17 15:59 23:59 07:59 Intake Total 404 / 404 100 / 100 350 / 350 Output Total 1100 / 1100 400 / 400 1000 / 1000 Balance -696 / -696 -300 / -300 -650 / -650 Weight 66.2 kg - VTE Documentation of Mechanical Device: Venous foot pump, device Consult Discharge Plan - Plan Referrals: Jeff Cervantes MD [Primary Care Provider] - <Ariel Barragan - Last Filed: 03/10/17 13:23> Date of Encounter: 03/10/17 Objective PUL Vital signs: Last Vital Signs Temp 97.8 F 03/10/17 11:45 Pulse 84 03/10/17 12:00 Resp 34 03/10/17 12:00 BP 129/67 03/10/17 12:00 Pulse Ox 100 03/10/17 12:00 Results - Laboratory Findings CBC and BMP: 03/10/17 03:40 03/10/17 03:40 ABG ABG pH 7.36 pH Units (7.32-7.45) 03/10/17 08:30 ABG pCO2 54 mmHg (35-45) H 03/10/17 08:30 ABG pO2 52 mmHg (85-104) L 03/10/17 08:30 ABG O2 Saturation 85 % (95-98) L 03/10/17 08:30 PT/INR, D-dimer PT 15.6 Seconds (9.4-12.1) H 03/09/17 03:08 Abnormal lab findings: Abnormal lab results WBC 19.4 K/mcL (4.3-11.1) H 03/10/17 03:40 RBC 3.01 M/mcL (3.82-4.97) L 03/10/17 03:40 Hgb 9.4 g/dL (11.5-15.4) L 03/10/17 03:40 Hct 29.4 % (35.3-44.9) L 03/10/17 03:40 RDW 15.6 % (11.5-14.5) H 03/10/17 03:40 Immature Gran % 6.0 % (0-4) H 03/10/17 03:40 Band Neutrophils % 7.0 % (0-4) H 03/08/17 11:20 Metamyelocytes % 4.0 % (0) H 03/08/17 11:20 Myelocytes % 6.0 % (0) H 03/08/17 11:20 Neutrophils # 16.2 K/mcL (1.6-8.9) H 03/10/17 03:40 Nucleated RBCs/100 WBC 1.2 /100 WBC (0) H 03/10/17 03:40 Reactive Lymphocytes Present (Not Present) A 03/08/17 04:25 Smudge Cells Present (Not Present) A 03/08/17 04:25 Toxic Granulation Present (Not Present) A 03/08/17 04:25 Clumped Platelets Few (Not Present) A 03/08/17 04:25 Large Platelets Present (Not Present) A 03/08/17 04:25 Polychromasia 2+ (Not Present) A 03/10/17 03:40 Hypochromasia Present (Not Present) A 03/09/17 03:08 PT 15.6 Seconds (9.4-12.1) H 03/09/17 03:08 ABG pCO2 54 mmHg (35-45) H 03/10/17 08:30 ABG pO2 52 mmHg (85-104) L 03/10/17 08:30 ABG HCO3 31 mEq/L (21-27) H 03/10/17 08:30 ABG Total CO2 32 mEq/L (20-26) H 03/10/17 08:30 ABG O2 Saturation 85 % (95-98) L 03/10/17 08:30 ABG Base Excess 4.2 mEq/L (-2.0 to 3.0) H 03/10/17 08:30 Sodium 134 mEq/L (136-145) L 03/10/17 03:40 BUN 41 mg/dL (7-20) H 03/10/17 03:40 BUN/Creatinine Ratio 47 (6-26) H 03/10/17 03:40 Glucose 176 mg/dL (70-99) H 03/10/17 03:40 POC Glucose 174 (58-89) H 03/09/17 23:49 Hemoglobin A1c 5.8 % (-5.6) H 02/23/17 00:42 B-Natriuretic Peptide 1273 pg/mL (0-100) H 03/08/17 14:25 Serum Total Protein 5.6 g/dL (6.0-8.3) L 02/27/17 04:22 Albumin 2.6 g/dL (3.5-5.0) L 02/27/17 04:22 Albumin/Globulin Ratio 0.9 (1.1-2.2) L 02/27/17 04:22 Prealbumin 12.0 mg/dL (16.0-38.0) L 03/04/17 03:33 Ur Specimen Adequacy See below A 02/28/17 13:05 Urine Protein 30 mg/dL (Neg-Trace) H 02/28/17 13:05 Vancomycin Trough 31.2 mcg/mL (10-20) H* 03/02/17 11:55 - Clinical Findings Intake & Output: Intake & Output 03/09/17 03/10/17 03/10/17 23:59 07:59 15:59 Intake Total 100 / 100 350 / 350 Output Total 400 / 400 1100 / 1100 600 / 600 Balance -300 / -300 -750 / -750 -600 / -600 Weight 66.2 kg - Attending Attestation I saw the patient with the resident agree with History and Physical exam findings. Labs and Radiology were reviewed Patient was put on BIPAP worsening acute hypercarbic respiratory failure with altered mental status , yesterday she did well today she is little bit confused. 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 so will continue Zosyn for aspiration , she is not coughing much , the Zosyn was originally started after post op bowel resection, if she coughs up sputum will send for cultures . Patient has day time hypercarbia will likely to qualify for home BIPAP. Cardiac : Will continue diuressis hemodynamically stable Nutrition/GI: To continue TPN ischemic bowel s/p surgery . Surgery following antibiotics Zosyn will continue in the light of new infiltrates .Will follow surgery recs for advancing the diet . Because of concern for aspiration will keep her NPO consult speech for swallow evaluation Renal : Labs and output reviewed . Heme onc : Upper Limb DVT Changed to Lovenox , ID : on IV Zosyn post surgery . Leukocytosis trending up , family observed she aspirated while drinking liquids concern for aspiration with new left lower lobe infiltrates will keep Zosyn as it will cover for aspiration pneumonia.Patient is complaining of jaw pain /ear pain will closely follow up if worsening will get imaging . Disposition : To remain In ICU Code status: Full Code Family/POA: Daughter
[2017-03-10] MEDS: Nicotine 14 MG PATCH.TD24 TD SCH (07:36)
[2017-03-10] MEDS: Nystatin SUSP 5 ML UD.LIQ PO SCH ×4 (07:36→20:23)
[2017-03-10] MEDS: Furosemide 40 MG/4 ML VIAL IVP SCH ×2 (07:36→20:22)
[2017-03-10] MEDS: Polymyxn-B/Trimeth Opth Drops 10 ML BOTTLE LEFT EYE SCH ×4 (07:36→20:24)
[2017-03-10] MEDS: Pantoprazole 40 MG VIAL IVP SCH (07:36)
[2017-03-10] MEDS: Piperacillin/Tazobactam 3.375 GM in D5% in Water (Mini-Bag+) 100 ML IVPB SCH ×2 (07:37→15:00)
[2017-03-10] MEDS: Aspirin 81 MG TAB.CHEW PO SCH (07:37)
[2017-03-10] MEDS: Magnesium Oxide 400 MG TABLET PO SCH (07:37)
[2017-03-10] MEDS: Ranolazine 500 MG TAB.ER.12H PO SCH ×2 (07:37→20:24)
--- NOTE | 2017-03-10 07:55 | General Surgery Progress Note ---
<Fatimah Ramirez - Last Filed: 03/10/17 08:52> Date of Encounter: 03/10/17 Time of Encounter: 06:20 - Assessment and Plan (1) Ischemic necrosis of small bowel Current Visit: Yes Status: Acute POD #9 of exploratory ceiliotomy, small bowel resection (02/24/2017 Dr. Mcmillan). Patient reports flatus. PE showed + loud, frequent bowel sounds. Wound without signs of infection. Changed dressing to mesalt. TPN initiated until ileus is resolved. Patient had a BM today. Plan: - daily wound checks and dressing changes with mesalt, gauze/abd pad and tape - Continue TPN until intaking enough calories by mouth, - Continue Diet soft diet with chopped meats and Ensure supplemented - Protonix 40mg IVP daily -NG D/C'd 02/28 - Palliative care on board (2) Postoperative ileus Current Visit: Yes Status: Resolved Regular BMs. Postive bowel sounds present on PE. Resolved. Plan: - continue getting out of bed to chair as tolerated to help with bowel function -PT/OT (3) Partial small bowel obstruction Current Visit: Yes Status: Acute continue plan above (4) Acute on chronic respiratory failure Current Visit: Yes Status: Acute Qualifiers: Respiratory failure complication: hypercapnia Qualified Code(s): J96.22 - Acute and chronic respiratory failure with hypercapnia Subjective Narrative: Patient is a 69-year-old female status post small bowel obstruction (02/24) secondary to internal herniation with respiratory failure on BiPAP secondary to fluid overload. Today, patient has not abdominal pain. Her only complaint is that her ears hurt on the inside. Patient was on Bipap when I initially saw her and was switched to NC which she was tolerating well. Objective Vital Signs - Last 8 Hours Temp Pulse Resp BP Pulse Ox 03/10/17 07:10 97.6 F 03/10/17 07:00 69 30 126/62 86 03/10/17 06:00 68 20 124/61 88 03/10/17 05:00 69 14 130/76 100 03/10/17 04:34 99 F 03/10/17 04:00 69 14 129/62 100 03/10/17 03:35 30 150/71 100 03/10/17 03:00 71 26 150/71 100 03/10/17 02:00 69 24 161/67 100 03/10/17 01:00 69 24 160/71 87 03/10/17 00:12 98.3 F 03/10/17 00:00 69 28 135/67 100 Intake and Output 03/09/17 03/09/17 03/10/17 15:59 23:59 07:59 Intake Total 404 / 404 100 / 100 350 / 350 Output Total 1100 / 1100 400 / 400 1100 / 1100 Balance -696 / -696 -300 / -300 -750 / -750 Intake: IV Fluids 404 / 404 100 / 100 350 / 350 Intralipid 20% 250 ML @ 21 mls/ 250 / 250 hr IVPB DAILY@1700 [facility] Rx#: [id number] Magnesium Sulfate 2 GM In 104 / 104 Dextrose 5% 100 ML @ 100 mls/hr IVPB ONCE ONE Rx#:[id number] Zosyn 3.375 GM In Dextrose 5% ( 100 / 100 100 / 100 100 / 100 Minibag+) 100 ML 100 ML @ 25 mls/hr IVPB Q8HR [facility] Rx#: [id number] Potassium Chloride 20 mEq/100 200 / 200 mL 20 meq In 100 ml @ 100 mls/ hr IVPB Q1H [facility] Rx#:[id number] Output: Catheter 1100 / 1100 400 / 400 1100 / 1100 Other: Weight 66.2 kg Blood Glucose* 153 255 160 Patient Weight 03/10/17 23:59 Weight 66.2 kg - Additional Exam Constitutional: Alert, in no acute distress, well nourished, well developed. Head: Normocephalic, atraumatic, normal contour and symmetric, no masses, lesions or scars Heart: Normal, regular rate and rhythm, no murmurs Lungs: On Bipap then NC, + wheezing, + rhonchi, Abdomen: midline vertical incision approximated with minimal serosanguinous fluid draining, wound is packed, Soft, nondistended, nontender, and no masses palpable, bowel sounds present and normal, no guarding or rigidity. Extremities: No clubbing, cyanosis, or edema, radial pulse +2/4, capillary refill <2sec. Skin: Skin warm and dry, no lesions, no rashes, no jaundice Neurologic: Cranial nerves II through XII grossly intact, no focal deficits, strength decreased bilaterally in upper extremities Psych: Cooperative with exam, good eye contact, speech clear, thought process logical, and goal directed - Labs 03/10/17 03:40 03/10/17 03:40 Diabetes panel 03/09/17 03/10/17 Range/Units 13:19 03:40 Sodium 134 L (136-145) mEq/L Potassium 5.1 H D 4.0 D (3.5-4.5) mEq/L Chloride 98 (98-109) mEq/L Carbon Dioxide 27 (19-29) mEq/L BUN 41 H (7-20) mg/dL Creatinine 0.88 (0.57-1.11) mg/dL Glucose 176 H (70-99) mg/dL Calcium 8.6 (8.6-10.8) mg/dL Calcium panel 03/10/17 03/10/17 Range/Units 03:40 03:40 Calcium 8.6 (8.6-10.8) mg/dL Phosphorus 2.9 (2.3-4.7) mg/dL Pituitary panel 03/09/17 03/10/17 Range/Units 13:19 03:40 Sodium 134 L (136-145) mEq/L Potassium 5.1 H D 4.0 D (3.5-4.5) mEq/L Chloride 98 (98-109) mEq/L Carbon Dioxide 27 (19-29) mEq/L BUN 41 H (7-20) mg/dL Creatinine 0.88 (0.57-1.11) mg/dL Glucose 176 H (70-99) mg/dL Calcium 8.6 (8.6-10.8) mg/dL Adrenal panel 03/09/17 03/10/17 Range/Units 13:19 03:40 Sodium 134 L (136-145) mEq/L Potassium 5.1 H D 4.0 D (3.5-4.5) mEq/L Chloride 98 (98-109) mEq/L Carbon Dioxide 27 (19-29) mEq/L BUN 41 H (7-20) mg/dL Creatinine 0.88 (0.57-1.11) mg/dL Glucose 176 H (70-99) mg/dL Calcium 8.6 (8.6-10.8) mg/dL - VTE Documentation of Mechanical Device: Venous foot pump, device Consult Discharge Plan - Plan Referrals: Jeff Cervantes MD [Primary Care Provider] - <Cheyenne Murray - Last Filed: 03/10/17 15:16> Date of Encounter: 03/10/17 - Assessment and Plan (1) S/P small bowel resection Current Visit: Yes Status: Acute (2) Acute on chronic respiratory failure Current Visit: Yes Status: Acute managment per pulmonary ccm aggressive pulmonary toilet Qualifiers: Respiratory failure complication: hypercapnia Qualified Code(s): J96.22 - Acute and chronic respiratory failure with hypercapnia (3) Aspiration into respiratory tract Current Visit: Yes Status: Acute in light of aspiration and increased wbc would recommend treatment for aspiration pneumonia pt on zosyn and increased wbc - is not patients abdomen/is benign Qualifiers: Encounter type: initial encounter Qualified Code(s): T17.908A - Unspecified foreign body in respiratory tract, part unspecified causing other injury, initial encounter (4) Unable to eat Current Visit: Yes Status: Acute albumin ordered continue TPN Subjective Narrative: patient on bipap per nursing patient aspirated in front of family yesterday drinking water currently npo and on bipap so unable to do swallow evaluation once more stable from respiratory standpoint can get formal swallow eval and go from there Objective Vital Signs - Last 8 Hours Temp Pulse Resp BP Pulse Ox 03/10/17 14:00 68 23 139/63 100 03/10/17 13:00 69 03/10/17 12:00 84 34 129/67 100 03/10/17 11:45 97.8 F 03/10/17 11:00 68 28 105/56 100 03/10/17 10:31 26 144/49 100 03/10/17 10:00 69 29 164/70 97 03/10/17 09:00 69 16 118/73 91 03/10/17 08:10 70 03/10/17 08:00 69 23 147/76 99 03/10/17 07:10 97.6 F Intake and Output 03/09/17 03/10/17 03/10/17 23:59 07:59 15:59 Intake Total 100 / 100 350 / 350 100 / 100 Output Total 400 / 400 1100 / 1100 600 / 600 Balance -300 / -300 -750 / -750 -500 / -500 Intake: IV Fluids 100 / 100 350 / 350 100 / 100 Intralipid 20% 250 ML @ 21 mls/ 250 / 250 hr IVPB DAILY@1700 [facility] Rx#: [id number] Zosyn 3.375 GM In Dextrose 5% ( 100 / 100 100 / 100 100 / 100 Minibag+) 100 ML 100 ML @ 25 mls/hr IVPB Q8HR [facility] Rx#: [id number] Oral 0 / 0 Output: Catheter 400 / 400 1100 / 1100 600 / 600 Other: Weight 66.2 kg Blood Glucose* 255 160 233 Patient Weight 03/10/17 23:59 Weight 66.2 kg - General physical appearance no distress, chronically ill - Eyes PERRL, normal ocular movement - ENT normal mucosa, normocephalic - Neck Neck exam: trachea midline - Respiratory rales: bilateral - Abdomen Abdomen: Present: bowel sounds present, soft, non tender, guarding, rebound - Incision Incision: Present: clean and dry, open - Integumentary no rash, no growths - Neurologic CN 2-12 grossly intact - Musculoskeletal normal posture - Psychiatric oriented to time, oriented to person, oriented to place, speech is normal, memory intact - Labs 03/10/17 03:40 03/10/17 03:40 Diabetes panel 03/10/17 Range/Units 03:40 Sodium 134 L (136-145) mEq/L Potassium 4.0 D (3.5-4.5) mEq/L Chloride 98 (98-109) mEq/L Carbon Dioxide 27 (19-29) mEq/L BUN 41 H (7-20) mg/dL Creatinine 0.88 (0.57-1.11) mg/dL Glucose 176 H (70-99) mg/dL Calcium 8.6 (8.6-10.8) mg/dL Calcium panel 03/10/17 03/10/17 Range/Units 03:40 03:40 Calcium 8.6 (8.6-10.8) mg/dL Phosphorus 2.9 (2.3-4.7) mg/dL Pituitary panel 03/10/17 Range/Units 03:40 Sodium 134 L (136-145) mEq/L Potassium 4.0 D (3.5-4.5) mEq/L Chloride 98 (98-109) mEq/L Carbon Dioxide 27 (19-29) mEq/L BUN 41 H (7-20) mg/dL Creatinine 0.88 (0.57-1.11) mg/dL Glucose 176 H (70-99) mg/dL Calcium 8.6 (8.6-10.8) mg/dL Adrenal panel 03/10/17 Range/Units 03:40 Sodium 134 L (136-145) mEq/L Potassium 4.0 D (3.5-4.5) mEq/L Chloride 98 (98-109) mEq/L Carbon Dioxide 27 (19-29) mEq/L BUN 41 H (7-20) mg/dL Creatinine 0.88 (0.57-1.11) mg/dL Glucose 176 H (70-99) mg/dL Calcium 8.6 (8.6-10.8) mg/dL - Imaging Chest x-ray: report reviewed - Attending Attestation I examined this patient and my medical decision-making was reviewed with the Resident Physician. I agree with the documented findings, disposition and treatment plan as described except to the extent set forth below.
[2017-03-10] MEDS ORDERED: *HR* HYDROmorphone (PF) 1 MG/ML SYRINGE IVP SCH (08:00)
[2017-03-10 08:38] LABS: ABG Base Excess 4.2 mEq/L (-2.0 to 3.0); ABG HCO3 31 mEq/L (21-27); ABG Oxygen Saturation 85 % (95-98); ABG PCO2 54 mmHg (35-45); ABG PH 7.36 pH Units (7.32-7.45); ABG PO2 52 mmHg (85-104); ABG TCO2 32 mEq/L (20-26)
[2017-03-10 08:40] LABS: Blood Gas Liter Flow 4 L/MIN; Blood Gas Modality NC
[2017-03-10] MEDS: *HR* Morphine 2 MG/ML SYRINGE IVP PRN (09:40)
[2017-03-10] MEDS: Beclomethasone 80mcg MDI IH SCH ×2 (10:30→21:32)
[2017-03-10] MEDS ORDERED: Clinimix 5%-20% SOLUTION 2,000 ML with MVI, adult with vitamin K 10 ML, Sodium Phosph... IVC SCH (17:00)
--- NOTE | 2017-03-10 18:16 | Internal Med Progress Note ---
Date of Encounter: 03/10/17 Time of Encounter: 14:30 - Assessment and plan (1) Acute on chronic respiratory failure Current Visit: Yes Status: Acute Assessment and plan: Secondary to flash pulmonary edema. Currently under care of ICU. She has improved with diuresis and bipap. Qualifiers: Respiratory failure complication: hypercapnia Qualified Code(s): J96.22 - Acute and chronic respiratory failure with hypercapnia (2) Acute decompensated heart failure Current Visit: Yes Status: Acute Assessment and plan: As above (3) Partial small bowel obstruction Current Visit: Yes Status: Acute (4) DVT of axillary vein, acute right Current Visit: Yes Status: Acute Assessment and plan: On therapeutic heparin (5) Anemia Current Visit: Yes Status: Acute Assessment and plan: TPN is restarted today Qualifiers: Anemia type: other cause Other causes of anemia: chronic disease, other Qualified Code(s): D63.8 - Anemia in other chronic diseases classified elsewhere (6) Ischemic necrosis of small bowel Current Visit: Yes Status: Acute Assessment and plan: Stable (7) Moderate protein-calorie malnutrition Current Visit: Yes Status: Acute Assessment and plan: TPN restarted today (8) Sepsis Current Visit: Yes Status: Acute Assessment and plan: Resolved. Will monitor for any recurring infections. Qualifiers: Sepsis type: sepsis due to unspecified organism Qualified Code(s): A41.9 - Sepsis, unspecified organism (9) Diabetes mellitus type 2, insulin dependent Current Visit: Yes Status: Chronic Assessment and plan: Stable - Subjective Interval history: Patient was transferred to ICU yesterday for respiratory failure. 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 She is on Bipap and is more alert than before. She is more alert than yesterday. She has been diuresed and her respiratory status improved. - Constitutional Vitals: Temp Pulse Resp BP Pulse Ox 98.1 F 69 22 152/64 100 03/10/17 16:00 03/10/17 18:00 03/10/17 18:00 03/10/17 18:00 03/10/17 18:00 Exam: Gen: respiratory distress on bipap, AAOx2 CVS: tachycardic, NS1/S2 Lungs: deminished at bases, transmitted sounds from bipap machine limits auscultation exam Ext: no cyanosis, no edema Internal Medicine: Result - Labs CBC & Chem 7: 10/02/17 03:55 03/11/17 03:55 Labs: Short CBC 03/10/17 Range/Units 03:40 WBC 19.4 H (4.3-11.1) K/mcL Hgb 9.4 L (11.5-15.4) g/dL Hct 29.4 L (35.3-44.9) % Plt Count 217 (140-400) K/mcL Neutrophils # 16.2 H (1.6-8.9) K/mcL BMP 03/10/17 03:40 Sodium 134 L Potassium 4.0 D Chloride 98 Carbon Dioxide 27 BUN 41 H Creatinine 0.88 Glucose 176 H Calcium 8.6 - ABG Interpretation ABG results: ABG ABG pH 7.36 pH Units (7.32-7.45) 03/10/17 08:30 ABG pCO2 54 mmHg (35-45) H 03/10/17 08:30 ABG pO2 52 mmHg (85-104) L 03/10/17 08:30 ABG O2 Saturation 85 % (95-98) L 03/10/17 08:30 PT/INR, D-dimer PT 15.6 Seconds (9.4-12.1) H 03/09/17 03:08 - Impressions Impressions Chest X-Ray 03/10/17 07:28 IMPRESSION: Worsening consolidation in the medial left lung base could be due to pneumonia or atelectasis. Other stable areas of consolidation and pulmonary vascular indistinctness favor pulmonary edema. D/ / 03/10/2017 11:26:23 Indio Conti MD / Yaz Covarrubias Interpreting Provider: Indio Conti MD - VTE Documentation of Mechanical Device: Venous foot pump, device Consult Discharge Plan - Plan Referrals: Jeff Cervantes MD [Primary Care Provider] -
--- NOTE | 2017-03-10 18:51 | Electrocardiograph Report ---
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
[2017-03-11] MEDS: *HR* Morphine 2 MG/ML SYRINGE IVP PRN ×4 (00:29→18:18)
[2017-03-11] MEDS: *HR* OxyCODONE ER (12 HR) 20 MG TABLET PO SCH ×4 (00:29→20:48)
[2017-03-11] MEDS: Insulin LISPRO 300 UNITS/3 ML VIAL SQ SCH ×6 (00:29→20:37)
[2017-03-11] MEDS: Piperacillin/Tazobactam 3.375 GM in D5% in Water (Mini-Bag+) 100 ML IVPB SCH ×2 (00:29→09:15)
[2017-03-11] MEDS: *HR* Enoxaparin 60 MG/0.6 ML SYRINGE SQ SCH ×2 (00:30→14:39)
[2017-03-11] MEDS: *HR* Metoprolol 5 MG/5 ML VIAL IVP PRN (01:27)
[2017-03-11] MEDS: Ipratropium/Albuterol Neb 3 ML IH SCH ×4 (04:13→21:50)
[2017-03-11 04:20] LABS: Hematocrit 28.4 % (35.3-44.9); Hemoglobin 9.2 g/dL (11.5-15.4); Mean Corpuscular HGB Conc 32.4 g/dL (31.6-35.5); Mean Corpuscular Hemoglobin 30.9 pg (28.0-33.3); Mean Corpuscular Volume 95.3 fL (83.0-100.0); Mean Platelet Volume 10.5 fL (9.4-12.4); Nucleated Red Blood Cells 0.5 /100 WBC (0); Platelet Count 188 K/mcL (140-400); Red Blood Count 2.98 M/mcL (3.82-4.97); Red Cell Distribution Width 15.2 % (11.5-14.5)
[2017-03-11 04:33] LABS: BUN/Creatinine Ratio 49 (6-26); Blood Urea Nitrogen 38 mg/dL (7-20); Calcium 8.8 mg/dL (8.6-10.8); Carbon Dioxide 31 mEq/L (19-29); Chloride 97 mEq/L (98-109); Glucose 159 mg/dL (70-99); Osmolality,Calculated 296 (280-300); Potassium 3.1 mEq/L (3.5-4.5); Sodium 137 mEq/L (136-145); eGFR For African Americans > 60 (> 60); eGFR For Non-African Americans > 60 (> 60)
[2017-03-11 04:34] LABS: Magnesium 1.4 mg/dL (1.6-2.6); Phosphorous 2.1 mg/dL (2.3-4.7)
[2017-03-11 05:16] LABS: Lymphocytes # 1.1 K/mcL (0.6-4.6); Monocytes # 0.7 K/mcL (0.0-1.3); Neutrophils # 16.7 K/mcL (1.6-8.9)
[2017-03-11 05:17] LABS: Anisocytosis 1+ (Not Present); Platelet Estimate Normal (Normal); Polychromasia 1+ (Not Present)
--- NOTE | 2017-03-11 08:54 | General Surgery Progress Note ---
<Grace Liu - Last Filed: 03/11/17 10:08> Date of Encounter: 03/11/17 Time of Encounter: 08:30 - Assessment and Plan (1) Ischemic necrosis of small bowel Current Visit: Yes Status: Acute Postop day 15 exploratory ceiliotomy, small bowel resection (02/24/2017 Dr. Mcmillan); NG D/C'd 02/28; Ileus previously resolved, but suspicious this has returned given recent decrease in pulmonary status and leuokocytosis. No signs or symptoms of G.I. blood loss noted with low hemoglobin levels. Transfusion recommendations per hospitalist/primary service. No signs/symptoms of acute abdominal infection noted in her benign abdomen. She is noted to have a seroma at the left umbilical area. Noted leukocytosis with bandemia (up from 12.8 to 17.7) Suspect pulmonary source (management per medicine) given recent CXR (concern for aspiration/PNA) and bipap status ( Reviewed with Dr. Garces) -continue supportive care and discomfort management -Await return of bowel function -Ok from a surgical perspective to decrease diet to NPO while respiratory status is being treated. Increase TPN to goal if pt is made NPO. May consider calorie count per dietary if she is not taking adequate p.o. to wean TPN -Resume reglan -PT OT is following (2) Ileus Current Visit: Yes Status: Acute See above (3) PNA (pneumonia) Current Visit: Yes Status: Acute Management per medicine See above. Will continue to follow Qualifiers: Pneumonia type: due to unspecified organism Laterality: bilateral Lung location: lower lobe of lung Qualified Code(s): J18.9 - Pneumonia, unspecified organism (4) DVT prophylaxis Current Visit: Yes Status: Acute Management per medicine; She is now on therapeutic heparin (5) Moderate protein-calorie malnutrition Current Visit: Yes Status: Acute Continue TPN and Lipids until adequate p.o.; See above (6) Partial small bowel obstruction Current Visit: Yes Status: Acute See above Subjective Patient reports: still having pain, pain is less, voiding w/o difficulty (Per hendrickson), flatus, no bowel movement Narrative: Denies appetite. Per Bedside RN she is on bipap and not taking much p.o. Objective Vital Signs - Last 8 Hours Temp Pulse Resp BP Pulse Ox 03/11/17 07:51 98.1 F 03/11/17 06:00 69 28 179/74 97 03/11/17 05:15 28 188/84 94 03/11/17 05:00 69 22 188/88 95 03/11/17 04:36 98.2 F 03/11/17 04:15 28 94 03/11/17 04:00 69 26 188/84 94 03/11/17 03:00 69 24 188/85 100 03/11/17 02:00 69 30 173/78 100 03/11/17 01:15 98.6 F 03/11/17 01:00 69 30 176/80 100 Intake and Output 03/10/17 03/11/17 03/11/17 23:59 07:59 15:59 Intake Total 100 / 100 450 / 450 Output Total 200 / 200 1999 Balance -100 / -100 -1550 / -1550 Intake: IV Fluids 100 / 100 450 / 450 Intralipid 20% 250 ML @ 21 mls/ 250 / 250 hr IVPB DAILY@1700 REMY Rx#: [id number] Zosyn 3.375 GM In Dextrose 5% ( 100 / 100 100 / 100 Minibag+) 100 ML 100 ML @ 25 mls/hr IVPB Q8HR REMY Rx#: [id number] Potassium Chloride 20 mEq/100 100 / 100 mL 20 meq In 100 ml @ 100 mls/ hr IVPB Q1H PRN Rx#:[id number] Output: Catheter 200 / 200 1999 Other: Weight 63.9 kg Blood Glucose* 139 164 Patient Weight 03/11/17 23:59 Weight 63.9 kg - General physical appearance no distress, chronically ill, other (Bipap mask noted in place) - ENT atraumatic, normocephalic - Neck Neck exam: trachea midline - Respiratory other (Decreased, course breath sounds) - Cardiovascular Cardiovascular exam: Present: RRR, murmurs - Abdomen Abdomen: Present: bowel sounds present (faint and hypoactive) - Incision Incision: Present: clean and dry, intact (dressing in place. Daily wound care per bedside RN) - Integumentary no rash - Neurologic normal coordination, normal sensation - Musculoskeletal other (Kyphotic) - Psychiatric oriented to time, oriented to person, oriented to place, speech is normal, memory intact - Labs 03/11/17 03:55 03/11/17 03:55 Diabetes panel 03/11/17 Range/Units 03:55 Sodium 137 (136-145) mEq/L Potassium 3.1 L (3.5-4.5) mEq/L Chloride 97 L (98-109) mEq/L Carbon Dioxide 31 H (19-29) mEq/L BUN 38 H (7-20) mg/dL Creatinine 0.77 (0.57-1.11) mg/dL Glucose 159 H (70-99) mg/dL Calcium 8.8 (8.6-10.8) mg/dL Calcium panel 03/11/17 03/11/17 Range/Units 03:55 03:55 Calcium 8.8 (8.6-10.8) mg/dL Phosphorus 2.1 L (2.3-4.7) mg/dL Pituitary panel 03/11/17 Range/Units 03:55 Sodium 137 (136-145) mEq/L Potassium 3.1 L (3.5-4.5) mEq/L Chloride 97 L (98-109) mEq/L Carbon Dioxide 31 H (19-29) mEq/L BUN 38 H (7-20) mg/dL Creatinine 0.77 (0.57-1.11) mg/dL Glucose 159 H (70-99) mg/dL Calcium 8.8 (8.6-10.8) mg/dL Adrenal panel 03/11/17 Range/Units 03:55 Sodium 137 (136-145) mEq/L Potassium 3.1 L (3.5-4.5) mEq/L Chloride 97 L (98-109) mEq/L Carbon Dioxide 31 H (19-29) mEq/L BUN 38 H (7-20) mg/dL Creatinine 0.77 (0.57-1.11) mg/dL Glucose 159 H (70-99) mg/dL Calcium 8.8 (8.6-10.8) mg/dL - VTE Documentation of Mechanical Device: Venous foot pump, device Consult Discharge Plan - Plan Referrals: Jeff Cervantes MD [Primary Care Provider] - <Soy Mcmillan - Last Filed: 03/11/17 19:21> Date of Encounter: 03/11/17 - Assessment and Plan (1) Partial small bowel obstruction Current Visit: Yes Status: Acute (2) Ischemic necrosis of small bowel Current Visit: Yes Status: Acute Objective Vital Signs - Last 8 Hours Temp Pulse Resp BP Pulse Ox 03/11/17 18:00 69 26 147/67 100 03/11/17 17:00 69 20 133/59 96 03/11/17 16:28 29 96 03/11/17 16:03 98.9 F 03/11/17 16:00 98.9 F 69 20 150/71 97 03/11/17 15:00 69 29 140/69 96 03/11/17 14:00 69 29 136/67 96 03/11/17 13:00 69 29 147/69 96 03/11/17 12:00 98.1 F 69 29 138/69 96 03/11/17 11:46 98.1 F 03/11/17 11:37 25 97 03/11/17 11:23 69 25 156/75 97 Intake and Output 03/11/17 03/11/17 03/11/17 07:59 15:59 23:59 Intake Total 450 / 450 Output Total 1999 525 / 525 400 / 400 Balance -1550 / -1550 -525 / -525 -400 / -400 Intake: IV Fluids 450 / 450 Intralipid 20% 250 ML @ 21 mls/ 250 / 250 hr IVPB DAILY@1700 REMY Rx#: [id number] Zosyn 3.375 GM In Dextrose 5% ( 100 / 100 Minibag+) 100 ML 100 ML @ 25 mls/hr IVPB Q8HR REMY Rx#: [id number] Potassium Chloride 20 mEq/100 100 / 100 mL 20 meq In 100 ml @ 100 mls/ hr IVPB Q1H PRN Rx#:[id number] Output: Catheter 1999 525 / 525 400 / 400 Other: Stool Size Smear Stool Consistency soft Stool Color Black # Bowel Movements 1 Weight 63.9 kg Blood Glucose* 164 179 163 Patient Weight 03/11/17 23:59 Weight 63.9 kg - Labs 03/11/17 03:55 03/11/17 03:55 Diabetes panel 03/11/17 Range/Units 03:55 Sodium 137 (136-145) mEq/L Potassium 3.1 L (3.5-4.5) mEq/L Chloride 97 L (98-109) mEq/L Carbon Dioxide 31 H (19-29) mEq/L BUN 38 H (7-20) mg/dL Creatinine 0.77 (0.57-1.11) mg/dL Glucose 159 H (70-99) mg/dL Calcium 8.8 (8.6-10.8) mg/dL Calcium panel 03/11/17 03/11/17 Range/Units 03:55 03:55 Calcium 8.8 (8.6-10.8) mg/dL Phosphorus 2.1 L (2.3-4.7) mg/dL Pituitary panel 03/11/17 Range/Units 03:55 Sodium 137 (136-145) mEq/L Potassium 3.1 L (3.5-4.5) mEq/L Chloride 97 L (98-109) mEq/L Carbon Dioxide 31 H (19-29) mEq/L BUN 38 H (7-20) mg/dL Creatinine 0.77 (0.57-1.11) mg/dL Glucose 159 H (70-99) mg/dL Calcium 8.8 (8.6-10.8) mg/dL Adrenal panel 03/11/17 Range/Units 03:55 Sodium 137 (136-145) mEq/L Potassium 3.1 L (3.5-4.5) mEq/L Chloride 97 L (98-109) mEq/L Carbon Dioxide 31 H (19-29) mEq/L BUN 38 H (7-20) mg/dL Creatinine 0.77 (0.57-1.11) mg/dL Glucose 159 H (70-99) mg/dL Calcium 8.8 (8.6-10.8) mg/dL - Attending Attestation For this encounter, I have reviewed the AIR QUALITY CHEMIST or PA documentation, treatment plan, and medical decision making; and I have had face to face time with this patient. I reviewed the above assessment and evaluation with the nurse practitioner and I agree with the above plan.
[2017-03-11] MEDS: Ranolazine 500 MG TAB.ER.12H PO SCH ×3 (09:08→20:52)
[2017-03-11] MEDS: Magnesium Oxide 400 MG TABLET PO SCH (09:08)
[2017-03-11] MEDS: Aspirin 81 MG TAB.CHEW PO SCH ×2 (09:08→11:07)
[2017-03-11] MEDS: Nystatin SUSP 5 ML UD.LIQ PO SCH ×4 (09:08→20:45)
[2017-03-11] MEDS: Polymyxn-B/Trimeth Opth Drops 10 ML BOTTLE LEFT EYE SCH ×4 (09:11→21:21)
--- NOTE | 2017-03-11 09:13 | Pulmonology Progress Note ---
<Jason Sequeira W - Last Filed: 03/11/17 10:09> Date of Encounter: 03/11/17 Assessment and Plan (1) Encephalopathy Current Visit: Yes Status: Acute (2) Acute exacerbation of chronic obstructive airways disease Current Visit: Yes Status: Acute (3) CAD (coronary artery disease) Current Visit: Yes Status: Chronic (4) Atrial fibrillation Current Visit: Yes Status: Chronic (5) Acute on chronic respiratory failure Current Visit: Yes Status: Acute (6) Chronic combined systolic and diastolic congestive heart failure Current Visit: Yes Status: Chronic (7) PNA (pneumonia) Current Visit: Yes Status: Acute (8) Sepsis Current Visit: Yes Status: Acute (9) Partial small bowel obstruction Current Visit: Yes Status: Acute (10) Moderate protein-calorie malnutrition Current Visit: Yes Status: Acute (11) Hyperkalemia Current Visit: Yes Status: Acute Objective PUL Vital signs: Last Vital Signs Temp 98.1 F 03/11/17 07:51 Pulse 69 03/11/17 06:00 Resp 28 03/11/17 06:00 BP 179/74 03/11/17 06:00 Pulse Ox 97 03/11/17 06:00 Results - Laboratory Findings CBC and BMP: 03/11/17 03:55 03/11/17 03:55 ABG ABG pH 7.36 pH Units (7.32-7.45) 03/10/17 08:30 ABG pCO2 54 mmHg (35-45) H 03/10/17 08:30 ABG pO2 52 mmHg (85-104) L 03/10/17 08:30 ABG O2 Saturation 85 % (95-98) L 03/10/17 08:30 PT/INR, D-dimer PT 15.6 Seconds (9.4-12.1) H 03/09/17 03:08 Abnormal lab findings: Abnormal lab results WBC 18.5 K/mcL (4.3-11.1) H 03/11/17 03:55 RBC 2.98 M/mcL (3.82-4.97) L 03/11/17 03:55 Hgb 9.2 g/dL (11.5-15.4) L 03/11/17 03:55 Hct 28.4 % (35.3-44.9) L 03/11/17 03:55 RDW 15.2 % (11.5-14.5) H 03/11/17 03:55 Immature Gran % 6.0 % (0-4) H 03/10/17 03:40 Band Neutrophils % 6.0 % (0-4) H 03/11/17 03:55 Metamyelocytes % 4.0 % (0) H 03/08/17 11:20 Myelocytes % 6.0 % (0) H 03/08/17 11:20 Neutrophils # 16.7 K/mcL (1.6-8.9) H 03/11/17 03:55 Nucleated RBCs/100 WBC 0.5 /100 WBC (0) H 03/11/17 03:55 Reactive Lymphocytes Present (Not Present) A 03/08/17 04:25 Smudge Cells Present (Not Present) A 03/08/17 04:25 Toxic Granulation Present (Not Present) A 03/08/17 04:25 Clumped Platelets Few (Not Present) A 03/08/17 04:25 Large Platelets Present (Not Present) A 03/08/17 04:25 Polychromasia 1+ (Not Present) A 03/11/17 03:55 Hypochromasia Present (Not Present) A 03/09/17 03:08 Anisocytosis 1+ (Not Present) A 03/11/17 03:55 PT 15.6 Seconds (9.4-12.1) H 03/09/17 03:08 ABG pCO2 54 mmHg (35-45) H 03/10/17 08:30 ABG pO2 52 mmHg (85-104) L 03/10/17 08:30 ABG HCO3 31 mEq/L (21-27) H 03/10/17 08:30 ABG Total CO2 32 mEq/L (20-26) H 03/10/17 08:30 ABG O2 Saturation 85 % (95-98) L 03/10/17 08:30 ABG Base Excess 4.2 mEq/L (-2.0 to 3.0) H 03/10/17 08:30 Potassium 3.1 mEq/L (3.5-4.5) L 03/11/17 03:55 Chloride 97 mEq/L (98-109) L 03/11/17 03:55 Carbon Dioxide 31 mEq/L (19-29) H 03/11/17 03:55 BUN 38 mg/dL (7-20) H 03/11/17 03:55 BUN/Creatinine Ratio 49 (6-26) H 03/11/17 03:55 Glucose 159 mg/dL (70-99) H 03/11/17 03:55 POC Glucose 240 (58-89) H 03/11/17 00:18 Hemoglobin A1c 5.8 % (-5.6) H 02/23/17 00:42 Phosphorus 2.1 mg/dL (2.3-4.7) L 03/11/17 03:55 Magnesium 1.4 mg/dL (1.6-2.6) L 03/11/17 03:55 B-Natriuretic Peptide 1273 pg/mL (0-100) H 03/08/17 14:25 Serum Total Protein 5.6 g/dL (6.0-8.3) L 02/27/17 04:22 Albumin 2.6 g/dL (3.5-5.0) L 02/27/17 04:22 Albumin/Globulin Ratio 0.9 (1.1-2.2) L 02/27/17 04:22 Prealbumin 8.0 mg/dL (16.0-38.0) L 03/11/17 03:55 Ur Specimen Adequacy See below A 02/28/17 13:05 Urine Protein 30 mg/dL (Neg-Trace) H 02/28/17 13:05 Vancomycin Trough 31.2 mcg/mL (10-20) H* 03/02/17 11:55 - Clinical Findings Intake & Output: Intake & Output 03/10/17 03/11/17 03/11/17 23:59 07:59 15:59 Intake Total 100 / 100 450 / 450 Output Total 200 / 200 1999 / 1999 Balance -100 / -100 -1550 / -1550 Weight 63.9 kg Consult Discharge Plan - Plan Referrals: Jeff Cervantes MD [Primary Care Provider] - - Attending Attestation I examined this patient and my medical decision-making was reviewed with the Resident Physician. I agree with the documented findings, disposition and treatment plan as described except to the extent set forth below. We independently had [id number] contact with the patient Patient seen and examined at bedside Labs, radiology, chart personally reviewed. Management was reviewed during multidisciplinary critical care rounds. Neuropsych: Severe Underlying Anxiety cont home Antidepressants. Avoid Benzos. Cont opitates for pain control and breathlessness. 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 Pulm: Acute on Chronic Hypoxic Hypercarbic Respiratory failure s/t PNA, COPD and CHF. Cont NIV as needed for work of breathing. Cont Bronchodilators. High Risk for aspriation. Appreciate Speech Therapy Eval. Cards: HTN, HFrEF with AFib rate contolled. FEN-GI:c/p Celiotomy. cont TPN. Appreciate Nutrition recs and General Surgery continued care for posoperative monitoring. Renal: Electrolytes monitored and replaced. ID: Pip/Tazo for Aspiration PNA stopping ABx today. Heme/Onc: Recent DVT in RUE. cont Lovenox. restart warfarin while bridging (afib ) Endo: Glucose Monitored Integ/MSK: Skin Care per routine ICU Nursing Protocol to prevent ulcers. PT/OT following. Lines: All lines examined without evidence of infection including: LEFT PICC Dispo: Remain in ICU today. CODE: Full. Palliative Care resonsulted. <Randall Garces - Last Filed: 03/11/17 12:42> Date of Encounter: 03/11/17 Time of Encounter: 09:08 Assessment and Plan (1) Acute on chronic respiratory failure Current Visit: Yes Status: Acute Her breathing is stable at this time. Continue to wean of BiPAP and onto 3L NC CXR did show stable pulmonary vascular congestion and she is on Lasix 40 IV BID Continue breathing treatments and BiPAP as needed Leukocytosis appears to wax and wane over the course of stay. Patient has been afebrile. Continues to have pulmonary edema. If patient becomes febrile may obtain cultures and escalate antibiotic therapy. Palliative consulted to discuss Goals of therapy including code status of patient. Qualifiers: Respiratory failure complication: hypercapnia Qualified Code(s): J96.22 - Acute and chronic respiratory failure with hypercapnia (2) Acute decompensated heart failure Current Visit: Yes Status: Acute Currently on diuresis with 40 IV BID, goal net negative of >1L today. If greater than 1L, we will hold nighttime dose of Lasix. CXR did demonstrate vascular congestion bilaterally I/O did reveal 1.8 L UOP yesterday and kidney function is stable (3) Ischemic necrosis of small bowel Current Visit: Yes Status: Acute POD #15 exploratory ceiliotomy with small bowel resection Patient not complaining of pain, diarrhea, bloody stools; will advance diet per surgery On day 10 Zosyn, will stop antibiotic therapy at this time. Surgery states they do not believe patient white count is from abdomen. Area is soft and nontender. (4) DVT of axillary vein, acute right Current Visit: Yes Status: Acute Continue on Lovenox SQ BID; no pain her arm or shortness of breath She will need to resume her Coumadin prior to discharge Will bridge coumadin starting today 2mg PO 1800 (5) Difficulty swallowing liquids Current Visit: Yes Status: Acute Patient had difficulty time swallowing water yesterday. Seen by Speech today and state patient can continue current soft diet and she must eat sitting up at a 90 degree angle. Will check in tomorrow. (6) CAD (coronary artery disease) Current Visit: Yes Status: Chronic No chest pain at this time Continue home ASA, BB, Zocor Qualifiers: Coronary Disease-Associated Artery/Lesion type: [place] artery [place] vs. transplanted heart: [place] heart Associated angina: without angina Qualified Code(s): I25.10 - Atherosclerotic heart disease of [place] coronary artery without angina pectoris (7) Anemia Current Visit: Yes Status: Acute Hb has been stable last few days without any signs of bleeding She did have 2 units pRBCs transfused during this visit Qualifiers: Anemia type: other cause Other causes of anemia: chronic disease, other Qualified Code(s): D63.8 - Anemia in other chronic diseases classified elsewhere (8) DVT prophylaxis Current Visit: Yes Status: Acute Currently on therapeutic Lovenox for RUE DVT (9) Hypertension Current Visit: Yes Status: Chronic PRN Hyldralazine Systolic > 160 Qualifiers: Hypertension type: essential hypertension Qualified Code(s): I10 - Essential (primary) hypertension Subjective Principal diagnosis: s/p exploratory celiostomy with SBR Interval history: Pt is a 71F with PMHx of afib, CHF, COPD, CAD, and CKD initially presenting with pSBO with progression to ischemic necrosis and ceiliostomy with cmall bowel resection. Pit is POD #15. Also with DVT of left axillary vein currently LMWH SQ on ICU day #3 for acue on chronic respiratory failure. Overnight, patient found to be hypertensive in the 180's/70's. This morning patient given metoprolol and hydralazine with improvement to 160's/70. Objective PUL Vital signs: Last Vital Signs Temp 98.1 F 03/11/17 07:51 Pulse 69 03/11/17 06:00 Resp 28 03/11/17 06:00 BP 179/74 03/11/17 06:00 Pulse Ox 97 03/11/17 06:00 General appearance: no acute distress, alert Eyes: nonicteric ENT: oropharynx moist Neck: supple Effort: normal Auscultation: bilateral: rales (base) Cardiovascular: regular rate and rhythm Gastrointestinal: normoactive bowel sounds, soft, non-tender Integumentary: normal Extremities: no cyanosis, edema (1+) Musculoskeletal: no deformities normal mental status mood appropriate, affect normal Results - Laboratory Findings CBC and BMP: 03/11/17 03:55 03/11/17 03:55 ABG ABG pH 7.36 pH Units (7.32-7.45) 03/10/17 08:30 ABG pCO2 54 mmHg (35-45) H 03/10/17 08:30 ABG pO2 52 mmHg (85-104) L 03/10/17 08:30 ABG O2 Saturation 85 % (95-98) L 03/10/17 08:30 PT/INR, D-dimer PT 15.6 Seconds (9.4-12.1) H 03/09/17 03:08 Abnormal lab findings: Abnormal lab results WBC 18.5 K/mcL (4.3-11.1) H 03/11/17 03:55 RBC 2.98 M/mcL (3.82-4.97) L 03/11/17 03:55 Hgb 9.2 g/dL (11.5-15.4) L 03/11/17 03:55 Hct 28.4 % (35.3-44.9) L 03/11/17 03:55 RDW 15.2 % (11.5-14.5) H 03/11/17 03:55 Immature Gran % 6.0 % (0-4) H 03/10/17 03:40 Band Neutrophils % 6.0 % (0-4) H 03/11/17 03:55 Metamyelocytes % 4.0 % (0) H 03/08/17 11:20 Myelocytes % 6.0 % (0) H 03/08/17 11:20 Neutrophils # 16.7 K/mcL (1.6-8.9) H 03/11/17 03:55 Nucleated RBCs/100 WBC 0.5 /100 WBC (0) H 03/11/17 03:55 Reactive Lymphocytes Present (Not Present) A 03/08/17 04:25 Smudge Cells Present (Not Present) A 03/08/17 04:25 Toxic Granulation Present (Not Present) A 03/08/17 04:25 Clumped Platelets Few (Not Present) A 03/08/17 04:25 Large Platelets Present (Not Present) A 03/08/17 04:25 Polychromasia 1+ (Not Present) A 03/11/17 03:55 Hypochromasia Present (Not Present) A 03/09/17 03:08 Anisocytosis 1+ (Not Present) A 03/11/17 03:55 PT 15.6 Seconds (9.4-12.1) H 03/09/17 03:08 ABG pCO2 54 mmHg (35-45) H 03/10/17 08:30 ABG pO2 52 mmHg (85-104) L 03/10/17 08:30 ABG HCO3 31 mEq/L (21-27) H 03/10/17 08:30 ABG Total CO2 32 mEq/L (20-26) H 03/10/17 08:30 ABG O2 Saturation 85 % (95-98) L 03/10/17 08:30 ABG Base Excess 4.2 mEq/L (-2.0 to 3.0) H 03/10/17 08:30 Potassium 3.1 mEq/L (3.5-4.5) L 03/11/17 03:55 Chloride 97 mEq/L (98-109) L 03/11/17 03:55 Carbon Dioxide 31 mEq/L (19-29) H 03/11/17 03:55 BUN 38 mg/dL (7-20) H 03/11/17 03:55 BUN/Creatinine Ratio 49 (6-26) H 03/11/17 03:55 Glucose 159 mg/dL (70-99) H 03/11/17 03:55 POC Glucose 240 (58-89) H 03/11/17 00:18 Hemoglobin A1c 5.8 % (-5.6) H 02/23/17 00:42 Phosphorus 2.1 mg/dL (2.3-4.7) L 03/11/17 03:55 Magnesium 1.4 mg/dL (1.6-2.6) L 03/11/17 03:55 B-Natriuretic Peptide 1273 pg/mL (0-100) H 03/08/17 14:25 Serum Total Protein 5.6 g/dL (6.0-8.3) L 02/27/17 04:22 Albumin 2.6 g/dL (3.5-5.0) L 02/27/17 04:22 Albumin/Globulin Ratio 0.9 (1.1-2.2) L 02/27/17 04:22 Prealbumin 8.0 mg/dL (16.0-38.0) L 03/11/17 03:55 Ur Specimen Adequacy See below A 02/28/17 13:05 Urine Protein 30 mg/dL (Neg-Trace) H 02/28/17 13:05 Vancomycin Trough 31.2 mcg/mL (10-20) H* 03/02/17 11:55 - Clinical Findings Intake & Output: Intake & Output 03/10/17 03/11/17 03/11/17 23:59 07:59 15:59 Intake Total 100 / 100 450 / 450 Output Total 200 / 200 1999 Balance -100 / -100 -1550 / -1550 Weight 63.9 kg - VTE Documentation of Mechanical Device: Venous foot pump, device
[2017-03-11] MEDS: Furosemide 40 MG/4 ML VIAL IVP SCH (09:15)
[2017-03-11] MEDS: Pantoprazole 40 MG VIAL IVP SCH (09:15)
[2017-03-11] MEDS: Nicotine 14 MG PATCH.TD24 TD SCH (09:17)
[2017-03-11] MEDS: Metoclopramide 10 MG/2 ML VIAL IVP SCH ×2 (11:09→17:18)
[2017-03-11] MEDS ORDERED: Potassium Phosphate 44 MEQ in 0.9 % Sodium Chloride 250 ML IVPB PRN (11:35)
[2017-03-11] MEDS ORDERED: Magnesium Sulfate 2 GM in D5% in Water 100 ML IVPB PRN (11:35)
[2017-03-11] MEDS: Beclomethasone 80mcg MDI IH SCH ×2 (11:36→21:50)
--- NOTE | 2017-03-11 13:10 | Palliative Progress Note ---
Date of Encounter: 03/11/17 Time of Encounter: 12:15 - Assessment and plan (1) Abdominal pain Current Visit: Yes Status: Acute Assessment and plan: Status post small bowel resection. He appears to be well controlled. Patient got 2 doses of when necessary's yesterday to doses today. Patient is now taking by mouth again and will be back on her scheduled oxycodone. Surgery is following. Plan per Qualifiers: Abdominal location: generalized Qualified Code(s): R10.84 - Generalized abdominal pain (2) Goals of care, counseling/discussion Current Visit: Yes Status: Acute Assessment and plan: Last known intent is full code. Referring back to the previous palliative consult note does not appear that there was any significant discussion of this. However I presume that it was at least touched upon. He is unable to participate in a CODE STATUS discussion today I have been unable to reach her daughter who is her medical power of court liaison but will continue to try to do so. (3) COPD (chronic obstructive pulmonary disease) Current Visit: No Status: Chronic Assessment and plan: On BiPAP, she should seem to be making 3 steps forward 3-4 steps back. She does still a full code. Abdomen to reach family for CODE STATUS discussion. And as per the hospitalist in ICU team. Qualifiers: COPD type: unspecified COPD Qualified Code(s): J44.9 - Chronic obstructive pulmonary disease, unspecified (4) Partial small bowel obstruction Current Visit: Yes Status: Acute Assessment and plan: Surgery is following plan per surgery. Patient did pass her following evaluation this morning. He continues to be on TPN. (5) Malnutrition Current Visit: No Status: Acute Assessment and plan: She is currently on TPN but did pass swallow about this morning. Qualifiers: Qualified Code(s): E46 - Unspecified protein-calorie malnutrition (6) Dyspnea Current Visit: No Status: Acute Assessment and plan: She is currently on BiPAP. Oxygen saturations appear appropriate. Qualifiers: Dyspnea type: unspecified Qualified Code(s): R06.00 - Dyspnea, unspecified (7) Unable to eat Current Visit: Yes Status: Acute (8) Anxiety Current Visit: Yes Status: Chronic Assessment and plan: This is with the consult was originally 4. Patient's been doing fairly well with this. On trazodone at bedtime. And Effexor, patient is now getting tense by mouth and should be getting her medications. - Time Spent With Patient Total time spent is greater than 50% in coordination of care (as documented) at patient's floor/unit and/or counseling patient: - Subjective Interval history: Palliative care reconsult on [place]. Regarding goals of care and CODE STATUS. She is poorly responsive to verbal she is on BiPAP at this time. Is not seem to have any issues at this time and seems to be comfortable. - Constitutional Vitals: Abnormal lab results WBC 18.5 K/mcL (4.3-11.1) H 03/11/17 03:55 RBC 2.98 M/mcL (3.82-4.97) L 03/11/17 03:55 Hgb 9.2 g/dL (11.5-15.4) L 03/11/17 03:55 Hct 28.4 % (35.3-44.9) L 03/11/17 03:55 RDW 15.2 % (11.5-14.5) H 03/11/17 03:55 Immature Gran % 6.0 % (0-4) H 03/10/17 03:40 Band Neutrophils % 6.0 % (0-4) H 03/11/17 03:55 Metamyelocytes % 4.0 % (0) H 03/08/17 11:20 Myelocytes % 6.0 % (0) H 03/08/17 11:20 Neutrophils # 16.7 K/mcL (1.6-8.9) H 03/11/17 03:55 Nucleated RBCs/100 WBC 0.5 /100 WBC (0) H 03/11/17 03:55 Reactive Lymphocytes Present (Not Present) A 03/08/17 04:25 Smudge Cells Present (Not Present) A 03/08/17 04:25 Toxic Granulation Present (Not Present) A 03/08/17 04:25 Clumped Platelets Few (Not Present) A 03/08/17 04:25 Large Platelets Present (Not Present) A 03/08/17 04:25 Polychromasia 1+ (Not Present) A 03/11/17 03:55 Hypochromasia Present (Not Present) A 03/09/17 03:08 Anisocytosis 1+ (Not Present) A 03/11/17 03:55 PT 15.6 Seconds (9.4-12.1) H 03/09/17 03:08 ABG pCO2 54 mmHg (35-45) H 03/10/17 08:30 ABG pO2 52 mmHg (85-104) L 03/10/17 08:30 ABG HCO3 31 mEq/L (21-27) H 03/10/17 08:30 ABG Total CO2 32 mEq/L (20-26) H 03/10/17 08:30 ABG O2 Saturation 85 % (95-98) L 03/10/17 08:30 ABG Base Excess 4.2 mEq/L (-2.0 to 3.0) H 03/10/17 08:30 Potassium 3.1 mEq/L (3.5-4.5) L 03/11/17 03:55 Chloride 97 mEq/L (98-109) L 03/11/17 03:55 Carbon Dioxide 31 mEq/L (19-29) H 03/11/17 03:55 BUN 38 mg/dL (7-20) H 03/11/17 03:55 BUN/Creatinine Ratio 49 (6-26) H 03/11/17 03:55 Glucose 159 mg/dL (70-99) H 03/11/17 03:55 POC Glucose 240 (58-89) H 03/11/17 00:18 Hemoglobin A1c 5.8 % (-5.6) H 02/23/17 00:42 Phosphorus 2.1 mg/dL (2.3-4.7) L 03/11/17 03:55 Magnesium 1.4 mg/dL (1.6-2.6) L 03/11/17 03:55 B-Natriuretic Peptide 1273 pg/mL (0-100) H 03/08/17 14:25 Serum Total Protein 5.6 g/dL (6.0-8.3) L 02/27/17 04:22 Albumin 2.6 g/dL (3.5-5.0) L 02/27/17 04:22 Albumin/Globulin Ratio 0.9 (1.1-2.2) L 02/27/17 04:22 Prealbumin 8.0 mg/dL (16.0-38.0) L 03/11/17 03:55 Ur Specimen Adequacy See below A 02/28/17 13:05 Urine Protein 30 mg/dL (Neg-Trace) H 02/28/17 13:05 Vancomycin Trough 31.2 mcg/mL (10-20) H* 03/02/17 11:55 General appearance: Present: no acute distress - Head Head exam: Present: atraumatic, normal inspection - Eye Eye exam: Present: normal appearance - ENT ENT exam: Present: mucous membranes moist - Respiratory Respiratory exam: Present: decreased breath sounds, rhonchi - Cardiovascular Cardiovascular exam: Present: RRR - GI/Abdominal GI/Abdominal exam: Present: hypoactive bowel sounds, soft, tenderness - Extremities Exam Extremities exam: Absent: tenderness - Neurological Exam Neurological exam: Present: altered (Very poorly responsive to verbal stimuli.) - Psychiatric Psychiatric exam: Absent: agitated, anxious - Skin Skin exam: Present: dry, warm Palliative Quality Palliative Quality: Screen for Code Status: Yes, Screen for Goals of Care: Yes, Screen for Pain: Yes, If Pain Regimen Started, Initiate Bowel Regimen: Yes, Screen for Nausea/Vomitting: Yes - Labs CBC & Chem 7: 03/11/17 03:55 03/11/17 03:55 Labs: Laboratory Results - last 24 hr 03/10/17 03/10/17 03/10/17 04:14 07:09 11:33 WBC RBC Hgb Hct MCV MCH MCHC RDW Plt Count MPV Seg Neutrophils % Band Neutrophils % Lymphocytes % Monocytes % Neutrophils # Lymphocytes # Monocytes # Nucleated RBCs/100 WBC Platelet Estimate Polychromasia Anisocytosis Sodium Potassium Chloride Carbon Dioxide BUN Creatinine Est GFR ( Amer) Est GFR (Non-Af Amer) BUN/Creatinine Ratio Glucose POC Glucose 93 H 160 H 233 H Calculated Osmolality Calcium Phosphorus Magnesium Prealbumin 03/10/17 03/10/17 03/11/17 15:21 19:16 00:18 WBC RBC Hgb Hct MCV MCH MCHC RDW Plt Count MPV Seg Neutrophils % Band Neutrophils % Lymphocytes % Monocytes % Neutrophils # Lymphocytes # Monocytes # Nucleated RBCs/100 WBC Platelet Estimate Polychromasia Anisocytosis Sodium Potassium Chloride Carbon Dioxide BUN Creatinine Est GFR ( Amer) Est GFR (Non-Af Amer) BUN/Creatinine Ratio Glucose POC Glucose 181 H 139 H 240 H Calculated Osmolality Calcium Phosphorus Magnesium Prealbumin 03/11/17 03/11/17 03/11/17 03:55 03:55 03:55 WBC 18.5 H RBC 2.98 L Hgb 9.2 L Hct 28.4 L MCV 95.3 MCH 30.9 MCHC 32.4 RDW 15.2 H Plt Count 188 MPV 10.5 Seg Neutrophils % 84.0 Band Neutrophils % 6.0 H Lymphocytes % 6.0 Monocytes % 4.0 Neutrophils # 16.7 H Lymphocytes # 1.1 Monocytes # 0.7 Nucleated RBCs/100 WBC 0.5 H Platelet Estimate Normal Polychromasia 1+ A Anisocytosis 1+ A Sodium 137 Potassium 3.1 L Chloride 97 L Carbon Dioxide 31 H BUN 38 H Creatinine 0.77 Est GFR ( Amer) > 60 Est GFR (Non-Af Amer) > 60 BUN/Creatinine Ratio 49 H Glucose 159 H POC Glucose Calculated Osmolality 296 Calcium 8.8 Phosphorus 2.1 L Magnesium 1.4 L Prealbumin 03/11/17 03:55 WBC RBC Hgb Hct MCV MCH MCHC RDW Plt Count MPV Seg Neutrophils % Band Neutrophils % Lymphocytes % Monocytes % Neutrophils # Lymphocytes # Monocytes # Nucleated RBCs/100 WBC Platelet Estimate Polychromasia Anisocytosis Sodium Potassium Chloride Carbon Dioxide BUN Creatinine Est GFR ( Amer) Est GFR (Non-Af Amer) BUN/Creatinine Ratio Glucose POC Glucose Calculated Osmolality Calcium Phosphorus Magnesium Prealbumin 8.0 L - ABG Interpretation ABG results: ABG ABG pH 7.36 pH Units (7.32-7.45) 03/10/17 08:30 ABG pCO2 54 mmHg (35-45) H 03/10/17 08:30 ABG pO2 52 mmHg (85-104) L 03/10/17 08:30 ABG O2 Saturation 85 % (95-98) L 03/10/17 08:30 PT/INR, D-dimer PT 15.6 Seconds (9.4-12.1) H 03/09/17 03:08 Consult Discharge Plan - Plan Referrals: Jeff Cervantes MD [Primary Care Provider] -
[2017-03-11] MEDS ORDERED: Clinimix E 5%-15% SOLUTION 2,000 ML with MVI, adult with vitamin K 10 ML, Magnesium S... IVC SCH (17:00)
[2017-03-11] MEDS ORDERED: *HR* Warfarin 2 MG TABLET PO ONE (18:00)
[2017-03-11] MEDS ORDERED: Furosemide 40 MG/4 ML VIAL IVP SCH (21:00)
[2017-03-12] MEDS: Metoclopramide 10 MG/2 ML VIAL IVP SCH ×5 (00:24→23:30)
[2017-03-12] MEDS: Insulin LISPRO 300 UNITS/3 ML VIAL SQ SCH ×7 (00:25→23:33)
[2017-03-12] MEDS: *HR* Morphine 2 MG/ML SYRINGE IVP PRN ×3 (02:48→16:49)
[2017-03-12] MEDS: *HR* Enoxaparin 60 MG/0.6 ML SYRINGE SQ SCH ×2 (02:59→13:34)
[2017-03-12 03:11] LABS: Basophils % 0.2 %; Eosinophils # 0.2 K/mcL (0.0-0.6); Hematocrit 29.6 % (35.3-44.9); Hemoglobin 9.3 g/dL (11.5-15.4); Immature Granulocytes % 3.7 % (0-4); Lymphocytes # 0.7 K/mcL (0.6-4.6); Lymphocytes % 4.4 %; Mean Corpuscular HGB Conc 31.4 g/dL (31.6-35.5); Mean Corpuscular Hemoglobin 30.1 pg (28.0-33.3); Mean Corpuscular Volume 95.8 fL (83.0-100.0); Mean Platelet Volume 10.4 fL (9.4-12.4); Monocytes # 0.8 K/mcL (0.0-1.3); Monocytes % 4.6 %; Neutrophils # 14.1 K/mcL (1.6-8.9); Nucleated Red Blood Cells 0.4 /100 WBC (0); Platelet Count 191 K/mcL (140-400); Red Blood Count 3.09 M/mcL (3.82-4.97); Red Cell Distribution Width 15.5 % (11.5-14.5); Segmented Neutrophils % 86.1 %
[2017-03-12 03:16] LABS: INR 1.3; Prothrombin Time 14.4 Seconds (9.4-12.1)
[2017-03-12 03:27] LABS: Magnesium 1.4 mg/dL (1.6-2.6); Phosphorous 2.6 mg/dL (2.3-4.7)
[2017-03-12 03:28] LABS: BUN/Creatinine Ratio 57 (6-26); Blood Urea Nitrogen 39 mg/dL (7-20); Calcium 8.8 mg/dL (8.6-10.8); Carbon Dioxide 33 mEq/L (19-29); Chloride 98 mEq/L (98-109); Glucose 109 mg/dL (70-99); Osmolality,Calculated 298 (280-300); Potassium 3.2 mEq/L (3.5-4.5); Sodium 139 mEq/L (136-145); eGFR For African Americans > 60 (> 60); eGFR For Non-African Americans > 60 (> 60)
[2017-03-12] MEDS: Ipratropium/Albuterol Neb 3 ML IH SCH ×4 (03:51→21:59)
[2017-03-12] MEDS: *HR* OxyCODONE ER (12 HR) 20 MG TABLET PO SCH ×3 (04:21→20:13)
[2017-03-12] MEDS: *HR* Metoprolol 5 MG/5 ML VIAL IVP PRN (05:12)
[2017-03-12] MEDS: *HR* HYDROmorphone (PF) 1 MG/ML SYRINGE IVP PRN ×4 (07:04→23:20)
[2017-03-12] MEDS: Furosemide 40 MG/4 ML VIAL IVP SCH (08:58)
[2017-03-12] MEDS: Pantoprazole 40 MG VIAL IVP SCH (08:58)
--- NOTE | 2017-03-12 09:35 | Internal Med Progress Note ---
Date of Encounter: 03/12/17 - Assessment and plan (1) Acute on chronic respiratory failure Current Visit: Yes Status: Acute Qualifiers: Respiratory failure complication: hypercapnia Qualified Code(s): J96.22 - Acute and chronic respiratory failure with hypercapnia (2) Acute decompensated heart failure Current Visit: Yes Status: Acute (3) Ischemic necrosis of small bowel Current Visit: Yes Status: Acute (4) DVT of axillary vein, acute right Current Visit: Yes Status: Acute (5) Difficulty swallowing liquids Current Visit: Yes Status: Acute (6) CAD (coronary artery disease) Current Visit: Yes Status: Chronic Qualifiers: Coronary Disease-Associated Artery/Lesion type: [place] artery [place] vs. transplanted heart: [place] heart Associated angina: without angina Qualified Code(s): I25.10 - Atherosclerotic heart disease of [place] coronary artery without angina pectoris (7) Anemia Current Visit: Yes Status: Acute Qualifiers: Anemia type: other cause Other causes of anemia: chronic disease, other Qualified Code(s): D63.8 - Anemia in other chronic diseases classified elsewhere (8) DVT prophylaxis Current Visit: Yes Status: Acute (9) Hypertension Current Visit: Yes Status: Chronic Qualifiers: Hypertension type: essential hypertension Qualified Code(s): I10 - Essential (primary) hypertension - Subjective Interval history: Pt is a 71F with PMHx of afib, CHF, COPD, CAD, and CKD initially presenting with pSBO with progression to ischemic necrosis and ceiliostomy with cmall bowel resection. Pit is POD #15. Also with DVT of left axillary vein currently LMWH SQ on ICU day #3 for acue on chronic respiratory failure. Overnight, patient found to be hypertensive in the 180's/70's. This morning patient given metoprolol and hydralazine with improvement to 160's/70. - Constitutional Vitals: Temp Pulse Resp BP Pulse Ox 99.6 F 68 36 165/74 100 03/12/17 07:14 03/12/17 09:00 03/12/17 09:00 03/12/17 09:00 03/12/17 09:00 General appearance: Present: A&O X 3, answers questions appropriately Internal Medicine: Result - Labs CBC & Chem 7: 03/12/17 03:00 03/12/17 03:00 Labs: Short CBC 03/12/17 Range/Units 03:00 WBC 16.4 H (4.3-11.1) K/mcL Hgb 9.3 L (11.5-15.4) g/dL Hct 29.6 L (35.3-44.9) % Plt Count 191 (140-400) K/mcL Neutrophils # 14.1 H (1.6-8.9) K/mcL BMP 03/12/17 03:00 Sodium 139 Potassium 3.2 L Chloride 98 Carbon Dioxide 33 H BUN 39 H Creatinine 0.69 Glucose 109 H Calcium 8.8 - ABG Interpretation ABG results: ABG ABG pH 7.36 pH Units (7.32-7.45) 03/10/17 08:30 ABG pCO2 54 mmHg (35-45) H 03/10/17 08:30 ABG pO2 52 mmHg (85-104) L 03/10/17 08:30 ABG O2 Saturation 85 % (95-98) L 03/10/17 08:30 PT/INR, D-dimer PT 14.4 Seconds (9.4-12.1) H 03/12/17 03:00 - VTE Documentation of Mechanical Device: Venous foot pump, device Consult Discharge Plan - Plan Referrals: Jeff Cervantes MD [Primary Care Provider] -
--- NOTE | 2017-03-12 09:36 | Pulmonology Progress Note ---
<Jason Sequeira W - Last Filed: 03/12/17 11:07> Date of Encounter: 03/12/17 Assessment and Plan (1) Encephalopathy Current Visit: Yes Status: Acute (2) Acute exacerbation of chronic obstructive airways disease Current Visit: Yes Status: Acute (3) CAD (coronary artery disease) Current Visit: Yes Status: Chronic Qualifiers: Coronary Disease-Associated Artery/Lesion type: [place]oh artery [place] vs. transplanted heart: [place] heart Associated angina: without angina Qualified Code(s): I25.10 - Atherosclerotic heart disease of [place] coronary artery without angina pectoris (4) Atrial fibrillation Current Visit: Yes Status: Chronic Qualifiers: Atrial fibrillation type: chronic Qualified Code(s): I48.2 - Chronic atrial fibrillation (5) Acute on chronic respiratory failure Current Visit: Yes Status: Acute Qualifiers: Respiratory failure complication: hypercapnia Qualified Code(s): J96.22 - Acute and chronic respiratory failure with hypercapnia (6) Chronic combined systolic and diastolic congestive heart failure Current Visit: Yes Status: Chronic (7) PNA (pneumonia) Current Visit: Yes Status: Acute Qualifiers: Pneumonia type: due to unspecified organism Laterality: bilateral Lung location: lower lobe of lung Qualified Code(s): J18.9 - Pneumonia, unspecified organism (8) Sepsis Current Visit: Yes Status: Acute Qualifiers: Sepsis type: sepsis due to unspecified organism Qualified Code(s): A41.9 - Sepsis, unspecified organism (9) Partial small bowel obstruction Current Visit: Yes Status: Acute (10) Moderate protein-calorie malnutrition Current Visit: Yes Status: Acute (11) Hyperkalemia Current Visit: Yes Status: Acute Objective PUL Vital signs: Last Vital Signs Temp 99.6 F 03/12/17 07:14 Pulse 68 03/12/17 09:00 Resp 36 03/12/17 09:00 BP 165/74 03/12/17 09:00 Pulse Ox 100 03/12/17 09:00 Results - Laboratory Findings CBC and BMP: 03/12/17 03:00 03/12/17 03:00 ABG ABG pH 7.36 pH Units (7.32-7.45) 03/10/17 08:30 ABG pCO2 54 mmHg (35-45) H 03/10/17 08:30 ABG pO2 52 mmHg (85-104) L 03/10/17 08:30 ABG O2 Saturation 85 % (95-98) L 03/10/17 08:30 PT/INR, D-dimer PT 14.4 Seconds (9.4-12.1) H 03/12/17 03:00 Abnormal lab findings: Abnormal lab results WBC 16.4 K/mcL (4.3-11.1) H 03/12/17 03:00 RBC 3.09 M/mcL (3.82-4.97) L 03/12/17 03:00 Hgb 9.3 g/dL (11.5-15.4) L 03/12/17 03:00 Hct 29.6 % (35.3-44.9) L 03/12/17 03:00 MCHC 31.4 g/dL (31.6-35.5) L 03/12/17 03:00 RDW 15.5 % (11.5-14.5) H 03/12/17 03:00 Band Neutrophils % 6.0 % (0-4) H 03/11/17 03:55 Metamyelocytes % 4.0 % (0) H 03/08/17 11:20 Myelocytes % 6.0 % (0) H 03/08/17 11:20 Neutrophils # 14.1 K/mcL (1.6-8.9) H 03/12/17 03:00 Nucleated RBCs/100 WBC 0.4 /100 WBC (0) H 03/12/17 03:00 Reactive Lymphocytes Present (Not Present) A 03/08/17 04:25 Smudge Cells Present (Not Present) A 03/08/17 04:25 Toxic Granulation Present (Not Present) A 03/08/17 04:25 Clumped Platelets Few (Not Present) A 03/08/17 04:25 Large Platelets Present (Not Present) A 03/08/17 04:25 Polychromasia 1+ (Not Present) A 03/11/17 03:55 Hypochromasia Present (Not Present) A 03/09/17 03:08 Anisocytosis 1+ (Not Present) A 03/11/17 03:55 PT 14.4 Seconds (9.4-12.1) H 03/12/17 03:00 ABG pCO2 54 mmHg (35-45) H 03/10/17 08:30 ABG pO2 52 mmHg (85-104) L 03/10/17 08:30 ABG HCO3 31 mEq/L (21-27) H 03/10/17 08:30 ABG Total CO2 32 mEq/L (20-26) H 03/10/17 08:30 ABG O2 Saturation 85 % (95-98) L 03/10/17 08:30 ABG Base Excess 4.2 mEq/L (-2.0 to 3.0) H 03/10/17 08:30 Potassium 3.2 mEq/L (3.5-4.5) L 03/12/17 03:00 Carbon Dioxide 33 mEq/L (19-29) H 03/12/17 03:00 BUN 39 mg/dL (7-20) H 03/12/17 03:00 BUN/Creatinine Ratio 57 (6-26) H 03/12/17 03:00 Glucose 109 mg/dL (70-99) H 03/12/17 03:00 POC Glucose 187 (58-89) H 03/11/17 23:37 Hemoglobin A1c 5.8 % (-5.6) H 02/23/17 00:42 Magnesium 1.4 mg/dL (1.6-2.6) L 03/12/17 03:00 B-Natriuretic Peptide 1273 pg/mL (0-100) H 03/08/17 14:25 Serum Total Protein 5.6 g/dL (6.0-8.3) L 02/27/17 04:22 Albumin 2.6 g/dL (3.5-5.0) L 02/27/17 04:22 Albumin/Globulin Ratio 0.9 (1.1-2.2) L 02/27/17 04:22 Prealbumin 8.0 mg/dL (16.0-38.0) L 03/11/17 03:55 Ur Specimen Adequacy See below A 02/28/17 13:05 Urine Protein 30 mg/dL (Neg-Trace) H 02/28/17 13:05 Vancomycin Trough 31.2 mcg/mL (10-20) H* 03/02/17 11:55 - Clinical Findings Intake & Output: Intake & Output 03/11/17 03/12/17 03/12/17 23:59 07:59 15:59 Intake Total 250 / 250 Output Total 550 / 550 1300 / 1300 Balance -550 / -550 -1050 / -1050 Weight 63.5 kg Consult Discharge Plan - Plan Referrals: Jeff Cervantes MD [Primary Care Provider] - - Attending Attestation I examined this patient and my medical decision-making was reviewed with the Resident Physician. I agree with the documented findings, disposition and treatment plan as described except to the extent set forth below. We independently had [id number] contact with the patient Patient seen and examined at bedside Labs, radiology, chart personally reviewed. Management was reviewed during multidisciplinary critical care rounds. Neuropsych: Awake and alert today. Severe undlerlying chronic pain and anxiety being managed with narcotics and home antianxiety medications. Pulm: Acute on Chronic Hypoxic respiratory failure. multifactorial including underlying COPD, PNA, Post operative ATx and CHF. Cont Bipap for work of breathing and cont bronchodilators. Cards: HFrEF HTN and AFIB continues to be volume overloaded and BP suboptimally controlled we are adjusting her BP regimen and will cont Diuresis FEN-GI: Cont TPN ADAT enterally as able. Nutrition following. s/p Small Bowel resection Renal: No evidence of SYLWIA. Cont to monitor UOP and replace elecrolytes per protocol while active diuresis ID: reated for PNA and possible intraabdominal sepsis. Monitoring of ABx. Heme/Onc: RUE DV (related to PICC) cont Lovenox with plan for bridging to warfarin. She will also need LTA for chronic AFib. Endo: Glucose Monitored Integ/MSK: Skin Care per routine ICU Nursing Protocol to prevent ulcers. PT/OT consult Lines: All lines examined without evidence of infection including: Left PICC> Dispo: Stable for transfer to SDU. CODE:DNAR/DNI Appreciate Palliative Care recs. Overall prognosis is poor given chronic debilitation prior to surgery and degree of respiratory failure after surgery will need ongoing goals of care discussion and possible transition to comfort measures if further clinical deterioration. <Randall Garces - Last Filed: 03/12/17 13:58> Date of Encounter: 03/12/17 Time of Encounter: 09:36 Assessment and Plan (1) Acute on chronic respiratory failure Current Visit: Yes Status: Acute Her breathing is stable at this time. Continue to wean of BiPAP and onto 3L NC Lasix changed to 40mg IV OD Continue breathing treatments as needed Palliative consulted to discuss Goals of therapy including code status of patient. Patient code status changed from Full Code to DNRCCA and DNI Qualifiers: Respiratory failure complication: hypercapnia Qualified Code(s): J96.22 - Acute and chronic respiratory failure with hypercapnia (2) Acute decompensated heart failure Current Visit: Yes Status: Acute Currently on diuresis with 40 IV OD CXR did demonstrate vascular congestion bilaterally I/O's yesterday were -2.6L. Cumulative 28.3/25.9 +2.4L out Magnesium was 1.4 - replacing with 2g and potassium was 3.2 currently receiving 20meq (3) Hypertension Current Visit: Yes Status: Chronic PRN Hyldralazine Systolic > 160 carvedilol 25 mg BID PO Patient given dilaudid for pain as well. Qualifiers: Hypertension type: essential hypertension Qualified Code(s): I10 - Essential (primary) hypertension (4) Ischemic necrosis of small bowel Current Visit: Yes Status: Acute POD #16 exploratory ceiliotomy with small bowel resection Zosyn stopped yesterday. (5) DVT of axillary vein, acute right Current Visit: Yes Status: Acute Continue on Lovenox SQ BID; no pain her arm or shortness of breath She will need to resume her Coumadin prior to discharge Coumadin started last night. Will have the pharmacist dose the coumadin this evening until patient is therapeutic. (6) Difficulty swallowing liquids Current Visit: Yes Status: Acute Continue to sit up at 90 degree angle for PO intake. (7) CAD (coronary artery disease) Current Visit: Yes Status: Chronic No chest pain at this time Continue home ASA, BB, Zocor Qualifiers: Coronary Disease-Associated Artery/Lesion type: [place] artery [place] vs. transplanted heart: [place] heart Associated angina: without angina Qualified Code(s): I25.10 - Atherosclerotic heart disease of [place] coronary artery without angina pectoris (8) Anemia Current Visit: Yes Status: Acute Hb has been stable last few days without any signs of bleeding She did have 2 units pRBCs transfused during this visit Qualifiers: Anemia type: other cause Other causes of anemia: chronic disease, other Qualified Code(s): D63.8 - Anemia in other chronic diseases classified elsewhere (9) DVT prophylaxis Current Visit: Yes Status: Acute Currently on therapeutic Lovenox for RUE DVT Subjective Principal diagnosis: s/p exploratory celiostomy with SBR Interval history: ICU day #4. Yesterday evening patient was off bipap and on NC until about 21: 00. Then she was placed on BiPAP. She took the bipap off this morning around 3: 00 AM and became tachypnic and was placed back on. Objective PUL Vital signs: Last Vital Signs Temp 99.6 F 03/12/17 07:14 Pulse 68 03/12/17 09:00 Resp 36 03/12/17 09:00 BP 165/74 03/12/17 09:00 Pulse Ox 100 03/12/17 09:00 General appearance: no acute distress Eyes: nonicteric ENT: oropharynx dry Neck: supple Effort: mildly labored Auscultation: bilateral: clear Cardiovascular: regular rate and rhythm Gastrointestinal: normoactive bowel sounds, non-tender Integumentary: normal Extremities: no cyanosis, no edema Musculoskeletal: no deformities normal mental status Results - Laboratory Findings CBC and BMP: 03/12/17 03:00 03/12/17 03:00 ABG ABG pH 7.36 pH Units (7.32-7.45) 03/10/17 08:30 ABG pCO2 54 mmHg (35-45) H 03/10/17 08:30 ABG pO2 52 mmHg (85-104) L 03/10/17 08:30 ABG O2 Saturation 85 % (95-98) L 03/10/17 08:30 PT/INR, D-dimer PT 14.4 Seconds (9.4-12.1) H 03/12/17 03:00 Abnormal lab findings: Abnormal lab results WBC 16.4 K/mcL (4.3-11.1) H 03/12/17 03:00 RBC 3.09 M/mcL (3.82-4.97) L 03/12/17 03:00 Hgb 9.3 g/dL (11.5-15.4) L 03/12/17 03:00 Hct 29.6 % (35.3-44.9) L 03/12/17 03:00 MCHC 31.4 g/dL (31.6-35.5) L 03/12/17 03:00 RDW 15.5 % (11.5-14.5) H 03/12/17 03:00 Band Neutrophils % 6.0 % (0-4) H 03/11/17 03:55 Metamyelocytes % 4.0 % (0) H 03/08/17 11:20 Myelocytes % 6.0 % (0) H 03/08/17 11:20 Neutrophils # 14.1 K/mcL (1.6-8.9) H 03/12/17 03:00 Nucleated RBCs/100 WBC 0.4 /100 WBC (0) H 03/12/17 03:00 Reactive Lymphocytes Present (Not Present) A 03/08/17 04:25 Smudge Cells Present (Not Present) A 03/08/17 04:25 Toxic Granulation Present (Not Present) A 03/08/17 04:25 Clumped Platelets Few (Not Present) A 03/08/17 04:25 Large Platelets Present (Not Present) A 03/08/17 04:25 Polychromasia 1+ (Not Present) A 03/11/17 03:55 Hypochromasia Present (Not Present) A 03/09/17 03:08 Anisocytosis 1+ (Not Present) A 03/11/17 03:55 PT 14.4 Seconds (9.4-12.1) H 03/12/17 03:00 ABG pCO2 54 mmHg (35-45) H 03/10/17 08:30 ABG pO2 52 mmHg (85-104) L 03/10/17 08:30 ABG HCO3 31 mEq/L (21-27) H 03/10/17 08:30 ABG Total CO2 32 mEq/L (20-26) H 03/10/17 08:30 ABG O2 Saturation 85 % (95-98) L 03/10/17 08:30 ABG Base Excess 4.2 mEq/L (-2.0 to 3.0) H 03/10/17 08:30 Potassium 3.2 mEq/L (3.5-4.5) L 03/12/17 03:00 Carbon Dioxide 33 mEq/L (19-29) H 03/12/17 03:00 BUN 39 mg/dL (7-20) H 03/12/17 03:00 BUN/Creatinine Ratio 57 (6-26) H 03/12/17 03:00 Glucose 109 mg/dL (70-99) H 03/12/17 03:00 POC Glucose 187 (58-89) H 03/11/17 23:37 Hemoglobin A1c 5.8 % (-5.6) H 02/23/17 00:42 Magnesium 1.4 mg/dL (1.6-2.6) L 03/12/17 03:00 B-Natriuretic Peptide 1273 pg/mL (0-100) H 03/08/17 14:25 Serum Total Protein 5.6 g/dL (6.0-8.3) L 02/27/17 04:22 Albumin 2.6 g/dL (3.5-5.0) L 02/27/17 04:22 Albumin/Globulin Ratio 0.9 (1.1-2.2) L 02/27/17 04:22 Prealbumin 8.0 mg/dL (16.0-38.0) L 03/11/17 03:55 Ur Specimen Adequacy See below A 02/28/17 13:05 Urine Protein 30 mg/dL (Neg-Trace) H 02/28/17 13:05 Vancomycin Trough 31.2 mcg/mL (10-20) H* 03/02/17 11:55 - Clinical Findings Intake & Output: Intake & Output 03/11/17 03/12/17 03/12/17 23:59 07:59 15:59 Intake Total 250 / 250 Output Total 550 / 550 1300 / 1300 Balance -550 / -550 -1050 / -1050 Weight 63.5 kg - VTE Documentation of Mechanical Device: Venous foot pump, device
[2017-03-12] MEDS: Beclomethasone 80mcg MDI IH SCH ×2 (09:43→21:59)
--- NOTE | 2017-03-12 11:23 | Palliative Progress Note ---
Date of Encounter: 03/12/17 Time of Encounter: 09:10 - Assessment and plan (1) Abdominal pain Current Visit: Yes Status: Acute Assessment and plan: Status post small bowel resection. He appears to be well controlled. Patient got 2 doses of when necessary's yesterday to doses today. Patient is now taking by mouth again and will be back on her scheduled oxycodone. Surgery is following. Plan per surgery Qualifiers: Abdominal location: generalized Qualified Code(s): R10.84 - Generalized abdominal pain (2) Goals of care, counseling/discussion Current Visit: Yes Status: Acute Assessment and plan: d/w daughter yestereday. she d/w patient and requested dnr a status per nurseing staff last pm. I have confirmed with the patient that this morning and I have placed a DNR a DNI order in for her. goals is utimatly to go home but will probably need rehab. will try to reach daughter this afternoon (3) COPD (chronic obstructive pulmonary disease) Current Visit: No Status: Chronic Assessment and plan: On BiPAP, she should seem to be making 3 steps forward 3-4 steps back. She is now dnr a dni plan per icu team Qualifiers: COPD type: unspecified COPD Qualified Code(s): J44.9 - Chronic obstructive pulmonary disease, unspecified (4) Partial small bowel obstruction Current Visit: Yes Status: Acute Assessment and plan: Surgery is following plan per surgery. Patient did pass her following evaluation this morning. He continues to be on TPN. (5) Malnutrition Current Visit: No Status: Acute Assessment and plan: She is currently on TPN but did pass swallow about this morning. Qualifiers: Qualified Code(s): E46 - Unspecified protein-calorie malnutrition (6) Dyspnea Current Visit: No Status: Acute Assessment and plan: She is currently on BiPAP. Oxygen saturations appear appropriate. Qualifiers: Dyspnea type: unspecified Qualified Code(s): R06.00 - Dyspnea, unspecified (7) Unable to eat Current Visit: Yes Status: Acute Assessment and plan: is now starting to eat (8) Anxiety Current Visit: Yes Status: Chronic Assessment and plan: This is with the consult was originally 4. Patient's been doing fairly well with this. On trazodone at bedtime. And Effexor, patient is now getting tense by mouth and should be getting her medications. - Time Spent With Patient Total time spent is greater than 50% in coordination of care (as documented) at patient's floor/unit and/or counseling patient: - Subjective Interval history: Palliative care reconsult on [place]. Patient on BiPAP but much more responsive this morning. RN Harvey Lei also in attendance. Patient did state that he wished to be DNR a DNI. I had discussed this at length with her daughter yesterday to discuss this further with her mom yesterday afternoon. I was notified by nursing staff that she wanted to have a DNR a placed. Was not clear on the DNI until the patient told me so. She has no complaints of this morning other than short of breath although she is doing much better now she is back on BiPAP. - Constitutional Vitals: Abnormal lab results WBC 16.4 K/mcL (4.3-11.1) H 03/12/17 03:00 RBC 3.09 M/mcL (3.82-4.97) L 03/12/17 03:00 Hgb 9.3 g/dL (11.5-15.4) L 03/12/17 03:00 Hct 29.6 % (35.3-44.9) L 03/12/17 03:00 MCHC 31.4 g/dL (31.6-35.5) L 03/12/17 03:00 RDW 15.5 % (11.5-14.5) H 03/12/17 03:00 Band Neutrophils % 6.0 % (0-4) H 03/11/17 03:55 Metamyelocytes % 4.0 % (0) H 03/08/17 11:20 Myelocytes % 6.0 % (0) H 03/08/17 11:20 Neutrophils # 14.1 K/mcL (1.6-8.9) H 03/12/17 03:00 Nucleated RBCs/100 WBC 0.4 /100 WBC (0) H 03/12/17 03:00 Reactive Lymphocytes Present (Not Present) A 03/08/17 04:25 Smudge Cells Present (Not Present) A 03/08/17 04:25 Toxic Granulation Present (Not Present) A 03/08/17 04:25 Clumped Platelets Few (Not Present) A 03/08/17 04:25 Large Platelets Present (Not Present) A 03/08/17 04:25 Polychromasia 1+ (Not Present) A 03/11/17 03:55 Hypochromasia Present (Not Present) A 03/09/17 03:08 Anisocytosis 1+ (Not Present) A 03/11/17 03:55 PT 14.4 Seconds (9.4-12.1) H 03/12/17 03:00 ABG pCO2 54 mmHg (35-45) H 03/10/17 08:30 ABG pO2 52 mmHg (85-104) L 03/10/17 08:30 ABG HCO3 31 mEq/L (21-27) H 03/10/17 08:30 ABG Total CO2 32 mEq/L (20-26) H 03/10/17 08:30 ABG O2 Saturation 85 % (95-98) L 03/10/17 08:30 ABG Base Excess 4.2 mEq/L (-2.0 to 3.0) H 03/10/17 08:30 Potassium 3.2 mEq/L (3.5-4.5) L 03/12/17 03:00 Carbon Dioxide 33 mEq/L (19-29) H 03/12/17 03:00 BUN 39 mg/dL (7-20) H 03/12/17 03:00 BUN/Creatinine Ratio 57 (6-26) H 03/12/17 03:00 Glucose 109 mg/dL (70-99) H 03/12/17 03:00 POC Glucose 187 (58-89) H 03/11/17 23:37 Hemoglobin A1c 5.8 % (-5.6) H 02/23/17 00:42 Magnesium 1.4 mg/dL (1.6-2.6) L 03/12/17 03:00 B-Natriuretic Peptide 1273 pg/mL (0-100) H 03/08/17 14:25 Serum Total Protein 5.6 g/dL (6.0-8.3) L 02/27/17 04:22 Albumin 2.6 g/dL (3.5-5.0) L 02/27/17 04:22 Albumin/Globulin Ratio 0.9 (1.1-2.2) L 02/27/17 04:22 Prealbumin 8.0 mg/dL (16.0-38.0) L 03/11/17 03:55 Ur Specimen Adequacy See below A 02/28/17 13:05 Urine Protein 30 mg/dL (Neg-Trace) H 02/28/17 13:05 Vancomycin Trough 31.2 mcg/mL (10-20) H* 03/02/17 11:55 General appearance: Present: no acute distress - Head Head exam: Present: atraumatic, normal inspection - Eye Eye exam: Present: normal appearance, PERRL - ENT ENT exam: Present: normal exam - Respiratory Respiratory exam: Present: decreased breath sounds - Cardiovascular Cardiovascular exam: Present: RRR - GI/Abdominal GI/Abdominal exam: Present: hypoactive bowel sounds, soft. Absent: tenderness - Extremities Exam Extremities exam: Present: pedal edema. Absent: tenderness - Neurological Exam Neurological exam: Present: alert - Psychiatric Psychiatric exam: Absent: agitated, anxious - Skin Skin exam: Present: dry, warm Palliative Quality Palliative Quality: Screen for Code Status: Yes, Screen for Goals of Care: Yes, Screen for Pain: Yes, If Pain Regimen Started, Initiate Bowel Regimen: Yes, Screen for Nausea/Vomitting: Yes Code Status: 02/22/17 21:52 Resuscitation Status: Active [RES] Routine Comment: Resuscitation Status: [id number] - Labs CBC & Chem 7: 03/12/17 03:00 03/12/17 03:00 Labs: Laboratory Results - last 24 hr 03/11/17 03/11/17 03/11/17 04:08 07:33 11:28 WBC RBC Hgb Hct MCV MCH MCHC RDW Plt Count MPV Immature Gran % Seg Neutrophils % Lymphocytes % Monocytes % Eosinophils % Basophils % Neutrophils # Lymphocytes # Monocytes # Eosinophils # Basophils # Nucleated RBCs/100 WBC PT INR Sodium Potassium Chloride Carbon Dioxide BUN Creatinine Est GFR ( Amer) Est GFR (Non-Af Amer) BUN/Creatinine Ratio Glucose POC Glucose 166 H 164 H 179 H Calculated Osmolality Calcium Phosphorus Magnesium 03/11/17 03/11/17 03/11/17 15:43 19:13 23:37 WBC RBC Hgb Hct MCV MCH MCHC RDW Plt Count MPV Immature Gran % Seg Neutrophils % Lymphocytes % Monocytes % Eosinophils % Basophils % Neutrophils # Lymphocytes # Monocytes # Eosinophils # Basophils # Nucleated RBCs/100 WBC PT INR Sodium Potassium Chloride Carbon Dioxide BUN Creatinine Est GFR ( Amer) Est GFR (Non-Af Amer) BUN/Creatinine Ratio Glucose POC Glucose 163 H 131 H 187 H Calculated Osmolality Calcium Phosphorus Magnesium 03/12/17 03/12/17 03/12/17 03:00 03:00 03:00 WBC 16.4 H RBC 3.09 L Hgb 9.3 L Hct 29.6 L MCV 95.8 MCH 30.1 MCHC 31.4 L RDW 15.5 H Plt Count 191 MPV 10.4 Immature Gran % 3.7 Seg Neutrophils % 86.1 Lymphocytes % 4.4 Monocytes % 4.6 Eosinophils % 1.0 Basophils % 0.2 Neutrophils # 14.1 H Lymphocytes # 0.7 Monocytes # 0.8 Eosinophils # 0.2 Basophils # 0.0 Nucleated RBCs/100 WBC 0.4 H PT INR Sodium 139 Potassium 3.2 L Chloride 98 Carbon Dioxide 33 H BUN 39 H Creatinine 0.69 Est GFR ( Amer) > 60 Est GFR (Non-Af Amer) > 60 BUN/Creatinine Ratio 57 H Glucose 109 H POC Glucose Calculated Osmolality 298 Calcium 8.8 Phosphorus 2.6 Magnesium 1.4 L 03/12/17 03:00 WBC RBC Hgb Hct MCV MCH MCHC RDW Plt Count MPV Immature Gran % Seg Neutrophils % Lymphocytes % Monocytes % Eosinophils % Basophils % Neutrophils # Lymphocytes # Monocytes # Eosinophils # Basophils # Nucleated RBCs/100 WBC PT 14.4 H INR 1.3 Sodium Potassium Chloride Carbon Dioxide BUN Creatinine Est GFR ( Amer) Est GFR (Non-Af Amer) BUN/Creatinine Ratio Glucose POC Glucose Calculated Osmolality Calcium Phosphorus Magnesium - Impressions Impressions Chest X-Ray 03/10/17 07:28 IMPRESSION: Worsening consolidation in the medial left lung base could be due to pneumonia or atelectasis. Other stable areas of consolidation and pulmonary vascular indistinctness favor pulmonary edema. D/ / 03/10/2017 11:26:23 Indio Conti MD / Yaz Covarrubias Interpreting Provider: Indio Conti MD - ABG Interpretation ABG results: ABG ABG pH 7.36 pH Units (7.32-7.45) 03/10/17 08:30 ABG pCO2 54 mmHg (35-45) H 10/01/17 08:30 ABG pO2 52 mmHg (85-104) L 03/10/17 08:30 ABG O2 Saturation 85 % (95-98) L 03/10/17 08:30 PT/INR, D-dimer PT 14.4 Seconds (9.4-12.1) H 03/12/17 03:00 Consult Discharge Plan - Plan Referrals: Jeff Cervantes MD [Primary Care Provider] -
[2017-03-12] MEDS: Nicotine 14 MG PATCH.TD24 TD SCH (11:29)
[2017-03-12] MEDS: Polymyxn-B/Trimeth Opth Drops 10 ML BOTTLE LEFT EYE SCH ×4 (12:03→20:13)
[2017-03-12] MEDS: Ranolazine 500 MG TAB.ER.12H PO SCH ×2 (12:52→20:13)
[2017-03-12] MEDS: Nystatin SUSP 5 ML UD.LIQ PO SCH ×4 (12:52→20:13)
--- NOTE | 2017-03-12 13:14 | General Surgery Progress Note ---
<Lorie Salas Christopher - Last Filed: 03/12/17 13:03> Date of Encounter: 03/12/17 Time of Encounter: 12:45 - Assessment and Plan (1) Ischemic necrosis of small bowel Current Visit: Yes Status: Acute POD #16 Exploratory ceiliotomy, Small bowel resection Soft, chopped meat diet and ensure protein supplements TID Speech has evaluated and signed off TPN therapy for nutritional support NG discontinued 02/28/17; ileus resolved Daily wound care- cleanse with soap and water, pack with Mesalt ribbon cut down to 1/4 inch, cover with ABD pad and tape to secure with medipore tape WBC- 18.5>16.4 IV antibiotics stopped- course completed PT OT is following. Out of bed as tolerated per PT/OT recommendations Supportive care and pain control PPI therapy daily Repeat am labs (2) Partial small bowel obstruction Current Visit: Yes Status: Acute See plan under ischemic bowel (3) Moderate protein-calorie malnutrition Current Visit: Yes Status: Acute Soft, chopped meat diet and ensure protein supplements TID with meals TPN therapy for nutritional support (4) PNA (pneumonia) Current Visit: Yes Status: Acute Management per pulmonary critical care IV antibiotics stopped- course complete Bipap support Qualifiers: Pneumonia type: due to unspecified organism Laterality: bilateral Lung location: lower lobe of lung Qualified Code(s): J18.9 - Pneumonia, unspecified organism (5) Anemia Current Visit: Yes Status: Acute Hgb stable Management per medicine service Repeat am labs Qualifiers: Anemia type: other cause Other causes of anemia: chronic disease, other Qualified Code(s): D63.8 - Anemia in other chronic diseases classified elsewhere (6) Acute on chronic respiratory failure Current Visit: Yes Status: Acute Currently on bipap support Management per pulmonary/critical care team Qualifiers: Respiratory failure complication: hypercapnia Qualified Code(s): J96.22 - Acute and chronic respiratory failure with hypercapnia (7) Atrial fibrillation Current Visit: Yes Status: Chronic Rate controlled Coumadin resumed INR- 1.3 Management per medicine service Qualifiers: Atrial fibrillation type: chronic Qualified Code(s): I48.2 - Chronic atrial fibrillation (8) DVT prophylaxis Current Visit: Yes Status: Acute Therapeutic lovenox BID INR- 1.3; coumadin daily Subjective Patient reports: bowel movement (03/11/17), afebrile, other (Patient resting comfortably on bipap support) Objective Vital Signs - Last 8 Hours Temp Pulse Resp BP Pulse Ox 03/12/17 12:00 69 26 182/80 100 03/12/17 11:54 97.8 F 03/12/17 11:00 69 23 174/73 93 03/12/17 10:00 69 30 162/75 100 03/12/17 09:43 22 167/77 100 03/12/17 09:00 68 36 165/74 100 03/12/17 08:00 84 34 183/86 91 03/12/17 07:43 70 03/12/17 07:14 99.6 F 03/12/17 07:00 70 34 192/104 92 03/12/17 06:00 69 23 188/94 86 Intake and Output 03/11/17 03/12/17 03/12/17 23:59 07:59 15:59 Intake Total 454 / 454 20 / 20 Output Total 550 / 550 1300 / 1300 700 / 700 Balance -550 / -550 -846 / -846 -680 / -680 Intake: IV Fluids 454 / 454 Intralipid 20% 250 ML @ 21 mls/ 250 / 250 hr IVPB DAILY@1700 REMY Rx#: [id number] Magnesium Sulfate 2 GM In 104 / 104 Dextrose 5% 100 ML @ 50 mls/hr IVPB Q6H PRN Rx#:[id number] Potassium Chloride 20 mEq/100 100 / 100 mL 20 meq In 100 ml @ 100 mls/ hr IVPB Q1H PRN Rx#:[id number] Oral 20 / 20 Output: Catheter 550 / 550 1300 / 1300 700 / 700 Other: Stool Size Smear Stool Consistency soft Stool Color Black # Bowel Movements 1 Weight 63.5 kg Blood Glucose* 131 193 196 Patient Weight 03/12/17 23:59 Weight 63.5 kg - General physical appearance no distress, chronically ill, other (Patient resting comfortably on bipap support) - Eyes normal ocular movement - ENT dry mucosa, atraumatic, normocephalic - Neck Neck exam: trachea midline - Respiratory clear to auscultation, other (resting on bipap support, diminished breath sounds bilaterally) - Cardiovascular Cardiovascular exam: Present: RRR (paced) - Abdomen Abdomen: Present: bowel sounds present, soft, tender (minimal, expected tenderness), wound (Midline wound with small amount of serous drainage noted, no surrounding erythema or induration) - Genitourinary other (hendrickson catheter to SD) - Neurologic CN 2-12 grossly intact - Musculoskeletal other (severe deconditioning) - Psychiatric oriented to person, oriented to place - Labs 03/12/17 03:00 03/12/17 03:00 Diabetes panel 03/12/17 Range/Units 03:00 Sodium 139 (136-145) mEq/L Potassium 3.2 L (3.5-4.5) mEq/L Chloride 98 (98-109) mEq/L Carbon Dioxide 33 H (19-29) mEq/L BUN 39 H (7-20) mg/dL Creatinine 0.69 (0.57-1.11) mg/dL Glucose 109 H (70-99) mg/dL Calcium 8.8 (8.6-10.8) mg/dL Calcium panel 03/12/17 03/12/17 Range/Units 03:00 03:00 Calcium 8.8 (8.6-10.8) mg/dL Phosphorus 2.6 (2.3-4.7) mg/dL Pituitary panel 03/12/17 Range/Units 03:00 Sodium 139 (136-145) mEq/L Potassium 3.2 L (3.5-4.5) mEq/L Chloride 98 (98-109) mEq/L Carbon Dioxide 33 H (19-29) mEq/L BUN 39 H (7-20) mg/dL Creatinine 0.69 (0.57-1.11) mg/dL Glucose 109 H (70-99) mg/dL Calcium 8.8 (8.6-10.8) mg/dL Adrenal panel 03/12/17 Range/Units 03:00 Sodium 139 (136-145) mEq/L Potassium 3.2 L (3.5-4.5) mEq/L Chloride 98 (98-109) mEq/L Carbon Dioxide 33 H (19-29) mEq/L BUN 39 H (7-20) mg/dL Creatinine 0.69 (0.57-1.11) mg/dL Glucose 109 H (70-99) mg/dL Calcium 8.8 (8.6-10.8) mg/dL - VTE Documentation of Mechanical Device: Venous foot pump, device Consult Discharge Plan - Plan Referrals: Jeff Cervantes MD [Primary Care Provider] - - Attending Attestation For this encounter, I have reviewed the [employer]CHO[employer]ANGUAGE PATHOLOGIST or PA documentation, treatment plan, and medical decision making; and I have had face to face time with this patient. <Soy Mcmillan - Last Filed: 03/13/17 07:50> Date of Encounter: 03/12/17 - Assessment and Plan (1) Partial small bowel obstruction Current Visit: Yes Status: Acute (2) Ischemic necrosis of small bowel Current Visit: Yes Status: Acute Objective Vital Signs - Last 8 Hours Temp Pulse Resp BP Pulse Ox 03/13/17 07:31 98.6 F 03/13/17 06:00 69 23 155/81 99 03/13/17 05:00 69 15 153/71 97 03/13/17 04:49 98.2 F 03/13/17 04:00 98.2 F 69 22 154/79 95 03/13/17 03:49 23 100 03/13/17 03:00 69 21 142/72 100 03/13/17 02:00 69 24 158/71 100 03/13/17 01:00 69 15 154/70 98 03/13/17 00:55 23 96 03/13/17 00:00 98.3 F 69 12 131/60 95 Intake and Output 03/12/17 03/12/17 03/13/17 15:59 23:59 07:59 Intake Total 70 / 70 260 / 260 Output Total 700 / 700 500 / 500 550 / 550 Balance -630 / -630 -240 / -240 -550 / -550 Intake: IV Fluids 260 / 260 Potassium Phosphate 44 MEQ In 0 260 / 260 .9 % Sodium Chloride 250 ML @ 40 mls/hr IVPB Q10H PRN Rx#: [id number] Oral 70 / 70 Output: Catheter 700 / 700 500 / 500 550 / 550 Other: Blood Glucose* 130 202 178 - Labs 03/13/17 04:34 03/13/17 04:34 Diabetes panel 03/12/17 03/13/17 Range/Units 15:55 04:34 Sodium 137 (136-145) mEq/L Potassium 4.8 H D 4.5 (3.5-4.5) mEq/L Chloride 98 (98-109) mEq/L Carbon Dioxide 34 H (19-29) mEq/L BUN 45 H (7-20) mg/dL Creatinine 0.69 (0.57-1.11) mg/dL Glucose 119 H (70-99) mg/dL Calcium 8.6 (8.6-10.8) mg/dL Calcium panel 03/12/17 03/13/17 Range/Units 15:55 04:34 Calcium 8.6 (8.6-10.8) mg/dL Phosphorus 5.1 H D 3.7 (2.3-4.7) mg/dL Pituitary panel 03/12/17 03/13/17 Range/Units 15:55 04:34 Sodium 137 (136-145) mEq/L Potassium 4.8 H D 4.5 (3.5-4.5) mEq/L Chloride 98 (98-109) mEq/L Carbon Dioxide 34 H (19-29) mEq/L BUN 45 H (7-20) mg/dL Creatinine 0.69 (0.57-1.11) mg/dL Glucose 119 H (70-99) mg/dL Calcium 8.6 (8.6-10.8) mg/dL Adrenal panel 03/12/17 03/13/17 Range/Units 15:55 04:34 Sodium 137 (136-145) mEq/L Potassium 4.8 H D 4.5 (3.5-4.5) mEq/L Chloride 98 (98-109) mEq/L Carbon Dioxide 34 H (19-29) mEq/L BUN 45 H (7-20) mg/dL Creatinine 0.69 (0.57-1.11) mg/dL Glucose 119 H (70-99) mg/dL Calcium 8.6 (8.6-10.8) mg/dL - Attending Attestation I reviewed the above assessment and evaluation with the [employer]ANGUAGE PATHOLOGIST and agree with the above plan.
[2017-03-12] MEDS: Magnesium Oxide 400 MG TABLET PO SCH (13:33)
[2017-03-12] MEDS ORDERED: Potassium Chloride Elixir 20 MEQ/15 ML UDC PO ONE (15:41)
[2017-03-12 16:11] LABS: Magnesium 1.8 mg/dL (1.6-2.6)
[2017-03-12 16:18] LABS: Potassium 4.8 mEq/L (3.5-4.5)
[2017-03-12] MEDS ORDERED: Clinimix E 5%-15% SOLUTION 2,000 ML with MVI, adult with vitamin K 10 ML, Magnesium S... IVC SCH (17:00)
[2017-03-12 17:26] LABS: Phosphorous 5.1 mg/dL (2.3-4.7)
[2017-03-12] MEDS ORDERED: Warfarin perPT PO PRN (18:00)
[2017-03-12] MEDS ORDERED: *HR* Warfarin 4 MG TABLET PO SCH (18:00)
[2017-03-12] MEDS: *HR* Alteplase (Cathflo) 2 MG VIAL IVP ONE ×2 (19:41→21:21)
[2017-03-13] MEDS: *HR* Enoxaparin 60 MG/0.6 ML SYRINGE SQ SCH (01:56)
[2017-03-13] MEDS: Ipratropium/Albuterol Neb 3 ML IH SCH ×2 (03:49→09:35)
[2017-03-13] MEDS: *HR* OxyCODONE ER (12 HR) 20 MG TABLET PO SCH (04:28)
[2017-03-13 04:45] LABS: Basophils % 0.3 %; Eosinophils # 0.1 K/mcL (0.0-0.6); Eosinophils % 0.7 %; Hematocrit 28.4 % (35.3-44.9); Hemoglobin 8.7 g/dL (11.5-15.4); Immature Granulocytes % 2.4 % (0-4); Lymphocytes # 0.8 K/mcL (0.6-4.6); Mean Corpuscular HGB Conc 30.6 g/dL (31.6-35.5); Mean Corpuscular Hemoglobin 29.8 pg (28.0-33.3); Mean Corpuscular Volume 97.3 fL (83.0-100.0); Mean Platelet Volume 10.4 fL (9.4-12.4); Monocytes # 1.3 K/mcL (0.0-1.3); Monocytes % 8.6 %; Neutrophils # 12.9 K/mcL (1.6-8.9); Nucleated Red Blood Cells 0.6 /100 WBC (0); Platelet Count 176 K/mcL (140-400); Red Blood Count 2.92 M/mcL (3.82-4.97); Red Cell Distribution Width 15.7 % (11.5-14.5)
[2017-03-13 04:48] LABS: INR 1.7
[2017-03-13] MEDS: Insulin LISPRO 300 UNITS/3 ML VIAL SQ SCH ×2 (04:57→08:15)
[2017-03-13 05:12] LABS: BUN/Creatinine Ratio 65 (6-26); Blood Urea Nitrogen 45 mg/dL (7-20); Calcium 8.6 mg/dL (8.6-10.8); Carbon Dioxide 34 mEq/L (19-29); Chloride 98 mEq/L (98-109); Glucose 119 mg/dL (70-99); Osmolality,Calculated 297 (280-300); Phosphorous 3.7 mg/dL (2.3-4.7); Potassium 4.5 mEq/L (3.5-4.5); Sodium 137 mEq/L (136-145); eGFR For African Americans > 60 (> 60); eGFR For Non-African Americans > 60 (> 60)
[2017-03-13] MEDS: Metoclopramide 10 MG/2 ML VIAL IVP SCH (05:27)
[2017-03-13] MEDS: *HR* HYDROmorphone (PF) 1 MG/ML SYRINGE IVP PRN ×2 (06:16→10:45)
--- NOTE | 2017-03-13 06:40 | Pulmonology Progress Note ---
<Randall Garces - Last Filed: 03/13/17 10:20> Date of Encounter: 03/13/17 Time of Encounter: 06:35 Assessment and Plan (1) Acute on chronic respiratory failure Status: Acute Her breathing is stable at this time. Continue to wean of BiPAP and onto 3L NC Lasix 40 mg OD Continue breathing treatments as needed Patient code status changed from Full Code to DNRCCA and DNI Family and patient had discussions with palliative today and they would like to be transferred to palliative treatment team from ICU. Dr. Reis will re-admit the patient to palliative after discharge from ICU today. Qualifiers: Respiratory failure complication: hypercapnia Qualified Code(s): J96.22 - Acute and chronic respiratory failure with hypercapnia (2) Acute decompensated heart failure Status: Acute Currently on diuresis with 40mg IV OD I/O's yesterday were 784/2500, -400 for today. Cumulative 28.9L/26.5L +1.4L Electrolytes including potassium, magnesium and phosphorus WNL today. (3) DVT of axillary vein, acute right Status: Acute Continue on Lovenox SQ BID; no pain in her arm or shortness of breath Coumadin is being dosed by pharmacy. INR today is 1.7 today. (4) Hypertension Status: Chronic 160/81 this morning. Patient takes 25mg BID PO Hydralazine 10mg PRN Q6H for systolic > 160 Metoprolol 5mg Q6H PRN Systolic > 160 hydromorphone 1mg Q4H PRN - severe pain Morphine 2mg Q4H PRN - moderate Pain Oxycodone ER Q8H scheduled Qualifiers: Hypertension type: essential hypertension Qualified Code(s): I10 - Essential (primary) hypertension (5) Ischemic necrosis of small bowel Status: Acute POD #17 exploratory ceiliotomy with small bowel resection Soft chopped meat diet and ensure protein supplements TID TPN for nutritional support Speech has evaluated and signed off - continue feeds with patient sitting up at 90 degree angle to bed. Daily wound care. (6) Anemia Status: Acute Hb has been stable last few days without any signs of bleeding She did have 2 units pRBCs transfused during this visit Qualifiers: Anemia type: other cause Other causes of anemia: chronic disease, other Qualified Code(s): D63.8 - Anemia in other chronic diseases classified elsewhere (7) DVT prophylaxis Status: Acute Currently on therapeutic Lovenox for RUE DVT Subjective Principal diagnosis: s/p exploratory celiostomy with SBR Interval history: ICU day #5. Patient has been on BIPAP overnight. No events. Tolerated NC well when she was off for feeds. Objective PUL Vital signs: Last Vital Signs Temp 98.2 F 03/13/17 04:49 Pulse 69 03/13/17 06:00 Resp 23 03/13/17 06:00 BP 155/81 03/13/17 06:00 Pulse Ox 99 03/13/17 06:00 General appearance: no acute distress, asleep Eyes: nonicteric ENT: oropharynx dry Neck: supple Effort: normal Auscultation: bilateral: clear Cardiovascular: regular rate and rhythm Gastrointestinal: normoactive bowel sounds Integumentary: normal Extremities: no cyanosis Musculoskeletal: no deformities normal mental status mood appropriate, affect normal Results - Laboratory Findings CBC and BMP: 03/13/17 04:34 03/13/17 04:34 ABG ABG pH 7.36 pH Units (7.32-7.45) 03/10/17 08:30 ABG pCO2 54 mmHg (35-45) H 03/10/17 08:30 ABG pO2 52 mmHg (85-104) L 03/10/17 08:30 ABG O2 Saturation 85 % (95-98) L 03/10/17 08:30 PT/INR, D-dimer PT 18.0 Seconds (9.4-12.1) H 03/13/17 04:34 Abnormal lab findings: Abnormal lab results WBC 15.5 K/mcL (4.3-11.1) H 03/13/17 04:34 RBC 2.92 M/mcL (3.82-4.97) L 03/13/17 04:34 Hgb 8.7 g/dL (11.5-15.4) L 03/13/17 04:34 Hct 28.4 % (35.3-44.9) L 03/13/17 04:34 MCHC 30.6 g/dL (31.6-35.5) L 03/13/17 04:34 RDW 15.7 % (11.5-14.5) H 03/13/17 04:34 Band Neutrophils % 6.0 % (0-4) H 03/11/17 03:55 Metamyelocytes % 4.0 % (0) H 03/08/17 11:20 Myelocytes % 6.0 % (0) H 03/08/17 11:20 Neutrophils # 12.9 K/mcL (1.6-8.9) H 03/13/17 04:34 Nucleated RBCs/100 WBC 0.6 /100 WBC (0) H 03/13/17 04:34 Reactive Lymphocytes Present (Not Present) A 03/08/17 04:25 Smudge Cells Present (Not Present) A 03/08/17 04:25 Toxic Granulation Present (Not Present) A 03/08/17 04:25 Clumped Platelets Few (Not Present) A 03/08/17 04:25 Large Platelets Present (Not Present) A 03/08/17 04:25 Polychromasia 1+ (Not Present) A 03/11/17 03:55 Hypochromasia Present (Not Present) A 03/09/17 03:08 Anisocytosis 1+ (Not Present) A 03/11/17 03:55 PT 18.0 Seconds (9.4-12.1) H 03/13/17 04:34 ABG pCO2 54 mmHg (35-45) H 03/10/17 08:30 ABG pO2 52 mmHg (85-104) L 03/10/17 08:30 ABG HCO3 31 mEq/L (21-27) H 03/10/17 08:30 ABG Total CO2 32 mEq/L (20-26) H 03/10/17 08:30 ABG O2 Saturation 85 % (95-98) L 03/10/17 08:30 ABG Base Excess 4.2 mEq/L (-2.0 to 3.0) H 03/10/17 08:30 Carbon Dioxide 34 mEq/L (19-29) H 03/13/17 04:34 BUN 45 mg/dL (7-20) H 03/13/17 04:34 BUN/Creatinine Ratio 65 (6-26) H 03/13/17 04:34 Glucose 119 mg/dL (70-99) H 03/13/17 04:34 POC Glucose 155 (58-89) H 03/12/17 23:31 Hemoglobin A1c 5.8 % (-5.6) H 02/23/17 00:42 B-Natriuretic Peptide 1273 pg/mL (0-100) H 03/08/17 14:25 Serum Total Protein 5.6 g/dL (6.0-8.3) L 02/27/17 04:22 Albumin 2.6 g/dL (3.5-5.0) L 02/27/17 04:22 Albumin/Globulin Ratio 0.9 (1.1-2.2) L 02/27/17 04:22 Prealbumin 8.0 mg/dL (16.0-38.0) L 03/11/17 03:55 Ur Specimen Adequacy See below A 02/28/17 13:05 Urine Protein 30 mg/dL (Neg-Trace) H 02/28/17 13:05 Vancomycin Trough 31.2 mcg/mL (10-20) H* 03/02/17 11:55 - Clinical Findings Intake & Output: Intake & Output 03/12/17 03/12/17 03/13/17 15:59 23:59 07:59 Intake Total 70 / 70 260 / 260 Output Total 700 / 700 500 / 500 400 / 400 Balance -630 / -630 -240 / -240 -400 / -400 - VTE Documentation of Mechanical Device: Venous foot pump, device Consult Discharge Plan - Plan Referrals: Jeff Cervantes MD [Primary Care Provider] - <Jason Sequeira - Last Filed: 03/17/17 11:57> Date of Encounter: 03/17/17 Assessment and Plan (1) Encephalopathy Status: Acute (2) Acute exacerbation of chronic obstructive airways disease Status: Acute (3) CAD (coronary artery disease) Status: Chronic Qualifiers: Coronary Disease-Associated Artery/Lesion type: ute artery [place] vs. transplanted heart: ute heart Associated angina: without angina Qualified Code(s): I25.10 - Atherosclerotic heart disease of ute coronary artery without angina pectoris (4) Atrial fibrillation Status: Chronic Qualifiers: Atrial fibrillation type: chronic Qualified Code(s): I48.2 - Chronic atrial fibrillation (5) Acute on chronic respiratory failure Status: Acute Qualifiers: Respiratory failure complication: hypercapnia Qualified Code(s): J96.22 - Acute and chronic respiratory failure with hypercapnia (6) Chronic combined systolic and diastolic congestive heart failure Status: Chronic (7) PNA (pneumonia) Status: Acute Qualifiers: Pneumonia type: due to unspecified organism Laterality: bilateral Lung location: lower lobe of lung Qualified Code(s): J18.9 - Pneumonia, unspecified organism (8) Sepsis Status: Acute Qualifiers: Sepsis type: sepsis due to unspecified organism Qualified Code(s): A41.9 - Sepsis, unspecified organism (9) Partial small bowel obstruction Status: Acute (10) Moderate protein-calorie malnutrition Status: Acute (11) Hyperkalemia Status: Acute Objective PUL Vital signs: Last Vital Signs Temp 98.6 F 03/13/17 07:31 Pulse 69 03/13/17 06:00 Resp 23 03/13/17 06:00 BP 155/81 03/13/17 06:00 Pulse Ox 99 03/13/17 06:00 Results - Laboratory Findings CBC and BMP: 03/13/17 04:34 03/13/17 04:34 ABG ABG pH 7.36 pH Units (7.32-7.45) 03/10/17 08:30 ABG pCO2 54 mmHg (35-45) H 03/10/17 08:30 ABG pO2 52 mmHg (85-104) L 03/10/17 08:30 ABG O2 Saturation 85 % (95-98) L 03/10/17 08:30 PT/INR, D-dimer PT 18.0 Seconds (9.4-12.1) H 03/13/17 04:34 Abnormal lab findings: Abnormal lab results WBC 15.5 K/mcL (4.3-11.1) H 03/13/17 04:34 RBC 2.92 M/mcL (3.82-4.97) L 03/13/17 04:34 Hgb 8.7 g/dL (11.5-15.4) L 03/13/17 04:34 Hct 28.4 % (35.3-44.9) L 03/13/17 04:34 MCHC 30.6 g/dL (31.6-35.5) L 03/13/17 04:34 RDW 15.7 % (11.5-14.5) H 03/13/17 04:34 Band Neutrophils % 6.0 % (0-4) H 03/11/17 03:55 Metamyelocytes % 4.0 % (0) H 03/08/17 11:20 Myelocytes % 6.0 % (0) H 03/08/17 11:20 Neutrophils # 12.9 K/mcL (1.6-8.9) H 03/13/17 04:34 Nucleated RBCs/100 WBC 0.6 /100 WBC (0) H 03/13/17 04:34 Reactive Lymphocytes Present (Not Present) A 03/08/17 04:25 Smudge Cells Present (Not Present) A 03/08/17 04:25 Toxic Granulation Present (Not Present) A 03/08/17 04:25 Clumped Platelets Few (Not Present) A 03/08/17 04:25 Large Platelets Present (Not Present) A 03/08/17 04:25 Polychromasia 1+ (Not Present) A 03/11/17 03:55 Hypochromasia Present (Not Present) A 03/09/17 03:08 Anisocytosis 1+ (Not Present) A 03/11/17 03:55 PT 18.0 Seconds (9.4-12.1) H 03/13/17 04:34 ABG pCO2 54 mmHg (35-45) H 03/10/17 08:30 ABG pO2 52 mmHg (85-104) L 03/10/17 08:30 ABG HCO3 31 mEq/L (21-27) H 03/10/17 08:30 ABG Total CO2 32 mEq/L (20-26) H 03/10/17 08:30 ABG O2 Saturation 85 % (95-98) L 03/10/17 08:30 ABG Base Excess 4.2 mEq/L (-2.0 to 3.0) H 03/10/17 08:30 Carbon Dioxide 34 mEq/L (19-29) H 03/13/17 04:34 BUN 45 mg/dL (7-20) H 03/13/17 04:34 BUN/Creatinine Ratio 65 (6-26) H 03/13/17 04:34 Glucose 119 mg/dL (70-99) H 03/13/17 04:34 POC Glucose 155 (58-89) H 03/12/17 23:31 Hemoglobin A1c 5.8 % (-5.6) H 02/23/17 00:42 B-Natriuretic Peptide 1273 pg/mL (0-100) H 03/08/17 14:25 Serum Total Protein 5.6 g/dL (6.0-8.3) L 02/27/17 04:22 Albumin 2.6 g/dL (3.5-5.0) L 02/27/17 04:22 Albumin/Globulin Ratio 0.9 (1.1-2.2) L 02/27/17 04:22 Prealbumin 8.0 mg/dL (16.0-38.0) L 03/11/17 03:55 Ur Specimen Adequacy See below A 02/28/17 13:05 Urine Protein 30 mg/dL (Neg-Trace) H 02/28/17 13:05 Vancomycin Trough 31.2 mcg/mL (10-20) H* 03/02/17 11:55 - Clinical Findings Intake & Output: Intake & Output 03/12/17 03/13/17 03/13/17 23:59 07:59 15:59 Intake Total 260 / 260 Output Total 500 / 500 550 / 550 Balance -240 / -240 -550 / -550 - Attending Attestation I examined this patient and my medical decision-making was reviewed with the Resident Physician. I agree with the documented findings, disposition and treatment plan as described except to the extent set forth below. We independently had [id number] contact with the patient Patient seen and examined at bedside Labs, radiology, chart personally reviewed. Management was reviewed during multidisciplinary critical care rounds.
--- NOTE | 2017-03-13 07:47 | Palliative Progress Note ---
Date of Encounter: 03/13/17 Time of Encounter: 07:10 - Assessment and plan (1) Abdominal pain Current Visit: Yes Status: Acute Assessment and plan: Status post small bowel resection. He appears to be well controlled. Patient got 3 doses of 2 mg IV morphine in 24 hours and 4 doses of IV dye allotted. The scheduled oxycodone this equates to 188 mg oral morphine equivalents. No patch may be appropriate under these circumstances. And it would correspond to a 47 g, however since the patch is not available in that dose I would recommend starting at 25 juan patch upping the scheduled oxycodone and treating from there.. I will discuss with the primary care team and/or surgery. Surgery is following. Plan per surgery Qualifiers: Abdominal location: generalized Qualified Code(s): R10.84 - Generalized abdominal pain (2) Goals of care, counseling/discussion Current Visit: Yes Status: Acute Assessment and plan: d/w daughter yestereday. she d/w patient and requested dnr a status per nurseing staff last pm. I have confirmed with the patient that this morning and I have placed a DNR a DNI order in for her. goals is utimatly to go home but will probably need rehab. I did reach patient's daughter yesterday afternoon and point in time the plan was for rehabilitation and then home, I am told that the family is seriously considering hospice care and taking her home in the next day or so. I will call and discuss this further with them I am I am concerned that make her hospice eligible would have to stop her BiPAP due to the fact that she is overall slowly improving. The improvement is almost glacial, however it is improvement and therefore I cannot E hospice being appropriate at this time unless spray failure worsens and she cannot get off the BiPAP. My discussion with the patient's daughter yesterday was we are going to give her more time to come off the BiPAP I will discuss further today. (3) COPD (chronic obstructive pulmonary disease) Current Visit: No Status: Chronic Assessment and plan: On BiPAP, she should seem to be making 3 steps forward 3-4 steps back. She is now dnr a dni plan per icu team Qualifiers: COPD type: unspecified COPD Qualified Code(s): J44.9 - Chronic obstructive pulmonary disease, unspecified (4) Partial small bowel obstruction Current Visit: Yes Status: Acute (5) Malnutrition Current Visit: No Status: Acute Assessment and plan: She is currently on TPN but did pass swallow about this morning. Per surgery patient's gut is starting to work. Also discussed this with him JEROME. Qualifiers: Qualified Code(s): E46 - Unspecified protein-calorie malnutrition (6) Dyspnea Current Visit: No Status: Acute Assessment and plan: She is currently on BiPAP. Oxygen saturations appear appropriate. Qualifiers: Dyspnea type: unspecified Qualified Code(s): R06.00 - Dyspnea, unspecified (7) Anxiety Current Visit: Yes Status: Chronic Assessment and plan: This is with the consult was originally 4. Patient's been doing fairly well with this. On trazodone at bedtime. And Effexor, patient is now getting tense by mouth and should be getting her medications. - Time Spent With Patient Total time spent is greater than 50% in coordination of care (as documented) at patient's floor/unit and/or counseling patient: - Subjective Interval history: Palliative care reconsult on [place]. Patient on BiPAP but much more responsive this morning. Discussion with patient's family last night resulted in a DNR CCA DNI status. Is alerted to a concern from the family that they may want to take patient home with hospice. I will discuss that further with patient's family today.. - Constitutional Vitals: Abnormal lab results WBC 15.5 K/mcL (4.3-11.1) H 03/13/17 04:34 RBC 2.92 M/mcL (3.82-4.97) L 03/13/17 04:34 Hgb 8.7 g/dL (11.5-15.4) L 03/13/17 04:34 Hct 28.4 % (35.3-44.9) L 03/13/17 04:34 MCHC 30.6 g/dL (31.6-35.5) L 03/13/17 04:34 RDW 15.7 % (11.5-14.5) H 03/13/17 04:34 Band Neutrophils % 6.0 % (0-4) H 03/11/17 03:55 Metamyelocytes % 4.0 % (0) H 03/08/17 11:20 Myelocytes % 6.0 % (0) H 03/08/17 11:20 Neutrophils # 12.9 K/mcL (1.6-8.9) H 03/13/17 04:34 Nucleated RBCs/100 WBC 0.6 /100 WBC (0) H 03/13/17 04:34 Reactive Lymphocytes Present (Not Present) A 03/08/17 04:25 Smudge Cells Present (Not Present) A 03/08/17 04:25 Toxic Granulation Present (Not Present) A 03/08/17 04:25 Clumped Platelets Few (Not Present) A 03/08/17 04:25 Large Platelets Present (Not Present) A 03/08/17 04:25 Polychromasia 1+ (Not Present) A 03/11/17 03:55 Hypochromasia Present (Not Present) A 03/09/17 03:08 Anisocytosis 1+ (Not Present) A 03/11/17 03:55 PT 18.0 Seconds (9.4-12.1) H 03/13/17 04:34 ABG pCO2 54 mmHg (35-45) H 03/10/17 08:30 ABG pO2 52 mmHg (85-104) L 03/10/17 08:30 ABG HCO3 31 mEq/L (21-27) H 03/10/17 08:30 ABG Total CO2 32 mEq/L (20-26) H 03/10/17 08:30 ABG O2 Saturation 85 % (95-98) L 03/10/17 08:30 ABG Base Excess 4.2 mEq/L (-2.0 to 3.0) H 03/10/17 08:30 Carbon Dioxide 34 mEq/L (19-29) H 03/13/17 04:34 BUN 45 mg/dL (7-20) H 03/13/17 04:34 BUN/Creatinine Ratio 65 (6-26) H 03/13/17 04:34 Glucose 119 mg/dL (70-99) H 03/13/17 04:34 POC Glucose 155 (58-89) H 03/12/17 23:31 Hemoglobin A1c 5.8 % (-5.6) H 02/23/17 00:42 B-Natriuretic Peptide 1273 pg/mL (0-100) H 03/08/17 14:25 Serum Total Protein 5.6 g/dL (6.0-8.3) L 02/27/17 04:22 Albumin 2.6 g/dL (3.5-5.0) L 02/27/17 04:22 Albumin/Globulin Ratio 0.9 (1.1-2.2) L 02/27/17 04:22 Prealbumin 8.0 mg/dL (16.0-38.0) L 03/11/17 03:55 Ur Specimen Adequacy See below A 02/28/17 13:05 Urine Protein 30 mg/dL (Neg-Trace) H 02/28/17 13:05 Vancomycin Trough 31.2 mcg/mL (10-20) H* 03/02/17 11:55 General appearance: Present: no acute distress (Is still on BiPAP) - Head Head exam: Present: atraumatic, normal inspection - Eye Eye exam: Present: normal appearance - ENT ENT exam: Present: mucous membranes moist - Respiratory Respiratory exam: Present: decreased breath sounds, rhonchi - Cardiovascular Cardiovascular exam: Present: RRR - GI/Abdominal GI/Abdominal exam: Present: normal bowel sounds, soft. Absent: tenderness - Extremities Exam Extremities exam: Present: normal inspection. Absent: tenderness - Neurological Exam Neurological exam: Present: alert - Psychiatric Psychiatric exam: Absent: agitated, anxious - Skin Skin exam: Present: dry, warm Palliative Quality Palliative Quality: Screen for Code Status: Yes, Screen for Goals of Care: Yes, Screen for Pain: Yes, If Pain Regimen Started, Initiate Bowel Regimen: Yes, Screen for Nausea/Vomitting: Yes Code Status: 02/22/17 21:52 Resuscitation Status: Active [RES] Routine Comment: Resuscitation Status: [id number] - Labs CBC & Chem 7: 03/13/17 04:34 03/13/17 04:34 Labs: Laboratory Results - last 24 hr 03/12/17 03/12/17 03/12/17 06:58 11:32 15:55 WBC RBC Hgb Hct MCV MCH MCHC RDW Plt Count MPV Immature Gran % Seg Neutrophils % Lymphocytes % Monocytes % Eosinophils % Basophils % Neutrophils # Lymphocytes # Monocytes # Eosinophils # Basophils # Nucleated RBCs/100 WBC PT INR Sodium Potassium 4.8 H D Chloride Carbon Dioxide BUN Creatinine Est GFR ( Amer) Est GFR (Non-Af Amer) BUN/Creatinine Ratio Glucose POC Glucose 193 H 196 H Calculated Osmolality Calcium Phosphorus 5.1 H D Magnesium 1.8 03/12/17 03/12/17 03/12/17 16:00 19:24 23:31 WBC RBC Hgb Hct MCV MCH MCHC RDW Plt Count MPV Immature Gran % Seg Neutrophils % Lymphocytes % Monocytes % Eosinophils % Basophils % Neutrophils # Lymphocytes # Monocytes # Eosinophils # Basophils # Nucleated RBCs/100 WBC PT INR Sodium Potassium Chloride Carbon Dioxide BUN Creatinine Est GFR ( Amer) Est GFR (Non-Af Amer) BUN/Creatinine Ratio Glucose POC Glucose 130 H 202 H 155 H Calculated Osmolality Calcium Phosphorus Magnesium 03/13/17 03/13/17 03/13/17 04:34 04:34 04:34 WBC 15.5 H RBC 2.92 L Hgb 8.7 L Hct 28.4 L MCV 97.3 MCH 29.8 MCHC 30.6 L RDW 15.7 H Plt Count 176 MPV 10.4 Immature Gran % 2.4 Seg Neutrophils % 83.0 Lymphocytes % 5.0 Monocytes % 8.6 Eosinophils % 0.7 Basophils % 0.3 Neutrophils # 12.9 H Lymphocytes # 0.8 Monocytes # 1.3 Eosinophils # 0.1 Basophils # 0.0 Nucleated RBCs/100 WBC 0.6 H PT 18.0 H INR 1.7 Sodium 137 Potassium 4.5 Chloride 98 Carbon Dioxide 34 H BUN 45 H Creatinine 0.69 Est GFR ( Amer) > 60 Est GFR (Non-Af Amer) > 60 BUN/Creatinine Ratio 65 H Glucose 119 H POC Glucose Calculated Osmolality 297 Calcium 8.6 Phosphorus 3.7 Magnesium 2.0 - Impressions Impressions Chest X-Ray 03/10/17 07:28 IMPRESSION: Worsening consolidation in the medial left lung base could be due to pneumonia or atelectasis. Other stable areas of consolidation and pulmonary vascular indistinctness favor pulmonary edema. D/ / 03/10/2017 11:26:23 Indio Conti MD / Yaz Covarrubias Interpreting Provider: Indio Conti MD - ABG Interpretation ABG results: ABG ABG pH 7.36 pH Units (7.32-7.45) 03/10/17 08:30 ABG pCO2 54 mmHg (35-45) H 03/10/17 08:30 ABG pO2 52 mmHg (85-104) L 03/10/17 08:30 ABG O2 Saturation 85 % (95-98) L 03/10/17 08:30 PT/INR, D-dimer PT 18.0 Seconds (9.4-12.1) H 03/13/17 04:34 Consult Discharge Plan - Plan Referrals: Jeff Cervantes MD [Primary Care Provider] -
[2017-03-13] MEDS: Pantoprazole 40 MG VIAL IVP SCH (08:13)
[2017-03-13] MEDS: Nicotine 14 MG PATCH.TD24 TD SCH (08:13)
[2017-03-13] MEDS: Ranolazine 500 MG TAB.ER.12H PO SCH (08:14)
[2017-03-13] MEDS: Nystatin SUSP 5 ML UD.LIQ PO SCH (08:14)
[2017-03-13] MEDS: Furosemide 40 MG/4 ML VIAL IVP SCH (08:14)
[2017-03-13] MEDS: Aspirin 81 MG TAB.CHEW PO SCH (08:14)
[2017-03-13] MEDS: Polymyxn-B/Trimeth Opth Drops 10 ML BOTTLE LEFT EYE SCH (08:15)
[2017-03-13] MEDS: Ondansetron 4 MG/2 ML VIAL IVP PRN (09:01)
[2017-03-13] MEDS: *HR* Morphine 2 MG/ML SYRINGE IVP PRN (09:01)
[2017-03-13] MEDS: Beclomethasone 80mcg MDI IH SCH (09:36)
--- NOTE | 2017-03-13 10:26 | Discharge Summary ---
<Randall Garces - Last Filed: 03/13/17 10:23> Date of Encounter: 03/13/17 Time of Encounter: 10:23 - Discharge Diagnosis (1) Acute on chronic respiratory failure Priority: Primary Status: Acute Qualifiers: Respiratory failure complication: hypercapnia Qualified Code(s): J96.22 - Acute and chronic respiratory failure with hypercapnia (2) Acute decompensated heart failure Priority: Secondary Status: Acute (3) DVT of axillary vein, acute right Priority: Secondary Status: Acute (4) Hypertension Priority: Secondary Status: Chronic Qualifiers: Hypertension type: essential hypertension Qualified Code(s): I10 - Essential (primary) hypertension (5) Ischemic necrosis of small bowel Priority: Secondary Status: Acute (6) Anemia Priority: Secondary Status: Acute Qualifiers: Anemia type: other cause Other causes of anemia: chronic disease, other Qualified Code(s): D63.8 - Anemia in other chronic diseases classified elsewhere (7) DVT prophylaxis Priority: Secondary Status: Acute - Discharge Medications Home Medications: Albuterol Sulfate [Albuterol Inhaler] 2 puff IH Q6H PRN 03/05/15 [History] Carvedilol 25 mg PO BID 03/05/15 [History] Esomeprazole Magnesium [Nexium] 40 mg PO DAILY 03/05/15 [History] Melatonin [Melatin] 3 mg PO HS 03/05/15 [History] Simvastatin 40 mg PO QPM 03/05/15 [History] Beclomethasone Diprop 80mcg [Qvar 80 mcg] 1 puff IH BID 05/25/16 [History] Buspirone HCl [Buspar] 5 mg PO BID 05/25/16 [History] Clopidogrel [Plavix] 75 mg PO DAILY 05/25/16 [History] Ezetimibe [Zetia] 10 mg PO DAILY 05/25/16 [History] GlipiZIDE XL (24 HR) [Glucotrol XL] 2.5 mg PO DAILY 05/25/16 [History] Ipratropium/Albuterol Neb [Duoneb] 3 ml IH Q6HR PRN 05/25/16 [History] Lipase/Protease/Amylase [Creon Dr 6,000 Units Capsule] 6,000 unit PO ACHS [History] Lisinopril [Zestril] 5 mg PO DAILY 05/25/16 [History] Oxycodone HCl 10 mg PO Q6H PRN 05/25/16 [History] Ranitidine HCl [Zantac] 150 mg PO BID 05/25/16 [History] Tizanidine HCl 2 mg PO Q8H PRN 05/25/16 [History] TraZODone 50 mg PO HS 05/25/16 [History] Venlafaxine [Effexor] 75 mg PO BID 05/25/16 [History] Warfarin [Coumadin] 2 mg PO DAILY 01/31/17 [History] Doxycycline 100 mg PO BID 02/22/17 [History] Furosemide [Lasix] 20 mg PO BID PRN 02/22/17 [History] Mirtazapine [Remeron] 15 mg PO HS 02/22/17 [History] Ranolazine [Ranexa] 500 mg PO BID 02/22/17 [History] Allergies/Adverse Reactions: 3 Allergy/AdvReac Type Severity Reaction Status Date / Time Latex, Natural Rubber Allergy Severe Swelling Verified 05/25/16 10:00 of Lip/Tongue/Throat Labs on day of discharge: Labs from last 24 hours 03/13/17 03/13/17 03/13/17 04:34 04:34 04:34 WBC 15.5 H RBC 2.92 L Hgb 8.7 L Hct 28.4 L MCV 97.3 MCH 29.8 MCHC 30.6 L RDW 15.7 H Plt Count 176 MPV 10.4 Immature Gran % 2.4 Seg Neutrophils % 83.0 Lymphocytes % 5.0 Monocytes % 8.6 Eosinophils % 0.7 Basophils % 0.3 Neutrophils # 12.9 H Lymphocytes # 0.8 Monocytes # 1.3 Eosinophils # 0.1 Basophils # 0.0 Nucleated RBCs/100 WBC 0.6 H PT 18.0 H INR 1.7 Sodium 137 Potassium 4.5 Chloride 98 Carbon Dioxide 34 H BUN 45 H Creatinine 0.69 Est GFR ( Amer) > 60 Est GFR (Non-Af Amer) > 60 BUN/Creatinine Ratio 65 H Glucose 119 H POC Glucose Calculated Osmolality 297 Calcium 8.6 Phosphorus 3.7 Magnesium 2.0 03/12/17 03/12/17 03/12/17 23:31 19:24 16:00 WBC RBC Hgb Hct MCV MCH MCHC RDW Plt Count MPV Immature Gran % Seg Neutrophils % Lymphocytes % Monocytes % Eosinophils % Basophils % Neutrophils # Lymphocytes # Monocytes # Eosinophils # Basophils # Nucleated RBCs/100 WBC PT INR Sodium Potassium Chloride Carbon Dioxide BUN Creatinine Est GFR ( Amer) Est GFR (Non-Af Amer) BUN/Creatinine Ratio Glucose POC Glucose 155 H 202 H 130 H Calculated Osmolality Calcium Phosphorus Magnesium 03/12/17 03/12/17 03/12/17 15:55 11:32 06:58 WBC RBC Hgb Hct MCV MCH MCHC RDW Plt Count MPV Immature Gran % Seg Neutrophils % Lymphocytes % Monocytes % Eosinophils % Basophils % Neutrophils # Lymphocytes # Monocytes # Eosinophils # Basophils # Nucleated RBCs/100 WBC PT INR Sodium Potassium 4.8 H D Chloride Carbon Dioxide BUN Creatinine Est GFR ( Amer) Est GFR (Non-Af Amer) BUN/Creatinine Ratio Glucose POC Glucose 196 H 193 H Calculated Osmolality Calcium Phosphorus 5.1 H D Magnesium 1.8 - Impressions ITS Impressions KUB X-Ray 02/23/17 08:35 IMPRESSION: Supportive tubing projects in normal position. Bibasilar, patchy opacities, atelectasis versus pneumonia. D/ / Yakov Mitchell MD / Yakov Mitchell MD Interpreting Provider: Yakov Mitchell MD Chest X-Ray 02/23/17 14:33 IMPRESSION: Mild left basilar pneumonia. D/ / Noe Fair MD / Noe Fair MD Interpreting Provider: Noe Fair MD Chest X-Ray 02/25/17 00:03 IMPRESSION: Findings suggesting pulmonary edema. Pneumonia not excluded. Low ETT. Pullback as recommended above. D/ / Rosendo Nelson / Rosendo Nelson Interpreting Provider: Rosendo Nelson Chest X-Ray 02/26/17 13:59 IMPRESSION: 1. Right-sided PICC terminating in the SVC 2. Bibasilar infiltrates possibly representing pneumonia D/ / Parker Peace MD / Parker Peace MD Interpreting Provider: Parker Peace MD Chest X-Ray 02/28/17 09:22 IMPRESSION: Bilateral interstitial opacities with slightly increased left basilar airspace opacity. Findings may be related to edema and/or pneumonia. D/ / 02/28/2017 11:54:45 Adelita White MD / [facility]old Interpreting Provider: Adelita White MD Chest X-Ray 03/04/17 20:24 IMPRESSION: 1. The left PICC line tip probably terminates in the region of the SVC. This study is limited with multiple overlying cardiac monitoring leads. A repeat radiograph with the cardiac monitoring leads removed as well as an RPO film may be of benefit for further evaluation. 2. Stable pulmonary vascular congestion with an associated left pleural effusion and left basilar atelectasis. 3. The right PICC line has been removed. D/ / 03/04/2017 21:54:00 Yakov Parada MD / ean Interpreting Provider: Yakov Parada MD Chest X-Ray 03/04/17 22:02 IMPRESSION: 1. Left PICC line tip terminates in the region of the SVC. D/ / 03/04/2017 23:01:07 Yakov Parada MD / ean Interpreting Provider: Yakov Parada MD Chest X-Ray 03/08/17 09:09 IMPRESSION: 1. Stable pulmonary vascular congestion with small bilateral pleural effusions and bibasilar atelectasis. D/ / Yakov Parada MD / Yakov Parada MD Interpreting Provider: Yakov Parada MD Abdomen X-Ray 03/08/17 10:31 IMPRESSION: Unremarkable bowel gas pattern. D/ / Femi Ahumada MD / Femi Ahumada MD Interpreting Provider: Femi Ahumada MD Chest X-Ray 03/10/17 07:28 IMPRESSION: Worsening consolidation in the medial left lung base could be due to pneumonia or atelectasis. Other stable areas of consolidation and pulmonary vascular indistinctness favor pulmonary edema. D/ / 03/10/2017 11:26:23 Indio Conti MD / Yaz Covarrubias Interpreting Provider: Indio Conti MD Date of admission: 02/22/17 21:52 Primary care physician: Jeff Cervantes MD Consults: 02/23/17 00:03 Consult to Valve Repairer [CONS] Routine Reason for SW Consult: Discharge planning 02/23/17 17:49 Consult to Invasive Line Access Team [CONS] Routine Reason for Consult: Limited vascular access Line Type: EPIV 02/26/17 09:35 Consult to Occupational Therapy [CONS] Routine Comment: Evaluate, develop and implement POC Reason for Consult: evaluate and develop POC Consult to Physical Therapy [CONS] Routine Comment: Evaluate, develop and implement POC Reason for Consult: evaluate and develop POC 02/26/17 09:57 Consult to Invasive Line Access Team [CONS] Routine Reason for Consult: PICC line placement Line Type: PICC 02/26/17 09:59 consult to online services manager [Consult to Nutrition] [CONS] Routine Comment: Total fluid rate will be goal TPN rate Consulting Provider: NUTRITION Reason for Dietary Consult: TPN Start and Manage 02/26/17 14:02 Consult to Invasive Line Access Team [CONS] Routine Reason for Consult: Picc Line Insertion Line Type: PICC 02/28/17 18:23 Consult to Cardiology [CONS] Routine Comment: Consulting Provider: Cardiology Kady Reason for Consult: elevated troponin Call Completed: Yes 03/02/17 08:16 Consult to Physical Therapy [CONS] Routine Comment: Evaluate, develop and implement POC Reason for Consult: weakness 03/03/17 07:21 Consult to Palliative Care [CONS] Routine Comment: Consulting Provider: Swati Hillman Reason for Consult: Future Care Call Completed: Yes 03/04/17 13:00 Consult to PICC team [Consult to Invasive Line Access Team] [CONS] Routine Reason for Consult: Picc Line Placement Line Type: PICC 03/04/17 20:49 Consult to Invasive Line Access Team [CONS] Routine Reason for Consult: Picc Line Insertion Line Type: PICC 03/08/17 07:25 Consult to Critical Care [CONS] Routine Consulting Provider: Pulronaldo Crit Care & Sleep Kady Reason for Consult: Respiratory failure. Consult was originally on 03/08/17. Call Completed: Yes 03/10/17 10:11 Consult to Speech Therapy [CONS] Routine Comment: Evaluate, develop and implement POC Reason for Consult: possible aspiration, needs formal speech evaluation Call Completed: No 03/11/17 11:07 Consult to Palliative Care [CONS] Routine Comment: Consulting Provider: Swati Hillman Reason for Consult: Goals of care Call Completed: Yes Discharging clinician: Randall Garces Anticipated date of discharge: 03/13/17 - Patient Status Disposition: Hospice - Medical Facility Condition: Fair Functional capacity at discharge: wheelchair bound Overall status at discharge: patient is not back to baseline - Discharge Instructions Follow Up With: Jeff Cervantes MD [Primary Care Provider] - - Diet and Activity Activity: as per physical therapy Diet: advance to your usual diet - Hospital Course Hospital course: Ms. Montana is a 71 year old female MHx of a. fib, CHF, COPD, CAD s/p stents, HLD , HTN, s/p PPM, CKD, anxiety, depression, mitral insufficiency, colonic AVM, atrophic gastritis, diverticulosis, Schatzki's ring atht eGE junction s/p dilatation and chronic anemia. Patient orgmayranldarcy presented to the ED for abdominal pain in which she was found to have a pSBO which was initially managed conservatively on 02/22. The patient was then taken to surgery where she had a exploratory ceiliotomy and small bowel resection due to the obstruction. She was difficult to extubate/wean off vent post-operatively so she was transferred to the pulmonology on 02/25. CXR on 02/25/17 revealed findings of pulmonary edema vs. pneumonia therefore the patient was started on IV antibiotics at this time. The patient was also found to have a RUE DVT and on started on a heparin drip on 03/04. Over the course of her stay in the ICU the patient remained intubated and was transferred to stepdown floor on 03/03/2017 on BIPAP. She appeared to improve initially on BIPAP and was working with PT/ OT. PICC line was placed in E. Patient was advancing diet. On 03/08/17, the patient had acute worsening of her acute on chronic respiratory failure. She was started on lasix and transferred back to ICU care, her pneumonia had resolved at this point and patient was on Zosyn for POD abdominal surgery. Upon ICU admission, the patient was treated with diuresis and strict I/O monitoring. Patient was switched to SQ lovenox BID and heparin drip and TPN were stopped, we thought they were contributing to a pulmonary edema causing the patient status to acutely worsen. Patient was extubated by the time of this ICU transfer and was placed on BIPAP at arrival. Throughout the ICU stay, the patient continued to show improvement with BIPAP, however weaning the patient off BIPAP has proven to be difficulty. Palliative was consulted and the patient' s goals of care were switched from full code to DNR/DNI. The patient continued to require BIPAP and the family had an additional meeting with palliative today and determined that the patient does not want to complete rehabilitation and would like to pursue comfort care. Spoke with Dr. Reis and he states that the patient family would like her to be transferred to the general inpatient palliative care team in the hospital. They will stop TPN, continue BIPAP as needed. Keep comfort medication. We will discharge patient from ICU. She will then be transferred to the inpatient palliative floor room 2A45. Patient and family agree with this plan and course of treatment. - Time Spent with Patient Total time spent providing and/or coordinating discharge services: Greater than 30 minutes Physical Examination Vital Signs: Vital Signs, Last 4 Hours Temp Pulse Resp BP Pulse Ox 03/13/17 09:00 69 18 157/76 93 03/13/17 08:00 82 20 180/89 97 03/13/17 07:31 98.6 F 03/13/17 07:00 69 21 154/76 99 General appearance: no acute distress Eyes: nonicteric ENT: oropharynx dry Neck: supple Effort: normal Inspection: normal Auscultation: bilateral: clear Cardiovascular: regular rate and rhythm Gastrointestinal: normoactive bowel sounds Integumentary: normal Extremities: no cyanosis Musculoskeletal: no deformities normal mental status mood appropriate, affect normal - VTE Documentation of Mechanical Device: Venous foot pump, device <Jason Sequeira W - Last Filed: 03/13/17 13:05> Date of Encounter: 03/13/17 - Discharge Diagnosis (1) Encephalopathy Status: Acute (2) Acute exacerbation of chronic obstructive airways disease Status: Acute (3) CAD (coronary artery disease) Status: Chronic Qualifiers: Coronary Disease-Associated Artery/Lesion type: [place] artery [place] vs. transplanted heart: [place] heart Associated angina: without angina Qualified Code(s): I25.10 - Atherosclerotic heart disease of [place] coronary artery without angina pectoris (4) Atrial fibrillation Status: Chronic Qualifiers: Atrial fibrillation type: chronic Qualified Code(s): I48.2 - Chronic atrial fibrillation (5) Acute on chronic respiratory failure Status: Acute Qualifiers: Respiratory failure complication: hypercapnia Qualified Code(s): J96.22 - Acute and chronic respiratory failure with hypercapnia (6) Chronic combined systolic and diastolic congestive heart failure Status: Chronic (7) PNA (pneumonia) Status: Acute Qualifiers: Pneumonia type: due to unspecified organism Laterality: bilateral Lung location: lower lobe of lung Qualified Code(s): J18.9 - Pneumonia, unspecified organism (8) Sepsis Status: Acute Qualifiers: Sepsis type: sepsis due to unspecified organism Qualified Code(s): A41.9 - Sepsis, unspecified organism (9) Partial small bowel obstruction Status: Acute (10) Moderate protein-calorie malnutrition Status: Acute (11) Hyperkalemia Status: Acute Labs on day of discharge: Labs from last 24 hours 03/13/17 03/13/17 03/13/17 04:34 04:34 04:34 WBC 15.5 H RBC 2.92 L Hgb 8.7 L Hct 28.4 L MCV 97.3 MCH 29.8 MCHC 30.6 L RDW 15.7 H Plt Count 176 MPV 10.4 Immature Gran % 2.4 Seg Neutrophils % 83.0 Lymphocytes % 5.0 Monocytes % 8.6 Eosinophils % 0.7 Basophils % 0.3 Neutrophils # 12.9 H Lymphocytes # 0.8 Monocytes # 1.3 Eosinophils # 0.1 Basophils # 0.0 Nucleated RBCs/100 WBC 0.6 H PT 18.0 H INR 1.7 Sodium 137 Potassium 4.5 Chloride 98 Carbon Dioxide 34 H BUN 45 H Creatinine 0.69 Est GFR ( Amer) > 60 Est GFR (Non-Af Amer) > 60 BUN/Creatinine Ratio 65 H Glucose 119 H POC Glucose Calculated Osmolality 297 Calcium 8.6 Phosphorus 3.7 Magnesium 2.0 03/12/17 03/12/17 03/12/17 23:31 19:24 16:00 WBC RBC Hgb Hct MCV MCH MCHC RDW Plt Count MPV Immature Gran % Seg Neutrophils % Lymphocytes % Monocytes % Eosinophils % Basophils % Neutrophils # Lymphocytes # Monocytes # Eosinophils # Basophils # Nucleated RBCs/100 WBC PT INR Sodium Potassium Chloride Carbon Dioxide BUN Creatinine Est GFR ( Amer) Est GFR (Non-Af Amer) BUN/Creatinine Ratio Glucose POC Glucose 155 H 202 H 130 H Calculated Osmolality Calcium Phosphorus Magnesium 03/12/17 03/12/17 03/12/17 15:55 11:32 06:58 WBC RBC Hgb Hct MCV MCH MCHC RDW Plt Count MPV Immature Gran % Seg Neutrophils % Lymphocytes % Monocytes % Eosinophils % Basophils % Neutrophils # Lymphocytes # Monocytes # Eosinophils # Basophils # Nucleated RBCs/100 WBC PT INR Sodium Potassium 4.8 H D Chloride Carbon Dioxide BUN Creatinine Est GFR ( Amer) Est GFR (Non-Af Amer) BUN/Creatinine Ratio Glucose POC Glucose 196 H 193 H Calculated Osmolality Calcium Phosphorus 5.1 H D Magnesium 1.8 - Impressions ITS Impressions KUB X-Ray 02/23/17 08:35 IMPRESSION: Supportive tubing projects in normal position. Bibasilar, patchy opacities, atelectasis versus pneumonia. D/ / Yakov Mitchell MD / Yakov Mitchell MD Interpreting Provider: Yakov Mitchell MD Chest X-Ray 02/23/17 14:33 IMPRESSION: Mild left basilar pneumonia. D/ / Noe Fair MD / Noe Fair MD Interpreting Provider: Noe Fair MD Chest X-Ray 02/25/17 00:03 IMPRESSION: Findings suggesting pulmonary edema. Pneumonia not excluded. Low ETT. Pullback as recommended above. D/ / Rosendo Nelson / Rosendo Nelson Interpreting Provider: Rosendo Nelson Chest X-Ray 02/26/17 13:59 IMPRESSION: 1. Right-sided PICC terminating in the SVC 2. Bibasilar infiltrates possibly representing pneumonia D/ / Parker Peace MD / Parker Peace MD Interpreting Provider: Parker Peace MD Chest X-Ray 02/28/17 09:22 IMPRESSION: Bilateral interstitial opacities with slightly increased left basilar airspace opacity. Findings may be related to edema and/or pneumonia. D/ / 02/28/2017 11:54:45 Adelita White MD / [facility] Interpreting Provider: Adelita White MD Chest X-Ray 03/04/17 20:24 IMPRESSION: 1. The left PICC line tip probably terminates in the region of the SVC. This study is limited with multiple overlying cardiac monitoring leads. A repeat radiograph with the cardiac monitoring leads removed as well as an RPO film may be of benefit for further evaluation. 2. Stable pulmonary vascular congestion with an associated left pleural effusion and left basilar atelectasis. 3. The right PICC line has been removed. D/ / 03/04/2017 21:54:00 Yakov Parada MD / ean Interpreting Provider: Yakov Parada MD Chest X-Ray 03/04/17 22:02 IMPRESSION: 1. Left PICC line tip terminates in the region of the SVC. D/ / 03/04/2017 23:01:07 Yakov Parada MD / ean Interpreting Provider: Yakov Parada MD Chest X-Ray 03/08/17 09:09 IMPRESSION: 1. Stable pulmonary vascular congestion with small bilateral pleural effusions and bibasilar atelectasis. D/ / Yakov Parada MD / Yakov Parada MD Interpreting Provider: Yakov Parada MD Abdomen X-Ray 03/08/17 10:31 IMPRESSION: Unremarkable bowel gas pattern. D/ / Femi Ahumada MD / Femi Ahumada MD Interpreting Provider: Femi Ahumada MD Chest X-Ray 03/10/17 07:28 IMPRESSION: Worsening consolidation in the medial left lung base could be due to pneumonia or atelectasis. Other stable areas of consolidation and pulmonary vascular indistinctness favor pulmonary edema. D/ / 03/10/2017 11:26:23 Indio Conti MD / Yaz Covarrubias Interpreting Provider: Indio Conti MD Date of admission: 02/22/17 21:52 Primary care physician: Jeff Cervantes MD Consults: 02/23/17 00:03 Consult to Valve Repairer [CONS] Routine Reason for SW Consult: Discharge planning 02/23/17 17:49 Consult to Invasive Line Access Team [CONS] Routine Reason for Consult: Limited vascular access Line Type: EPIV 02/26/17 09:35 Consult to Occupational Therapy [CONS] Routine Comment: Evaluate, develop and implement POC Reason for Consult: evaluate and develop POC Consult to Physical Therapy [CONS] Routine Comment: Evaluate, develop and implement POC Reason for Consult: evaluate and develop POC 02/26/17 09:57 Consult to Invasive Line Access Team [CONS] Routine Reason for Consult: PICC line placement Line Type: PICC 02/26/17 09:59 consult to online services manager [Consult to Nutrition] [CONS] Routine Comment: Total fluid rate will be goal TPN rate Consulting Provider: NUTRITION Reason for Dietary Consult: TPN Start and Manage 02/26/17 14:02 Consult to Invasive Line Access Team [CONS] Routine Reason for Consult: Picc Line Insertion Line Type: PICC 02/28/17 18:23 Consult to Cardiology [CONS] Routine Comment: Consulting Provider: Cardiology Kady Reason for Consult: elevated troponin Call Completed: Yes 03/02/17 08:16 Consult to Physical Therapy [CONS] Routine Comment: Evaluate, develop and implement POC Reason for Consult: weakness 03/03/17 07:21 Consult to Palliative Care [CONS] Routine Comment: Consulting Provider: Palliative Care Kady Reason for Consult: Future Care Call Completed: Yes 03/04/17 13:00 Consult to PICC team [Consult to Invasive Line Access Team] [CONS] Routine Reason for Consult: Picc Line Placement Line Type: PICC 03/04/17 20:49 Consult to Invasive Line Access Team [CONS] Routine Reason for Consult: Picc Line Insertion Line Type: PICC 03/08/17 07:25 Consult to Critical Care [CONS] Routine Consulting Provider: Pulm Crit Care & Sleep Kady Reason for Consult: Respiratory failure. Consult was originally on 03/08/17. Call Completed: Yes 03/10/17 10:11 Consult to Speech Therapy [CONS] Routine Comment: Evaluate, develop and implement POC Reason for Consult: possible aspiration, needs formal speech evaluation Call Completed: No 03/11/17 11:07 Consult to Palliative Care [CONS] Routine Comment: Consulting Provider: Palliative Bucky Hillman Reason for Consult: Goals of care Call Completed: Yes - Hospital Course Hospital course: Ms. Montana is a 71 year old female - Time Spent with Patient Total time spent providing and/or coordinating discharge services: Physical Examination Vital Signs: Vital Signs, Last 4 Hours Pulse Resp BP Pulse Ox 03/13/17 10:00 93 20 134/67 97 03/13/17 09:35 18 95 - Attending Attestation I examined this patient and my medical decision-making was reviewed with the Resident Physician. I agree with the documented findings, disposition and treatment plan as described except to the extent set forth below. We independently had [id number] contact with the patient 71-year-old woman with significant multiple medical comorbidities including chronic respiratory failure. Advanced COPD advanced heart failure who underwent emergent small bowel resection for obstruction. Prolonged hospitalization but unfortunately combination of malnutrition deconditioning and multiple comorbidities prevented complete recovery from this event and patient and family reasonably requested transition to palliative measures.
[2017-03-13 10:37] VITALS: BP 134/67
--- NOTE | 2017-03-13 10:56 | Event Note ---
Date of Encounter: 03/13/17 Time of Encounter: 10:53 Surgery attempted to evaluate patient. Stopped by bedside RN who notified us that patient and family have decided to transfer to Hospice services. She will be transferred to with plans to transition to home hospice if able. Surgery will sign off at this time. Thank you for allowing us to participate in Mrs. Montana's care.
--- NOTE | 2017-03-13 13:07 | Physician Discharge Referral ---
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 For more information, call the [employer] Tobacco Quit Line at 2-042-QAJF-NOW. - Transfer Medications Home Medications: Albuterol Sulfate [Albuterol Inhaler] 2 puff IH Q6H PRN 03/05/15 [History] Carvedilol 25 mg PO BID 03/05/15 [History] Esomeprazole Magnesium [Nexium] 40 mg PO DAILY 03/05/15 [History] Melatonin [Melatin] 3 mg PO HS 03/05/15 [History] Simvastatin 40 mg PO QPM 03/05/15 [History] Beclomethasone Diprop 80mcg [Qvar 80 mcg] 1 puff IH BID 05/25/16 [History] Buspirone HCl [Buspar] 5 mg PO BID 05/25/16 [History] Clopidogrel [Plavix] 75 mg PO DAILY 05/25/16 [History] Ezetimibe [Zetia] 10 mg PO DAILY 05/25/16 [History] GlipiZIDE XL (24 HR) [Glucotrol XL] 2.5 mg PO DAILY 05/25/16 [History] Ipratropium/Albuterol Neb [Duoneb] 3 ml IH Q6HR PRN 05/25/16 [History] Lipase/Protease/Amylase [Creon Dr 6,000 Units Capsule] 6,000 unit PO ACHS [History] Lisinopril [Zestril] 5 mg PO DAILY 05/25/16 [History] Oxycodone HCl 10 mg PO Q6H PRN 05/25/16 [History] Ranitidine HCl [Zantac] 150 mg PO BID 05/25/16 [History] Tizanidine HCl 2 mg PO Q8H PRN 05/25/16 [History] TraZODone 50 mg PO HS 05/25/16 [History] Venlafaxine [Effexor] 75 mg PO BID 05/25/16 [History] Warfarin [Coumadin] 2 mg PO DAILY 01/31/17 [History] Doxycycline 100 mg PO BID 02/22/17 [History] Furosemide [Lasix] 20 mg PO BID PRN 02/22/17 [History] Mirtazapine [Remeron] 15 mg PO HS 02/22/17 [History] Ranolazine [Ranexa] 500 mg PO BID 02/22/17 [History] Allergies/Adverse Reactions: 3 Allergy/AdvReac Type Severity Reaction Status Date / Time Latex, Natural Rubber Allergy Severe Swelling Verified 05/25/16 10:00 of Lip/Tongue/Throat Certification: Further, I certify that my clinical findings support that this patient is homebound (i.e. absences from home require considerable and taxing effort and are for medical reasons or anabaptism services or infrequently or short duration when for other reasons) because: Homebound Reason: Severity of cardiac or pulmonary status limits activity tolerance Attestation: My signature below is to certify that this patient is under my care and that I, or nurse practitioner, or a physician's health assistant working with me, has a face-to -face encounter with this patient.
[2017-03-13] MEDS ORDERED: *HR* Warfarin 2 MG TABLET PO SCH (18:00)
== END 2017-03-13 11:23 | disposition hospice, inpatient (51) | DRG 329 ==
LOC: 3NENU 18:02 → EMEROO 18:02 → SUATTDRO 21:52 → 3NENU 22:13 → 3ANU 02-24 21:05 → ICNU 02-24 23:17 → 3NENU 03-06 01:49 → ICNU 03-08 10:54 → 2ANU 03-13 11:20
PROVIDERS: ADMIT Pediatrics; ATTEND Student in an Organized Health Care Education/Training Program

== ENCOUNTER 2017-03-13 09:07 | Inpatient (IN) ==
[2017-03-13] MEDS ORDERED: Bisacodyl 10 MG RECTAL SUPPOSITORY RC PRN (09:10)
[2017-03-13] MEDS ORDERED: Albuterol 2.5 MG/3 ML NEBULIZER IH PRN (09:10)
[2017-03-13] MEDS ORDERED: *HR* Morphine 2 MG/ML SYRINGE IVP PRN (09:10)
[2017-03-13] MEDS ORDERED: Morphine Oral CONC 5 MG/0.25 ML ORAL.SYG PO PRN (09:10)
[2017-03-13] MEDS ORDERED: Ondansetron ODT 4 MG TAB.RAPDIS SL PRN (09:21)
--- NOTE | 2017-03-13 09:36 | Pallative History & Physical ---
Date of Encounter: 03/14/17 Time of Encounter: 08:30 Assessment and Plan (1) Acute on chronic respiratory failure Current visit: No Status: Acute comfrot measures [facility] hosp[facility] Qualifiers: Respiratory failure complication: hypercapnia Qualified Code(s): J96.22 - Acute and chronic respiratory failure with hypercapnia (2) Anxiety Current visit: No Status: Chronic meds in place (3) Abdominal pain Current visit: No Status: Acute comfrot measures [facility] meds in place Qualifiers: Abdominal location: generalized Qualified Code(s): R10.84 - Generalized abdominal pain (4) Goals of care, counseling/discussion Current visit: No Status: Acute comfrot measures [facility] hosp[facility] dnr cc Internal Medicine - H&P: HPI Admitted From: Intrahospital Transfer Plans for Post Hospital Care: Hospice - Home History of present illness: Ms. [place] is a 71 year old female With a history of acute on chronic respiratory failure status post small bowel resection for a Emigh obstructed bowel. It has had a very rough 17-18 day postop course. She does not wish to participate in any further therapy and family histocyte and they want to get her home as soon as possible. And therefore they have requested hospice care. She understands that she cannot be on the BiPAP all the time, and this will attempt we will attempt to wean this and TPN will be stopped. Patient is being made general inpatient for pain control and making sure that that and dyspnea control is under control before the patient goes home. Past Med Surg Social Fam HX - Past Medical History Medical history: atrial fibrillation, CHF, COPD, coronary artery disease, hyperlipidemia, hypertension, myocardial infarction, renal disease, TIA, other Psychiatric history: anxiety, depression - Past Surgical History Surgical History: angioplasty/stent, cholecystectomy, other (Partial hysterectomy, ankle surgery, bilateral shoulder surgery) - Social History Smoking Status: Current every day smoker Smokeless Tobacco Status: No Alcohol use: none Drug use: none - Family History Mother Hx Family Neuromuscular Disorders: Yes (epilipsy) Internal Medicine - H&P: Meds Albuterol Sulfate [Albuterol Inhaler] 2 puff IH Q6H PRN 03/05/15 [History] Carvedilol 25 mg PO BID 03/05/15 [History] Esomeprazole Magnesium [Nexium] 40 mg PO DAILY 03/05/15 [History] Melatonin [Melatin] 3 mg PO HS 03/05/15 [History] Simvastatin 40 mg PO QPM 03/05/15 [History] Beclomethasone Diprop 80mcg [Qvar 80 mcg] 1 puff IH BID 05/25/16 [History] Buspirone HCl [Buspar] 5 mg PO BID 05/25/16 [History] Clopidogrel [Plavix] 75 mg PO DAILY 05/25/16 [History] Ezetimibe [Zetia] 10 mg PO DAILY 05/25/16 [History] GlipiZIDE XL (24 HR) [Glucotrol XL] 2.5 mg PO DAILY 05/25/16 [History] Ipratropium/Albuterol Neb [Duoneb] 3 ml IH Q6HR PRN 05/25/16 [History] Lipase/Protease/Amylase [Creon Dr 6,000 Units Capsule] 6,000 unit PO ACHS [History] Lisinopril [Zestril] 5 mg PO DAILY 05/25/16 [History] Oxycodone HCl 10 mg PO Q6H PRN 05/25/16 [History] Ranitidine HCl [Zantac] 150 mg PO BID 05/25/16 [History] Tizanidine HCl 2 mg PO Q8H PRN 05/25/16 [History] TraZODone 50 mg PO HS 05/25/16 [History] Venlafaxine [Effexor] 75 mg PO BID 05/25/16 [History] Warfarin [Coumadin] 2 mg PO DAILY 01/31/17 [History] Doxycycline 100 mg PO BID 02/22/17 [History] Furosemide [Lasix] 20 mg PO BID PRN 02/22/17 [History] Mirtazapine [Remeron] 15 mg PO HS 02/22/17 [History] Ranolazine [Ranexa] 500 mg PO BID 02/22/17 [History] 3 Allergy/AdvReac Type Severity Reaction Status Date / Time Latex, Natural Rubber Allergy Severe Swelling Verified 05/25/16 10:00 of Lip/Tongue/Throat - Constitutional Constitutional ROS PAL: decreased appetite, lethargy - EENT Eyes: no discharge, no pain Ears: no ear discharge, no ear pain Ears, nose, mouth, throat: no dysphagia, no epistaxis, no facial pain - Cardiovascular Cardiovascular ROS: no chest pain, no chest pain at rest - Respiratory Respiratory: cough, dyspnea - Gastrointestinal Gastrointestinal: nausea, no diarrhea, no vomiting - Genitourinary Palliative ROS female: no urinary frequency, no urinary hesitancy, no urinary incontinence - Musculoskeletal Musculoskeletal ROS IM: arthralgias, back pain - Integumentary ROS Integumentary: wounds (Postop incisional midline), no skin ulcer - Neurological Neurological ROS: no headache(s), no lack of coordination, no memory loss - Psychiatric Psychiatric general PM: change in appetite, no confusion, no depression, no homicidal ideation, no hopelessness - Endocrine Endocrine IM: other Palliative Care-Exam - Constitutional General appearance: Present: no acute distress - Head Head Exam: Present: atraumatic, normal inspection - Eye Eye exam: Present: EOMI, normal appearance - ENT ENT exam: Present: mucous membranes moist - Respiratory Respiratory exam: Present: decreased breath sounds, rhonchi - Cardiovascular Cardiovascular exam: Present: RRR - GI/Abdominal Exam GI/Abdominal exam: Present: diminished bowel sounds, soft. Absent: tenderness ( No tenderness outside expected.) - Extremities Exam Extremities exam: Absent: tenderness - Neurological Exam Neurological exam: Present: alert - Psychiatric Psychiatric exam: Present: normal affect, normal mood. Absent: agitated, anxious, flat affect - Skin Skin exam: Present: dry, warm Palliative Quality Palliative Quality: Screen for Code Status: Yes, Screen for Goals of Care: Yes, Screen for Pain: Yes, If Pain Regimen Started, Initiate Bowel Regimen: Yes, Screen for Nausea/Vomitting: Yes Code Status: 03/13/17 09:10 Resuscitation Status: Active [RES] Stat Resuscitation Status: DNR-Comfort Care Comment:
--- NOTE | 2017-03-13 10:34 | Event Note ---
Date of Encounter: 03/13/17 Time of Encounter: 08:30 Hospice medical bill processor certification of terminal illness: Hospice benefit. Start: 03/13/2017 Hospice benefit. In: +90 days Palliative performance scale: 30-40% History: Patient with history of acute on chronic respiratory failure recently status post approximately 18 days ago all bowel resection for obstruction and ischemia is not wish to do any further aggressive therapy. Patient also has comorbidities of adult failure to thrive wish to continue to get artificial feeding in the way of TPN does not wish to have any tube feeds. She has been using a great deal of BiPAP but wishes to wean from this. She wishes to go home. Given her desire for no further aggressive therapy, her extremely frail state her poor by mouth intake and her respiratory failure I believe that These findings support a life expectancy of 6 months or less. We will observe closely in interdisciplinary team meetings, Lenorah I do believe that she will change it to decline as her by mouth intake is quite poor and her TPN is being stopped. I attest that I have compose the above narrative based on my review of the patient's medical records, and or on my examination of the patient. Endre Reis M.D. Associate medical administrative. [facility]
[2017-03-13] MEDS ORDERED: *HR* FentaNYL PATCH 25 MCG PATCH TD SCH (11:45)
[2017-03-13 12:04] VITALS: BP 132/72
[2017-03-13] MEDS ORDERED: *HR* Morphine 2 MG/ML SYRINGE ONE (12:39)
[2017-03-13] MEDS: Nystatin SUSP 5 ML UD.LIQ PO SCH ×3 (12:40→21:35)
[2017-03-13] MEDS: *HR* Morphine 2 MG/ML SYRINGE IVP PRN ×3 (12:48→21:21)
[2017-03-13] MEDS: *HR* HYDROmorphone (PF) 1 MG/ML SYRINGE IVP PRN ×2 (14:20→14:45)
[2017-03-13] MEDS ORDERED: *HR* HYDROmorphone (PF) 1 MG/ML SYRINGE ONE (14:21)
[2017-03-13] MEDS: *HR* LORazepam Oral Conc 2 MG/ML PO PRN ×3 (14:24→22:58)
[2017-03-13] MEDS ORDERED: *HR* HYDROmorphone 2 MG/ML SYRINGE IVP PRN (15:03)
[2017-03-13] MEDS ORDERED: *HR* HYDROmorphone 4 MG TABLET PO PRN (15:05)
[2017-03-13] MEDS: Morphine Oral CONC 5 MG/0.25 ML ORAL.SYG PO PRN ×7 (15:19→19:17)
[2017-03-13] MEDS: Beclomethasone 80mcg MDI IH SCH ×2 (16:35→20:29)
[2017-03-13] MEDS ORDERED: 0.9 % Sodium Chloride 1,000 ML ONE (20:50)
[2017-03-13] MEDS: *HR* Morphine 30 MG/ 30 ML PCA IVC SCH (20:53)
[2017-03-13] MEDS ORDERED: traZODone 50 MG TABLET PO SCH (21:00)
[2017-03-13] MEDS: Sennosides/Docusate Sodium TABLET PO SCH (21:35)
--- NOTE | 2017-03-14 08:02 | Palliative Progress Note ---
Date of Encounter: 03/14/17 Time of Encounter: 07:15 - Assessment and plan (1) Acute on chronic respiratory failure Current Visit: No Status: Acute Assessment and plan: [facility] Qualifiers: Respiratory failure complication: hypercapnia Qualified Code(s): J96.22 - Acute and chronic respiratory failure with hypercapnia (2) Anxiety Current Visit: No Status: Chronic Assessment and plan: meds in place no evidence of anxiety at this time continue current meds (3) Abdominal pain Current Visit: No Status: Acute Assessment and plan: [facility] meds in place to new current meds pain appears to be well controlled. Qualifiers: Abdominal location: generalized Qualified Code(s): R10.84 - Generalized abdominal pain (4) Goals of care, counseling/discussion Current Visit: No Status: Acute Assessment and plan: [facility] dnr cc she is currently requiring a constant infusion of medications. Therefore the patient fully meets GIP criteria keep her comfortable. Looking at a possibility the patient going home however I do not believe that this will be before the end of the weekend. Continue to check daily. - Time Spent With Patient Total time spent is greater than 50% in coordination of care (as documented) at patient's floor/unit and/or counseling patient: - Subjective Interval history: Now on morphine drip. family states she is comfortable and they are happy with her current state. They request no changes. - Constitutional General appearance: Present: no acute distress - Head Head exam: Present: atraumatic, normal inspection - Eye Eye exam: Present: normal appearance - Respiratory Respiratory exam: Present: decreased breath sounds - Cardiovascular Cardiovascular exam: Present: RRR - GI/Abdominal GI/Abdominal exam: Present: hypoactive bowel sounds, soft - Extremities Exam Extremities exam: Absent: tenderness - Neurological Exam Neurological exam: Present: altered - Skin Skin exam: Present: dry, warm Palliative Quality Palliative Quality: Screen for Code Status: Yes, Screen for Goals of Care: Yes, Screen for Pain: Yes, If Pain Regimen Started, Initiate Bowel Regimen: Yes, Screen for Nausea/Vomitting: Yes Code Status: 03/13/17 09:10 Resuscitation Status: Active [RES] Stat Comment: Resuscitation Status: DNR-Comfort Care Consult Discharge Plan - Plan Referrals: Jeff Cervantes MD [Primary Care Provider] -
[2017-03-14] MEDS: Sennosides/Docusate Sodium TABLET PO SCH (08:46)
[2017-03-14] MEDS: Nystatin SUSP 5 ML UD.LIQ PO SCH (08:46)
[2017-03-14] MEDS: *HR* LORazepam 2 MG/ML VIAL IVP PRN ×3 (08:47→13:35)
[2017-03-14] MEDS ORDERED: Nicotine 14 MG PATCH.TD24 TD SCH (09:00)
[2017-03-14] MEDS ORDERED: Furosemide 40 MG TABLET PO SCH (09:00)
[2017-03-14] MEDS: *HR* Morphine 2 MG/ML SYRINGE IVP PRN (11:42)
[2017-03-14] MEDS: *HR* Morphine 30 MG/ 30 ML PCA IVC SCH (11:58)
[2017-03-14] MEDS ORDERED: *HR* LORazepam Oral Conc 2 MG/ML PO PRN (13:03)
--- NOTE | 2017-03-14 15:00 | Death Note ---
Discharge Sum: Summary - Date and Time Date of admission: 03/13/17 11:28 Date of : 03/14/17 Time of : 14:25 - Summary Details: The patient was brought onto the general inpatient hospice service for to control for shortness of breath as well as for pain. The patient's terminal diagnosis was acute on chronic respiratory failure comorbidities were a recent surgery for bowel obstruction. As well as hypertension coronary artery disease L disease and history of heart failure. Agent symptoms were managed aggressively, as comfortable and passed quietly. Family had just left, hospice nurse was in attendance at the time of patient's passing. She was a smoker Comorbidities A. fib, CHF, I pretension, and coronary artery disease. Cause of acute on chronic respiratory failure for years. - Additional Data Confirmation of as documented by pronouncing clinician: no pulse, no respirations, no heart sounds Family: contacted Additional persons at bedside: other (hospice nurse) Attending/PCP notified?: Yes Attending physician: Ender Reis MD Was code activated?: No Autopsy requested?: No workers compensation examiner notified?: No Organ bank notified?: Yes Advance directives: Yes Hospice patient?: Yes Discharge Sum: Diag - PCOD Probable Cause of : Respiratory arrest Discharge Sum: Prov - Provider Primary care physician: Jeff Cervantes MD Consults: 03/13/17 09:10 Consult to Palliative Care [CONS] Routine Comment: Consulting Provider: Palliative Care Kady Reason for Consult: coverage Call Completed: Yes
== END 2017-03-14 16:15 | disposition expired | DRG 189 ==
LOC: 2ANU 11:28
PROVIDERS: ADMIT Family Medicine Hospice and Palliative Medicine; ATTEND Family Medicine Hospice and Palliative Medicine